=== PATIENT | female | born 1945 | race Caucasian/White ===

== ENCOUNTER → 2018-02-11 14:55 | Outpatient (CLI) | payer MEDICARE, SELFPAY ==
[2018-02-11 16:16] LABS: Anion Gap 9 (5-15); BUN 27 mg/dL (7-18); BUN/Creat Ratio 25.7 RATIO (10-20); Calcium,Total 8.8 mg/dL (8.5-10.1); Chloride 106 mmol/L (98-107); Cholesterol 209 mg/dL (200); Creatinine, Serum 1.05 mg/dL (0.55-1.02); EST Glomerular Filtration Rate 54 mL/min (>60); Est Glom Filt Rate - Afr Amer 66 mL/min (>60); Glucose 149 mg/dL (74-106); High Density Lipoprotein 33 mg/dL; Sodium Level 139 mmol/L (136-145); Thyroid Stim Hormone (TSH) 2.14 uIU/mL (0.358-3.74); Triglycerides 446 mg/dL
== END ==
PROVIDERS: Family Provider Family Medicine; PCP Family Medicine; Visit Provider Family Medicine
DX: Z00.00 Encounter for general adult medical examination without abnormal findings (principal); I10 Essential (primary) hypertension; F32.9 Major depressive disorder, single episode, unspecified
CPT/HCPCS: 36415; 80048; 80061; 84443

== ENCOUNTER 2018-11-09 03:56 | Emergency (ER) | payer MEDICARE, SELFPAY ==
[2018-11-09 03:57] VITALS: BP 161/62; PULSE 80; RESP 22; TEMP 37; O2SAT 94; BMI 35.8
[2018-11-09 03:59] VITALS: BP 161/62; PULSE 80; RESP 22; TEMP 37; O2SAT 94
[2018-11-09 04:00] VITALS: PULSE 77; RESP 22; O2SAT 93; O2SAT 94
--- NOTE | 2018-11-09 04:46 | EKG12_ITS ---
Test Reason : SOB Blood Pressure : / mmHG Vent. Rate : 078 BPM Atrial Rate : 078 BPM P-R Int : 148 ms QRS Dur : 114 ms QT Int : 438 ms P-R-T Axes : 044 045 054 degrees QTc Int : 499 ms Normal sinus rhythm Incomplete right bundle branch block Nonspecific ST abnormality Prolonged QT Abnormal ECG Confirmed by ELEN CHOWDHURY, YESSI ([id number]), food editor NELYL BAZZI ([id number] on 11/11/2018 2:37:10 PM Referred By: ADIS Confirmed By:YESSI MYRICK MD
--- NOTE | 2018-11-09 04:50 | ED.VIS.GEN ---
History of Present Illness Chief Complaint: Shortness of Breath Informant: Patient Onset: Days - 3 Context: Gradual Onset Timing: Continuous Quality: [employer] cough, sob Location: chest Current Severity: Mild Maximum Severity: Moderate Worsened by: coughing Relieved by: nothing in particular Associated Symptoms: congestion, chest tightness. no fevers. Narrative: Has a history of heart disease with mild coronary artery disease from a heart cath a year or 2 ago, concerned that she may be straining her heart because she is coughing so much in the last couple days. She is unable to sleep tonight because she is coughing so much. It is nonproductive. She is having some shortness of breath. - Past Medical History (1) GERD (gastroesophageal reflux disease) Status: Chronic (2) CAD (coronary artery disease), [place] coronary artery Status: Chronic (3) Aortic valve stenosis, rheumatic Status: Chronic (4) Diastolic dysfunction Status: Chronic (5) HTN (hypertension) Status: Chronic (6) Hypokalemia Status: Chronic (7) Hypothyroidism Status: Chronic (8) Rheumatic mitral insufficiency Status: Chronic Past Medical History - Allergies and Home Meds Allergies/Adverse Reactions: Allergies Penicillins Allergy (Verified 11/09/18 03:59) facial redness Primary Care Physician: Gal Butler MD [Primary Care Provider] - Smoking Status: Former smoker Review of Systems General: Reports: Malaise. Denies: Chills, Fever, Sweats Eyes: Denies: Visual changes - bilaterally, Diplopia ENT: Reports: Rhinorrhea, Sore throat - Mild, due to coughing. Denies: Bilateral ear pain Cardiovascular: Reports: Chest pain. Denies: Palpitations, Heart racing Respiratory: Reports: Dyspnea, Cough. Denies: Sputum, Dyspnea on exertion, Orthopnea Gastrointestinal: Denies: Abdominal pain, Nausea, Vomiting, Diarrhea, Melena, Hematochezia Genitourinary: Denies: Dysuria, Hematuria, Frequency Musculoskeletal: Denies: Swelling, Extremity Pain Skin: Denies: Rash, Wounds Neurological: Denies: Headache, Weakness, Numbness Psych: Denies: Depression, Anxiety Endocrine: Denies: Polyuria, Polydipsia Hematologic: Denies: Easy bruising, Easy bleeding Allergy: Denies: Swelling of the mouth, Swelling of the tongue Physical Exam Vital Signs/Narrative: Vital Signs Temp Pulse Resp BP Pulse Ox 11/09/18 04:00 77 22 H 94 11/09/18 03:59 98.6 F 80 22 H 161/62 H 94 11/09/18 03:57 98.6 F 80 22 H 161/62 H 94 Inital Vital Signs reviewed: Yes General: Well nourished, Well developed, - - No acute distress. Bronchitic cough. Head: Normocephalic, Atraumatic Eyes: Perrl, EOMI ENT: Moist mucous membranes, No rhinorrhea Neck: Supple, Nontender Cardiovascular: Regular rate, Regular rhythm, Murmur - Systolic crescendo Respiratory: No distress, Chest nontender, Rhonchi - Bibasilar, Chest tenderness - Diffuse mild tenderness. Negative for: Rales, Wheezing Abdomen: Soft, Nontender, Nondistended, Normal bowel sounds Back: Nontender, Normal Inspection Extremities: Nontender, No edema Skin: Normal color, No rash Neurological: Alert, Oriented x3, Cranial nerves II-XII grossly intact, Normal Strength, Normal Sensation Psychological: Normal affect Diagnostic/Tx/Re-eval Impressions Chest X-Ray 11/09/18 05:15 IMPRESSION: Interstitial density at both lung bases left greater than right. Cannot exclude acute pneumonia on chronic interstitial lung disease, particularly involving the left lower lobe. No significant change since the prior study. Electronically Signed: Alvaro Rivera MD at 5:39 EST , Service support , 11/09/18 05:15 Chest PA and Lateral [RAD] Stat Laboratory Results 11/09/18 11/09/18 11/09/18 04:00 04:00 04:00 WBC 13.9 H RBC 4.58 Hgb 14.9 Hct 43.7 MCV 95.4 MCH 32.5 H MCHC 34.1 RDW 12.2 RDW Differential 41.8 Plt Count 269 MPV 10.0 Immature Gran % (Auto) 0.400 Neut % (Auto) 68.5 Lymph % (Auto) 20.0 Long % (Auto) 9.9 Eos % (Auto) 0.9 Baso % (Auto) 0.3 Absolute Neuts (auto) 9.5 H Absolute Lymphs (auto) 2.77 Total Counted Not Reportable Sodium 138 Potassium 3.9 Chloride 102 Carbon Dioxide 25.0 Anion Gap 11 BUN 16 Creatinine 0.84 Estim Creat Clear Calc 47.87 Est GFR (MDRD) Af Amer 84 Est GFR (MDRD) Non-Af 70 BUN/Creatinine Ratio 19.0 Glucose 120 H Calcium 8.9 Troponin I < 0.015 B-Natriuretic Peptide 122.6 H - Rhythm Strip Rhythm Strip: Sinus Rhythm Rate: 80 Ectopy: None - EKG Initial EKG Interpretation: Sinus Rhythm, No Acute Injury Pattern, - - Incomplete right bundle branch block. Normal axis. Normal intervals. Otherwise normal EKG. - Medical Decision Making Patient really feels no different after nebulizer treatment, she is complaining more of her cough than of shortness of breath. She is having some muscle spasms on the left side of her chest. Her cardiac workup is negative, and her chest x-ray shows interstitial disease and possible early pneumonia. She has not been hospitalized recently. Her vital signs are stable and she is not hypoxic. She is malaised, and she lives alone. I offered admission, but she declines and prefers to go home. Will prescribe her Levaquin to cover pneumonia and have her follow-up with her doctor. She is comfortable with that plan. Also discussed with the son and answered several questions at the bedside. ED Disposition - Plan for ED Patient: Disposition: Home or Assisted Living Chief Complaint: Shortness of Breath Diagnosis: Lower respiratory tract infection, Muscular chest pain Instructions: ED Pneumonia Adult Prescriptions: Albuterol Inhaler [Ventolin Hfa] 1 - 2 puff INHALATION Q4H PRN PRN #1 inhaler PRN Reason: Wheezing Fluconazole [Diflucan] 150 mg PO X1 #1 tablet Levofloxacin [Levaquin] 750 mg PO DAILY #5 tablet Referrals: Gal Butler MD [Primary Care Provider] - 3-5 Days
[2018-11-09] MEDS: Ipratropium/Albuterol Sulfate 3 ML AMPUL.NEB INHALATION (04:57)
[2018-11-09 04:58] VITALS: PULSE 77; RESP 16
[2018-11-09 05:14] LABS: Absolute Lymphocyte Count 2.77 X10^3/ul (0.83-4.51); Absolute Neutrophil Count 9.5 X10^3/uL (2.0-7.7); Basophil# 0.04 X10^3/uL; Basophil% 0.3 % (0-1); Eosinophil# 0.12 X10^3/uL; Eosinophils% 0.9 % (0-5); Hematocrit 43.7 % (37-47); Hemoglobin 14.9 g/dl (12.0-15.0); Lymphocyte # 2.77 X10^3/ul (4.0); Mean Corp Hgb Conc 34.1 g/gl (32-36); Mean Corpuscular Hgb 32.5 pg (27.0-32.0); Mean Corpuscular Volume 95.4 fL (81-99); Monocyte# 1.37 X10^3/uL; Monocyte% 9.9 % (0-10); Neutrophil # 9.53 X10^3/uL (2.7-7.7); Neutrophil % 68.5 % (47-70); Platelet Count 269 K/mm3 (150-450); RBC Distribution Width CV 12.2 % (11.6-14.6); RBC Distribution Width SD 41.8 fl (35.1-43.9); Red Blood Count 4.58 M/mm3 (4.2-5.4); White Blood Count 13.9 K/mm3 (4.4-11.0)
--- NOTE | 2018-11-09 05:15 | RAD_ITS ---
STUDY: X-RAY CHEST REASON FOR EXAM: Female, 73 years old. Cough with shortness of breath. TECHNIQUE: PA and lateral chest. COMPARISON: January 23, 2018. FINDINGS: Interstitial density at both lung bases left much greater than right without significant change. No effusions. No pneumothorax. Normal size heart. Normal mediastinum and dave. Normal visualized pulmonary arteries. Normal visualized aortic arch and descending thoracic aorta. Normal visualized thoracic spine. Normal visualized ribs, clavicles, and shoulders. There is no demonstrated abnormality of the visualized soft tissue structures of the upper abdomen. RAD/Chest PA and Lateral IMPRESSION: Interstitial density at both lung bases left greater than right. Cannot exclude acute pneumonia on chronic interstitial lung disease, particularly involving the left lower lobe. No significant change since the prior study. Electronically Signed: Alvaro Rivera MD at 5:39 EST , Service support ,
[2018-11-09 05:26] LABS: Anion Gap 11 (5-15); BUN 16 mg/dL (7-18); Calcium,Total 8.9 mg/dL (8.5-10.1); Chloride 102 mmol/L (98-107); Creatinine, Serum 0.84 mg/dL (0.55-1.02); EST Glomerular Filtration Rate 70 mL/min (>60); Est Glom Filt Rate - Afr Amer 84 mL/min (>60); Estimated Creatinine Clearance 47.87 ml/min; Glucose 120 mg/dL (74-106); Potassium 3.9 mmol/L (3.5-5.1); Sodium Level 138 mmol/L (136-145)
[2018-11-09 05:35] LABS: POSITIVE COUNT NO; POSITIVE DIFFERENTIAL NO; POSITIVE MORPHOLOGY NO
[2018-11-09 05:43] LABS: BNP,B-Type NATRIURETIC PEPTIDE 122.6 pg/mL (0-100)
[2018-11-09 05:52] VITALS: BP 133/65; PULSE 83; RESP 23; TEMP 37.3; O2SAT 95
[2018-11-09 07:12] VITALS: BP 133/58; PULSE 81; RESP 16; TEMP 37.3; O2SAT 97
== END 2018-11-09 07:18 | disposition home or self-care (01) ==
PROVIDERS: Emergency Provider Emergency Medicine; Family Provider Family Medicine; PCP Family Medicine
DX: J22 Unspecified acute lower respiratory infection (principal); R07.89 Other chest pain; I25.10 Atherosclerotic heart disease of native coronary artery without angina pectoris; I08.0 Rheumatic disorders of both mitral and aortic valves; I10 Essential (primary) hypertension; E87.6 Hypokalemia; I45.10 Unspecified right bundle-branch block; K21.9 Gastro-esophageal reflux disease without esophagitis; Z79.899 Other long term (current) drug therapy; Z88.0 Allergy status to penicillin; Z87.891 Personal history of nicotine dependence
CPT/HCPCS: 71046; 80048; 83880; 84484; 85025; 93005; 94640; 99285; A4216

== ENCOUNTER → 2018-11-12 11:30 | Outpatient (CLI) | payer MEDICARE, SELFPAY ==
[2018-11-09 03:57] VITALS: BMI 35.8
[2018-11-12 14:26] LABS: Anion Gap 14 (5-15); BUN 13 mg/dL (7-18); BUN/Creat Ratio 17.4 RATIO (10-20); Calcium,Total 8.8 mg/dL (8.5-10.1); Chloride 105 mmol/L (98-107); Creatinine, Serum 0.75 mg/dL (0.55-1.02); EST Glomerular Filtration Rate 80 mL/min (>60); Est Glom Filt Rate - Afr Amer 97 mL/min (>60); Glucose 93 mg/dL (74-106); Sodium Level 143 mmol/L (136-145)
== END ==
PROVIDERS: Family Provider Family Medicine; PCP Family Medicine; Visit Provider Family Medicine
DX: Z02.9 Encounter for administrative examinations, unspecified (principal)
CPT/HCPCS: 36415; 80048

== ENCOUNTER → 2018-11-17 14:29 | Outpatient (CLI) | payer MEDICARE, SELFPAY ==
[2018-11-09 03:57] VITALS: BMI 35.8
--- NOTE | 2018-11-17 14:35 | CT_ITS ---
STUDY: CT CHEST WITH CONTRAST REASON FOR EXAM: Female, 73 years old. Interstitial lung disease. Pneumonia. RADIATION DOSAGE (If Supplied By Facility): CTDIvol = ( 15.66 ) mGy, DLP = ( 587.65 ) mGycm TECHNIQUE: Transaxial imaging was performed following intravenous administration of 100 ml of Isovue 300 contrast material. Coronal and sagittal reformatted images were created. Individualized dose optimization techniques were used for this CT. COMPARISON: None FINDINGS: There are peripheral increased interstitial markings with subpleural reticulation. There is more focal opacity at the lung bases which is likely infectious in etiology. There are no pulmonary nodules or masses. There is no pneumothorax. The heart and pericardium are within normal limits. There are mitral valvular calcifications. There is no thoracic lymphadenopathy. There is no evidence of thoracic aortic aneurysm. There is a moderate hiatal hernia noted. The liver is nodular in contour, suggesting cirrhosis. There are no destructive osseous lesions. CT/Chest WITH Contrast IMPRESSION: Peripheral increased interstitial markings with subpleural reticulation. 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 Focal opacity at the lung bases which is likely infectious in etiology. Mitral valvular calcifications. Moderate hiatal hernia. Nodular liver, suggesting cirrhosis. Electronically Signed: Rajinder Parker, at 16:11 EST Tel , Service support ,
== END ==
PROVIDERS: Family Provider Family Medicine; PCP Family Medicine; Referring Provider Family Medicine; Visit Provider Family Medicine
DX: J84.9 Interstitial pulmonary disease, unspecified (principal)
CPT/HCPCS: 71260; Q9967

== ENCOUNTER → 2018-11-19 15:41 | Outpatient (CLI) | payer MEDICARE, SELFPAY ==
[2018-11-09 03:57] VITALS: BMI 35.8
[2018-11-19 18:03] LABS: ALB/GLOB Ratio 0.8 RATIO (0.9-2.4); AST(SGOT) 12 U/L (15-37); Alanine Aminotransfer ALT/SGPT 23 U/L (13-56); Albumin, Serum 3.3 g/dL (3.2-5.0); Alkaline Phosphatase 47 U/L (45-117); Anion Gap 9 (5-15); BUN 20 mg/dL (7-18); BUN/Creat Ratio 24.9 RATIO (10-20); Calcium,Total 8.9 mg/dL (8.5-10.1); Chloride 105 mmol/L (98-107); EST Glomerular Filtration Rate 74 mL/min (>60); Est Glom Filt Rate - Afr Amer 90 mL/min (>60); Globulin 4.3 g/dL (2.2-4.2); Glucose 92 mg/dL (74-106); Iron 190 ug/dL (50-170); Iron Binding Capacity,Total 223 ug/dL (250-450); PERCENT IRON SATURATION 85.2 % (15.0-55.0); Potassium 3.5 mmol/L (3.5-5.1); Protein, Total 7.6 g/dL (6.4-8.2); Sodium Level 140 mmol/L (136-145)
== END ==
PROVIDERS: Family Provider Family Medicine; PCP Family Medicine; Referring Provider Family Medicine; Visit Provider Family Medicine
DX: K74.60 Unspecified cirrhosis of liver (principal); E83.119 Hemochromatosis, unspecified
CPT/HCPCS: 36415; 80053; 83540; 83550

== ENCOUNTER → 2019-06-07 14:53 | Outpatient (CLI) | payer MEDICARE, SELFPAY ==
[2019-05-21 09:44] VITALS: BMI 35.8
[2019-06-07 11:50] LABS: AST(SGOT) 17 U/L (15-37); Alanine Aminotransfer ALT/SGPT 20 U/L (13-56); Albumin, Serum 3.3 g/dL (3.2-5.0); Alkaline Phosphatase 57 U/L (45-117); Cholesterol 175 mg/dL (200); Globulin 3.8 g/dL (2.2-4.2); High Density Lipoprotein 36 mg/dL; Protein, Total 7.1 g/dL (6.4-8.2); Triglycerides 276 mg/dL; Very Low Density Lipoprotein 55 mg/dL (5-40)
== END ==
PROVIDERS: Family Provider Family Medicine; PCP Family Medicine; Referring Provider Internal Medicine Cardiovascular Disease; Visit Provider Internal Medicine Cardiovascular Disease
DX: I25.10 Atherosclerotic heart disease of native coronary artery without angina pectoris (principal)
CPT/HCPCS: 36415; 80061; 80076; 93306; Q9957; A4216; C8929

== ENCOUNTER → 2019-09-27 12:02 | Outpatient (CLI) | payer MEDICARE, SELFPAY ==
[2019-05-21 09:44] VITALS: BMI 35.8
[2019-09-27 14:25] LABS: Anion Gap 9 (5-15); BUN 21 mg/dL (7-18); BUN/Creat Ratio 20.8 RATIO (10-20); Calcium,Total 9.6 mg/dL (8.5-10.1); Chloride 103 mmol/L (98-107); Cholesterol 190 mg/dL (200); Creatinine, Serum 1.01 mg/dL (0.55-1.02); EST Glomerular Filtration Rate 57 mL/min (>60); Est Glom Filt Rate - Afr Amer 68 mL/min (>60); Glucose 98 mg/dL (74-106); High Density Lipoprotein 36 mg/dL; Potassium 4.1 mmol/L (3.5-5.1); Sodium Level 139 mmol/L (136-145); Thyroid Stim Hormone (TSH) 2.31 uIU/mL (0.358-3.74); Triglycerides 211 mg/dL; Very Low Density Lipoprotein 42 mg/dL (5-40)
== END ==
PROVIDERS: Family Provider Family Medicine; PCP Family Medicine; Visit Provider Family Medicine
DX: I10 Essential (primary) hypertension (principal); E03.9 Hypothyroidism, unspecified
CPT/HCPCS: 36415; 80048; 80061; 84443

== ENCOUNTER 2019-10-07 23:40 | Inpatient (IN) | payer MEDICARE, MEDICAID, SELFPAY ==
[2019-05-21 09:44] VITALS: BMI 35.8
[2019-10-07 23:45] VITALS: BP 130/90; PULSE 66; RESP 20; TEMP 35.3; O2SAT 95; BMI 34.4
--- NOTE | 2019-10-07 23:54 | EKG12_ITS ---
Test Reason : DIZZINESS Blood Pressure : / mmHG Vent. Rate : 062 BPM Atrial Rate : 062 BPM P-R Int : 180 ms QRS Dur : 128 ms QT Int : 532 ms P-R-T Axes : 076 070 044 degrees QTc Int : 539 ms Normal sinus rhythm Non-specific intra-ventricular conduction block Abnormal ECG Confirmed by MIN CHOWDHURY, AGGIE ([id number]), scientific publications editor NELLY BAZZI ([id number]) on 10/11/2019 11:41:00 AM Referred By: VASQUEZ Confirmed By:AGGIE COPELAND MD
--- NOTE | 2019-10-07 23:56 | ED.VIS.GEN ---
History of Present Illness Chief Complaint: Nausea/Vomiting/Diarrhea Informant: Patient Onset: Weeks Current Severity: Moderate Maximum Severity: Moderate Narrative: Patient presents with complaints of nausea, vomiting, dizziness. She states for the past week she had nausea and dizziness. Tonight she started with vomiting and diarrhea as well. She is unable to describe for me whether her dizziness is lightheadedness or spinning. She does, however, states that any movement makes her dizziness worse. She denies chest pain or palpitations. She denies recent fall or head injury. Patient states she did get her flu shot 4 days ago. Her doctor also started her on something new for depression at that time. She states she did not start that until a day or 2 later. After taking that new medication she felt dizzy. - Past Medical History (1) Aortic valve stenosis, rheumatic Status: Chronic (2) Atherosclerotic heart disease of [place] coronary artery without angina pectoris Status: Chronic Comment: Mild (3) Essential hypertension Status: Chronic (4) GERD (gastroesophageal reflux disease) Status: Chronic (5) Hypothyroidism Status: Chronic (6) Mixed hyperlipidemia Status: Chronic Past Medical History - Allergies and Home Meds Allergies/Adverse Reactions: Allergies Penicillins Allergy (Verified 05/21/19 09:44) facial redness Primary Care Physician: Gal Butler MD [Primary Care Provider] - Prior records reviewed: Yes Surgical History: hysterectomy Smoking Status: Former smoker Review of Systems General: Denies: Chills, Fever Eyes: Denies: Visual changes - bilaterally ENT: Denies: Bilateral ear pain Cardiovascular: Denies: Chest pain Respiratory: Reports: Dyspnea Gastrointestinal: Reports: Nausea, Vomiting, Diarrhea. Denies: Abdominal pain Genitourinary: Denies: Dysuria Musculoskeletal: Denies: Extremity Pain Skin: Denies: Rash Neurological: Denies: Headache Psych: Reports: Anxiety Allergy: Denies: Uticaria Physical Exam Vital Signs/Narrative: Vital Signs Temp Pulse Resp BP Pulse Ox 10/07/19 23:45 95.5 F L 66 20 H 130/90 H 95 Inital Vital Signs reviewed: Yes General: Well nourished Head: Normocephalic ENT: Moist mucous membranes Neck: Supple Cardiovascular: Regular rate, Regular rhythm Respiratory: No distress, CTA bilaterally Abdomen: Soft, Nontender, Hypoactive bowel sounds Skin: Pallor Neurological: Alert Psychological: - - Anxious Diagnostic/Tx/Re-eval Impressions Brain CT 10/08/19 00:05 IMPRESSION: No CT evidence of acute infarct or hemorrhage. If there is clinical concern for hyperacute ischemia that is not evident by CT, MRI should be considered if possible. Electronically Signed: Serge Bailey MD at 1:12 EST Tel , Service support , 10/08/19 00:05 Brain/Head without Contrast [CT] Stat Laboratory Results 10/07/19 10/07/19 10/08/19 23:59 23:59 01:28 WBC 9.6 RBC 4.74 Hgb 15.4 H Hct 43.9 MCV 92.6 MCH 32.5 H MCHC 35.1 RDW Std Deviation 38.9 RDW Coeff of [place] 11.5 L Plt Count 242 MPV 9.4 Immature Gran % (Auto) 0.300 Neut % (Auto) 46.6 L Lymph % (Auto) 39.4 [place] % (Auto) 11.1 H Eos % (Auto) 1.9 Baso % (Auto) 0.7 Absolute Neuts (auto) 4.5 Absolute Lymphs (auto) 3.76 Nucleated RBC % 0 Sodium 139 Potassium 3.2 L Chloride 104 Carbon Dioxide 25.0 Anion Gap 10 BUN 27 H Creatinine 1.30 H Estim Creat Clear Calc 31.79 Est GFR (MDRD) Af Amer 51 L Est GFR (MDRD) Non-Af 42 L BUN/Creatinine Ratio 20.8 H Glucose 136 H Calcium 8.7 Total Bilirubin 0.30 Direct Bilirubin 0.11 AST 16 ALT 18 Alkaline Phosphatase 49 Total Protein 7.7 Albumin 3.5 Globulin 4.2 Lipase 34 L Urine Color Yellow Urine Clarity Clear Urine pH 6.0 Ur Specific [place] 1.015 Urine Protein Negative Urine Glucose (UA) Normal Urine Ketones Negative Urine Occult Blood 10 H Urine Nitrite Negative Urine Bilirubin Negative Urine Urobilinogen Normal Ur Leukocyte Esterase 25 H Urine RBC 0-5 SEEN Urine WBC 0-5 SEEN Ur Squamous Epith Cells 0-5 SEEN Urine Bacteria RARE Hyaline Casts 0-5 SEEN Urine Mucus RARE - EKG Initial EKG Interpretation: Sinus Rhythm - Sinus at 62. No acute ischemia. - Medical Decision Making Patient was initially given Zofran on arrival. Due to continued nausea she did receive a dose of Phenergan. It is noted that the patient would become bradycardic when she was having dry heaves and vomiting. This is consistent with a vagal reaction and patient's heart rate would quickly recover. She did not have syncope while in the emergency room. At this time patient is resting comfortably. She states that she moves herself slowly she is able to do so without much dizziness. Patient is able to answer questions slightly better at this time. She states for the past week she has had a queasy feeling in her stomach with a warm sensation up into her throat. Tonight she became dizzy where she feels like things are moving or spinning. Test results are discussed with the patient. I will speak with the hospitalist regarding admission for further evaluation and treatment. ED Disposition - Plan for ED Patient: Disposition: Acute Care Hospital [facility] Diagnosis: Vertigo, Vomiting Referrals: Gal Butler MD [Primary Care Provider] -
[2019-10-08] VITALS (13 sets, daily range): BP systolic 108–137; BP diastolic 46–90; PULSE 51–70; RESP 12–24; TEMP 36.4–36.7; O2SAT 95–98; BMI 35.4
[2019-10-08] MEDS: Ondansetron 4 MG/2 ML Vial IV (00:03)
--- NOTE | 2019-10-08 00:05 | CT_ITS ---
STUDY: CT BRAIN WITHOUT CONTRAST REASON FOR EXAM: Female, 74 years old. Dizzy and vomiting RADIATION DOSAGE (If Supplied By Facility): CTDIvol = ( 44.99 ) mGy, DLP = ( 829.85 ) mGycm TECHNIQUE: Transaxial CT imaging of the brain was performed without administration of intravenous contrast material. Individualized dose optimization techniques were used for this CT. COMPARISON: No relevant priors. FINDINGS: Normal soft tissue structures. Normal calvarium. Bilateral lens replacements. Normal size ventricles and extra-axial spaces for the patient's age. There are areas of decreased attenuation within the white matter tracts of the supratentorial brain, consistent with microvascular disease changes. Normal age-related changes of the basal ganglia. Normal brainstem. Normal cerebellum. There is no intracranial hemorrhage. There are no findings of an acute ischemic infarction. Normal visualized paranasal sinuses. CT/Brain/Head without Contrast IMPRESSION: No CT evidence of acute infarct or hemorrhage. If there is clinical concern for hyperacute ischemia that is not evident by CT, MRI should be considered if possible. Electronically Signed: Serge Bailey MD at 1:12 EST Tel , Service support ,
[2019-10-08 00:06] LABS: Absolute Lymphocyte Count 3.76 X10^3/uL (0.83-4.51); Absolute Neutrophil Count 4.5 X10^3/uL (2.0-7.7); Basophil# 0.07 X10^3/uL; Basophil% 0.7 % (0-1); Eosinophil# 0.18 X10^3/uL; Eosinophils% 1.9 % (0-5); Hematocrit 43.9 % (37-47); Hemoglobin 15.4 g/dL (12.0-15.0); Lymphocyte # 3.76 X10^3/ul (4.0); Lymphocyte % 39.4 % (19-41); Mean Corp Hgb Conc 35.1 g/dL (32-36); Mean Corpuscular Hgb 32.5 pg (27.0-32.0); Mean Corpuscular Volume 92.6 fL (81-99); Mean Platelet Vol. 9.4 fl (6.2-12.0); Monocyte# 1.06 X10^3/uL; Monocyte% 11.1 % (0-10); NRBC Flagged by Analyzer 0 % (0-5); Neutrophil # 4.45 X10^3/uL (2.7-7.7); Neutrophil % 46.6 % (47-70); Platelet Count 242 K/mm3 (150-450); RBC Distribution Width CV 11.5 % (11.6-14.6); RBC Distribution Width SD 38.9 fl (35.1-43.9); Red Blood Count 4.74 M/mm3 (4.2-5.4); White Blood Count 9.6 K/mm3 (4.4-11.0)
[2019-10-08 00:21] LABS: AST(SGOT) 16 U/L (15-37); Alanine Aminotransfer ALT/SGPT 18 U/L (13-56); Albumin, Serum 3.5 g/dL (3.2-5.0); Alkaline Phosphatase 49 U/L (45-117); Anion Gap 10 (5-15); BUN 27 mg/dL (7-18); BUN/Creat Ratio 20.8 RATIO (10-20); Bilirubin, Direct 0.11 mg/dL (0.00-0.30); Calcium,Total 8.7 mg/dL (8.5-10.1); Chloride 104 mmol/L (98-107); EST Glomerular Filtration Rate 42 mL/min (>60); Est Glom Filt Rate - Afr Amer 51 mL/min (>60); Estimated Creatinine Clearance 31.79 ml/min; Globulin 4.2 g/dL (2.2-4.2); Glucose 136 mg/dL (74-106); Lipase 34 U/L (73-393); Potassium 3.2 mmol/L (3.5-5.1); Protein, Total 7.7 g/dL (6.4-8.2); Sodium Level 139 mmol/L (136-145)
[2019-10-08] MEDS: proMETHazine 25 MG/ML Syringe 12.5 MG IV (00:36)
[2019-10-08] MEDS: 0.9% Normal Saline 1,000 ML 150 ML IV (00:36)
--- NOTE | 2019-10-08 00:45 | ED.RN ---
PATIENT WENT BRADICARDIC DURING HER LAST VOMITING SPELL. WAS AT THE BEDSIDE. PHENERGAN WAS ORDERED AND GIVEN BY THIS NURSE.
[2019-10-08 01:32] LABS: Color, Urine Yellow (Yellow); Glucose, Dipstick Normal (Normal); Ketone-Dipstick Negative (Negative); Leukocyte Esterase-Dipstick 25 /ul (Negative); Nitrite-Dipstick Negative (Negative); Occult Blood-Urine 10 /ul (Negative); Protein-Dipstick Negative (Negative); Specific Gravity, Urine 1.015 (1.002-1.030); Urine Bilirubin Dipstick Negative (Negative); Urine Clarity Clear (Clear); Urine Urobilinogen Normal (Normal)
[2019-10-08 01:39] LABS: Bacteria RARE /hpf (None Seen); Hyaline Cast 0-5 SEEN /lpf (0-5); Mucous, Urine RARE /hpf (<or=2+); Red Blood Cells-Urine 0-5 SEEN /hpf (0-5); Squamous Epithelial Cells - UA 0-5 SEEN /hpf (5-10); White Blood Cells 0-5 SEEN /hpf (0-5)
--- NOTE | 2019-10-08 02:00 | PCM.HP.STD ---
Problem List (1) Intractable nausea and vomiting Status: Acute (2) Diarrhea Status: Acute (3) Vertigo Status: Acute (4) Mixed hyperlipidemia Status: Chronic (5) Atherosclerotic heart disease of [place] coronary artery without angina pectoris Status: Chronic Qualifiers: [place] vs. transplanted heart: [place] heart Qualified Code(s): I25.10 - Atherosclerotic heart disease of [place] coronary artery without angina pectoris Comment: Mild (6) Essential hypertension Status: Chronic (7) GERD (gastroesophageal reflux disease) Status: Chronic (8) Hypokalemia Status: Acute (9) Diastolic dysfunction Status: Chronic (10) Aortic valve stenosis, rheumatic Status: Chronic (11) Rheumatic mitral insufficiency Status: Chronic (12) Hypothyroidism Status: Chronic History of Present Illness Date of Admission: 10/08/19 Chief Complaint: vomiting The patient is a 74 year old F with a significant history of hypertension; GERD; hypothyroidism; diastolic heart failure; rheumatic mitral insufficiency and hyperlipidemia who presented to the emergency department with vomiting started on the same day of presentation. Associated with his symptoms is diarrhea. Also patient has been nauseous for about 1 week. At the emergency department patient continued to vomit after receiving Zofran and Phenergan. Also patient reports vertigo any time she moves in the bed. At the emergency department patient was found to have multiple episodes of bradycardia while vomiting. History is difficult to obtain from patient as she is in acute distress from vomiting. She reported that she was started on some new medication for her heart and she attributes her vomiting to that. Also she received flu shots about a week ago stating that her symptoms may be related to the flu shot since about a year ago after receiving flu shot she became sick. Past Medical History Past Medical History (Chronic Problems): Chronic Problems (Last Updated 06/08/19 @ 09:59 by Darleen Will) Mixed hyperlipidemia (Chronic) Atherosclerotic heart disease of [place] coronary artery without angina pectoris (Chronic) Mild Essential hypertension (Chronic) GERD (gastroesophageal reflux disease) (Chronic) Diastolic dysfunction (Chronic) Aortic valve stenosis, rheumatic (Chronic) Rheumatic mitral insufficiency (Chronic) Hypothyroidism (Chronic) Medical History: Medical History (Last Updated 06/08/19 @ 09:59 by Darleen Will) Mixed hyperlipidemia (Chronic) E78.2 Atherosclerotic heart disease of [place] coronary artery without angina pectoris (Chronic) I25.10 Mild Essential hypertension (Chronic) I10 Injury to blood vessels, unspecified site (Inactive) T14.8XXA Hypokalemia (Acute) E87.6 Diastolic dysfunction (Chronic) I51.9 Aortic valve stenosis, rheumatic (Chronic) I06.0 Rheumatic mitral insufficiency (Chronic) I05.1 Hypothyroidism (Chronic) E03.9 History of left heart catheterization (LHC) Onset Date: ~02/28/17 Z98.890 Left Main: normal, Mid LAD: mild luminal irregularities, Mid CX: mild luminal irregularities, Prox/Mid RCA: mild luminal irregularities Allergies Penicillins Allergy (Verified 05/21/19 09:44) facial redness Home Medications: Ambulatory Orders Medication Instructions Recorded Hydrochlorothiazide [Hctz] 25 mg PO DAILY 02/27/17 Levothyroxine Sodium [Levoxyl] 25 mcg PO DAILY 02/27/17 Omeprazole [Prilosec] 40 mg PO DAILY 02/27/17 potassium chloride ER 10 mEq 10 meq PO DAILY #180 cap 06/08/19 capsule,extended release metoprolol succinate ER 100 mg 100 mg PO DAILY #135 tab 06/24/19 tablet,extended release 24 hr Surgical History: Surgical History (Last Reviewed 05/21/19 @ 09:47 by Darleen Will) History of liver biopsy Z98.890 History of partial hysterectomy Z90.711 History of tubal ligation Z98.51 Surgical History: hysterectomy Smoking Status: Former smoker - *Family History Maternal History Items: Heart Disease Paternal History Items: - - Patient does not know about her paternal medical history Review of Systems Constitutional: Reports: Anorexia. Denies: Chills, Fever, Weight Change HEENT: Reports: Head Aches. Denies: Sinus Congestion, Sinus Drainage Cardiovascular: Denies: Chest Pain, Palpitations Respiratory: Denies: Cough, Shortness of breath at rest, Sputum production Gastrointestinal: Reports: Diarrhea, Nausea, Vomiting. Denies: Abdominal Pain Genitourinary: Denies: Dysuria Musculoskeletal: Denies: Joint Pain, Joint Tenderness Skin: Denies: Rash, Wounds Neurological: Denies: Numbness, Tingling, Focal weakness Psychiatric: Denies: Anxiety, Depression, Homicidal Ideations, Suicidal Ideations Hematologic/ Lymphatic: Denies: Easy Bruising, Easy Bleeding VTE Information - Inpt Only VTE Present on Admission: No VTE Mechan Device Prophylaxis: None VTE Pharm Prophylaxis ordered?: Yes Patient Problems: Active and Suspected Problems (Last Updated 06/08/19 @ 09:59 by Darleen Will) Vertigo (Acute) Vomiting (Acute) Intractable nausea and vomiting (Acute) Diarrhea (Acute) - Physical Exam Vitals/I&O's: Vital Signs Temp Pulse Resp BP Pulse Ox 97.5 F L 66 24 H 130/90 H 97 10/08/19 01:35 10/08/19 01:35 10/08/19 01:35 10/08/19 01:35 10/08/19 01:35 Oxygen Flow Rate (L/min) 2 Oxygen Delivery Method Nasal Cannula Weight: 91.2 kg Body Mass Index (BMI) 34.4 General: Alert, Oriented x3, - - In distress secondary to nausea; and vomiting HEENT: Atraumatic, PERRLA, EOMI, Normocephalic Neck: Supple, No JVD, Negative Carotid Bruits Lungs: Clear to auscultation, Normal air movement Cardiovascular: Regular rate, Normal S1, Normal S2, Murmur Abdomen: Bowel Sounds Present, Soft, Non Tender Extremities: No edema, Capillary Refill Less than 3 Seconds Skin: No rashes, No breakdown Musculoskeletal: No Tenderness to Palpation of Joints or Extremities Neurological: Cranial nerves II-XII grossly intact Psych/Mental Status: Normal Affect, Appropriate Laboratory Results 10/07/19 23:59: WBC 9.6, RBC 4.74, Hgb 15.4 H, Hct 43.9, MCV 92.6, MCH 32.5 H, MCHC 35.1, RDW Std Deviation 38.9, RDW Coeff of Kwasi 11.5 L, Plt Count 242, MPV 9.4, Immature Gran % (Auto) 0.300, Neut % (Auto) 46.6 L, Lymph % (Auto) 39.4, Travis % (Auto) 11.1 H, Eos % (Auto) 1.9, Baso % (Auto) 0.7, Absolute Neuts (auto) 4.5, Absolute Lymphs (auto) 3.76, Nucleated RBC % 0 10/07/19 23:59: Sodium 139, Potassium 3.2 L, Chloride 104, Carbon Dioxide 25.0, Anion Gap 10, BUN 27 H, Creatinine 1.30 H, Estim Creat Clear Calc 31.79, Est GFR (MDRD) Af Amer 51 L, Est GFR (MDRD) Non-Af 42 L, BUN/Creatinine Ratio 20.8 H, Glucose 136 H, Calcium 8.7, Total Bilirubin 0.30, Direct Bilirubin 0.11, AST 16, ALT 18, Alkaline Phosphatase 49, Total Protein 7.7, Albumin 3.5, Globulin 4.2, Lipase 34 L 10/08/19 01:28: Urine Color Yellow, Urine Clarity Clear, Urine pH 6.0, Ur Specific [place] 1.015, Urine Protein Negative, Urine Glucose (UA) Normal, Urine Ketones Negative, Urine Occult Blood 10 H, Urine Nitrite Negative, Urine Bilirubin Negative, Urine Urobilinogen Normal, Ur Leukocyte Esterase 25 H, Urine RBC 0-5 SEEN, Urine WBC 0-5 SEEN, Ur Squamous Epith Cells 0-5 SEEN, Urine Bacteria RARE, Hyaline Casts 0-5 SEEN, Urine Mucus RARE Current Medications Sodium Chloride () 1,000 mls @ 150 mls/hr IV .[id number] [facility] Last Admin: 10/08/19 00:36 Dose: 150 mls/hr Documented by: Assessment/Plan All Active Problems (Last Updated 06/08/19 @ 09:59 by Darleen Will) Vertigo (Acute) Vomiting (Acute) Intractable nausea and vomiting (Acute) Diarrhea (Acute) Hypokalemia (Acute) The patient is a 74 year old F with a significant history of hypertension; GERD; hypothyroidism; diastolic heart failure; rheumatic mitral insufficiency and hyperlipidemia who presented to the emergency department with intractable nausea vomiting diarrhea and with vertigo. Vertigo Order MRI/MRA of the head and neck Patient has had multiple episodes of vomiting and should not be able to tolerate p.o. at this time. Ativan IV as needed for vertigo. Zofran and Compazine as needed for nausea vomiting Acute gastroenteritis intractable nausea vomiting and diarrhea History is inconsistent as patient stated that his symptoms started after beginning some kind of new medication. Also she reported her symptoms started after eating soup. Supportive treatment with IV hydration and antiemetics Check enteric pathogen panel N.p.o. for now Hypokalemia: On presentation her potassium was 3.2. Of note patient is on home hydrochlorothiazide with potassium supplementation. Hypokalemia could be multifactorial from diuretic use and from vomiting. IV potassium supplementation ordered. Hypomagnesemia Magnesium level 1.5. IV magnesium ordered. DVT prophylaxis Subcutaneous Lovenox. Code Visit OBSV E&M: [id number] Initial observation care L3
[2019-10-08] MEDS: proCHLORPERazine 10 MG/2 ML Vial 5 MG IV (02:26)
--- NOTE | 2019-10-08 03:26 | ED.RN ---
ALICIA WORLEY (PATIENT'S SON) CALLED IN AND THIS NURSE GAVE HIM AN UPDATE ALONG WITH INFORMATION ABOUT HER ROOM NUMBER AND PHONE NUMBER TO THE FLOOR SHE IS ON.
--- NOTE | 2019-10-08 03:35 | MRI_ITS ---
STUDY: MRA OF THE HEAD WITHOUT CONTRAST REASON FOR EXAM: Female, 74 years old. Dizziness TECHNIQUE: 3-D [id number] (TOF) imaging was performed with MIPs. The study was performed unenhanced. COMPARISON: None. FINDINGS: Bilateral base of skull carotids, bifurcations, anterior and middle cerebral arteries and proximal branches are patent. There is a origin of the left ORACLE TECHNICAL ARCHITECT. Right posterior communicating artery is small. Posterior cerebral arteries and superior cerebellar arteries and proximal branches are patent. Vertebral arteries are patent. There is decreased flow signal in the mid basilar, possibly stenosis versus artifact. MRI/MRA Head ONLY without Contrast IMPRESSION: Questionable basilar stenosis. Refer to CT angiography of the head for confirmation. Patent anterior circulation. Electronically Signed: Kaden Banegas, at 16:50 EST Tel , Service support ,
--- NOTE | 2019-10-08 03:35 | MRI_ITS ---
STUDY: MRA NECK WITHOUT CONTRAST REASON FOR EXAM: Female, 74 years old. Dizziness confusion TECHNIQUE: Source images were obtained, MIPs were performed. The study was performed unenhanced. COMPARISON: None. FINDINGS: Examination is degraded due to suboptimal technique. Contrast was not utilized. Assessment of stenosis is not possible. Flow signal is present bilaterally in the common internal and external carotid arteries and vertebral arteries. MRI/MRA Neck without Contrast IMPRESSION: 1. Limited examination. 2. No large vessel occlusion. 3. Present flow in all cervical arteries. If definitive assessment is desired CT angiography of the neck is the study of choice. Electronically Signed: Kaden Banegas, at 17:06 EST Tel , Service support ,
--- NOTE | 2019-10-08 03:35 | MRI_ITS ---
STUDY: MRI BRAIN WITHOUT CONTRAST REASON FOR EXAM: Female, 74 years old. Dizziness confusion TECHNIQUE: Standardized multiplanar fat and water weighted pulse sequences were obtained. COMPARISON: 08 October 2000 FINDINGS: There is an approximately 1 cm left mid centrum semiovale late subacute age infarct, estimated at 3-4 weeks old. There is a punctate right anterior corpus callosum acute infarct. There is no territorial arterial infarction. There is no mass effect, midline shift, extra parenchymal fluid collections, hydrocephalus or herniation. There are no intracranial hemorrhagic findings. There is moderate chronic small vessel ischemic disease. Appearance is similar to recent CT. The acute infarct is below the resolution of CT and cannot be detected with that modality. MRI/Brain without Contrast IMPRESSION: 1. Acute punctate left corpus callosum infarct. 2. 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 3. Moderate chronic ischemic white matter disease. Electronically Signed: Baileynatalio Makenzie, at 16:20 EST Tel , Service support ,
[2019-10-08] MEDS: 0.9% Saline Lock 10 ML Syringe IV ×2 (03:46→08:47)
[2019-10-08] MEDS: Potassium Chloride 10mEq/100mL 10 MEQ/100 ML IV.SOLN. 100 MEQ IV BOLUS ×4 (04:27→10:30)
[2019-10-08 04:49] LABS: Magnesium 1.5 mg/dL (1.6-2.6)
[2019-10-08] MEDS: 0.9% Normal Saline 1,000 ML 125 ML IV ×2 (05:12→14:05)
--- NOTE | 2019-10-08 07:30 | PCM.PN.BLA ---
Progress Note 74-year-old lady admitted with dizziness associated with nausea. Symptoms had apparently been ongoing for about a week. On the day of her admission she did vomit and had diarrhea hence the decision to present to the emergency department 1. Acute vertigo ~admitted to monitored bed currently undergoing evaluation ordered MRI to rule out posterior secretion CVA 2. Suspected gastroenteritis ~Suspected to be viral patient being treated symptomatically patient was placed on enteric precautions pending results of enteric pathogen panel ordered on admission 3. Hypokalemia ~secondary to above corrected per protocol 4. Hypomagnesemia ~secondary to above corrected per protocol 5. Hypothyroidism ~patient is on levothyroxine home dose continued 6. GERD ~Managed with diet 7. Chronic diastolic heart failure ~currently compensated 8. Dyslipidemia ~History, managed with diet 9. DVT prophylaxis ~ on enoxaparin STROKE Vital Signs/Narrative: Vital Signs Pulse 10/08/19 07:00 59 L 10/08/19 03:48 68
[2019-10-08] MEDS: Enoxaparin 40 MG/0.4 ML Syringe SC (08:47)
[2019-10-08] MEDS: LORazepam 2 MG/ML Syringe 1 MG IV (08:47)
[2019-10-08 11:09] LABS: Anion Gap 5 (5-15); BUN 21 mg/dL (7-18); BUN/Creat Ratio 22.3 RATIO (10-20); Calcium,Total 7.9 mg/dL (8.5-10.1); Chloride 106 mmol/L (98-107); Creatinine, Serum 0.94 mg/dL (0.55-1.02); EST Glomerular Filtration Rate 61 mL/min (>60); Est Glom Filt Rate - Afr Amer 74 mL/min (>60); Estimated Creatinine Clearance 40.27 ml/min; Glucose 98 mg/dL (74-106); Potassium 4.4 mmol/L (3.5-5.1); Sodium Level 138 mmol/L (136-145)
[2019-10-08] MEDS: Magnesium Sulfate 4gm/100mL 4 GM/100 ML IV.SOLN. IV (11:35)
--- NOTE | 2019-10-08 13:15 | CASEMGMT ---
SW went to meet with patient, but she was sleeping. Her RN said she was given some Ativan before her MRI so she may be sleepy. Patient did wake up and agreed to talk with SW. She said she feels like she is doing fine at home other than having troubles managing her medications. SW spoke with her about [facility] and she was receptive to a referral being made. SW attempted to continue conversation, but she kept dozing off and said she just can't stay awake. SW told her SW can check back with her after bit when she is more awake. SW did make the referral to [facility]. SW to attempt to talk with patient again when she is more awake. Tootie SUN THERMAL CUTTING TRACER MACHINE OPERATOR
--- NOTE | 2019-10-08 15:40 | CASEMGMT ---
SW attempted to talk with patient again. She was still sleeping. SW did wake her up and she was a little more awake than last time, but still pretty groggy. She said she sort of remembers talking with SW earlier. SW told her about [facility] again and she is still open to a referral. SW called patient's son and let him know SW was not able to get a real conversation with patient as she was medicated earlier and it made her pretty sleepy. SW did tell him that SW spoke with her about [facility] and that she was open to this program. SW told him that there is also a SW on the team that can help assess for needs and provide support and help with coping skills. He said he appreciates the help and hopes this will help get her moving in the right direction. Plan: Home with referral to [facility]. Tootie SUN MSW
--- NOTE | 2019-10-08 15:54 | CASEMGMT ---
SW spoke with patient again briefly and gave her a pamphlet on [facility]. She thanked SW for the information. Tootie SUN MSW
--- NOTE | 2019-10-08 18:09 | ECHOCS_ITS ---
Reason For Study: TIA/CVA Procedure This was a 2D Doppler, Color Flow transthoracic echocardiogram. Exam performed portable in patient room. Left Ventricle Normal LV size. Moderate concentric left ventricular hypertrophy. Left ventricular systolic function is normal. The estimated ejection fraction is 70 %. Stage 1 diastolic dysfunction. No regional wall motion abnormalities noted. Right Ventricle Normal RV size. Normal systolic function. Atria The left atrium is mildly enlarged. Normal right atrium. Bubble contrast study negative for right to left interatrial shunt. Mitral Valve There is moderate mitral annular calcification. Mobile calcifaction of the subvalvular apparatus. Mild (1+) eccentric mitral valve insufficiency. Tricuspid Valve Normal tricuspid valve. Mild tricuspid valve insufficiency. Pulmonary artery systolic pressure is 50 mmHg. Aortic Valve Trisinus/trileaflet aortic valve. Mild focal aortic valve calcification. Pulmonic Valve Normal pulmonic valve. Great Vessels Calcified aortic root. The pulmonary artery is normal size. Normal inferior vena cava. Pericardium/Pleural No pericardial effusion. Medication Performed a rapid injection of agitated mix of 9 cc saline and 1cc air to assess for atrial septal defect. Diluted definity 3ml given slow IV push to enhance endocardial definition. MMode/2D Measurements & Calculations LVIDd: 4.2 cm IVSd: 1.7 cm LVOT diam: 2.0 cm LVIDs: 2.2 cm LVPWd: 1.6 cm RVDd: 3.9 cm FS: 46.7 % LVOT area: 3.0 cm2 Ao root diam: 3.3 cm LAV(MOD-bp): 72.5 ml LVAd ap4: 30.9 cm2 LAV(MOD-bp) Indexed: 38.4 ml/m2 EDV(MOD-sp4): 101.6 ml LAV(MOD-sp2): 74.1 ml EDV(sp4-el): 105.3 ml LAV(MOD-sp4): 67.2 ml LVAs ap4: 16.3 cm2 ESV(MOD-sp4): 34.8 ml ESV(sp4-el): 35.7 ml EF(MOD-sp4): 65.7 % EF(sp4-el): 66.1 % SV(MOD-sp4): 66.8 ml SV(sp4-el): 69.5 ml LA A4 area: 21.9 cm2 LA dimension(2D): 4.8 cm RA A4 area: 13.5 cm2 Time Measurements MV dec time: 0.18 sec Doppler Measurements & Calculations MV E max ki: 115.5 cm/sec Lat Peak E' Ki: 6.8 cm/sec Med Peak E' Ik: 4.4 cm/sec MV A max ki: 144.9 cm/sec E/E' lat: 17.0 E/E' med: 26.3 MV E/A: 0.80 MV V2 max: 157.9 cm/sec MV P1/2t max ki: 140.4 cm/sec Ao V2 max: 218.9 cm/sec MV max P.0 mmHg MV P1/2t: 91.4 msec Ao max P.2 mmHg MV V2 mean: 103.4 cm/sec MV dec slope: 450.0 cm/sec2 Ao V2 mean: 150.9 cm/sec MV mean P.8 mmHg MVA(P1/2t): 2.4 cm2 Ao mean P.2 mmHg MV V2 VTI: 53.5 cm Ao V2 VTI: 51.4 cm MVA(VTI): 2.3 cm2 RAFFY(I,D): 2.4 cm2 RAFFY(V,D): 2.2 cm2 LV V1 max: 156.5 cm/sec SV(LVOT): 123.1 ml PA V2 max: 89.6 cm/sec LV V1 max P.8 mmHg LV V1 mean P.4 mmHg LV V1 mean: 109.9 cm/sec LV V1 VTI: 40.4 cm TR max ki: 338.7 cm/sec TR max P.9 mmHg Interpretation Summary Normal LV size. Moderate concentric left ventricular hypertrophy. Left ventricular systolic function is normal. The estimated ejection fraction is 70 %. Stage 1 diastolic dysfunction. There is moderate mitral annular calcification. Mobile calcifaction of the subvalvular apparatus Ordering Physician: Ashok Castellon Referring Physician: Gal Butler Performed By: Carito Walden RDCS, RVT
[2019-10-08] MEDS: Atorvastatin Calcium 80 MG Tablet PO (21:49)
[2019-10-08] MEDS: 0.9% Normal Saline 1,000 ML 75 ML IV (21:54)
[2019-10-09] VITALS (14 sets, daily range): BP systolic 116–165; BP diastolic 48–93; PULSE 61–71; RESP 15–20; TEMP 36.4–36.8; O2SAT 93–98
[2019-10-09] MEDS: 0.9% Saline Lock 10 ML Syringe IV ×2 (00:54→05:36)
[2019-10-09] MEDS: Levothyroxine 25 MCG TABLET PO (05:29)
--- NOTE | 2019-10-09 05:55 | CT_ITS ---
STUDY: CTA HEAD AND NECK WITH CONTRAST REASON FOR EXAM: Female, 74 years old. CVA. Infarct found on MRI. Dizzy with nausea and vomiting x1 week. RADIATION DOSAGE (If Supplied By Facility): CTDIvol = ( 38 ) mGy, DLP = ( 611.98 ) mGycm TECHNIQUE: CT angiography was performed with a multi-detector CT scanner. Data acquisition was obtained from the skull base through the vertex following intravenous administration of IV Isovue 370 100. MIP images were reconstructed from the axial data set. Post-processing of the angiographic images was performed, with multiplanar reformation and 3D reconstruction. Individualized dose optimization techniques were used for this CT. COMPARISON: MRI of the brain and MRA head 10/08/2019. FINDINGS: Normal bilateral petrous carotid arteries. Nonocclusive calcified plaques along the right cavernous carotid artery with a normal supraclinoid bifurcation. Nonocclusive calcified plaques along the left cavernous carotid artery with a normal supraclinoid bifurcation. Normal right A1 segment of the anterior cerebral artery. Normal left A1 segment of the anterior cerebral artery. Normal intact anterior communicating artery (ACOM). Normal bilateral A2 segments of the anterior cerebral arteries. Normal right M1 and M2 segments of the middle cerebral arteries, with a normal M1 bifurcation. Normal left M1 and M2 segments of the middle cerebral arteries, with a normal M1 bifurcation. Normal right posterior communicating artery (PCOM). Normal left posterior communicating artery (PCOM). Calcified plaque in the intradural segment of the nondominant right vertebral artery without significant stenosis. Widely patent intradural segment of the dominant left vertebral artery. High-grade stenosis of the proximal basilar artery with a normal basilar bifurcation. The visualized bilateral superior cerebellar (SCA) arteries are normal. Normal bilateral P1, P2 and visualized P3 segments of the posterior cerebral arteries. There is no demonstrated aneurysm of the [place]. Chronic white matter ischemic changes in both cerebral hemispheres. AORTIC ARCH: Normal visualized aortic arch. Normal origins of the brachiocephalic, left common carotid, and left subclavian arteries. RIGHT CAROTID ARTERIES: Normal right common carotid artery (CCA). Multiple calcified plaques and noncalcified plaques along the right internal carotid artery bulb. At least 70% stenosis of the right proximal internal carotid artery near its origin due to calcified plaques and noncalcified plaques. Widely patent remaining visualized cervical portion of the right internal carotid artery. Probably 70% stenosis at the origin of the right external carotid artery (ECA) due to noncalcified plaques. LEFT CAROTID ARTERIES: Normal left common carotid artery (CCA). Calcified plaques and noncalcified plaques in the posterior and lateral [place] of the left internal carotid bulb. Less than 20% stenosis of the left proximal internal carotid artery including its origin due to noncalcified and calcified plaques. Widely patent remaining visualized cervical portion of the left internal carotid artery. Normal origin of the left external carotid artery (ECA). VERTEBRAL ARTERIES: Normal bilateral vertebral arteries. CT/CTA Head AND Neck W/ Contrast IMPRESSION: 1. 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 2. No other suspicious significant vaso-occlusive disease of the anterior and posterior intracranial circulation. 3. Approximately 70% stenosis of the right proximal internal carotid artery origin due to calcified plaques and noncalcified plaques. 4. Less than 20% stenosis of the left proximal internal artery due to calcified plaques and noncalcified plaques. 5. Widely patent bilateral common carotid arteries. 6. Widely patent aortic arch and origins of the great vessels. 7. Widely patent vertebral arteries, left is dominant. Electronically Signed: Chaz Ortiz MD at 16:24 EST , Service support ,
--- NOTE | 2019-10-09 07:28 | PN_ITS ---
Patient Problems: Active and Suspected Problems (Last Updated 06/08/19 @ 09:59 by Darleen Will) Vertigo (Acute) Vomiting (Acute) Intractable nausea and vomiting (Acute) Diarrhea (Acute) Reason for Visit: Acute vertigo Subjective: MRI obtained the day prior demonstrated Acute punctate left corpus callosum infarct in addition to Late subacute left centrum semiovale white matter infarct. Patient subsequently started on statin therapy aspirin with 2D echo and CT Angio of the head and neck ordered for subsequent evaluation. Also requested for PT OT eval. Objective: GENERAL: cooperative HEENT: Atraumatic; EYES; Anicteric, Normal Conjunctiva NECK; supple, normal thyroid, RESPIRATORY: Diminished to auscultation CARDIOVASCULAR: Regular S1 S2, GI: soft, normoactive bowel sounds, : No Renal angle tenderness; EXTREMITIES: No edema, no clubbing, MUSCULOSKELETAL: no muscle waisting NEURO: Awake; no lateralizing signs. SKIN: No Rash PSYCH; Flat affect Vitals/I&O's: Vital Signs Temp Pulse Resp BP Pulse Ox 97.9 F 67 16 118/52 L 94 10/09/19 04:25 10/09/19 04:25 10/09/19 04:25 10/09/19 04:25 10/09/19 04:25 Oxygen Flow Rate (L/min) 2 Oxygen Delivery Method Room Air Weight: 87.8 kg Body Mass Index (BMI) 35.4 Intake and Output for Last 24 Hours 10/07/19 10/08/19 10/09/19 23:59 23:59 23:59 Intake Total 3384.99 / 3384.99 791.25 / 791.25 Output Total 300 / 300 Balance 3084.99 / 3084.99 791.25 / 791.25 Laboratory Results 10/08/19 10:28: Sodium 138, Potassium 4.4, Chloride 106, Carbon Dioxide 27.0, Anion Gap 5, BUN 21 H, Creatinine 0.94, Estim Creat Clear Calc 40.27, Est GFR (MDRD) Af Amer 74, Est GFR (MDRD) Non-Af 61, BUN/Creatinine Ratio 22.3 H, Glucose 98, Calcium 7.9 L Current Medications Aspirin (Aspirin) 325 mg PO DAILY@0800 [facility] Atorvastatin Calcium (Lipitor) 80 mg PO QHS [facility] Last Admin: 10/08/19 21:49 Dose: 80 mg Documented by: Dextrose (D50w Syringe) 0 gm IV X1 PRN; Protocol PRN Reason: Hypoglycemia Enoxaparin Sodium (Lovenox) 40 mg SC DAILY [facility] Last Admin: 10/08/19 08:47 Dose: 40 mg Documented by: Glucagon () 1 mg IM .X1 PRN PRN Reason: Hypoglycemia Hydralazine HCl (Apresoline Iv) 5 mg IV Q4H PRN PRN PRN Reason: SBP > 160 Hydrochlorothiazide (Hctz) 25 mg PO DAILY [facility] Pantoprazole Sodium 40 mg/ (Sodium Chloride) 110 mls @ 330 mls/hr IV Q24 [facility] Last Infusion: 10/08/19 04:33 Dose: Infused Documented by: Sodium Chloride () 250 mls @ 15 mls/hr IV .[id number] PRN PRN Reason: Saline Flush Last Infusion: 10/08/19 03:47 Dose: 0 mls/hr Documented by: Sodium Chloride () 1,000 mls @ 75 mls/hr IV .[id number] [facility] Last Infusion: 10/09/19 05:36 Dose: 75 mls/hr Documented by: Levothyroxine Sodium (Synthroid) 25 mcg PO DAILY@0600 [facility] Last Admin: 10/09/19 05:29 Dose: 25 mcg Documented by: Lorazepam (Ativan) 0.5 mg IV Q4H PRN PRN PRN Reason: VERTIGO Metoprolol Succinate (Toprol Xl (Beta Cristino)) 100 mg PO DAILY [facility] Nutritional Formula (Lactose Free) (Ensure Clear) 120 ml PO 4X/DAY [facility] Last Admin: 10/08/19 21:47 Dose: Not Given Documented by: Ondansetron HCl (Zofran) 4 mg IV Q8H PRN PRN PRN Reason: NAUSEA/VOMITING Potassium Chloride (K-Dur) 10 meq PO DAILY [facility] Prochlorperazine Edisylate (Compazine Iv) 5 mg IV Q4H PRN PRN PRN Reason: Breakthrough Nausea/Vomiting Sodium Chloride () 10 - 40 ml IV UD PRN PRN Reason: SALINE FLUSH Last Admin: 10/09/19 05:36 Dose: 10 ml Documented by: STROKE Vital Signs/Narrative: Vital Signs Temp Pulse Resp BP Pulse Ox 10/09/19 04:25 97.9 F 67 16 118/52 L 94 Medical Necessity - Tobacco Use Smoking Status: Former smoker Assessment/Plan All Active Problems (Last Updated 06/08/19 @ 09:59 by Darleen Will) Vertigo (Acute) Vomiting (Acute) Intractable nausea and vomiting (Acute) Diarrhea (Acute) Hypokalemia (Acute) 74-year-old lady admitted with dizziness associated with nausea. Symptoms had apparently been ongoing for about a week. On the day of her admission she did vomit and had diarrhea hence the decision to present to the emergency department 1. Acute ischemic CVA ~Patient presented with acute vertigo and MRI was ordered to rule out posterior circulation CVA. MRI on 10/08/2019 demonstrated Acute punctate left corpus callosum infarct in addition to Late subacute left centrum semiovale white matter infarct. Patient subsequently started on statin therapy aspirin with 2D echo and CT Angio of the head and neck ordered for subsequent evaluation. Also requested for PT OT eval. ?10/09/2019 Case was also discussed with patient's son as well as her [id number] who appears to be a physician her questions were answered to the assisted fraction. 2. Suspected gastroenteritis ~Suspected to be viral patient being treated symptomatically patient was placed on enteric precautions pending results of enteric pathogen panel ordered on admission 3. Hypokalemia ~secondary to above corrected per protocol 4. Hypomagnesemia ~secondary to above corrected per protocol 5. Hypothyroidism ~patient is on levothyroxine home dose continued 6. GERD ~Managed with diet 7. Chronic diastolic heart failure ~currently compensated 8. Dyslipidemia ~History, managed with diet 9. DVT prophylaxis ~ on enoxaparin Clinical Impression(s) from Imaging Studies Brain CT 10/08/19 00:05 IMPRESSION: No CT evidence of acute infarct or hemorrhage. If there is clinical concern for hyperacute ischemia that is not evident by CT, MRI should be considered if possible. Electronically Signed: Serge Bailey MD at 1:12 EST Tel , Service support , Brain MRI 10/08/19 03:35 IMPRESSION: 1. Acute punctate left corpus callosum infarct. 2. 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 3. Moderate chronic ischemic white matter disease. Electronically Signed: Kaden Banegas, at 16:20 EST Tel , Service support , Head MRA 10/08/19 03:35 IMPRESSION: Questionable basilar stenosis. Refer to CT angiography of the head for confirmation. Patent anterior circulation. Electronically Signed: Kaden Banegas, at 16:50 EST Tel , Service support , Neck MRA 10/08/19 03:35 IMPRESSION: 1. Limited examination. 2. No large vessel occlusion. 3. Present flow in all cervical arteries. If definitive assessment is desired CT angiography of the neck is the study of choice. Electronically Signed: Kaden Banegas, at 17:06 EST Tel , Service support , Code Visit Inpatient E&M: 30023 Subs Hosp L3
[2019-10-09] MEDS: 0.9% Normal Saline 1,000 ML 75 ML IV ×2 (09:43→21:41)
[2019-10-09] MEDS: Aspirin 325 MG Tablet PO (10:51)
[2019-10-09] MEDS: Enoxaparin 40 MG/0.4 ML Syringe SC (10:51)
[2019-10-09] MEDS: Metoprolol(XL)Succ 100 MG Tablet PO (10:52)
[2019-10-09] MEDS: hydroCHLOROthiazide 25 MG Tablet PO (10:53)
[2019-10-09] MEDS: Ensure Clear 120 ML Liquid PO ×3 (14:45→21:46)
--- NOTE | 2019-10-09 15:24 | CM.UR ---
RN CM Assessment Introduced role of RN CM to patient. Patient is alert and able to participate in RN CM Assessment. Care providers, pharmacy, and demographics verified. No family at bedside. Presentation: dizziness, nausea and vomiting Admit Dx: CVA Re-Admit: No Barriers/Issues: slightly [place] PCP: Cheryl Specialists: Bj Preferred Pharmacy: [facility] Insurance: [employer] [facility] PPO Rx Benefit: yes LNOK: Matt Lechuga LW/HPOA: States son is HPOA. States she and son has copies. Requested a copy be brought in. Verb understanding but didn't really agree to bring one in. Living Arrangements: alone in 1 story home. 1 step to enter ADL?s: Independent Transportation: self DME: [employer] DME co: No preference. [employer] for items she has to purchase. HHC: None SNF: None Goal: Home DC PLAN: Home w/HHC vs SNF. Patient is agreeable to whatever we recommend but would prefer to go home. Sierra Lawrence RN, CCM.
[2019-10-09] MEDS: Atorvastatin Calcium 80 MG Tablet PO (21:43)
[2019-10-09] MEDS: Ondansetron 4 MG/2 ML Vial IV (21:43)
[2019-10-10] VITALS (11 sets, daily range): BP systolic 148–165; BP diastolic 64–84; PULSE 59–70; RESP 16–18; TEMP 36.6–36.9; O2SAT 94–99; BMI 35.4
[2019-10-10] MEDS: Levothyroxine 25 MCG TABLET PO (05:38)
[2019-10-10] MEDS: Acetaminophen 325 MG Tablet 650 MG PO (05:38)
--- NOTE | 2019-10-10 07:42 | PCM.PN.HOSP ---
Patient Problems: Active and Suspected Problems (Last Updated 06/08/19 @ 09:59 by Darleen Will) Vertigo (Acute) Vomiting (Acute) Intractable nausea and vomiting (Acute) Diarrhea (Acute) Reason for Visit: Follow-up acute CVA Subjective: Patient was admitted with dizziness found to have acute CVA. As part of her management ordered CTA of the head and neck. CTA was significant for Approximately 70% stenosis of the right proximal internal carotid artery origin due to calcified plaques and noncalcified plaques. Objective: GENERAL: cooperative HEENT: Atraumatic; EYES; Anicteric, Normal Conjunctiva NECK; supple, normal thyroid, RESPIRATORY: Diminished to auscultation CARDIOVASCULAR: Regular S1 S2, GI: soft, normoactive bowel sounds, : No Renal angle tenderness; EXTREMITIES: No edema, no clubbing, MUSCULOSKELETAL: no muscle waisting NEURO: Awake; no lateralizing signs. SKIN: No Rash PSYCH; Flat affect Vitals/I&O's: Vital Signs Temp Pulse Resp BP Pulse Ox 98.4 F 69 16 148/84 H 96 10/10/19 03:00 10/10/19 03:00 10/10/19 03:00 10/10/19 03:00 10/10/19 03:00 Oxygen Flow Rate (L/min) 2 Oxygen Delivery Method Room Air Weight: 87.8 kg Body Mass Index (BMI) 35.4 Intake and Output for Last 24 Hours 10/08/19 10/09/19 10/10/19 23:59 23:59 23:59 Intake Total 3384.99 / 3384.99 2081.25 / 2701.25 1100 / 1100 Output Total 300 / 300 300 / 300 Balance 3084.99 / 3084.99 1781.25 / 2401.25 1100 / 1100 Current Medications Acetaminophen (Tylenol) 650 mg PO Q6H PRN PRN PRN Reason: Pain (1-10) or Fever Last Admin: 10/10/19 05:38 Dose: 650 mg Documented by: Aspirin (Aspirin) 325 mg PO DAILY@0800 [facility] Last Admin: 10/09/19 10:51 Dose: 325 mg Documented by: Atorvastatin Calcium (Lipitor) 80 mg PO QHS [facility] Last Admin: 10/09/19 21:43 Dose: 80 mg Documented by: Dextrose (D50w Syringe) 0 gm IV X1 PRN; Protocol PRN Reason: Hypoglycemia Enoxaparin Sodium (Lovenox) 40 mg SC DAILY [facility] Last Admin: 10/09/19 10:51 Dose: 40 mg Documented by: Glucagon () 1 mg IM .X1 PRN PRN Reason: Hypoglycemia Hydralazine HCl (Apresoline Iv) 5 mg IV Q4H PRN PRN PRN Reason: SBP > 160 Hydrochlorothiazide (Hctz) 25 mg PO DAILY [facility] Last Admin: 10/09/19 10:53 Dose: 25 mg Documented by: Pantoprazole Sodium 40 mg/ (Sodium Chloride) 110 mls @ 330 mls/hr IV Q24 [facility] Last Infusion: 10/09/19 11:27 Dose: Infused Documented by: Sodium Chloride () 250 mls @ 15 mls/hr IV .[id number] PRN PRN Reason: Saline Flush Last Infusion: 10/08/19 03:47 Dose: 0 mls/hr Documented by: Sodium Chloride () 1,000 mls @ 75 mls/hr IV .[id number] [facility] Last Admin: 10/09/19 21:41 Dose: 75 mls/hr Documented by: Levothyroxine Sodium (Synthroid) 25 mcg PO DAILY@0600 [facility] Last Admin: 10/10/19 05:38 Dose: 25 mcg Documented by: Lorazepam (Ativan) 0.5 mg IV Q4H PRN PRN PRN Reason: VERTIGO Metoprolol Succinate (Toprol Xl (Beta Cristino)) 100 mg PO DAILY [facility] Last Admin: 10/09/19 10:52 Dose: 100 mg Documented by: Nutritional Formula (Lactose Free) (Ensure Clear) 120 ml PO 4X/DAY [facility] Last Admin: 10/09/19 21:46 Dose: 120 ml Documented by: Ondansetron HCl (Zofran) 4 mg IV Q8H PRN PRN PRN Reason: NAUSEA/VOMITING Last Admin: 10/09/19 21:43 Dose: 4 mg Documented by: Potassium Chloride (K-Dur) 10 meq PO DAILY [facility] Last Admin: 10/09/19 10:53 Dose: 10 meq Documented by: Prochlorperazine Edisylate (Compazine Iv) 5 mg IV Q4H PRN PRN PRN Reason: Breakthrough Nausea/Vomiting Sodium Chloride () 10 - 40 ml IV UD PRN PRN Reason: SALINE FLUSH Last Admin: 10/09/19 05:36 Dose: 10 ml Documented by: Medical Necessity - Tobacco Use Smoking Status: Former smoker Assessment/Plan All Active Problems (Last Updated 06/08/19 @ 09:59 by Darleen Will) Vertigo (Acute) Vomiting (Acute) Intractable nausea and vomiting (Acute) Diarrhea (Acute) Hypokalemia (Acute) 74-year-old lady admitted with dizziness associated with nausea. Symptoms had apparently been ongoing for about a week. On the day of her admission she did vomit and had diarrhea hence the decision to present to the emergency department 1. Acute ischemic CVA ~Patient presented with acute vertigo and MRI was ordered to rule out posterior circulation CVA. MRI on 10/08/2019 demonstrated Acute punctate left corpus callosum infarct in addition to Late subacute left centrum semiovale white matter infarct. Patient subsequently started on statin therapy aspirin with 2D echo and CT Angio of the head and neck ordered for subsequent evaluation. Also requested for PT OT eval. ?10/09/2019 Case was also discussed with patient's son as well as her [id number] who is a physician her questions were answered ?10/10/2019: Patient seen did discuss with her regarding disposition plans. Recommendation from PT is for [facility] be [facility] 2. Right carotid artery stenosis ~Patient currently on antiplatelet as well as statin therapy patient informed of the result. Consult placed to vascular surgery. 3. Suspected gastroenteritis ~Suspected to be viral patient being treated symptomatically patient was placed on enteric precautions pending results of enteric pathogen panel ordered on admission 10/10/2019: Resolved 4. Hypokalemia ~secondary to above corrected per protocol 5. Hypomagnesemia ~secondary to above corrected per protocol 6. Hypothyroidism ~patient is on levothyroxine home dose continued 7. Chronic diastolic heart failure ~currently compensated 8. Dyslipidemia ~History, managed with diet 9. DVT prophylaxis ~ on enoxaparin Clinical Impression(s) from Imaging Studies Brain CT 10/08/19 00:05 IMPRESSION: No CT evidence of acute infarct or hemorrhage. If there is clinical concern for hyperacute ischemia that is not evident by CT, MRI should be considered if possible. Electronically Signed: Serge Bailey MD at 1:12 EST Tel , Service support , Brain MRI 10/08/19 03:35 IMPRESSION: 1. Acute punctate left corpus callosum infarct. 2. 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 3. Moderate chronic ischemic white matter disease. Electronically Signed: Kaden Banegas, at 16:20 EST Tel , Service support , Head MRA 10/08/19 03:35 IMPRESSION: Questionable basilar stenosis. Refer to CT angiography of the head for confirmation. Patent anterior circulation. Electronically Signed: Kaden Banegas, at 16:50 EST Tel , Service support , Neck MRA 10/08/19 03:35 IMPRESSION: 1. Limited examination. 2. No large vessel occlusion. 3. Present flow in all cervical arteries. If definitive assessment is desired CT angiography of the neck is the study of choice. Electronically Signed: Kaden Banegas, at 17:06 EST Tel , Service support , Head/Neck CTA 10/09/19 05:55 IMPRESSION: 1. 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 2. No other suspicious significant vaso-occlusive disease of the anterior and posterior intracranial circulation. 3. Approximately 70% stenosis of the right proximal internal carotid artery origin due to calcified plaques and noncalcified plaques. 4. Less than 20% stenosis of the left proximal internal artery due to calcified plaques and noncalcified plaques. 5. Widely patent bilateral common carotid arteries. 6. Widely patent aortic arch and origins of the great vessels. 7. Widely patent vertebral arteries, left is dominant. Electronically Signed: Chaz Ortiz MD at 16:24 EST , Service support , Code Visit Inpatient E&M: 77305 Subs Hosp L2
[2019-10-10] MEDS: Aspirin 325 MG Tablet PO (08:09)
[2019-10-10] MEDS: hydroCHLOROthiazide 25 MG Tablet PO (11:24)
[2019-10-10] MEDS: Enoxaparin 40 MG/0.4 ML Syringe SC (11:24)
[2019-10-10] MEDS: Metoprolol(XL)Succ 100 MG Tablet PO (13:57)
--- NOTE | 2019-10-10 16:42 | NURSING ---
Pt refused remaining 122.5 ml of Normal Saline infusion.
--- NOTE | 2019-10-10 16:45 | NURSING ---
This nurse taking over care
[2019-10-10] MEDS: Atorvastatin Calcium 80 MG Tablet PO (21:55)
[2019-10-10] MEDS: Ensure Clear 120 ML Liquid PO (21:56)
[2019-10-11] VITALS (8 sets, daily range): BP systolic 141–165; BP diastolic 64–79; PULSE 66–68; RESP 16–19; TEMP 36.6–36.9; O2SAT 93–97
[2019-10-11] MEDS: Levothyroxine 25 MCG TABLET PO (06:07)
[2019-10-11 06:35] LABS: Absolute Lymphocyte Count 1.85 X10^3/uL (0.83-4.51); Absolute Neutrophil Count 5.8 X10^3/uL (2.0-7.7); Basophil# 0.06 X10^3/uL; Basophil% 0.7 % (0-1); Eosinophil# 0.24 X10^3/uL; Eosinophils% 2.8 % (0-5); Hematocrit 41.5 % (37-47); Hemoglobin 14.1 g/dL (12.0-15.0); Lymphocyte # 1.85 X10^3/ul (4.0); Lymphocyte % 21.5 % (19-41); Mean Corpuscular Hgb 31.8 pg (27.0-32.0); Mean Corpuscular Volume 93.5 fL (81-99); Mean Platelet Vol. 9.6 fl (6.2-12.0); Monocyte# 0.66 X10^3/uL; Monocyte% 7.7 % (0-10); NRBC Flagged by Analyzer 0 % (0-5); Neutrophil # 5.79 X10^3/uL (2.7-7.7); Neutrophil % 67.1 % (47-70); Platelet Count 217 K/mm3 (150-450); RBC Distribution Width CV 11.8 % (11.6-14.6); RBC Distribution Width SD 40.5 fl (35.1-43.9); Red Blood Count 4.44 M/mm3 (4.2-5.4); White Blood Count 8.6 K/mm3 (4.4-11.0)
[2019-10-11 06:55] LABS: Anion Gap 8 (5-15); BUN 15 mg/dL (7-18); BUN/Creat Ratio 17.4 RATIO (10-20); Calcium,Total 8.7 mg/dL (8.5-10.1); Chloride 107 mmol/L (98-107); Creatinine, Serum 0.86 mg/dL (0.55-1.02); EST Glomerular Filtration Rate 68 mL/min (>60); Est Glom Filt Rate - Afr Amer 82 mL/min (>60); Estimated Creatinine Clearance 44.02 ml/min; Glucose 97 mg/dL (74-106); Magnesium 1.6 mg/dL (1.6-2.6); Potassium 3.9 mmol/L (3.5-5.1); Sodium Level 140 mmol/L (136-145)
[2019-10-11 08:43] LABS: Phosphorus 3.6 mg/dL (2.5-4.9)
--- NOTE | 2019-10-11 09:31 | US_ITS ---
STUDY: THYROID ULTRASOUND REASON FOR EXAM: Female, 74 years old. Goiter. TECHNIQUE: Ultrasound evaluation of the thyroid was performed with real-time and static witt-scale imaging. COMPARISON: CT of the chest, November 17, 2018. FINDINGS: RIGHT LOBE: The right lobe of the thyroid gland measures 3.5 x 1.5 x 1.6 cm. There is a heterogeneous echotexture. There are no demonstrated solid, cystic or complex lesions. Normal vascularity on Doppler imaging. LEFT LOBE: The left lobe of the thyroid gland measures 3.6 x 0.9 x 1.2 cm. There is a heterogeneous echotexture. 0.4 x 0.2 x 0.2 cm cyst in the lower pole. Normal vascularity on Doppler imaging. ISTHMUS: The isthmus measures 0.3 cm. The regional lymph nodes are normal. US/Thyroid IMPRESSION: Mild heterogeneity of the thyroid tissue without increase in size. There is a small cyst in the left lower pole. Electronically Signed: Juan Gotti DO at 16:21 EST Tel [phone], Service support ,
--- NOTE | 2019-10-11 09:43 | PN_ITS ---
Patient Problems: Active and Suspected Problems (Last Updated 06/08/19 @ 09:59 by Darleen Will) Vertigo (Acute) Vomiting (Acute) Intractable nausea and vomiting (Acute) Diarrhea (Acute) Reason for Visit: Follow-up acute CVA Subjective: Patient seen appears to be back to baseline, participating in physical therapy Objective: GENERAL: cooperative HEENT: Atraumatic; EYES; Anicteric, Normal Conjunctiva NECK; supple, ?? enlarged thyroid, RESPIRATORY: Diminished to auscultation CARDIOVASCULAR: Regular S1 S2, GI: soft, normoactive bowel sounds, : No Renal angle tenderness; EXTREMITIES: No edema, no clubbing, MUSCULOSKELETAL: no muscle waisting NEURO: Awake; no lateralizing signs. SKIN: No Rash PSYCH; Flat affect Vitals/I&O's: Vital Signs Temp Pulse Resp BP Pulse Ox 97.8 F 68 16 141/67 H 93 10/11/19 05:45 10/11/19 07:56 10/11/19 05:45 10/11/19 05:45 10/11/19 07:15 Oxygen Flow Rate (L/min) 2 Oxygen Delivery Method Room Air Weight: 87.8 kg Body Mass Index (BMI) 35.4 Intake and Output for Last 24 Hours 10/09/19 10/10/19 10/11/19 23:59 23:59 23:59 Intake Total 2081.25 / 2701.25 2930.0 / 3050.0 240 / 240 Output Total 300 / 300 Balance 1781.25 / 2401.25 2930.0 / 3050.0 240 / 240 Laboratory Results 10/11/19 06:10: WBC 8.6, RBC 4.44, Hgb 14.1, Hct 41.5, MCV 93.5, MCH 31.8, MCHC 34.0, RDW Std Deviation 40.5, RDW Coeff of Kwasi 11.8, Plt Count 217, MPV 9.6, Immature Gran % (Auto) 0.200, Neut % (Auto) 67.1, Lymph % (Auto) 21.5, [place] % (Auto) 7.7, Eos % (Auto) 2.8, Baso % (Auto) 0.7, Absolute Neuts (auto) 5.8, Absolute Lymphs (auto) 1.85, Nucleated RBC % 0 10/11/19 06:10: Sodium 140, Potassium 3.9, Chloride 107, Carbon Dioxide 25.0, Anion Gap 8, BUN 15, Creatinine 0.86, Estim Creat Clear Calc 44.02, Est GFR (MDRD) Af Amer 82, Est GFR (MDRD) Non-Af 68, BUN/Creatinine Ratio 17.4, Glucose 97, Calcium 8.7, Magnesium 1.6 10/11/19 06:10: Phosphorus 3.6 Current Medications Acetaminophen (Tylenol) 650 mg PO Q6H PRN PRN PRN Reason: Pain (1-10) or Fever Last Admin: 10/10/19 05:38 Dose: 650 mg Documented by: Aspirin (Aspirin) 325 mg PO DAILY@0800 [facility] Last Admin: 10/10/19 08:09 Dose: 325 mg Documented by: Atorvastatin Calcium (Lipitor) 80 mg PO QHS [facility] Last Admin: 10/10/19 21:55 Dose: 80 mg Documented by: Dextrose (D50w Syringe) 0 gm IV X1 PRN; Protocol PRN Reason: Hypoglycemia Enoxaparin Sodium (Lovenox) 40 mg SC DAILY [facility] Last Admin: 10/10/19 11:24 Dose: 40 mg Documented by: Glucagon () 1 mg IM .X1 PRN PRN Reason: Hypoglycemia Hydralazine HCl (Apresoline Iv) 5 mg IV Q4H PRN PRN PRN Reason: SBP > 160 Hydrochlorothiazide (Hctz) 25 mg PO DAILY [facility] Last Admin: 10/10/19 11:24 Dose: 25 mg Documented by: Pantoprazole Sodium 40 mg/ (Sodium Chloride) 110 mls @ 330 mls/hr IV Q24 [facility] Last Infusion: 10/10/19 11:44 Dose: Infused Documented by: Sodium Chloride () 250 mls @ 15 mls/hr IV .[id number] PRN PRN Reason: Saline Flush Last Infusion: 10/08/19 03:47 Dose: 0 mls/hr Documented by: Magnesium Sulfate 2 gm/ Sodium (Chloride) 104 mls @ 52 mls/hr IV X1 ONE Stop: 10/11/19 10:59 Levothyroxine Sodium (Synthroid) 25 mcg PO DAILY@0600 [facility] Last Admin: 10/11/19 06:07 Dose: 25 mcg Documented by: Lorazepam (Ativan) 0.5 mg IV Q4H PRN PRN PRN Reason: VERTIGO Metoprolol Succinate (Toprol Xl (Beta Cristino)) 100 mg PO DAILY [facility] Last Admin: 10/10/19 13:57 Dose: 100 mg Documented by: Nutritional Formula (Lactose Free) (Ensure Clear) 120 ml PO 4X/DAY [facility] Last Admin: 10/10/19 21:56 Dose: 120 ml Documented by: Ondansetron HCl (Zofran) 4 mg IV Q8H PRN PRN PRN Reason: NAUSEA/VOMITING Last Admin: 10/09/19 21:43 Dose: 4 mg Documented by: Potassium Chloride (K-Dur) 10 meq PO DAILY [facility] Last Admin: 10/10/19 11:23 Dose: 10 meq Documented by: Prochlorperazine Edisylate (Compazine Iv) 5 mg IV Q4H PRN PRN PRN Reason: Breakthrough Nausea/Vomiting Sodium Chloride () 10 - 40 ml IV UD PRN PRN Reason: SALINE FLUSH Last Admin: 10/09/19 05:36 Dose: 10 ml Documented by: STROKE Vital Signs/Narrative: Vital Signs Temp Pulse Resp BP Pulse Ox 10/11/19 07:56 68 10/11/19 07:15 93 10/11/19 05:45 97.8 F 67 16 141/67 H 94 Medical Necessity - Tobacco Use Smoking Status: Never smoker Assessment/Plan All Active Problems (Last Updated 06/08/19 @ 09:59 by Darleen Will) Vertigo (Acute) Vomiting (Acute) Intractable nausea and vomiting (Acute) Diarrhea (Acute) Hypokalemia (Acute) 74-year-old lady admitted with dizziness associated with nausea. Symptoms had apparently been ongoing for about a week. On the day of her admission she did vomit and had diarrhea hence the decision to present to the emergency department 1. Acute ischemic CVA ~Patient presented with acute vertigo and MRI was ordered to rule out posterior circulation CVA. MRI on 10/08/2019 demonstrated Acute punctate left corpus callosum infarct in addition to Late subacute left centrum semiovale white matter infarct. Patient subsequently started on statin therapy aspirin with 2D echo and CT Angio of the head and neck ordered for subsequent evaluation. Also requested for PT OT eval. ?10/09/2019 Case was also discussed with patient's son as well as her [id number]-yor who is a physician her questions were answered ?10/10/2019: Patient seen did discuss with her regarding disposition plans. Recommendation from PT is for patient to be discharged [facility] ?10/11/2019 seen participating in physical therapy 2. Right carotid artery stenosis ~Patient currently on antiplatelet as well as statin therapy patient informed of the result. Consult placed to vascular surgery. ?10-[address] Eulalio Figueroa 3. Suspected gastroenteritis ~Suspected to be viral patient being treated symptomatically patient was placed on enteric precautions pending results of enteric pathogen panel ordered on admission 10/10/2019: Resolved 4. Hypokalemia ~secondary to above corrected per protocol 5. Hypomagnesemia ~secondary to above corrected per protocol 6. Hypothyroidism ~patient is on levothyroxine home dose continued 7. Chronic diastolic heart failure ~currently compensated 8. Dyslipidemia ~History, managed with diet 9. DVT prophylaxis ~ on enoxaparin 10. Questionable thyromegaly ordered thyroid ultrasound for subsequent evaluation Code Visit Inpatient E&M: 48741 Subs Hosp L2
[2019-10-11] MEDS: Metoprolol(XL)Succ 100 MG Tablet PO (10:05)
[2019-10-11] MEDS: Aspirin 325 MG Tablet PO (10:05)
[2019-10-11] MEDS: hydroCHLOROthiazide 25 MG Tablet PO (10:05)
--- NOTE | 2019-10-11 10:13 | PCM.CONS.GEN ---
Problem List (1) Carotid stenosis Status: Acute (2) Acute CVA (cerebrovascular accident) Status: Acute Reason for Consult Date of Consultation: 10/11/19 Reason for Consultation: Carotid stenosis History of Present Illness: The patient is a 74 year old F who presented with 1 week history of flu-like symptoms, lack of appetite. Patient noted on Thanksgiving she had spinning of the room, feeling of warmth throughout her whole body (not feverish). She notes throwing up, diarrhea. These symptoms scared her and she contacted the squad which brought her to the hospital. Patient denies previous stroke. She denies previous myocardial infarction. She notes a cardiac murmur which she has had since age 15. She notes having a cardiac cath for an abnormal stress test in [address] Lorenzo is her blade aligner . Her last EKG in May 2019 shows a right bundle branch block. She denies having previous testing of her carotids. She notes being a previous smoker approximately 15 years ago. She drinks occasional alcohol. Patient has had an increase in her personal stress and her blood pressure is not well controlled. Patient had a Brain MRI upon arrival which demonstrated 1. Acute punctate left corpus callosum infarct. 2. 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 3. Moderate chronic ischemic white matter disease. Patient denies slurred speech, weakness in upper or lower extremities. She denies difficulty remembering. She denies change in vision, balance concerns. Patient also had a CTA on 10/09/19 which demonstrated approximately 70% stenosis of the right internal carotid artery and 20% stenosis of the left internal artery. Patient also reports that she had stopped taking a daily aspirin months ago due to she heard a commercial on TV that stated aspirin is not good for you. Past Medical History Past Medical History (Chronic Problems): Chronic Problems (Last Reviewed 10/11/19 @ 12:01 by Michaelle Griffith PA-C) Mixed hyperlipidemia (Chronic) Atherosclerotic heart disease of [place] coronary artery without angina pectoris (Chronic) Mild Essential hypertension (Chronic) GERD (gastroesophageal reflux disease) (Chronic) Diastolic dysfunction (Chronic) Aortic valve stenosis, rheumatic (Chronic) Rheumatic mitral insufficiency (Chronic) Hypothyroidism (Chronic) Medical History: Medical History (Last Reviewed 10/11/19 @ 12:01 by Michaelle Griffith PA-C) Mixed hyperlipidemia (Chronic) E78.2 Atherosclerotic heart disease of [place] coronary artery without angina pectoris (Chronic) I25.10 Mild Essential hypertension (Chronic) I10 Injury to blood vessels, unspecified site (Inactive) T14.8XXA Hypokalemia (Acute) E87.6 Diastolic dysfunction (Chronic) I51.9 Aortic valve stenosis, rheumatic (Chronic) I06.0 Rheumatic mitral insufficiency (Chronic) I05.1 Hypothyroidism (Chronic) E03.9 History of left heart catheterization (LHC) Onset Date: ~02/28/17 Z98.890 Left Main: normal, Mid LAD: mild luminal irregularities, Mid CX: mild luminal irregularities, Prox/Mid RCA: mild luminal irregularities Allergies Penicillins Allergy (Verified 05/21/19 09:44) facial redness Home Medications: Ambulatory Orders Medication Instructions Recorded Hydrochlorothiazide [Hctz] 25 mg PO DAILY 02/27/17 Levothyroxine Sodium [Levoxyl] 25 mcg PO DAILY 02/27/17 Omeprazole [Prilosec] 20 mg PO DAILY 02/27/17 potassium chloride ER 10 mEq 10 meq PO DAILY #180 cap 06/08/19 capsule,extended release metoprolol succinate ER 100 mg 100 mg PO DAILY #135 tab 06/24/19 tablet,extended release 24 hr Ondansetron HCl [Zofran] 4 mg PO BID PRN 10/08/19 Aspirin 325 mg PO DAILY@0800 #60 tab 10/11/19 Atorvastatin Calcium [Lipitor] 80 mg PO QHS #60 tab 10/11/19 Surgical History: Surgical History (Last Reviewed 10/11/19 @ 12:01 by Michaelle Griffith PA-C) History of liver biopsy Z98.890 History of partial hysterectomy Z90.711 History of tubal ligation Z98.51 Surgical History: hysterectomy Psychiatric History: No pertinent psych hx [employer] History: No pertinent [employer] history Lives: Alone Smoking Status: Never smoker - *Family History Maternal History Items: Heart Disease Paternal History Items: - - Patient does not know about her paternal medical history Review of Systems Constitutional: Denies: Chills, Fever, Weight Change HEENT: Reports: Hard of Hearing Cardiovascular: Denies: Chest Pain, Palpitations Respiratory: Denies: Cough, Shortness of breath at rest, Sputum production Gastrointestinal: Denies: Abdominal Pain, Nausea, Vomiting Genitourinary: Denies: Dysuria Musculoskeletal: Denies: Joint Pain, Joint Tenderness Skin: Denies: Rash, Wounds Neurological: Reports: Balance problems Psychiatric: Denies: Anxiety, Depression, Homicidal Ideations, Suicidal Ideations Hematologic/ Lymphatic: Denies: Easy Bruising, Easy Bleeding, Hx of blood clot, Hx of blood transfusion Patient Problems: Active and Suspected Problems (Last Reviewed 10/11/19 @ 12:01 by Michaelle Griffith PA-C) Carotid stenosis (Acute) Acute CVA (cerebrovascular accident) (Acute) Vertigo (Acute) Vomiting (Acute) Intractable nausea and vomiting (Acute) Diarrhea (Acute) - Physical Exam Vitals/I&O's: Vital Signs Temp Pulse Resp BP Pulse Ox 97.8 F 68 16 141/67 H 93 10/11/19 05:45 10/11/19 10:05 10/11/19 05:45 10/11/19 05:45 10/11/19 07:15 Oxygen Flow Rate (L/min) 2 Oxygen Delivery Method Room Air Weight: 193 lb 9.054 oz Body Mass Index (BMI) 35.4 Intake and Output for Last 24 Hours 10/09/19 10/10/19 10/11/19 23:59 23:59 23:59 Intake Total 2081.25 / 2701.25 2930.0 / 3050.0 240 / 240 Output Total 300 / 300 Balance 1781.25 / 2401.25 2930.0 / 3050.0 240 / 240 General: Alert, Oriented x3, Cooperative, - - Hard of hearing HEENT: Atraumatic, PERRLA, EOMI, Normocephalic Neck: Supple, No JVD, Negative Carotid Bruits Lungs: Clear to auscultation, Normal air movement Cardiovascular: Murmur Abdomen: Bowel Sounds Present, Soft, Non Tender Extremities: No edema, Capillary Refill Less than 3 Seconds Skin: No rashes, No breakdown Musculoskeletal: No Tenderness to Palpation of Joints or Extremities Neurological: Neuro grossly intact Psych/Mental Status: Normal Affect, Appropriate Laboratory Results 10/11/19 06:10: WBC 8.6, RBC 4.44, Hgb 14.1, Hct 41.5, MCV 93.5, MCH 31.8, MCHC 34.0, RDW Std Deviation 40.5, RDW Coeff of Kwasi 11.8, Plt Count 217, MPV 9.6, Immature Gran % (Auto) 0.200, Neut % (Auto) 67.1, Lymph % (Auto) 21.5, [place] % (Auto) 7.7, Eos % (Auto) 2.8, Baso % (Auto) 0.7, Absolute Neuts (auto) 5.8, Absolute Lymphs (auto) 1.85, Nucleated RBC % 0 10/11/19 06:10: Sodium 140, Potassium 3.9, Chloride 107, Carbon Dioxide 25.0, Anion Gap 8, BUN 15, Creatinine 0.86, Estim Creat Clear Calc 44.02, Est GFR (MDRD) Af Amer 82, Est GFR (MDRD) Non-Af 68, BUN/Creatinine Ratio 17.4, Glucose 97, Calcium 8.7, Magnesium 1.6 10/11/19 06:10: Phosphorus 3.6 Current Medications Acetaminophen (Tylenol) 650 mg PO Q6H PRN PRN PRN Reason: Pain (1-10) or Fever Last Admin: 10/10/19 05:38 Dose: 650 mg Documented by: Aspirin (Aspirin) 325 mg PO DAILY@0800 [facility] Last Admin: 10/11/19 10:05 Dose: 325 mg Documented by: Atorvastatin Calcium (Lipitor) 80 mg PO QHS [facility] Last Admin: 10/10/19 21:55 Dose: 80 mg Documented by: Dextrose (D50w Syringe) 0 gm IV X1 PRN; Protocol PRN Reason: Hypoglycemia Enoxaparin Sodium (Lovenox) 40 mg SC DAILY [facility] Last Admin: 10/10/19 11:24 Dose: 40 mg Documented by: Glucagon () 1 mg IM .X1 PRN PRN Reason: Hypoglycemia Hydralazine HCl (Apresoline Iv) 5 mg IV Q4H PRN PRN PRN Reason: SBP > 160 Hydrochlorothiazide (Hctz) 25 mg PO DAILY [facility] Last Admin: 10/11/19 10:05 Dose: 25 mg Documented by: Pantoprazole Sodium 40 mg/ (Sodium Chloride) 110 mls @ 330 mls/hr IV Q24 [facility] Last Admin: 10/11/19 10:04 Dose: 110 mls/hr Documented by: Sodium Chloride () 250 mls @ 15 mls/hr IV .[id number] PRN PRN Reason: Saline Flush Last Infusion: 10/08/19 03:47 Dose: 0 mls/hr Documented by: Magnesium Sulfate 2 gm/ Sodium (Chloride) 104 mls @ 52 mls/hr IV X1 ONE Stop: 10/11/19 10:59 Levothyroxine Sodium (Synthroid) 25 mcg PO DAILY@0600 [facility] Last Admin: 10/11/19 06:07 Dose: 25 mcg Documented by: Lorazepam (Ativan) 0.5 mg IV Q4H PRN PRN PRN Reason: VERTIGO Metoprolol Succinate (Toprol Xl (Beta Cristino)) 100 mg PO DAILY [facility] Last Admin: 10/11/19 10:05 Dose: 100 mg Documented by: Nutritional Formula (Lactose Free) (Ensure Clear) 120 ml PO 4X/DAY [facility] Last Admin: 10/11/19 10:05 Dose: Not Given Documented by: Ondansetron HCl (Zofran) 4 mg IV Q8H PRN PRN PRN Reason: NAUSEA/VOMITING Last Admin: 10/09/19 21:43 Dose: 4 mg Documented by: Potassium Chloride (K-Dur) 10 meq PO DAILY [facility] Last Admin: 10/11/19 10:05 Dose: 10 meq Documented by: Prochlorperazine Edisylate (Compazine Iv) 5 mg IV Q4H PRN PRN PRN Reason: Breakthrough Nausea/Vomiting Sodium Chloride () 10 - 40 ml IV UD PRN PRN Reason: SALINE FLUSH Last Admin: 10/09/19 05:36 Dose: 10 ml Documented by: Assessment/Plan All Active Problems (Last Reviewed 10/11/19 @ 12:01 by Michaelle Griffith PA-C) Carotid stenosis (Acute) Acute CVA (cerebrovascular accident) (Acute) Vertigo (Acute) Vomiting (Acute) Intractable nausea and vomiting (Acute) Diarrhea (Acute) Hypokalemia (Acute) I have been consulted in conjunction with Dr. Figueroa. Impression: Acute CVA, unknown etiology. Carotid stenosis of the right carotid. Plan: Patient was discussed with Dr. Figueroa. Recommend bilateral carotid duplex. Patient to schedule an outpatient follow-up in the office within 1-2 weeks after discharge to discuss further planning. Patient symptoms and stroke are not due to carotid stenosis as according to the MRI, her stroke occurred on the left side. Patient's carotid stenosis is 20% on the left side. Future outpatient plans were discussed with the patient. Patient has had the opportunity to ask and have questions answered. Patient verbally understands and agrees with the plan. Thank you for allowing us to participate in this patient's care. Code Visit Office Visits / Consults: [id number] IP Consult L4
--- NOTE | 2019-10-11 10:51 | DCINST_ITS ---
- Discharge Diagnoses Current Active Problems: Current Active and Chronic Problems (Last Updated 06/08/19 @ 09:59 by Darleen Will) Vertigo (Acute) Vomiting (Acute) Intractable nausea and vomiting (Acute) Diarrhea (Acute) You will use the following diet at home:: No restrictions Allergies/Adverse Reactions: Allergies Penicillins Allergy (Verified 05/21/19 09:44) facial redness Medications to take at Discharge Hydrochlorothiazide [Hctz] 25 mg PO DAILY 02/27/17 Levothyroxine Sodium [Levoxyl] 25 mcg PO DAILY 02/27/17 Omeprazole [Prilosec] 20 mg PO DAILY 02/27/17 potassium chloride ER 10 mEq capsule,extended release 10 meq PO DAILY #180 cap 06/08/19 metoprolol succinate ER 100 mg tablet,extended release 24 hr 100 mg PO DAILY #135 tab 06/24/19 Ondansetron HCl [Zofran] 4 mg PO BID PRN 10/08/19 Aspirin 325 mg PO DAILY@0800 #60 tab 10/11/19 Atorvastatin Calcium [Lipitor] 80 mg PO QHS #60 tab 10/11/19 The following prescriptions were given: Aspirin 325 mg PO DAILY@0800 #60 tab Transmission Status: Pending to [id number] Atorvastatin Calcium [Lipitor] 80 mg PO QHS #60 tab Transmission Status: Pending to [id number] Primary Care Physician: Gal Butler MD [Primary Care Provider] - Please follow up with your Primary Care Physician in: IN 3-5 DAYS Test Results: Test results from this visit will be discussed in further detail at your follow- up appointment, if applicable. Please Follow Up With: Eulalio Figueroa MD When: SCHEDULED Proposed Discharge Date: 10/11/19
--- NOTE | 2019-10-11 10:54 | PCM.DC.SUM ---
Discharge Date and Diagnosis - Problem List Patient Problems: Active and Suspected Problems (Last Reviewed 10/11/19 @ 12:01 by Michaelle Griffith PA-C) Carotid stenosis (Acute) Acute CVA (cerebrovascular accident) (Acute) Vertigo (Acute) Vomiting (Acute) Intractable nausea and vomiting (Acute) Diarrhea (Acute) Date of Admission: 10/08/19 Date of Discharge: 10/11/19 - Primary Discharge Diagnosis Active and Suspected Problems (Last Updated 06/08/19 @ 09:59 by Darleen Will) Acute CVA (cerebrovascular accident) (Acute) Vertigo (Acute) Vomiting (Acute) Intractable nausea and vomiting (Acute) Diarrhea (Acute) - Secondary Discharge Diagnosis Chronic Problems (Last Updated 06/08/19 @ 09:59 by Darleen Will) Mixed hyperlipidemia (Chronic) Atherosclerotic heart disease of [place] coronary artery without angina pectoris (Chronic) Mild Essential hypertension (Chronic) GERD (gastroesophageal reflux disease) (Chronic) Diastolic dysfunction (Chronic) Aortic valve stenosis, rheumatic (Chronic) Rheumatic mitral insufficiency (Chronic) Hypothyroidism (Chronic) Hospital Course and Treatment Imaging Results: Clinical Impression(s) from Imaging Studies Brain CT 10/08/19 00:05 IMPRESSION: No CT evidence of acute infarct or hemorrhage. If there is clinical concern for hyperacute ischemia that is not evident by CT, MRI should be considered if possible. Electronically Signed: Serge Bailey MD at 1:12 EST Tel , Service support , Brain MRI 10/08/19 03:35 IMPRESSION: 1. Acute punctate left corpus callosum infarct. 2. 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 3. Moderate chronic ischemic white matter disease. Electronically Signed: Kaden Banegas, at 16:20 EST Tel , Service support , Head MRA 10/08/19 03:35 IMPRESSION: Questionable basilar stenosis. Refer to CT angiography of the head for confirmation. Patent anterior circulation. Electronically Signed: Kaden Banegas, at 16:50 EST Tel , Service support , Neck MRA 10/08/19 03:35 IMPRESSION: 1. Limited examination. 2. No large vessel occlusion. 3. Present flow in all cervical arteries. If definitive assessment is desired CT angiography of the neck is the study of choice. Electronically Signed: Kaden Banegas, at 17:06 EST Tel , Service support , Head/Neck CTA 10/09/19 05:55 IMPRESSION: 1. 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 2. No other suspicious significant vaso-occlusive disease of the anterior and posterior intracranial circulation. 3. Approximately 70% stenosis of the right proximal internal carotid artery origin due to calcified plaques and noncalcified plaques. 4. Less than 20% stenosis of the left proximal internal artery due to calcified plaques and noncalcified plaques. 5. Widely patent bilateral common carotid arteries. 6. Widely patent aortic arch and origins of the great vessels. 7. Widely patent vertebral arteries, left is dominant. Electronically Signed: Chaz Ortiz MD at 16:24 EST , Service support , Summary of Care Provided: 74-year-old lady admitted with dizziness associated with nausea. Symptoms had apparently been ongoing for about a week. On the day of her admission she did vomit and had diarrhea hence the decision to present to the emergency department 1. Acute ischemic CVA ~Patient presented with acute vertigo and MRI was ordered to rule out posterior circulation CVA. MRI on 10/08/2019 demonstrated Acute punctate left corpus callosum infarct in addition to Late subacute left centrum semiovale white matter infarct. Patient subsequently started on statin therapy aspirin with 2D echo and CT Angio of the head and neck ordered for subsequent evaluation. 2. Right carotid artery stenosis ~Patient currently on antiplatelet as well as statin therapy patient informed of the result. Consult placed to vascular surgery. Patient was seen by Dr. Ramos plan is for patient to follow-up in the office on 10/19/2019 3. Suspected gastroenteritis ~Suspected to be viral patient being treated symptomatically patient was placed on enteric precautions pending results of enteric pathogen panel ordered on admission 10/10/2019: Resolved 4. Hypokalemia ~secondary to above corrected per protocol 5. Hypomagnesemia ~secondary to above corrected per protocol 6. Hypothyroidism ~patient is on levothyroxine home dose continued 7. Chronic diastolic heart failure ~currently compensated 8. Dyslipidemia ~History, managed with diet 9. DVT prophylaxis ~ on enoxaparin 10. Questionable thyromegaly ordered thyroid ultrasound for subsequent evaluation Patient Problems: Active and Suspected Problems (Last Reviewed 10/11/19 @ 12:01 by Michaelle Griffith PA-C) Carotid stenosis (Acute) Acute CVA (cerebrovascular accident) (Acute) Vertigo (Acute) Vomiting (Acute) Intractable nausea and vomiting (Acute) Diarrhea (Acute) Objective: GENERAL: cooperative HEENT: Atraumatic; EYES; Anicteric, Normal Conjunctiva NECK; supple, ?? enlarged thyroid, RESPIRATORY: Diminished to auscultation CARDIOVASCULAR: Regular S1 S2, GI: soft, normoactive bowel sounds, : No Renal angle tenderness; EXTREMITIES: No edema, no clubbing, MUSCULOSKELETAL: no muscle waisting NEURO: Awake; no lateralizing signs. SKIN: No Rash PSYCH; Flat affect - Physical Exam Vitals/I&O's: Vital Signs Temp Pulse Resp BP Pulse Ox 98.1 F 68 16 165/79 H 96 10/11/19 10:32 10/11/19 10:32 10/11/19 10:32 10/11/19 10:32 10/11/19 10:32 Oxygen Flow Rate (L/min) 2 Oxygen Delivery Method Room Air Weight: 87.8 kg Body Mass Index (BMI) 35.4 Intake and Output for Last 24 Hours 10/09/19 10/10/19 10/11/19 23:59 23:59 23:59 Intake Total 2081.25 / 2701.25 2930.0 / 3050.0 251 / 251 Output Total 300 / 300 Balance 1781.25 / 2401.25 2930.0 / 3050.0 251 / 251 Laboratory Results 10/11/19 06:10: WBC 8.6, RBC 4.44, Hgb 14.1, Hct 41.5, MCV 93.5, MCH 31.8, MCHC 34.0, RDW Std Deviation 40.5, RDW Coeff of Kwasi 11.8, Plt Count 217, MPV 9.6, Immature Gran % (Auto) 0.200, Neut % (Auto) 67.1, Lymph % (Auto) 21.5, [place] % (Auto) 7.7, Eos % (Auto) 2.8, Baso % (Auto) 0.7, Absolute Neuts (auto) 5.8, Absolute Lymphs (auto) 1.85, Nucleated RBC % 0 10/11/19 06:10: Sodium 140, Potassium 3.9, Chloride 107, Carbon Dioxide 25.0, Anion Gap 8, BUN 15, Creatinine 0.86, Estim Creat Clear Calc 44.02, Est GFR (MDRD) Af Amer 82, Est GFR (MDRD) Non-Af 68, BUN/Creatinine Ratio 17.4, Glucose 97, Calcium 8.7, Magnesium 1.6 10/11/19 06:10: Phosphorus 3.6 Current Medications Acetaminophen (Tylenol) 650 mg PO Q6H PRN PRN PRN Reason: Pain (1-10) or Fever Last Admin: 10/10/19 05:38 Dose: 650 mg Documented by: Aspirin (Aspirin) 325 mg PO DAILY@0800 [facility] Last Admin: 10/11/19 10:05 Dose: 325 mg Documented by: Atorvastatin Calcium (Lipitor) 80 mg PO QHS [facility] Last Admin: 10/10/19 21:55 Dose: 80 mg Documented by: Dextrose (D50w Syringe) 0 gm IV X1 PRN; Protocol PRN Reason: Hypoglycemia Enoxaparin Sodium (Lovenox) 40 mg SC DAILY [facility] Last Admin: 10/10/19 11:24 Dose: 40 mg Documented by: Glucagon () 1 mg IM .X1 PRN PRN Reason: Hypoglycemia Hydralazine HCl (Apresoline Iv) 5 mg IV Q4H PRN PRN PRN Reason: SBP > 160 Hydrochlorothiazide (Hctz) 25 mg PO DAILY [facility] Last Admin: 10/11/19 10:05 Dose: 25 mg Documented by: Pantoprazole Sodium 40 mg/ (Sodium Chloride) 110 mls @ 330 mls/hr IV Q24 [facility] Last Infusion: 10/11/19 10:10 Dose: 330 mls/hr Documented by: Sodium Chloride () 250 mls @ 15 mls/hr IV .[id number] PRN PRN Reason: Saline Flush Last Infusion: 10/08/19 03:47 Dose: 0 mls/hr Documented by: Magnesium Sulfate 2 gm/ Sodium (Chloride) 104 mls @ 52 mls/hr IV X1 ONE Stop: 10/11/19 10:59 Levothyroxine Sodium (Synthroid) 25 mcg PO DAILY@0600 [facility] Last Admin: 10/11/19 06:07 Dose: 25 mcg Documented by: Lorazepam (Ativan) 0.5 mg IV Q4H PRN PRN PRN Reason: VERTIGO Metoprolol Succinate (Toprol Xl (Beta Cristino)) 100 mg PO DAILY [facility] Last Admin: 10/11/19 10:05 Dose: 100 mg Documented by: Nutritional Formula (Lactose Free) (Ensure Clear) 120 ml PO 4X/DAY [facility] Last Admin: 10/11/19 10:05 Dose: Not Given Documented by: Ondansetron HCl (Zofran) 4 mg IV Q8H PRN PRN PRN Reason: NAUSEA/VOMITING Last Admin: 10/09/19 21:43 Dose: 4 mg Documented by: Potassium Chloride (K-Dur) 10 meq PO DAILY [facility] Last Admin: 10/11/19 10:05 Dose: 10 meq Documented by: Prochlorperazine Edisylate (Compazine Iv) 5 mg IV Q4H PRN PRN PRN Reason: Breakthrough Nausea/Vomiting Sodium Chloride () 10 - 40 ml IV UD PRN PRN Reason: SALINE FLUSH Last Admin: 10/09/19 05:36 Dose: 10 ml Documented by: Discharge Diet: No Restrictions Discharge Activity: Return to Normal Activity Home Medications: Medications to take at Discharge Hydrochlorothiazide [Hctz] 25 mg PO DAILY 02/27/17 Levothyroxine Sodium [Levoxyl] 25 mcg PO DAILY 02/27/17 Omeprazole [Prilosec] 20 mg PO DAILY 02/27/17 potassium chloride ER 10 mEq capsule,extended release 10 meq PO DAILY #180 cap 06/08/19 metoprolol succinate ER 100 mg tablet,extended release 24 hr 100 mg PO DAILY #135 tab 06/24/19 Ondansetron HCl [Zofran] 4 mg PO BID PRN 10/08/19 Aspirin 325 mg PO DAILY@0800 #60 tab 10/11/19 Atorvastatin Calcium [Lipitor] 80 mg PO QHS #60 tab 10/11/19 Following Prescrptions Were Given to Patient: Aspirin 325 mg PO DAILY@0800 #60 tab Transmission Status: [id number] Atorvastatin Calcium [Lipitor] 80 mg PO QHS #60 tab Transmission Status: Re[facility] by [id number] Primary Care Physician: Gal Butler MD [Primary Care Provider] - Please follow up with your Primary Care Physician in: IN 3-5 DAYS Please Follow Up With: Eulalio Figueroa MD When: SCHEDULED Disposition: Home Minutes spent on discharge:: 35 Patient Condition:: Stable Medical Necessity - Tobacco Use Smoking Status: Never smoker Meaningful Use Info Meaningful Use Diagnoses (Choose all that apply): Ischemic CVA - CVA Therapy Assessed for PT,OT and/or ST?: Yes - Ischemic Stroke Antithrombotic order at d/c?: Yes Dx of Atrial fib/flutter?: No Statins at discharge?: Yes Primary Dx Acute Ischemic CVA?: Yes IV tPA ordered during stay?: No Reason IV t-PA not ordered: Treatment not Indicated Code Visit Inpatient E&M: 16589 Disch Hosp
[2019-10-11] MEDS: Enoxaparin 40 MG/0.4 ML Syringe SC (11:05)
--- NOTE | 2019-10-11 11:29 | CASEMGMT ---
Patient did really well with therapy and no further therapy is being recommended. Patient's son wants patient to go to a custodial. However, patient will not qualify for a custodial stay. VASILE spoke with patient about d/c plan and let her know that her insurance will not approve a custodial stay for her. VASILE discussed [facility] with patient again. She is still in agreement with participating in the program. VASILE did note patient does seem to be a little forgetful and can get confused easily. SW told her therapy does not feel she needs to continue with therapy. She is not homebound. She doesn't get out much, but she doesn't want to be obligated to be homebound. VASILE called patient's son, Matt. SW explained patient is doing well and will not qualify for a rehab stay as she is doing well. Her insurance would not approve her. SW explained that therapy is indicating she does not need any continued therapy. VASILE told him that patient has agreed to go with the [facility] referral. VASILE again explained [facility]. He said he disagrees with this plan, but if that is the professional opinion of SW and therapy then that is what he will go with. He said he talked with the doctor yesterday and he said patient needed to go to a custodial as she was unsteady. VASILE told him she is doing really well and walked several laps around the unit around 600'. She did not use a walker and the therapist was just walking beside her. He said he was here last night and she was unsteady. He said he is just surprised that she made a change so quickly. He is happy she is doing better, but surprised. He thanked VASILE for keeping him updated. VASILE told him VASILE will also call the social sciences research scientist with [facility] and let her know the support patient will need. VASILE also told him VASILE will talk with Earl the nurse that runs the [facility] program to see when she thinks she will get in touch with patient and let him know. He asked if she could also call him. VASILE told him VASILE will pass this along to her. VASILE called Earl and she said she will get in contact with patient and her son in the next day or 2. VASILE also called VASILE Baez with [facility] and left her a voice mail regarding patient's needs. VASILE gave patient another pamphlet on [facility]. SW also called patient's son, Matt and left him a voice mail letting him know Earl will be getting in contact with him and his mom in the next day or 2. Plan: Home with referral to [facility]. Tootie SUN MSW
--- NOTE | 2019-10-11 11:55 | CDU_ITS ---
Reason For Study: CVA Rt. Velocities/BP Lt. Velocities/BP Prox CCA 75.5/9.5 cm/sec. Prox CCA 127.1/21.7 cm/sec. Mid CCA 78.7/11.6 cm/sec. Mid CCA 98.5/21.7 cm/sec. Dist CCA 83.1/9.4 cm/sec. Dist CCA 116.1/12.9 cm/sec. Prox ICA 258.2/57.9 cm/sec. Prox ICA 149.1/24.8 cm/sec. Mid ICA 219.1/35.2 cm/sec. Mid ICA 149.1/27.4 cm/sec. Dist ICA 144.0/19.7 cm/sec. Dist ICA 182.5/32.6 cm/sec. Rt. ICA/CCA = 258.2/83.1=3.1. Lt. ICA/CCA = 182.5/116.1=1.6. Prox ECA 213.8/6.7 cm/sec. Prox ECA 219.1/0.0 cm/sec. Rt. Vert. 44.9/7.6 cm/sec. Lt. Vert. 72.3/17.5 cm/sec. Right Extracranial There is homogeneous, smooth atherosclerotic plaque noted in the right common carotid artery. There is heterogeneous, irregular atherosclerotic plaque noted in the right internal carotid artery. There is heterogeneous, irregular atherosclerotic plaque noted in the right external carotid artery. Antegrade flow is noted in the right vertebral artery. There is heterogeneous, irregular atherosclerotic plaque noted in the right bulb. Left Extracranial There is heterogeneous, smooth atherosclerotic plaque noted in the left common carotid artery. There is heterogeneous, irregular atherosclerotic plaque noted in the left internal carotid artery. The tortuous nature of the left internal carotid artery may result in flow velocities overestimating the degree of stenosis. There is homogeneous, irregular atherosclerotic plaque noted in the left external carotid artery. Antegrade flow is noted in the left vertebral artery. There is heterogeneous, irregular atherosclerotic plaque noted in the left bulb. Procedure Carotid Duplex [id number]. The study was technically difficult. RT ICA velocities may be uderestimated. Exam performed portable in patient room. Interpretation Summary Extensive calcific plaque with shadowing at the distal right common carotid and proximal right external and internal carotid arteries >70% stenosis right internal carotid >50% stenosis right external carotid Irregular calcific plaque in the proximal left internal and external carotid arteries 50-69% stenosis left internal carotid >50% stenosis left external carotid Patent, antegrade, <50% stenosis bilateral vertebrals Ordering Physician: Michaelle Griffith Referring Physician: Gal Butler Performed By: Marcella Ferris, JOSE, RVT
--- NOTE | 2019-10-11 15:09 | CASEMGMT ---
SW completed a PHQ-9 with patient as she had a Stroke. She scored a 10 which indicates moderate Depression. Patient declined a list of local counselors. She said she has been depressed lately due to her having to move. She loves the place where she lives and thought that was where she would live until she . She said it brought up old memories of having to leave her house. When she lost her job she had to put her house on the market and moved to [place]. She did try taking an anti-depressant, but it made her sick. She is frustrated with trying anti-depressants as she tried them before and again the medicine made her sick. Patient has a lot of local support. She has a sister and a niece that live in [place]. She has 4 good friends that she has had forever and they talk all of the time. She feels counselors are not going to tell her anything she doesn't already know. She also does not have the money to pay any co-pays. VASILE reminded her that is partly why we set up [facility]. A SW can come to her and provide support at no cost. She thanked VASILE for listening to her talk. Tootie SUN MSW
--- NOTE | 2019-10-14 09:54 | CCN.REFER ---
Agrees to CCN. Visit to home. Hospital follow appt made for 10/29 with PCP. Patient declines this RN or CCN to fill her med box. All meds in home. CCN to monitor compliancy moving fwd.
== END 2019-10-11 16:40 | disposition home or self-care (01) | DRG 65 ==
LOC: ED 10-08 01:54 → PCU 10-08 03:10
PROVIDERS: Physician Assistant; Admitting Provider Hospitalist; Emergency Provider Emergency Medicine; Family Provider Family Medicine; PCP Family Medicine; Visit Provider Internal Medicine
DX: I63.9 Cerebral infarction, unspecified (principal); I50.32 Chronic diastolic (congestive) heart failure; E87.6 Hypokalemia; E03.9 Hypothyroidism, unspecified; E83.42 Hypomagnesemia; A08.4 Viral intestinal infection, unspecified; I65.21 Occlusion and stenosis of right carotid artery; I11.0 Hypertensive heart disease with heart failure; I08.0 Rheumatic disorders of both mitral and aortic valves; E78.2 Mixed hyperlipidemia; I25.10 Atherosclerotic heart disease of native coronary artery without angina pectoris; K21.9 Gastro-esophageal reflux disease without esophagitis; Z87.891 Personal history of nicotine dependence
CPT/HCPCS: 36415; 70450; 70496; 70498; 70544; 70547; 70551; 76536; 80048; 80076; 81001; 83690; 83735; 84100; 85025; 93005; 93306; 93880; 97110; 97116; 97162; 97165; 97530; 97535; 99285; J7030; J7050; Q9957; Q9967; A4216; C8929; J2405

== ENCOUNTER 2019-10-17 18:09 | Emergency (ER) | payer MEDICARE, MEDICAID, SELFPAY ==
[2019-10-10 20:56] VITALS: BMI 35.4
[2019-10-17 18:12] VITALS: BP 150/60; PULSE 58; RESP 18; TEMP 36.4; O2SAT 96; BMI 32.7
[2019-10-17 18:38] VITALS: BP 140/73; BP 146/58; PULSE 59; PULSE 62
--- NOTE | 2019-10-17 18:38 | EKG12_ITS ---
Test Reason : DYSRHYTHMIA Blood Pressure : / mmHG Vent. Rate : 055 BPM Atrial Rate : 055 BPM P-R Int : 168 ms QRS Dur : 116 ms QT Int : 532 ms P-R-T Axes : 042 051 045 degrees QTc Int : 508 ms Sinus bradycardia Incomplete right bundle branch block Nonspecific ST abnormality Prolonged QT Abnormal ECG Confirmed by MIN CHOWDHURY, AGGIE ([id number]), legal editor NELLY BAZZI ([id number]) on 10/20/2019 11:38:16 AM Referred By: CHANDA Confirmed By:AGGIE COPELAND MD
--- NOTE | 2019-10-17 18:39 | ED.VISSUMM ---
- ER Visit Summary Date of Service: 10/17/19 Chief Complaint: Dizziness. History of Present Illness: The patient is a 74 F history of recent stroke and hypertension. Recent hospitalization and discharged this past week. States that she has had intermittent nausea mild headaches. At times her room spinning. Similar to her recent admission. She is not on any blood thinners. She denies any chest pain or shortness of breath. No fever. Physical Examination: Older female no acute distress. Vital signs are stable and she is afebrile. She does not look septic or toxic. HEENT exam unremarkable. No facial droop. Normal speech. No signs of trauma. Neck nontender. No JVD. Lungs clear to auscultation bilaterally. Heart regular rhythm rate about 60 no murmur. Abdomen soft nontender normal bowel sounds no peritoneal signs. She is moving all 4 extremities. Neurovascular intact. No edema. 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 Dorsi plantarflexion intact. Back exam nontender. Neurologically she is awake alert with no focal motor deficit. NIH score is 0. Fingertip to nose within normal limits. She can lift either leg. There is no drift. Test Results: CBC White count 11.2. Hemoglobin 15. No bands. Chemistries unremarkable. Creatinine 1.2. Gap of 5. EKG sinus rhythm rate of 55 no acute signs of WA or ischemia otherwise unchanged from September. Urine shows positive nitrates 25-50 white cells. 4+ bacteria. Consistent with UTI and a culture was sent. Orthostatic vital signs were negative. Patient would not stand however. Emergency Department Course and Treatment: Dizziness and older female with unremarkable exam. Recent extensive work-up showing carotid disease. Repeat exam the patient is doing well at 21:05 PM. Her exam is unchanged and normal. Her neurologic exam remains normal. She denied discussed at length all of her test results. She refers admission I explained to I have nothing to admit her on. She has had recently an extensive neurological evaluation. Treatment Plan: Keflex 4 times daily for 10 days. Urine culture sent. Plenty of fluids. Follow-up with primary care physician. Return if worse. Disposition: Discharge Impression: Acute dizziness of uncertain etiology Anxiety Acute UTI This note was generated with [employer] software. It may contain incorrect words, spelling, and punctuation that were not noted in review of the chart prior to signing ED Disposition - Plan for ED Patient: Referrals: Gal Butler MD [Primary Care Provider] -
[2019-10-17 19:41] LABS: Absolute Lymphocyte Count 1.44 X10^3/uL (0.83-4.51); Absolute Neutrophil Count 8.6 X10^3/uL (2.0-7.7); Basophil# 0.06 X10^3/uL; Basophil% 0.5 % (0-1); Eosinophil# 0.17 X10^3/uL; Eosinophils% 1.5 % (0-5); Hemoglobin 15.7 g/dL (12.0-15.0); Lymphocyte # 1.44 X10^3/ul (4.0); Lymphocyte % 12.9 % (19-41); Mean Corp Hgb Conc 34.1 g/dL (32-36); Mean Corpuscular Hgb 32.5 pg (27.0-32.0); Mean Corpuscular Volume 95.2 fL (81-99); Mean Platelet Vol. 9.3 fl (6.2-12.0); Monocyte# 0.87 X10^3/uL; Monocyte% 7.8 % (0-10); NRBC Flagged by Analyzer 0 % (0-5); Neutrophil % 76.9 % (47-70); Platelet Count 267 K/mm3 (150-450); RBC Distribution Width CV 11.7 % (11.6-14.6); RBC Distribution Width SD 40.8 fl (35.1-43.9); Red Blood Count 4.83 M/mm3 (4.2-5.4); White Blood Count 11.2 K/mm3 (4.4-11.0)
[2019-10-17 19:53] LABS: Anion Gap 5 (5-15); BUN 23 mg/dL (7-18); BUN/Creat Ratio 18.9 RATIO (10-20); Calcium,Total 9.1 mg/dL (8.5-10.1); Chloride 102 mmol/L (98-107); Creatinine, Serum 1.22 mg/dL (0.55-1.02); EST Glomerular Filtration Rate 46 mL/min (>60); Est Glom Filt Rate - Afr Amer 55 mL/min (>60); Glucose 113 mg/dL (74-106); Potassium 4.3 mmol/L (3.5-5.1); Sodium Level 137 mmol/L (136-145)
[2019-10-17 20:10] VITALS: BP 140/73; PULSE 62; RESP 15
[2019-10-17 20:16] LABS: Color, Urine Yellow (Yellow); Glucose, Dipstick Normal (Normal); Ketone-Dipstick Negative (Negative); Leukocyte Esterase-Dipstick 100 /ul (Negative); Nitrite-Dipstick Positive (Negative); Occult Blood-Urine 150 /ul (Negative); Protein-Dipstick Negative (Negative); Urine Bilirubin Dipstick Negative (Negative); Urine Clarity Cloudy (Clear); Urine Urobilinogen Normal (Normal)
[2019-10-17 20:30] LABS: Hyaline Cast 0-5 SEEN /lpf (0-5)
[2019-10-17 20:31] LABS: Bacteria 4+ /hpf (None Seen)
[2019-10-17 20:32] LABS: Mucous, Urine RARE /hpf (<or=2+)
[2019-10-17 20:35] LABS: White Blood Cells 25-50 SEEN /hpf (0-5)
[2019-10-17 20:37] LABS: Red Blood Cells-Urine 5-10 SEEN /hpf (0-5); Squamous Epithelial Cells - UA 0 SEEN /hpf (5-10); Transitional Epithelial - Ur 0-5 SEEN /hpf (0-5)
--- NOTE | 2019-10-17 21:09 | ED.DEP ---
ED Disposition - Plan for ED Patient: Disposition: Home or Assisted Living Instructions: DIZZINESS, Unk Cause, Urinary Tract Infections in Women Prescriptions: Cephalexin [Keflex] 500 mg PO Q6 #40 cap Prescription Printed Referrals: Gal Butler MD [Primary Care Provider] - As soon as possible Additional Instructions: Follow-up with your doctor in the next several days. Keflex 1 pill 4 times a day for your urinary tract infection.
[2019-10-17] MEDS: Cephalexin 250 MG Capsule 500 MG PO (21:22)
[2019-10-17 21:23] VITALS: PULSE 72; RESP 19; O2SAT 97
--- NOTE | 2019-10-18 12:06 | ED.RN ---
PATIENT CALLS REQUESTING THAT THE PRESCRIPTION THAT SHE RECEIVED YESTERDAY BE CALLED INTO [facility] IN [place] SO THAT THEY CAN DELIVERY IT TO HER ALONG WITH HER OTHER MEDICATIONS. KEFLEX 500 MG Q 6 HOURS, #40 WITH 0 REFILLS CALLED IN, OKAY'ED BY DR. JOSEPH.
== END 2019-10-17 22:10 | disposition home or self-care (01) ==
PROVIDERS: Emergency Provider Emergency Medicine; Family Provider Family Medicine; PCP Family Medicine
DX: R42 Dizziness and giddiness (principal); F41.9 Anxiety disorder, unspecified; N39.0 Urinary tract infection, site not specified; I10 Essential (primary) hypertension; Z86.73 Personal history of transient ischemic attack (TIA), and cerebral infarction without residual deficits; Z79.82 Long term (current) use of aspirin; Z79.899 Other long term (current) drug therapy
CPT/HCPCS: 80048; 81001; 85025; 87077; 87086; 87088; 87186; 93005; 99285; J7030; J2405

== ENCOUNTER 2020-01-18 14:37 | Outpatient (RCR) | payer MEDICARE, MEDICAID, SELFPAY ==
[2020-01-03 14:39] VITALS: BMI 35.4
--- NOTE | 2020-01-18 15:52 | HP.PTEVAL_ITS ---
Patient's Visit Information RONALDO JAIME is a 74 year old F referred to Physical Therapy by Andrew Leonardo MD with a diagnosis of BPPV. Date of Evaluation: 01/18/20 Physical Therapist: Andrew Wright, DPT, OCS, CSCS - Visit Plan Frequency: 2x /Week Duration: 4 Weeks Plan: up to 2x/week for 4 weeks to wrok on balance and gait adn activity with postural and functional LE strength. Monitor need for positional treatment. VOR. To start, f/u in two weeks for positional and balance check. - Subjective Subjective: Saw dr. Leonardo who referred her for therapy. She says he is not sure what the problem is. She got quite sick in late September 2019 rolling in sleep and getting dizzy and spinning. Vomitted. Called 911 and went to ER. Many tests including catscan and mostly normal, may have had a stroke. Sent home adn to doctors. may have had some blockag ein heart but low percentage. sent to ENT for dizzy/imbalance. Also saw neurologist who said she had unusual symptoms for location of stroke. No real answers. She got one more dizzy spell a week after hosptial adn was not overly severe. Could not stand up and called ER again. Found out she had an UTI and gave pills for that. Since [place] has been ocasionally dizzy/disoriented but no spinning. Intermittent and notice more in the evening at the TV. Only lasted short time if she sits still. More recently she feels more normal and not bad in the last few weeks. This has left her frightened that it may come back. Only slight dizzyness and none lately. Sleeping is normal for her but not good. Ocasional dizzyness with rolling. Basic ADLs are going OK withotu problem. No falls, no AD but has a cane. Wants to be more active. Enjoys taking care of yard in the summer adn wants to do that. - Objective Walks slightly hunched over with wide LEROY. Somewhat fearful to shift weight adn move fluidly. Trasnfers I bed adn chair. Cervical AROM WFL adn without pain. - B hallpike stepan. - roll test. Oculomotr : unremarkable today. no nystagmus with gaze or head shake. - skew eye deviation, - ocular tilt. pursuit and saccades are normal. VOR is asymptomatic today. - head thrust. - Balance Scores Functional Gait Assessment Score: 22 % Disability: 26.6700 CATSIB Score (Max score 120 seconds): 110 - Goals Goal 1:: FGA to reduce fall risk Goal Time Frame: 4-6 Weeks Goal 2:: Pt feel 100% back to normal to get outside for summer Goal Time Frame: 4-6 Weeks Goal 3:: score of 0 on DHI Goal Time Frame: 4-6 Weeks - Rehabilitation Potential Physical Therapy Diagnosis: BPPV and resulting balance and fear deficits. Rehabilitation Potential: Fair - Anticipated Interventions Patient/Client Instruction: Educate patient on: Condition, Plan of Care For the Purpose of:: To improve gait and locomotor functions, To improve balance Therapeutic Exercise to Include: Balance training, Gait and locomotor training Comment: psotional treatmetns as needed. For the Purpose of:: To improve ability of physical actions for home/community/work/leisure, To improve gait and locomotor functions Thank you for the opportunity to evaluate your patient. For Medicare and Medicare HMO plans, please review the plan of care and approve it. It will need to be FAXED BACK to us at [phone] for Medicare purposes. For Medicare only, by signing this I certify the plan of care. Please let me know if there are questions or concerns regarding this plan of care. Physician Signature: Date:
--- NOTE | 2020-05-25 11:08 | HP.PT.NRP ---
RONALDO JAIME was seen in my office for initial evaluation on 01/18/20. The following Plan of Care was established for this patient: Initial Frequency: 2x /Week Initial Duration: 4 Weeks Patient/Client Instruction: Educate patient on: Condition, Plan of Care For the Purpose of:: To improve gait and locomotor functions, To improve balance Therapeutic Exercise to Include: Balance training, Gait and locomotor training For the Purpose of:: To improve ability of physical actions for home/community/work/leisure, To improve gait and locomotor functions This patient was last seen in our office 01/18/20. Pertinent comments regarding their Physical therapy will appear below: Pt sen one visit and was to f/u 2 weeks later but cancelled. At this point, it has been over 4 months and I will discontinue due to nonattendance. I would be happy to see her again if still found appropriate by physician. At this point I will be discontinuing this patient from physical therapy. I would be happy to see this patient again in the future if found appropriate by the physician. Thank you! Andrew Wright, DPT, OCS, CSCS
== END 2020-01-18 19:00 | disposition home or self-care (01) ==
LOC: PT 14:37
PROVIDERS: PCP Family Medicine; Referring Provider Otolaryngology; Visit Provider Otolaryngology
DX: H81.12 Benign paroxysmal vertigo, left ear (principal)
CPT/HCPCS: 97162

== ENCOUNTER → 2020-04-12 15:53 | Outpatient (CLI) | payer MEDICARE, MEDICAID, SELFPAY ==
[2020-01-03 14:39] VITALS: BMI 35.4
[2020-04-12 18:27] LABS: Anion Gap 5 (5-15); BUN 20 mg/dL (7-18); BUN/Creat Ratio 22.8 RATIO (10-20); Calcium,Total 8.8 mg/dL (8.5-10.1); Chloride 105 mmol/L (98-107); Cholesterol 118 mg/dL (200); Creatinine, Serum 0.88 mg/dL (0.55-1.02); EST Glomerular Filtration Rate 66 mL/min (>60); Est Glom Filt Rate - Afr Amer 80 mL/min (>60); Glucose 85 mg/dL (74-106); High Density Lipoprotein 34 mg/dL; Potassium 3.1 mmol/L (3.5-5.1); Sodium Level 141 mmol/L (136-145); Thyroid Stim Hormone (TSH) 2.07 uIU/mL (0.358-3.74); Triglycerides 183 mg/dL; Very Low Density Lipoprotein 37 mg/dL (5-40)
== END ==
PROVIDERS: PCP Family Medicine; Visit Provider Family Medicine
DX: I10 Essential (primary) hypertension (principal); E03.9 Hypothyroidism, unspecified
CPT/HCPCS: 36415; 80048; 80061; 84443

== ENCOUNTER → 2020-06-01 11:10 | Outpatient (CLI) | payer MEDICARE, SELFPAY ==
[2020-01-03 14:39] VITALS: BMI 35.4
[2020-06-01 12:43] LABS: Anion Gap 6 (5-15); BUN 19 mg/dL (7-18); BUN/Creat Ratio 22.5 RATIO (10-20); Calcium,Total 8.2 mg/dL (8.5-10.1); Chloride 104 mmol/L (98-107); Creatinine, Serum 0.84 mg/dL (0.55-1.02); EST Glomerular Filtration Rate 69 mL/min (>60); Est Glom Filt Rate - Afr Amer 84 mL/min (>60); Glucose 99 mg/dL (74-106); Potassium 3.5 mmol/L (3.5-5.1); Sodium Level 139 mmol/L (136-145)
== END ==
PROVIDERS: PCP Family Medicine; Referring Provider Family Medicine; Visit Provider Family Medicine
DX: E87.6 Hypokalemia (principal)
CPT/HCPCS: 36415; 80048

== ENCOUNTER → 2020-06-13 09:34 | Outpatient (CLI) | payer MEDICARE, SELFPAY ==
[2020-01-03 14:39] VITALS: BMI 35.4
[2020-06-13 12:23] LABS: Anion Gap 4 (5-15); BUN 15 mg/dL (7-18); BUN/Creat Ratio 18.3 RATIO (10-20); Calcium,Total 8.1 mg/dL (8.5-10.1); Chloride 109 mmol/L (98-107); Creatinine, Serum 0.82 mg/dL (0.55-1.02); EST Glomerular Filtration Rate 72 mL/min (>60); Est Glom Filt Rate - Afr Amer 87 mL/min (>60); Glucose 106 mg/dL (74-106); Potassium 3.6 mmol/L (3.5-5.1); Sodium Level 144 mmol/L (136-145)
[2020-06-13 12:31] LABS: AST(SGOT) 21 U/L (15-37); Alanine Aminotransfer ALT/SGPT 23 U/L (13-56); Alkaline Phosphatase 59 U/L (45-117); Bilirubin, Direct 0.17 mg/dL (0.00-0.30); Cholesterol 111 mg/dL (200); Globulin 4.1 g/dL (2.2-4.2); High Density Lipoprotein 38 mg/dL; Protein, Total 7.1 g/dL (6.4-8.2); Triglycerides 131 mg/dL; Very Low Density Lipoprotein 26 mg/dL (5-40)
== END ==
PROVIDERS: Internal Medicine Cardiovascular Disease; PCP Family Medicine; Referring Provider Family Medicine; Visit Provider Family Medicine
DX: E87.6 Hypokalemia (principal); E78.00 Pure hypercholesterolemia, unspecified; E78.2 Mixed hyperlipidemia
CPT/HCPCS: 36415; 80048; 80061; 80076

== ENCOUNTER → 2020-07-07 10:06 | Outpatient (CLI) | payer MEDICARE, SELFPAY ==
[2020-06-14 11:26] VITALS: BMI 34.0
[2020-07-07 12:36] LABS: Anion Gap 7 (5-15); BUN 15 mg/dL (7-18); BUN/Creat Ratio 19.2 RATIO (10-20); Calcium,Total 8.9 mg/dL (8.5-10.1); Chloride 109 mmol/L (98-107); Creatinine, Serum 0.78 mg/dL (0.55-1.02); EST Glomerular Filtration Rate 76 mL/min (>60); Est Glom Filt Rate - Afr Amer 92 mL/min (>60); Glucose 103 mg/dL (74-106); Potassium 3.9 mmol/L (3.5-5.1); Sodium Level 141 mmol/L (136-145)
== END ==
PROVIDERS: Family Medicine; PCP Family Medicine; Referring Provider Family Medicine; Visit Provider Family Medicine
DX: I10 Essential (primary) hypertension (principal)
CPT/HCPCS: 36415; 80048

== ENCOUNTER → 2020-08-11 12:39 | Outpatient (CLI) | payer MEDICARE, MEDICAID, SELFPAY ==
[2020-06-14 11:26] VITALS: BMI 34.0
[2020-08-11 15:41] LABS: ALB/GLOB Ratio 0.7 RATIO (0.9-2.4); AST(SGOT) 32 U/L (15-37); Alanine Aminotransfer ALT/SGPT 30 U/L (13-56); Albumin, Serum 3.2 g/dL (3.2-5.0); Alkaline Phosphatase 65 U/L (45-117); Anion Gap 8 (5-15); BUN 13 mg/dL (7-18); BUN/Creat Ratio 13.8 RATIO (10-20); Calcium,Total 7.2 mg/dL (8.5-10.1); Chloride 103 mmol/L (98-107); Creatinine, Serum 0.94 mg/dL (0.55-1.02); EST Glomerular Filtration Rate 61 mL/min (>60); Est Glom Filt Rate - Afr Amer 74 mL/min (>60); Globulin 4.8 g/dL (2.2-4.2); Glucose 108 mg/dL (74-106); Potassium 3.3 mmol/L (3.5-5.1); Sodium Level 140 mmol/L (136-145)
== END ==
PROVIDERS: PCP Family Medicine; Referring Provider Family Medicine; Visit Provider Family Medicine
DX: M79.10 Myalgia, unspecified site (principal); E55.9 Vitamin D deficiency, unspecified
CPT/HCPCS: 36415; 80053; 82306

== ENCOUNTER → 2020-08-18 12:24 | Outpatient (CLI) | payer MEDICARE, SELFPAY ==
[2020-06-14 11:26] VITALS: BMI 34.0
[2020-08-18 15:20] LABS: Anion Gap 5 (5-15); BUN 17 mg/dL (7-18); BUN/Creat Ratio 19.5 RATIO (10-20); Chloride 105 mmol/L (98-107); Creatinine, Serum 0.87 mg/dL (0.55-1.02); EST Glomerular Filtration Rate 67 mL/min (>60); Est Glom Filt Rate - Afr Amer 81 mL/min (>60); Glucose 95 mg/dL (74-106); Potassium 3.9 mmol/L (3.5-5.1); Sodium Level 140 mmol/L (136-145)
== END ==
PROVIDERS: PCP Family Medicine; Referring Provider Family Medicine; Visit Provider Family Medicine
CPT/HCPCS: 36415; 80048

== ENCOUNTER → 2020-09-26 07:19 | Outpatient (CLI) | payer MEDICARE, MEDICAID, SELFPAY ==
[2020-06-14 11:26] VITALS: BMI 34.0
--- NOTE | 2020-09-26 07:25 | ECHOCS_ITS ---
Reason For Study: dyspnea Procedure This was a 2D Doppler, Color Flow transthoracic echocardiogram. The study was technically difficult. Contrast injection was performed. Exam performed in department. Left Ventricle Normal LV size. Moderate concentric left ventricular hypertrophy. Left ventricular systolic function is hyperdynamic. The estimated ejection fraction is 75 %. There is evidence of diastolic dysfunction. No regional wall motion abnormalities noted. Right Ventricle Normal RV size. Normal systolic function. Atria The left atrium is moderately enlarged. Normal right atrium. No doppler evidence for ASD. Mitral Valve There is severe mitral annular calcification. Extension of the mitral annular calcification onto the mitral valve leaflets with partial restriction of the mitral valve leaflets. The mitral valve chordae are thickened and/or calcified. Mild mitral valve stenosis. Mild-Moderate (1-2+) mitral valve insufficiency. Tricuspid Valve Normal tricuspid valve. Trivial tricuspid valve insufficiency. Right ventricular systolic pressure estimated to be 30 mmHg. Aortic Valve Trisinus/trileaflet aortic valve. Mild diffuse aortic valve calcification. Pulmonic Valve The pulmonic valve is not well visualized. Great Vessels Normal sized aortic root. Pericardium/Pleural No pericardial effusion. Medication Diluted definity 4ml given slow IV push to enhance endocardial definition. MMode/2D Measurements & Calculations LVIDd: 3.9 cm IVSd: 1.5 cm Ao root diam: 3.7 cm LVIDs: 2.9 cm LVPWd: 1.2 cm RVDd: 3.3 cm FS: 25.6 % LAV(MOD-bp): 90.8 ml LVAd ap4: 29.0 cm2 SV(MOD-sp4): 65.7 ml LAV(MOD-bp) Indexed: 50.3 ml/m2 EDV(MOD-sp4): 85.9 ml LAV(MOD-sp2): 100.6 ml EDV(sp4-el): 91.9 ml LAV(MOD-sp4): 68.3 ml LVAs ap4: 12.6 cm2 ESV(MOD-sp4): 20.1 ml ESV(sp4-el): 21.7 ml EF(MOD-sp4): 76.5 % EF(sp4-el): 76.3 % SV(sp4-el): 70.1 ml LA A4 area: 21.9 cm2 LA dimension(2D): 3.9 cm RA A4 area: 8.6 cm2 Time Measurements MV dec time: 0.35 sec Doppler Measurements & Calculations MV E max ki: 85.6 cm/sec Lat Peak E' Ki: 6.9 cm/sec Med Peak E' Ki: 3.7 cm/sec MV A max ki: 157.1 cm/sec E/E' lat: 12.4 E/E' med: 23.3 MV E/A: 0.54 MV V2 max: 164.2 cm/sec PA V2 max: 96.1 cm/sec TR max ki: 257.3 cm/sec MV max P.8 mmHg TR max P.5 mmHg MV V2 mean: 99.4 cm/sec MV mean P.4 mmHg MV V2 VTI: 48.1 cm MV P1/2t-pr_phl: 95.6 msec Interpretation Summary The study was technically difficult. Contrast injection was performed. Left ventricular systolic function is hyperdynamic. The estimated ejection fraction is 75 %. Moderate concentric left ventricular hypertrophy. The left atrium is moderately enlarged. There is severe mitral annular calcification. Extension of the mitral annular calcification onto the mitral valve leaflets with partial restriction of the mitral valve leaflets. The mitral valve chordae are thickened and/or calcified. Mild mitral valve stenosis. Mild-Moderate (1-2+) mitral valve insufficiency. Trivial tricuspid valve insufficiency. Mild diffuse aortic valve calcification. Right ventricular systolic pressure estimated to be 30 mmHg. There is evidence of diastolic dysfunction. Comment: Late peaking spectral Doppler pattern in the mid left ventricle approaching 2 m/s (peak gradient approximately 16 mmHg) appearing compatible with a hyperdynamic state. Ordering Physician: Gal Lorenzo Referring Physician: gal moore Performed By: Sheila Peck, KELLICS, RVT
--- NOTE | 2020-09-26 09:16 | STRESSREP_ITS ---
Stress Test Report Date: 09-26-2020 Procedure: Pharmacologic stress nuclear imaging study Indications: Shortness of breath/dyspnea on exertion; fatigue Consent: Per the patient Procedure: The patient underwent pharmacologic (Regadenoson) evaluation with a peak heart rate of 88 beats per minute (61%predicted maximal heart rate) and a peak blood pressure of 138/84 mmHg. The baseline ECG demonstrated sinus rhythm. The peak pharmacologic ECG demonstrated somatic/motion artifact with no obvious ECG changes. There was a rare PVC during recovery. There was no complaint of chest discomfort during pharmacologic infusion or recovery. The examination was discontinued secondary to completion of protocol. Impression: 1. Pharmacologic (Regadenoson) evaluation 2. Peak pharmacologic ECG with somatic/motion artifact with no obvious ECG changes. 3. There were no cardiac dysrhythmias pretest, during pharmacologic infusion, or recovery. 4. Nuclear images pending Myocardial perfusion imaging study: Technique: The patient was injected with 10.0 millicuries of technetium 99m Cardiolite and subsequently rest SPECT Cardiolite nuclear imaging was obtained in the horizontal long, vertical long, and short axis views. The patient underwent pharmacologic (Regadenoson) evaluation with a peak heart rate of 88 beats per minute (61% percent predicted maximal heart rate) and a peak blood pressure of 138/84 mmHg. The patient was injected with 34.0 millicuries of technetium 99m Cardiolite and subsequently stress SPECT Cardiolite nuclear imaging was obtained in the horizontal long, vertical long, and short axis views. A gated Cardiolite study at peak stress was obtained. Interpretation: Rest and stress SPECT Cardiolite nuclear imaging status post realignment normalization demonstrate relative uniform tracer uptake and myocardial perfusion appearing within normal limits. There is end systolic thickening and brightening. The gated Cardiolite study demonstrates myocardial thickening and inward wall motion. The reported LVEF is 51%. Impression: 1. Rest and stress SPECT Cardiolite nuclear imaging demonstrate relative uniform tracer uptake and myocardial perfusion appearing within normal limits. 2. The gated Cardiolite study reports an LVEF of 51%. This note was generated with [employer] software. It may contain incorrect words, spelling, and punctuation that were not noted in checking the note before signing.
== END ==
PROVIDERS: PCP Family Medicine; Referring Provider Internal Medicine Cardiovascular Disease; Visit Provider Internal Medicine Cardiovascular Disease
DX: R06.00 Dyspnea, unspecified (principal); R06.02 Shortness of breath; I25.10 Atherosclerotic heart disease of native coronary artery without angina pectoris; E78.2 Mixed hyperlipidemia; I10 Essential (primary) hypertension; I05.1 Rheumatic mitral insufficiency; I06.0 Rheumatic aortic stenosis; R53.83 Other fatigue
CPT/HCPCS: 78452; 93017; 93306; A9500; Q9957; A4216; C8929; J2785

== ENCOUNTER 2021-05-28 23:13 | Emergency (ER) | payer MEDICARE, MEDICAID, SELFPAY ==
[2021-05-11 09:30] VITALS: BMI 32.2
[2021-05-28 23:14] VITALS: BP 170/77; PULSE 68; RESP 16; TEMP 36.6; O2SAT 97; BMI 33.5
--- NOTE | 2021-05-28 23:28 | RAD_ITS ---
STUDY: X-RAY - CERVICAL SPINE REASON FOR EXAM: Female, 76 years old. Fall TECHNIQUE: 5 view(s) of the cervical spine were obtained. COMPARISON: MRI neck FINDINGS: Normal anterior atlantoaxial articulation. Normal odontoid process. Normal cervical lordosis. The bones are osteopenic. Right 67 there is disc space narrowing spondylosis. There is multilevel facet arthropathy. There is atherosclerotic disease of the carotid arteries. RAD/Cerv Spine 2 or 3 Views IMPRESSION: Degenerative change. No visualized acute fracture. Electronically Signed: Maxine Hutchinson MD at 0:50 EDT Tel , Service support ,
--- NOTE | 2021-05-28 23:28 | RAD_ITS ---
STUDY: X-RAY - UNILATERAL RIBS ( LEFT ) WITH CHEST REASON FOR EXAM: Female, 76 years old. Fall TECHNIQUE - RIBS: 4 view(s) of the ribs. TECHNIQUE - CHEST: Single PA view of the chest. COMPARISON: November 09 2018 chest x-ray FINDINGS - RIBS: Normal visualized ribs without a demonstrated fracture. FINDINGS - CHEST: There is slight linear density in the right midlung. Stable interstitial thickening in the left lung base. Areas of emphysematous changes. There is no demonstrated pleural abnormality. There is borderline cardiomegaly. Normal mediastinum and dave. Normal visualized pulmonary arteries. There is atherosclerotic tortuosity of the aortic arch and descending thoracic aorta. Normal visualized thoracic spine. Normal visualized ribs, clavicles, and shoulders. There is no demonstrated abnormality of the visualized soft tissue structures of the upper abdomen. RAD/Ribs Uni Min 3V w/PA Chest IMPRESSION: RIBS: Normal x-ray examination of the ribs. CHEST: Findings suggest underlying chronic lung disease left lower lobe fibrotic change. Right midlung zone scarring or atelectasis. No definitive focal fracture seen. Borderline cardiac enlargement. Electronically Signed: Maxine Hutchinson MD at 0:44 EDT Tel , Service support ,
[2021-05-29] MEDS: Morphine 4 MG/ML Syringe IM (00:04)
--- NOTE | 2021-05-29 01:09 | EDS_ITS ---
HPI History of Present Illness Chief Complaint: Fall Informant: patient Onset/Context/Timing Onset: Today Location of pain/injuries: - (Back and rib) Quality of Pain: Aching Current Severity: Moderate Maximum Severity: Severe Worsened by: Movement Narrative Narrative: Patient presents after a fall at home. She went out this evening to turn the water off of her garden hose when she tripped over a small fence that was around her planting area. She fell backward hitting the edge of her [employer] driveway across her upper back. She laid there for approximate hour before she was able to get help. She denies loss of consciousness. She complaining of pain around the left lower ribs. [facility] Medical History (Updated 05/29/21 @ 01:[address] Shannon Carvajal MD) Acute CVA (cerebrovascular accident) Aortic valve stenosis, rheumatic Atherosclerotic heart disease of [place] coronary artery without angina pectoris Carotid stenosis Diastolic dysfunction Essential hypertension GERD (gastroesophageal reflux disease) History of left heart catheterization (LHC) (~02/28/17) Hypokalemia Hypothyroidism Injury to blood vessels, unspecified site Intractable nausea and vomiting Mixed hyperlipidemia Rheumatic mitral insufficiency Valvular heart disease Vertigo Home Medications levothyroxine 25 mcg PO DAILY 02/27/17 [History Last Taken Unknown] aspirin 81 mg tablet,delayed release 81 mg PO DAILY #1 tab 01/03/20 [Rx Last Taken Unknown] metoprolol succinate 100 mg tablet,extended release 24 hr 100 mg PO DAILY #90 tab 05/29/20 [Rx Last Taken Unknown] hydrochlorothiazide 25 mg tablet 25 mg PO DAILY 05/11/21 [History Last Taken Unknown] omeprazole 40 mg capsule,delayed release 40 mg PO DAILY 05/11/21 [History Last Taken Unknown] trazodone 50 mg tablet 50 mg PO QHS PRN 05/11/21 [History Last Taken Unknown] hydrocodone-acetaminophen 1 tab PO Q6H PRN 3 Days #10 tab 05/29/21 [Rx Last Taken Unknown] Allergy/AdvReac Type Severity Reaction Status Date / Time Penicillins Allergy facial Verified 05/28/21 23:18 redness Surgical History History of liver biopsy History of partial hysterectomy History of tubal ligation Social History Smoking Status: Former smoker alcohol intake: never substance use type: does not use ROS ROS ED Constitutional Constitutional ED: Denies chills or fever(s) Eyes Eyes: Denies change in vision ENT ENT ED: Denies sore throat Cardiovascular Cardiovascular: Reports chest pain and other Details: Left lower rib pain Respiratory/Chest Respiratory/Chest: Denies cough or dyspnea Gastrointestinal Gastrointestinal: Denies abdominal pain, diarrhea, nausea or vomiting Genitourinary Genitourinary ED: Denies dysuria Musculoskeletal Musculoskeletal: Reports neck pain; Denies back pain Integumentary Denies rash Neurologic Neurologic: Denies headache(s) or weakness Psychiatric Psychiatric: Denies anxiety or depression Endocrine Endocrinology: Denies polydipsia or polyuria Allergic/Immunologic Allergic/Immunologic ED: Denies urticaria EXAM Physical Exam Const Vital Signs: 05/28/21 23:14 05/28/21 23:18 Temperature 98 F Temperature Source Oral Pulse Rate 68 Respiratory Rate 16 Respiratory Pattern Normal Blood Pressure 170/77 H Blood Pressure Mean 108 Pulse Ox 97 Oxygen Delivery Method Room Air Positive well nourished and well developed General Appearance ED: well developed HEENT Reports normocephalic and head/scalp atraumatic Eyes PERRL and EOMs intact bilaterally Neck supple Neck Narrative: Mild C-spine tenderness. Chest Wall inspection of chest normal Chest Narrative: Reproducible tenderness of the left lower ribs. No crepitus. Resp normal respiratory effort and clear to auscultation bilaterally Cardio regular rate and regular rhythm GI normal to inspection, nondistended, normoactive bowel sounds Palpation: soft Back/Spine no CVA tenderness Extremity normal to inspection Neuro oriented x3 and no sensory deficits noted Sensorium / Orientation: alert Motor Exam: strength 5/5 throughout Psych mental status grossly normal Skin no rashes or lesions noted MDM MDM MDM Narrative Medical decision making narrative: Patient was given 4 mg IM morphine. X-rays of the C-spine and ribs are obtained. Radiography Diagnostic Testing: Left rib series IMPRESSION: RIBS: Normal x-ray examination of the ribs. CHEST: Findings suggest underlying chronic lung disease left lower lobe fibrotic change. Right midlung zone scarring or atelectasis. No definitive focal fracture seen. Borderline cardiac enlargement. C-spine x-rays IMPRESSION: Degenerative change. No visualized acute fracture. Treatment and Re-Evaluation Comments:: . Nursing staff was able to get her up and ambulate her in the emergency room. She will be discharged with a prescription for [place]. Discharge Plan Triage Chief Complaint: Fall ED Provider: Shannon Carvajal Dx/Rx/DC Orders Clinical Impression: Fall, Contusion of rib Instructions: ED Mechanical Fall, ED Rib Contusion or Minor Fracture Prescriptions: New hydrocodone-acetaminophen 5-325 mg tablet 1 tab PO Q6H PRN (Reason: pain) 3 Days Qty: 10 RF: 0 No Action aspirin 81 mg tablet,delayed release (DR/EC) 81 mg PO DAILY Qty: 1 RF: 0 hydrochlorothiazide 25 mg tablet 25 mg PO DAILY RF: 0 omeprazole 40 mg capsule,delayed release(DR/EC) 40 mg PO DAILY RF: 0 trazodone 50 mg tablet 50 mg PO QHS PRNRF: 0 levothyroxine 25 MCG tablet 25 mcg PO DAILY RF: 0 metoprolol succinate 100 mg tablet extended release 24 hr 100 mg PO DAILY Qty: 90 RF: 4 Primary Care Provider: Gal Butler Referrals: Gal Butler MD [Primary Care Provider] - 1 Week Disposition Disposition: Home, Self Care
== END 2021-05-29 07:35 | disposition home or self-care (01) ==
PROVIDERS: Emergency Provider Emergency Medicine; PCP Family Medicine
DX: S20.212A Contusion of left front wall of thorax, initial encounter (principal); W01.10XA Fall on same level from slipping, tripping and stumbling with subsequent striking against unspecified object, initial encounter; Y93.89 Activity, other specified; Y92.007 Garden or yard of unspecified non-institutional (private) residence as the place of occurrence of the external cause; Y99.9 Unspecified external cause status; I25.10 Atherosclerotic heart disease of native coronary artery without angina pectoris; I10 Essential (primary) hypertension; I05.1 Rheumatic mitral insufficiency; E03.9 Hypothyroidism, unspecified; E78.2 Mixed hyperlipidemia; K21.9 Gastro-esophageal reflux disease without esophagitis; Z79.82 Long term (current) use of aspirin; Z79.890 Hormone replacement therapy; Z79.899 Other long term (current) drug therapy; Z87.891 Personal history of nicotine dependence; Z86.73 Personal history of transient ischemic attack (TIA), and cerebral infarction without residual deficits
CPT/HCPCS: 71101; 72040; 96372; 99283

== ENCOUNTER → 2021-06-01 12:10 | Outpatient (CLI) | payer MEDICARE, MEDICAID, SELFPAY ==
[2021-05-28 23:14] VITALS: BMI 33.5
--- NOTE | 2021-06-01 12:20 | RAD_ITS ---
STUDY: X-RAY - UNILATERAL RIBS ( LEFT ) WITH CHEST REASON FOR EXAM: Female, 76 years old. RIB PAIN TECHNIQUE - RIBS: 4 view(s) of the ribs. TECHNIQUE - CHEST: Single PA view of the chest. COMPARISON: 05/28/2021 FINDINGS - RIBS: Normal visualized ribs without a demonstrated fracture. FINDINGS - CHEST: There are interstitial fibrotic changes of the lungs. No airspace consolidation. There is no demonstrated pleural abnormality. Normal size heart. Normal mediastinum and dave. Normal visualized pulmonary arteries. There is atherosclerotic calcification of the aortic arch with tortuosity. There is demineralization of the osseous structures. There is no demonstrated abnormality of the visualized soft tissue structures of the upper abdomen. RAD/Ribs Uni Min 3V w/PA Chest IMPRESSION: RIBS: No demonstrate rib fracture. CHEST: Nonacute x-ray examination of the chest. Interstitial fibrosis, particularly in the left lower lobe. Electronically Signed: Jonathon Barcenas MD ([place]) at 17:58 EDT , Service support ,
== END ==
PROVIDERS: PCP Family Medicine; Referring Provider Family Medicine; Visit Provider Family Medicine
DX: R07.81 Pleurodynia (principal)
CPT/HCPCS: 71101

== ENCOUNTER 2021-08-01 08:49 | Observation (INO) | payer MEDICARE, MEDICAID, SELFPAY ==
[2021-08-01] VITALS (10 sets, daily range): BP systolic 132–173; BP diastolic 54–137; PULSE 60–80; RESP 16–20; TEMP 36–36.7; O2SAT 97–100; BMI 32.8; BMI 32.3
--- NOTE | 2021-08-01 09:03 | CT_ITS ---
EXAM: CT HEAD WITHOUT INTRAVENOUS CONTRAST : 1945 CLINICAL INDICATION: numbness TECHNIQUE: Multiple axial images were obtained of the head without intravenous contrast. This CT exam was performed using one or more of the following dose reduction techniques: automated exposure control, adjustment of the mA and/or kV according to patient size, and/or use of iterative reconstruction technique. This report was created using [employer] report generation technology. COMPARISON: None. FINDINGS: BRAIN AND EXTRA-AXIAL SPACES: Diminished white matter density cosistent with chronic microvascular disese. No intra- or extra-axial hemorrhage. No evidence of acute infarct. No intracranial mass or mass effect. There is preservation of the witt/white matter interface. Posterior fossa structures are unremarkable. Ventricles are appropriate for age. No hydrocephalus. Basal cisterns are patent. BONES/JOINTS: Unremarkable. No discrete lytic or blastic abnormalities. SINUSES: Unremarkable as visualized. Clear. MASTOID AIR CELLS: Unremarkable. Clear. ORBITS: Visualized globes, extraocular muscles, optic nerves and retrobulbar fat appear unremarkable. CT/STROKE Brain/Head without Cont IMPRESSION: 1. No acute intracranial abnormality. 2. Chronic microvascular changes. 3. Aspect score: 10 Individualized dose optimization techniques were used for this CT. at 1023 Reported and signed by: Francis Mayes MD N.B. : The above Results were Read Back by Francis Mayes MD to Cricket Yuen MD, and understanding confirmed on 08/01/2021 10:21:57 (ET). Electronically Signed: Francis Mayes MD at 10:22 EDT Tel , Service support ,
--- NOTE | 2021-08-01 09:03 | EKG12_ITS ---
Test Reason : Blood Pressure : / mmHG Vent. Rate : 059 BPM Atrial Rate : 059 BPM P-R Int : 222 ms QRS Dur : 114 ms QT Int : 504 ms P-R-T Axes : 052 055 088 degrees QTc Int : 498 ms Sinus bradycardia with 1st degree A-V block Nonspecific ST and T wave abnormality Prolonged QT Abnormal ECG Confirmed by MIN CHOWDHURY, AGGIE ([id number]), story editor AMOS TREVIÑO ([id number]) on 08/02/2021 1:47:59 PM Referred By: ADIS Confirmed By:AGGIE COPELAND MD
--- NOTE | 2021-08-01 09:05 | ED.VIS.STROK ---
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 She goes back and forth in saying whether she had numbness everywhere or just on the left side, but she does remember it affecting her left arm and leg mostly. She states initially she noticed a funny feeling in her head with something that caused a wave over her entire body. She has a hard time describing all of this. She does remember wanting to fall to one side and feeling lightheaded. She mentions a history of vertigo in the past. She states this seemed different, her episodes of vertigo in the past were much more severe than this with regards to the dizziness. She did try to call her son during this episode, she states she was able to talk OK. She lives alone and has a life alert that she pressed. She used to be on aspirin but no longer is due to an injury to her rib cage. She has had no recent major head injuries. She is on no other blood thinning medications or anticoagulants. She denies any fall or injury today. She denies near-syncope or syncope, chest discomfort or palpitations. She has been compliant with her blood pressure medication and states that it is usually under good control as she checks it daily. She has other aches and pains that she associates with her fibromyalgia, neck arthritis, she states all of this is stable and unchanged. She was fully vaccinated against Covid near the initial availability of the vaccines and has not been exposed anyone with Covid that she knows of lately. 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 Carotid stenosis Diastolic dysfunction Essential hypertension GERD (gastroesophageal reflux disease) History of left heart catheterization (LHC) (~02/28/17) Hypokalemia Hypothyroidism Injury to blood vessels, unspecified site Intractable nausea and vomiting Mixed hyperlipidemia Rheumatic mitral insufficiency Valvular heart disease Vertigo Home Medications levothyroxine 25 mcg PO DAILY 02/27/17 [History Last Taken Unknown] aspirin 81 mg tablet,delayed release 81 mg PO DAILY #1 tab 01/03/20 [Rx Last Taken Unknown] metoprolol succinate 100 mg tablet,extended release 24 hr 100 mg PO DAILY #90 tab 05/29/20 [Rx Last Taken Unknown] hydrochlorothiazide 25 mg tablet 25 mg PO DAILY 05/11/21 [History Last Taken Unknown] omeprazole 40 mg capsule,delayed release 40 mg PO DAILY 05/11/21 [History Last Taken Unknown] trazodone 50 mg tablet 50 mg PO QHS PRN 05/11/21 [History Last Taken Unknown] hydrocodone-acetaminophen 1 tab PO Q6H PRN 3 Days #10 tab 05/29/21 [Rx Last Taken Unknown] amoxicillin-pot clavulanate 1 tab PO BID 08/01/21 [History Last Taken Unknown] spironolactone 25 mg PO DAILY 08/01/21 [History Last Taken Unknown] Allergy/AdvReac Type Severity Reaction Status Date / Time No Known Allergies Allergy Verified 08/01/21 08:51 Surgical History History of liver biopsy History of partial hysterectomy History of tubal ligation Social History Smoking Status: Former smoker alcohol intake: never substance use type: does not use ROS ROS ED Constitutional Constitutional ED: Denies chills or fever(s) Eyes Eyes: Denies blurry vision, change in vision or diplopia ENT ENT ED: Denies ear pain, rhinorrhea, sore throat or tinnitus Cardiovascular Cardiovascular: Denies chest pain or palpitations Respiratory/Chest Respiratory/Chest: Denies cough or dyspnea Gastrointestinal Gastrointestinal: Reports nausea; Denies abdominal pain, diarrhea or vomiting Genitourinary Genitourinary ED: Denies dysuria or hematuria Musculoskeletal Musculoskeletal: Reports neck pain; Denies back pain Integumentary Denies abscess or rash Neurologic Neurologic: Reports headache(s) and paresthesias; Denies weakness Psychiatric Psychiatric: Denies anxiety or suicidal thoughts EXAM Physical Exam Const Vital Signs: 08/01/21 08:51 08/01/21 09:06 Temperature 97.9 F Temperature Source Oral Pulse Rate 60 60 Respiratory Rate 20 H 20 H Blood Pressure 173/137 H 173/137 H Blood Pressure Mean 149 149 Pulse Ox 99 99 Oxygen Delivery Method Room Air Room Air Positive well nourished and well developed General Appearance ED: well developed and NAD HEENT Reports TM's normal bilaterally and moist mucous membranes normocephalic and atraumatic Eyes PERRL and EOMs intact bilaterally Neck full ROM and supple Resp normal respiratory effort and clear to auscultation bilaterally Cardio regular rate, regular rhythm and no murmurs GI non-tender and non-distended Auscultation: normoactive bowel sounds Palpation: soft Back/Spine no CVA tenderness General Back: other FROM Extremity normal to inspection General Extremety ED: Negative for edema, pulses abnormal or tenderness General Extremity: Negative for edema or pulses abnormal Neuro oriented x3, CN's II-XII intact bilaterally, no focal motor deficits and no sensory deficits noted Neuro Narrative: Normal kntvda-[id number]-[id number] and rbfk-fb-gron bilaterally Sensorium / Orientation: awake and alert Motor Exam: strength 5/5 throughout Skin no rashes or lesions noted and no wounds STROKE Vital Signs/Narrative: Vital Signs Temp Pulse Resp BP Pulse Ox 08/01/21 09:06 60 20 H 173/137 H 99 08/01/21 08:51 97.9 F 60 20 H 173/137 H 99 NIHSS Initial: 1a Level of Consciousness: 0 1b LOC Questions (Score 2 if aphasic/stupor): 0 1c LOC Commands (Only score 1st attempt): 0 2 Best Gaze (If aphasic, use reflexive mvmts.): 0 3 Visual: 0 4 Facial Palsy: 0 5 Motor Arm Right (UN = amputation/fusion): 0 5 Motor Arm Left: 0 6 Motor Leg Right: 0 6 Motor Leg Left: 0 7 Limb ataxia (Only + if out of proportion): 0 8 Sensory (Aphasia/stupor=0 or 1, coma=2): 0 9 Best Language: 0 10 Dysarthria (mute, coma=2, intubated=UN): 0 11 Extinction and Inattention (only scored if +): 0 Total Score: 0 MDM MDM MDM Narrative Medical decision making narrative: Patient remained clinically stable except she did have another episode of tingling in her lips and left arm. It lasted a short period of time. Patient was very emotional. I discovered this when I went to check on the patient after testing came back, and she told me about it but the symptoms had already resolved at that time. Her CT shows nothing acute. Her blood pressure is remained in the 170s, no indication for treating it at that level since she is not a TPA candidate. Plan is to admit for further testing and evaluation. Discussed with hospitalist for inpatient observation, at his request CT angiography head/neck will be performed stat here in the emergency department first. Lab Data Attestation: I reviewed the patient's lab results. Labs: Laboratory Results - last 24 hr 08/01/21 08/01/21 08/01/21 09:30 09:30 09:30 WBC 8.3 RBC 4.77 Hgb 15.2 H Hct 45.0 MCV 94.3 MCH 31.9 MCHC 33.8 RDW Std Deviation 40.1 RDW Coeff of [place] 11.6 Plt Count 340 MPV 9.5 Immature Gran % (Auto) 0.400 Neut % (Auto) 67.2 Lymph % (Auto) 21.8 [place] % (Auto) 7.7 Eos % (Auto) 2.3 Baso % (Auto) 0.6 Absolute Neuts (auto) 5.6 Absolute Lymphs (auto) 1.81 Nucleated RBC % 0 PT 12.5 INR 1.0 APTT 28.3 Sodium 140 Potassium 3.7 Chloride 106 Carbon Dioxide 29.0 Anion Gap 5 BUN 20 H Creatinine 0.75 Estim Creat Clear Calc 36.67 Est GFR (MDRD) Af Amer 97 Est GFR (MDRD) Non-Af 80 BUN/Creatinine Ratio 26.8 H Glucose 100 Calcium 9.2 Troponin I High Sens 17 Radiography Diagnostic Testing: Radiology Impression Brain CT 08/01/21 09:03 IMPRESSION: 1. No acute intracranial abnormality. 2. Chronic microvascular changes. 3. Aspect score: 10 Individualized dose optimization techniques were used for this CT. at 1023 Reported and signed by: Francis Mayes MD N.B. : The above Results were Read Back by Francis Mayes MD to Cricket Yuen MD, and understanding confirmed on 08/01/2021 10:21:57 (ET). Electronically Signed: Francis Mayes MD at 10:22 EDT Tel , Service support , ADDENDUM: 08/01/21 1030 IMPRESSION: 1. No acute intracranial abnormality. 2. Chronic microvascular changes. 3. Aspect score: 10 Individualized dose optimization techniques were used for this CT. at 1023 Reported and signed by: Francis Mayes MD N.B. : The above Results were Read Back by Francis Mayes MD to Cricket Yuen MD, and understanding confirmed on 08/01/2021 10:21:57 (ET). Electronically Signed: Francis Mayes MD at 10:22 EDT Tel , Service support , Chest X-Ray 08/01/21 10:07 IMPRESSION: Chronic interstitial lung disease. at 1027 Reported and signed by: Francis Mayes MD Electronically Signed: Francis Mayes MD at 10:26 EDT Tel , Service support , EKG Initial EKG: Attestation: I personally reviewed and interpreted this EKG as follows: Interpretation: Sinus Bradycardia, RBBB (incomplete) and AV Block (1st deg) Prior EKG tracings: available for review Prior: Changed (1st deg AVB new, otherwise unchanged) Stroke Documentation Questions Stroke Team Activated: No (NIHSS 0 w/ resolved sx, not tPA candidate) Was Patient considered for Endovascular Intervention?: No (LVO unlikely) Discharge Plan Dx/Rx/DC Orders Clinical Impression: Brain TIA Disposition Disposition: Acute Care Hospital [facility] [place] [facility]
[2021-08-01 09:42] LABS: Absolute Lymphocyte Count 1.81 X10^3/uL (0.83-4.51); Absolute Neutrophil Count 5.6 X10^3/uL (2.0-7.7); Basophil# 0.05 X10^3/uL; Basophil% 0.6 % (0-1); Eosinophil# 0.19 X10^3/uL; Eosinophils% 2.3 % (0-5); Hemoglobin 15.2 g/dL (12.0-15.0); Lymphocyte # 1.81 X10^3/ul (0.83-4.51); Lymphocyte % 21.8 % (19-41); Mean Corp Hgb Conc 33.8 g/dL (32-36); Mean Corpuscular Hgb 31.9 pg (27.0-32.0); Mean Corpuscular Volume 94.3 fL (81-99); Mean Platelet Vol. 9.5 fl (6.2-12.0); Monocyte# 0.64 X10^3/uL; Monocyte% 7.7 % (0-10); NRBC Flagged by Analyzer 0 % (0-5); Neutrophil # 5.57 X10^3/uL (2.7-7.7); Neutrophil % 67.2 % (47-70); Platelet Count 340 K/mm3 (150-450); RBC Distribution Width CV 11.6 % (11.6-14.6); RBC Distribution Width SD 40.1 fl (35.1-43.9); Red Blood Count 4.77 M/mm3 (4.2-5.4); White Blood Count 8.3 K/mm3 (4.4-11.0)
[2021-08-01 09:47] LABS: Prothrombin Time (Protime)PT. 12.5 SECONDS (11.7-14.9)
[2021-08-01 09:48] LABS: Partial Thromboplast Time 28.3 Seconds (24.1-36.2)
[2021-08-01 09:55] LABS: Anion Gap 5 (5-15); BUN 20 mg/dL (7-18); BUN/Creat Ratio 26.8 RATIO (10-20); Calcium,Total 9.2 mg/dL (8.5-10.1); Chloride 106 mmol/L (98-107); Creatinine, Serum 0.75 mg/dL (0.55-1.02); EST Glomerular Filtration Rate 80 mL/min (>60); Est Glom Filt Rate - Afr Amer 97 mL/min (>60); Estimated Creatinine Clearance 36.67 ml/min; Glucose 100 mg/dL (74-106); Potassium 3.7 mmol/L (3.5-5.1); Sodium Level 140 mmol/L (136-145); Troponin-I HS 17 pg/mL (3.0-54.0)
--- NOTE | 2021-08-01 10:07 | RAD_ITS ---
History: Neuro deficit, acute, stroke suspected EXAMINATION/TECHNIQUE: XR Chest 1 View: Portable COMPARISON: June 01, 2021 FINDINGS: LINES/DEVICES: None. LUNGS: Interstitial thickening of both lungs again noted without significant interval change. No pneumothorax. MEDIASTINUM AND CARDIOVASCULAR STRUCTURES: Cardiac silhouette not enlarged. Central airways and mediastinal contour are unremarkable. BONES AND SOFT TISSUES: Unremarkable. RAD/Chest 1 View IMPRESSION: Chronic interstitial lung disease. at 1027 Reported and signed by: Francis Mayes MD Electronically Signed: Francis Mayes MD at 10:26 EDT Tel , Service support ,
[2021-08-01] MEDS: 0.9% Normal Saline 1,000 ML 100 ML IV (10:25)
[2021-08-01] MEDS: Acetaminophen 325 MG Tablet 650 MG PO (10:26)
--- NOTE | 2021-08-01 10:41 | NURSING ---
DR MENDEZ FOR DR ARCEO
--- NOTE | 2021-08-01 10:52 | CT_ITS ---
History: tia TECHNIQUE: Routine carotid CT angiogram protocol was performed without and with IV contrast. In addition, images were obtained of the [place]. [place] criteria using the distal ICAs for comparison were used for evaluation of stenoses. 3D reconstructions were reviewed. A radiation dose optimization technique was used for this scan. IV Contrast dosage and agent: IV 100mL [id number] COMPARISON: None FINDINGS: --NECK: AORTIC ARCH AND BRANCHES: Normal anatomy, patent. RIGHT CCA: Prominent calcific plaquing with approximately 50% narrowing of the carotid bulb RIGHT ICA: 50% narrowing related to prominent calcific plaquing LEFT CCA: Prominent calcific plaquing results in approximately 50% stenosis. LEFT ICA: Approximately 50% stenosis related to prominent calcific plaquing. RIGHT VERTEBRAL ARTERY: No occlusion, significant stenosis or dissection. LEFT VERTEBRAL ARTERY: Prominent calcific plaque at the C3-4 level results in approximately 50% stenosis. NECK SOFT TISSUES: Unremarkable. LUNG APICES: Mild patchy airspace opacification of the lung apices may represent acute or chronic inflammatory change or pneumonia. BONES: Unremarkable. --HEAD: --Anterior circulation: ICAs: No significant stenosis at the intracranial/visualized segments. ACAs: No significant stenosis at the visualized segments. ACOM: Present. MCAs: No significant stenosis at the visualized segments. --Posterior circulation: PCOMs: Present bilaterally knitting machine fixer head: No significant stenosis at the visualized segments. BASILAR ARTERY: No significant stenosis. VERTEBRAL ARTERIES: No significant stenosis at the intradural/visualized segments. No evidence of intracranial aneurysm or vascular malformation. CT/CTA Head AND Neck W/ Contrast IMPRESSION: Calcific plaquing at both carotid bifurcations resulting in approximately 50% stenosis bilaterally. Focal 50% stenosis of the left vertebral artery at the C3-4 level. No intracranial stenosis, occlusion or aneurysm. Individualized dose optimization techniques were used for this CT. at 1153 Reported and signed by: Francis Mayes MD Electronically Signed: Francis Mayes MD at 11:52 EDT Tel , Service support ,
--- NOTE | 2021-08-01 10:57 | ED.RN ---
contacted pt's son denzel and daughter in law antonio per pt's request
--- NOTE | 2021-08-01 10:59 | NURSING ---
116 OBS TERELETSKY TIA
--- NOTE | 2021-08-01 11:03 | ECHOCS_ITS ---
Reason For Study: OTHER, Lt sided numbness/tingling Procedure This was a 2D Doppler, Color Flow transthoracic echocardiogram. The study was technically difficult. PT had difficulty tolerating probe pressure. Contrast injection was performed. Exam performed portable in patient room. Left Ventricle Normal LV size. Concentric left ventricular hypertrophy. The estimated ejection fraction is 75 %. Unable to assess diastolic dysfunction. No regional wall motion abnormalities noted. Right Ventricle Normal RV size. Normal systolic function. Atria Normal left atrium. Normal right atrium. No doppler evidence for ASD. Mitral Valve There is severe mitral annular calcification. Bileaflet diffuse mitral valve thickening. Small mobile echodensity in the LV likely calcification in the submitral apparatus that was also seen in previous echo. There is no mitral valve stenosis. Mild (1+) mitral valve insufficiency. Tricuspid Valve There is no tricuspid stenosis. Trivial tricuspid valve insufficiency. Unable to estimate RV systolic pressure due to insufficient tricuspid regurgitant envelope. Aortic Valve Aortic sclerosis, no stenosis. Trisinus/trileaflet aortic valve. There is no aortic stenosis. No aortic valve insufficiency. Pulmonic Valve There is no pulmonic valvular stenosis. No pulmonic valve insufficiency. Great Vessels Normal aortic root. Pericardium/Pleural No pericardial effusion. Medication Diluted definity 4.0ml given slow IV push to enhance endocardial definition. MMode/2D Measurements & Calculations LVIDd: 4.5 cm IVSd: 1.4 cm LVOT diam: 1.9 cm LVIDs: 2.2 cm LVPWd: 1.4 cm RVDd: 3.0 cm FS: 52.7 % LVOT area: 2.8 cm2 Ao root diam: 3.2 cm LAV(MOD-sp4): 88.2 ml Aortic Valve Planimetry: 2.5 cm2 LA dimension(2D): 3.8 cm LA A4 area: 24.5 cm2 Time Measurements MV dec time: 0.40 sec Doppler Measurements & Calculations MV E max ki: 97.3 cm/sec Lat Peak E' Ki: 7.9 cm/sec Med Peak E' Ki: 3.4 cm/sec MV A max ki: 139.9 cm/sec E/E' lat: 12.4 E/E' med: 28.4 MV E/A: 0.70 MV V2 max: 153.0 cm/sec MV P1/2t max ki: 118.2 cm/sec Ao V2 max: 202.4 cm/sec MV max P.4 mmHg MV P1/2t: 88.2 msec Ao max P.4 mmHg MV V2 mean: 86.5 cm/sec MV dec slope: 392.5 cm/sec2 Ao V2 mean: 130.6 cm/sec MV mean P.4 mmHg Ao mean P.9 mmHg MV V2 VTI: 40.3 cm MVA(P1/2t): 2.5 cm2 Ao V2 VTI: 37.7 cm MVA(VTI): 2.5 cm2 RAFFY(I,D): 2.7 cm2 RAFFY(V,D): 2.3 cm2 LV V1 max: 166.5 cm/sec SV(LVOT): 101.1 ml PA V2 max: 83.6 cm/sec LV V1 max P.1 mmHg LV V1 mean P.1 mmHg LV V1 mean: 128.2 cm/sec LV V1 VTI: 36.4 cm ECHO/Echo Complete W/ Contrast Interpretation Summary The estimated ejection fraction is 75 %. Unable to assess diastolic dysfunction. There is severe mitral annular calcification. Mild (1+) mitral valve insufficiency. Bileaflet diffuse mitral valve thickening. Aortic sclerosis, no stenosis. Ordering Physician: Michael Garcia Referring Physician: Gal Butler Performed By: Marcella Ferris, JOSE, RVT
--- NOTE | 2021-08-01 11:03 | MRI_ITS ---
We are attempting to reach an attending provider to discuss findings. An addendum with communication details will be sent when the communication is complete. EXAM: MR HEAD WITHOUT INTRAVENOUS CONTRAST : 1945 CLINICAL INDICATION: Left arm paresthesias TECHNIQUE: Multiplanar and multisequence MR images of the brain were obtained without intravenous contrast. This report was created using [employer] report generation technology. COMPARISON: CT brain August 01, 2021 FINDINGS: BRAIN AND EXTRA-AXIAL SPACES: Subcentimeter focal areas of restricted diffusion noted within the head of the right caudate nucleus, lateral margin of the right hippocampus and within the right cerebellum consistent with regions of acute ischemia. Multiple foci of increased T2 signal intensity within the cerebral white consistent with microvascular disease. Chronic ischemic changes are noted within the right basal ganglia. No intra- or extra-axial hemorrhage. No intracranial mass or mass effect. Ventricles are appropriate for age. No hydrocephalus. Basal cisterns are patent. SELLA: Unremarkable. Normal sella turcica, pituitary gland, infundibular stalk, optic chiasm and hypothalamus. AUDITORY SYSTEM: Unremarkable. The internal auditory canals are patent. BONES/JOINTS: Unremarkable. No discrete lytic or blastic abnormalities. SINUSES: Unremarkable as visualized. Clear. MASTOID AIR CELLS: Unremarkable as visualized. Clear. ORBITS: Unremarkable as visualized. Both globes, extraocular muscles, optic nerves and retrobulbar fat appear unremarkable. VASCULATURE: Unremarkable as visualized. Normal flow voids in the major intracranial circulation. MRI/Brain without Contrast IMPRESSION: 1. Subcentimeter focal areas of acute ischemic change in the head of the right caudate nucleus, right hippocampus and right cerebellum thromboembolic phenomena. 2. Prominent chronic microvascular changes. at 1318 Reported and signed by: Francis Mayes MD Electronically Signed: Francis Mayes MD at 13:17 EDT Tel , Service support ,
[2021-08-01] MEDS: LORazepam 2 MG/ML Syringe 1 MG IV (12:02)
--- NOTE | 2021-08-01 14:08 | PCM.HP.STD ---
Documented by User: WENDY Gutierrez 08/01/21 14:53 HPI - General General Date of Admission: 08/01/21 Date of Service: 08/01/21 Chief Complaint: Numbness and Tingling HPI Narrative RONALDO JAIME, is a 76 F who presents with complaints of intermittent numbness of the left arm. Patient states numbness is affecting her left arm and left leg. Patient also reports feeling lightheaded at 1 point. Patient states that she is compliant with her medications. Patient denies passing out or slurred speech. Patient states when symptom were onset she called her son and had a conversation with him. Patient denies fever, chills, shortness of breath, cough, chest pain. NIH score 0 in ER [facility] Medical History Acute CVA (cerebrovascular accident) Aortic valve stenosis, rheumatic Atherosclerotic heart disease of rincon coronary artery without angina pectoris Carotid stenosis Diastolic dysfunction Essential hypertension GERD (gastroesophageal reflux disease) History of left heart catheterization (LHC) (~02/28/17) Hypokalemia Hypothyroidism Injury to blood vessels, unspecified site Intractable nausea and vomiting Mixed hyperlipidemia Rheumatic mitral insufficiency Valvular heart disease Vertigo Home Medications levothyroxine 25 mcg PO DAILY 02/27/17 [History Last Taken Unknown] aspirin 81 mg tablet,delayed release 81 mg PO DAILY #1 tab 01/03/20 [Rx Last Taken Unknown] metoprolol succinate 100 mg tablet,extended release 24 hr 100 mg PO DAILY #90 tab 05/29/20 [Rx Last Taken Unknown] hydrochlorothiazide 25 mg tablet 25 mg PO DAILY 05/11/21 [History Last Taken Unknown] omeprazole 40 mg capsule,delayed release 40 mg PO DAILY 05/11/21 [History Last Taken Unknown] trazodone 50 mg tablet 50 mg PO QHS PRN 05/11/21 [History Last Taken Unknown] hydrocodone-acetaminophen 1 tab PO Q6H PRN 3 Days #10 tab 05/29/21 [Rx Last Taken Unknown] amoxicillin-pot clavulanate 1 tab PO BID 08/01/21 [History Last Taken Unknown] spironolactone 25 mg PO DAILY 08/01/21 [History Last Taken Unknown] Allergy/AdvReac Type Severity Reaction Status Date / Time No Known Allergies Allergy Verified 08/01/21 08:51 Surgical History History of liver biopsy History of partial hysterectomy History of tubal ligation Social History Smoking Status: Former smoker alcohol intake: never substance use type: does not use ROS Constitutional Constitutional: Denies anorexia, chills, fatigue, fever(s) or weakness Cardiovascular Cardiovascular: Denies chest pain, edema or palpitations Respiratory/Chest Respiratory/Chest: Denies cough, shortness of breath at rest or shortness of breath with exertion Gastrointestinal Gastrointestinal: Denies abdominal pain, constipation, diarrhea, nausea or vomiting Genitourinary Genitourinary: Denies dysuria Musculoskeletal Musculoskeletal: Reports back pain and joint pain; Denies extremity pain or joint stiffness Integumentary Integumentary: Reports dry skin Neurologic Neurologic: Reports dizziness and numbness; Denies abnormal gait, abnormal speech or confusion Psychiatric Psychiatric: Denies anxiety or depression Endocrine Endocrinology: Denies change in body appearance Hematologic/Lymphatic Hematologic/Lymphatic: Denies anemia, easy bleeding or easy bruising Vital Signs Vital Signs Vital Signs: 08/01/21 08:51 08/01/21 09:06 08/01/21 11:39 Temperature 97.9 F 96.8 F L Temperature Source Oral Temporal Pulse Rate 60 60 61 Respiratory Rate 20 H 20 H 20 H Blood Pressure 173/137 H 173/137 H 148/98 H Blood Pressure Mean 149 149 114 Pulse Ox 99 99 97 Oxygen Delivery Method Room Air Room Air Room Air 08/01/21 11:41 Temperature Temperature Source Pulse Rate 64 Respiratory Rate 19 H Blood Pressure 148/98 H Blood Pressure Mean 114 Pulse Ox 98 Oxygen Delivery Method Room Air Weight Weight: 177 lb 0.499 oz Body Mass Index (BMI) 32.3 Physical Exam Const alert, oriented x3 and no apparent distress General Appearance: cooperative HEENT normocephalic and head/scalp atraumatic Eyes conjunctivae normal and no scleral icterus Neck supple and no JVD General: trachea midline Resp normal respiratory effort, normal air movement and clear to auscultation bilaterally Cardio regular rate, regular rhythm, S1 normal heart sound, S2 normal heart sound and peripheral pulses 2+ throughout GI normal to inspection, nondistended, normoactive bowel sounds, soft to palpation and non-tender Extremity normal capillary refill and no clubbing, cyanosis or edema General Extremity: no tenderness to palpation of joints or extremities Skin General Skin Exam: no breakdown and turgor normal Lesions: no lesions Rashes: no rashes Neuro oriented x3, moves all extremities, no focal motor deficits and no sensory deficits noted Psych thought process normal, cooperative and affect normal Appearance: appropriate Results Lab / Micro Data Result Diagrams: 08/01/21 09:30 08/01/21 09:30 Labs: Laboratory Results - last 24 hr 08/01/21 09:30: WBC 8.3, RBC 4.77, Hgb 15.2 H, Hct 45.0, MCV 94.3, MCH 31.9, MCHC 33.8, RDW Std Deviation 40.1, RDW Coeff of Kwasi 11.6, Plt Count 340, MPV 9.5, Immature Gran % (Auto) 0.400, Neut % (Auto) 67.2, Lymph % (Auto) 21.8, Pendleton % (Auto) 7.7, Eos % (Auto) 2.3, Baso % (Auto) 0.6, Absolute Neuts (auto) 5.6, Absolute Lymphs (auto) 1.81, Nucleated RBC % 0 08/01/21 09:30: PT 12.5, INR 1.0, APTT 28.3 08/01/21 09:30: Sodium 140, Potassium 3.7, Chloride 106, Carbon Dioxide 29.0, Anion Gap 5, BUN 20 H, Creatinine 0.75, Estim Creat Clear Calc 36.67, Est GFR (MDRD) Af Amer 97, Est GFR (MDRD) Non-Af 80, BUN/Creatinine Ratio 26.8 H, Glucose 100, Calcium 9.2, Troponin I High Sens [address] 08/01/21 09:03 IMPRESSION: 1. No acute intracranial abnormality. 2. Chronic microvascular changes. 3. Aspect score: 10 Individualized dose optimization techniques were used for this CT. at 1023 Reported and signed by: Francis Mayes MD N.B. : The above Results were Read Back by Francis Mayes MD to Cricket Yuen MD, and understanding confirmed on 08/01/2021 10:21:57 (ET). Electronically Signed: Francis Mayes MD at 10:22 EDT Tel , Service support , ADDENDUM: 08/01/21 1030 IMPRESSION: 1. No acute intracranial abnormality. 2. Chronic microvascular changes. 3. Aspect score: 10 Individualized dose optimization techniques were used for this CT. at 1023 Reported and signed by: Francis Mayes MD N.B. : The above Results were Read Back by Francis Mayes MD to Cricket Yuen MD, and understanding confirmed on 08/01/2021 10:21:57 (ET). Electronically Signed: Francis Mayes MD at 10:22 EDT Tel , Service support , Chest X-Ray 08/01/21 10:07 IMPRESSION: Chronic interstitial lung disease. at 1027 Reported and signed by: Francis Mayes MD Electronically Signed: Francis Mayes MD at 10:26 EDT Tel , Service support , Head/Neck CTA 08/01/21 10:52 IMPRESSION: Calcific plaquing at both carotid bifurcations resulting in approximately 50% stenosis bilaterally. Focal 50% stenosis of the left vertebral artery at the C3-4 level. No intracranial stenosis, occlusion or aneurysm. Individualized dose optimization techniques were used for this CT. at 1153 Reported and signed by: Francis Mayes MD Electronically Signed: Francis Mayes MD at 11:52 EDT Tel , Service support , Brain MRI 08/01/21 11:03 IMPRESSION: 1. Subcentimeter focal areas of acute ischemic change in the head of the right caudate nucleus, right hippocampus and right cerebellum thromboembolic phenomena. 2. Prominent chronic microvascular changes. at 1318 Reported and signed by: Francis Mayes MD Electronically Signed: Francis Mayes MD at 13:17 EDT Tel , Service support , ADDENDUM: 08/01/21 1328 IMPRESSION: 1. Subcentimeter focal areas of acute ischemic change in the head of the right caudate nucleus, right hippocampus and right cerebellum thromboembolic phenomena. 2. Prominent chronic microvascular changes. at 1318 Reported and signed by: Francis Mayes MD N.B. : The above Results were Read Back by Francis Mayes MD to Chaz Lepe RN, and understanding confirmed on 08/01/2021 13:21:31 (ET). Electronically Signed: Francis Mayes MD at 13:17 EDT Tel , Service support , Assessment & Plan Assessment/Plan (1) Acute CVA (cerebrovascular accident): PLAN: 1.Acute CVA -Admit to PCU for cardiac monitoring -NIH stroke scale monitoring and vital signs every 4 hours -Patient initiated on p.o. aspirin and atorvastatin -Emergent SOC consult placed for intermittent symptom occurrence and multiple lesions on MRI noted -PT and OT to eval and treat -Echocardiogram pending -CBC and BMP ordered daily along with lipid panel in a.m. 2. Hypertension -Patient blood pressure 150s to 170s systolic -We will allow for permissive hypertension in first 24 hours post stroke -Consider as needed labetalol if systolic blood pressure greater than 220. -We will hold home blood pressure medications at this time 3. Hypothyroidism -Continue levothyroxine 4. GERD -Continue omeprazole This patient was seen by WENDY Gutierrez under the supervision of Dr. Garcia. Documented by User: Dr. 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 Carotid stenosis Diastolic dysfunction Essential hypertension GERD (gastroesophageal reflux disease) History of left heart catheterization (LHC) (~02/28/17) Hypokalemia Hypothyroidism Injury to blood vessels, unspecified site Intractable nausea and vomiting Mixed hyperlipidemia Rheumatic mitral insufficiency Valvular heart disease Vertigo Home Medications levothyroxine 25 mcg PO DAILY 02/27/17 [History Last Taken Unknown] aspirin 81 mg tablet,delayed release 81 mg PO DAILY #1 tab 01/03/20 [Rx Last Taken Unknown] metoprolol succinate 100 mg tablet,extended release 24 hr 100 mg PO DAILY #90 tab 05/29/20 [Rx Last Taken Unknown] hydrochlorothiazide 25 mg tablet 25 mg PO DAILY 05/11/21 [History Last Taken Unknown] omeprazole 40 mg capsule,delayed release 40 mg PO DAILY 05/11/21 [History Last Taken Unknown] trazodone 50 mg tablet 50 mg PO QHS PRN 05/11/21 [History Last Taken Unknown] hydrocodone-acetaminophen 1 tab PO Q6H PRN 3 Days #10 tab 05/29/21 [Rx Last Taken Unknown] amoxicillin-pot clavulanate 1 tab PO BID 08/01/21 [History Last Taken Unknown] spironolactone 25 mg PO DAILY 08/01/21 [History Last Taken Unknown] Allergy/AdvReac Type Severity Reaction Status Date / Time No Known Allergies Allergy Verified 08/01/21 08:51 Surgical History History of liver biopsy History of partial hysterectomy History of tubal ligation Social History Smoking Status: Former smoker alcohol intake: never substance use type: does not use Results Lab / Micro Data Result Diagrams: 08/01/21 09:30 08/01/21 09:30 Charges/Coding Addendum Addendum: Patient was seen and examined today independently of Sylwia Munoz, she came to the ER today with complaints of numbness and tingling over her left arm and left leg. Work-up in the emergency room included a CT of the brain which showed no evidence of abnormality, patient's NIH stroke score was 0. Patient's blood pressure was noted to be elevated in the emergency room. On examination she appeared her stated age, her affect was odd, she does not appear to be in any distress. Vital signs as documented. Skin warm and dry and without overt rashes. Neck without JVD, thyroid appears normal, trachea is midline, neck is supple. Lungs clear, normal air movement was noted. Heart exam notable for regular rhythm, normal sounds and absence of murmurs, rubs or gallops. Abdomen unremarkable and without evidence of organomegaly, masses, or abdominal aortic enlargement, bowel sounds are present in all 4 quadrants, no abdominal tenderness was noted. Extremities nonedematous, no cyanosis was noted, no clubbing was noted. Neuro: Cranial nerves II through XII are grossly intact, no focal motor deficits were noted, sensation to light touch and pinprick is intact, motor exam 5/5 throughout. Psych: Patient is alert and oriented x3, she does not appear anxious or depressed, she does not appear agitated. Patient was placed in observation status on PCU, she will undergo an MRI of the brain as well as a CTA of the head and neck. Stroke scores will be monitored, patient will be placed on an aspirin and a statin. I have reviewed Sylwia Valdezrudy's history and physical including her medical assessment and plan of care and endorse it. Visit Charges OBSV E&M: 29501 Initial observation care L3
--- NOTE | 2021-08-01 14:42 | TELEMED_ITS ---
SOC Telemed has confirmed receipt of a request for visit. This document confirms receipt of the order initiating the consult. To find the results of the consultation, please view the patient's reports for the scanned Telemed Consult.
[2021-08-01] MEDS: Ibuprofen 400 MG Tablet PO (17:47)
[2021-08-01] MEDS: Atorvastatin Calcium 40 MG Tablet PO (22:19)
[2021-08-02] VITALS (9 sets, daily range): BP systolic 142–157; BP diastolic 49–99; PULSE 65–71; RESP 16–18; TEMP 36.4–36.5; O2SAT 96–98; BMI 32.3
[2021-08-02] MEDS: Acetaminophen 325 MG Tablet 650 MG PO ×3 (02:41→16:18)
[2021-08-02 05:56] LABS: Absolute Lymphocyte Count 2.39 X10^3/uL (0.83-4.51); Absolute Neutrophil Count 3.8 X10^3/uL (2.0-7.7); Basophil# 0.06 X10^3/uL; Basophil% 0.8 % (0-1); Eosinophils% 4.2 % (0-5); Hematocrit 42.5 % (37-47); Hemoglobin 14.1 g/dL (12.0-15.0); Lymphocyte # 2.39 X10^3/ul (0.83-4.51); Lymphocyte % 33.4 % (19-41); Mean Corp Hgb Conc 33.2 g/dL (32-36); Mean Corpuscular Hgb 31.8 pg (27.0-32.0); Mean Corpuscular Volume 95.9 fL (81-99); Mean Platelet Vol. 9.4 fl (6.2-12.0); Monocyte# 0.54 X10^3/uL; Monocyte% 7.6 % (0-10); NRBC Flagged by Analyzer 0 % (0-5); Neutrophil # 3.82 X10^3/uL (2.7-7.7); Neutrophil % 53.4 % (47-70); Platelet Count 318 K/mm3 (150-450); RBC Distribution Width CV 11.6 % (11.6-14.6); RBC Distribution Width SD 41.1 fl (35.1-43.9); Red Blood Count 4.43 M/mm3 (4.2-5.4); White Blood Count 7.2 K/mm3 (4.4-11.0)
[2021-08-02] MEDS: Enoxaparin 40 MG/0.4 ML Syringe SC (06:04)
[2021-08-02] MEDS: Levothyroxine 25 MCG TABLET PO (06:05)
[2021-08-02 06:28] LABS: Anion Gap 4 (5-15); BUN 14 mg/dL (7-18); BUN/Creat Ratio 19.9 RATIO (10-20); Calcium,Total 8.7 mg/dL (8.5-10.1); Chloride 108 mmol/L (98-107); Cholesterol 160 mg/dL (200); EST Glomerular Filtration Rate 86 mL/min (>60); Est Glom Filt Rate - Afr Amer 103 mL/min (>60); Estimated Creatinine Clearance 36.67 ml/min; Glucose 101 mg/dL (74-106); High Density Lipoprotein 26 mg/dL; Potassium 3.7 mmol/L (3.5-5.1); Sodium Level 140 mmol/L (136-145); Triglycerides 215 mg/dL; Very Low Density Lipoprotein 43 mg/dL (5-40)
[2021-08-02] MEDS: Aspirin E.C. 81 MG Tablet PO (09:40)
[2021-08-02] MEDS: Metoprolol(XL)Succ 100 MG Tablet PO (09:40)
--- NOTE | 2021-08-02 10:50 | CASEMGMT ---
RN CM CONFERENCE MANAGER CM to room to meet with patient for initial transition planning/care coordination assessment. RN CM introduced self and role at [facility]. Pt voices understanding and consents to assessment at this time. Pt sitting up in chair in room in no distress at this time. Pt is A/O at this time and answers all questions appropriately. Pt very talkative. Care providers, pharmacy, and demographics verified/updated at this time. Pt reports that she is having intermittent N/T to left arm that comes and goes. Pt stated, while talking w/this RN CM that this occurred and had resolved before RN CM left the room. Delphine Grace NP, made aware. PCP: Dr Butler Specialists: Dr Lorenzo--cardiology Preferred Pharmacy: [facility]. Insurance: [employer] Prescription Benefit: Yes Living Will/HPOA: Has both LW and HPOA, who is her son, Matt Living Arrangements: Lives alone in one-story apt w/2 steps to enter. Pt states she does okay with the stairs. Pt states she is independent w/ADL's and IADL's. States son and DIL live near [place] and help some. Transportation: Pt states drives self and states no transportation concerns at this time. States she will try and contact her nephew to take her home @ d/c, but she is not sure if he will be available. DME: States has the following DME: shower chair, BSC, cane, rails/grab bars, hand held shower, walker, medical alert button. Pt states her son was paying for one monthly but she is currently waiting to get another one that will be covered by her insurance. Pt states no need for further DME at this time. HHC/SNF: No hx of either. Discussed option of HHC. Pt states nurse, Nestor, from [facility] comes to her home every week to check on her. Pt declines HHC, stating she wishes to resume CCN @ d/c. Call placed to Earl @ [facility]. She is aware pt has been admitted to [facility] and anticipated that pt will d/c home today. PT/OT notes have been reviewed. Per PT note this AM, pt ambulated 40 ' w/ CGA. No additional therapy recommended. Pt wishes to return home and states has no concerns with going home at time of discharge. CM to follow for any further discharge planning/needs. Pt voices no further concerns/needs at this time. Advised pt to ask for CM if any further questions/concerns/needs arise. Voices understanding. PLAN: Home w/resumption of CCN. Kaley ALANIZN RN CM
--- NOTE | 2021-08-02 13:06 | PCM.DC ---
Discharge Instructions Diet Discharge Diet: Low fat / Low cholesterol Activity Discharge Activity: Return to Normal Activity Dressing / Incision Call your doctor if you observe: Numbness or Tingling, Shortness of breath, Dizziness and Chest pain Follow Up Care Test Results: Test results from this visit will be discussed in further detail at your follow-up appointment, if applicable. Discharge Plan Admission Admit Date/Time: 08/01/21 10:56 Primary Reason for Your Visit: Stroke Attending Provider: Michael Garcia Primary Care Provider: Gal Butler Discharge Orders/Prescriptions Prescriptions: New atorvastatin 40 mg Tablet 40 mg PO QHS Qty: 30 RF: 0 clopidogrel [Plavix] 75 mg tablet 75 mg PO DAILY Qty: 21 RF: 0 Continued aspirin 81 mg tablet,delayed release (DR/EC) 81 mg PO DAILY Qty: 1 RF: 0 hydrochlorothiazide 25 mg tablet 25 mg PO DAILY RF: 0 omeprazole 40 mg capsule,delayed release(DR/EC) 40 mg PO DAILY RF: 0 trazodone 50 mg tablet 50 mg PO QHS PRN (Reason: Pain) RF: 0 levothyroxine 25 MCG tablet 25 mcg PO DAILY RF: 0 hydrocodone-acetaminophen 5-325 mg tablet 1 tab PO Q6H PRN (Reason: pain) 3 Days Qty: 10 RF: 0 spironolactone 25 mg tablet 25 mg PO DAILY RF: 0 amoxicillin-pot clavulanate 875-125 mg tablet 1 tab PO BID RF: 0 metoprolol succinate 100 mg tablet extended release 24 hr 100 mg PO DAILY Qty: 90 RF: 4 Other Ambulatory Orders: 30-Day Event Recorder (Routine) Location: None Selected Ordered By: Delphine Grace NP Referrals / Follow Up: Gal Butler MD [Primary Care Provider] - In 1 Week Bud Armenta MD [STAFF PHYSICIAN] - Within 2 Weeks Disposition Disposition (needs filled in before D/C Order can be placed): Home, Self Care
--- NOTE | 2021-08-02 13:13 | PCM.DC.SUM ---
Documented by User: Delphine Grace NP, ATMOSPHERIC TECHNICIAN-C 08/02/21 17:47 Providers Date of Admission: 08/01/21 Date of Discharge: 08/02/21 Primary Care Physician: Dr. Gal Butler MD Reason For Visit: LEFT ARM PARATHESIAS, LEFT LEG PARATHESIA Diagnosis Discharge Diagnosis (1) Acute CVA (cerebrovascular accident): Status: Acute Code(s): I63.9 - Cerebral infarction, unspecified Medications at Discharge Home Medications levothyroxine 25 mcg PO DAILY 02/27/17 metoprolol succinate 100 mg tablet,extended release 24 hr 100 mg PO DAILY #90 tab 05/29/20 hydrochlorothiazide 25 mg tablet 25 mg PO DAILY 05/11/21 omeprazole 40 mg capsule,delayed release 40 mg PO DAILY 05/11/21 trazodone 50 mg tablet 50 mg PO QHS PRN 05/11/21 hydrocodone-acetaminophen 1 tab PO Q6H PRN 3 Days #10 tab 05/29/21 amoxicillin-pot clavulanate 1 tab PO BID 08/01/21 spironolactone 25 mg PO DAILY 08/01/21 aspirin 81 mg PO DAILY #30 tab 08/02/21 atorvastatin 40 mg PO QHS #30 tab 08/02/21 clopidogrel [Plavix] 75 mg PO DAILY #21 tab 08/02/21 Hospital Course Operations None Procedures 2-D Echocardiogram Summary of Care Provided Minutes Spent on Discharge: 35 Hospital Course: Patient is a 76-year-old female admitted 08/01/2021 due to numbness and tingling of the left arm. 1. Acute CVA-MRI of brain shows subcentimeter focal areas of acute ischemic change in the head of the right caudate nucleus, right hippocampus and right cerebellum, thromboembolic phenomena. Head and neck CTA with 50% stenosis bilaterally. Echocardiogram completed and demonstrates an EF of 75%, mild mitral valve insufficiency. Aortic sclerosis. Mild mitral valve insufficiency, severe mitral annular calcification. No evidence of A. fib during admission. Aspirin, Plavix at discharge for dual antiplatelet therapy for 21 days followed by single antiplatelet therapy with aspirin only. 30-day event monitor at discharge to assess for underlying atrial fibrillation. If A. fib is noted, patient will need initiated on anticoagulation. Follow-up with PCP and neurology at discharge. 2. Hypertension- continue HCTZ, metoprolol, spironlactone. 3. CAD-continue medical management. 4. Aortic valve disease/mitral valve disease-continue follow-up with cardiology. 5. Hypothyroidism- continue synthroid regimen. 6. GERD- continue PPI. Patient seen and examined prior to discharge. Physical assessment as noted below. Patient is stable for discharge with follow up recommendations as noted above. This patient was seen by WENDY Calderon under the supervision of Dr. Garcia. Physical Exam Const alert, oriented x3 and no apparent distress Orientation / Consciousness: awake, oriented to person, oriented to place and oriented to time HEENT normocephalic and moist oral mucous membranes Eyes PERRL, EOMs intact bilaterally and conjunctivae normal Neck no lymphadenopathy Resp normal respiratory effort and clear to auscultation bilaterally Cardio regular rate, regular rhythm and no murmurs Peripheral Pulses: pulses 2+ throughout GI normal to inspection, nondistended, normoactive bowel sounds, non-tender and non-distended Extremity normal to inspection Skin no rashes or lesions noted Lesions: no lesions Rashes: no rashes Trauma: no lacerations or abrasions Neuro CN's II-XII intact bilaterally, no focal motor deficits, no sensory deficits noted and deep tendon reflexes 2+ bilaterally Psych mental status grossly normal and affect normal Weight / BMI Weight Weight: 177 lb 0.499 oz Body Mass Index (BMI) 32.3 ABG / Lab / Microbiology Data Result Diagrams: 08/02/21 05:34 08/02/21 05:34 Laboratory: Laboratory Results - last 24 hr 08/02/21 05:34: WBC 7.2, RBC 4.43, Hgb 14.1, Hct 42.5, MCV 95.9, MCH 31.8, MCHC 33.2, RDW Std Deviation 41.1, RDW Coeff of Kwasi 11.6, Plt Count 318, MPV 9.4, Immature Gran % (Auto) 0.600, Neut % (Auto) 53.4, Lymph % (Auto) 33.4, [place] % (Auto) 7.6, Eos % (Auto) 4.2, Baso % (Auto) 0.8, Absolute Neuts (auto) 3.8, Absolute Lymphs (auto) 2.39, Nucleated RBC % 0 08/02/21 05:34: Sodium 140, Potassium 3.7, Chloride 108 H, Carbon Dioxide 28.0, Anion Gap 4 L, BUN 14, Creatinine 0.70, Estim Creat Clear Calc 36.67, Est GFR (MDRD) Af Amer 103, Est GFR (MDRD) Non-Af 86, BUN/Creatinine Ratio 19.9, Glucose 101, Calcium 8.7, Triglycerides 215 H, Cholesterol 160, LDL Cholesterol 91, VLDL Cholesterol 43 H, HDL Cholesterol 26 L Radiography Diagnostic Testing: Radiology Impression Brain MRI 08/01/21 11:03 IMPRESSION: 1. Subcentimeter focal areas of acute ischemic change in the head of the right caudate nucleus, right hippocampus and right cerebellum thromboembolic phenomena. 2. Prominent chronic microvascular changes. at 1318 Reported and signed by: Francis Mayes MD Electronically Signed: Francis Mayes MD at 13:17 EDT Tel , Service support , ADDENDUM: 08/01/21 1328 IMPRESSION: 1. Subcentimeter focal areas of acute ischemic change in the head of the right caudate nucleus, right hippocampus and right cerebellum thromboembolic phenomena. 2. Prominent chronic microvascular changes. at 1318 Reported and signed by: Francis Mayes MD N.B. : The above Results were Read Back by Francis Mayes MD to Chaz Lepe RN, and understanding confirmed on 08/01/2021 13:21:31 (ET). Electronically Signed: Francis Mayes MD at 13:17 EDT Tel , Service support , Echocardiogram 08/01/21 11:03 Interpretation Summary The estimated ejection fraction is 75 %. Unable to assess diastolic dysfunction. There is severe mitral annular calcification. Mild (1+) mitral valve insufficiency. [place] diffuse mitral valve thickening. Aortic sclerosis, no stenosis. Ordering Physician: Michael Garcia Referring Physician: Gal Butler Performed By: Marcella Ferris, JOSE, RVT D/C Instructions Discharge Diet: Low fat / Low cholesterol Call your doctor if you observe: Numbness or Tingling, Shortness of breath, Dizziness and Chest pain Meaningful Use Info Meaningful Use Diagnoses (Choose all that apply): Ischemic CVA CVA Therapy Assessed for PT,OT and/or ST?: Yes Ischemic Stroke Antithrombotic order at d/c?: Yes Dx of Atrial fib/flutter?: No Statins at discharge?: Yes Primary Dx Acute Ischemic CVA?: Yes IV tPA ordered during stay?: No Reason IV t-PA not ordered: Medical Contraindication Discharge Plan Admission Admit Date/Time: 08/01/21 10:56 Primary Reason for Your Visit: Stroke Attending Provider: Michael Garcia Primary Care Provider: Gal Butler Discharge Orders/Prescriptions Prescriptions: New atorvastatin 40 mg Tablet 40 mg PO QHS Qty: 30 RF: 0 clopidogrel [Plavix] 75 mg tablet 75 mg PO DAILY Qty: 21 RF: 0 Continued hydrochlorothiazide 25 mg tablet 25 mg PO DAILY RF: 0 omeprazole 40 mg capsule,delayed release(DR/EC) 40 mg PO DAILY RF: 0 trazodone 50 mg tablet 50 mg PO QHS PRN (Reason: Pain) RF: 0 levothyroxine 25 MCG tablet 25 mcg PO DAILY RF: 0 hydrocodone-acetaminophen 5-325 mg tablet 1 tab PO Q6H PRN (Reason: pain) 3 Days Qty: 10 RF: 0 spironolactone 25 mg tablet 25 mg PO DAILY RF: 0 amoxicillin-pot clavulanate 875-125 mg tablet 1 tab PO BID RF: 0 aspirin 81 mg tablet,delayed release (DR/EC) 81 mg PO DAILY Qty: 30 RF: 0 metoprolol succinate 100 mg tablet extended release 24 hr 100 mg PO DAILY Qty: 90 RF: 4 Other Ambulatory Orders: 30-Day Event Recorder (Routine) Location: None Selected Ordered By: Delphine Grace NP Referrals / Follow Up: Gal Lorenzo MD [STAFF PHYSICIAN] - Within 1 Month Gal Butler MD [Primary Care Provider] - In 1 Week Bud Armenta MD [STAFF PHYSICIAN] - Within 2 Weeks Disposition Disposition (needs filled in before D/C Order can be placed): Home, Self Care Documented by User: Dr. Michael Garcia DO 08/02/21 19:37 Providers Date of Admission: 08/01/21 Reason For Visit: LEFT ARM PARATHESIAS, LEFT LEG PARATHESIA Medications at Discharge Home Medications levothyroxine 25 mcg PO DAILY 02/27/17 metoprolol succinate 100 mg tablet,extended release 24 hr 100 mg PO DAILY #90 tab 05/29/20 hydrochlorothiazide 25 mg tablet 25 mg PO DAILY 05/11/21 omeprazole 40 mg capsule,delayed release 40 mg PO DAILY 05/11/21 trazodone 50 mg tablet 50 mg PO QHS PRN 05/11/21 hydrocodone-acetaminophen 1 tab PO Q6H PRN 3 Days #10 tab 05/29/21 amoxicillin-pot clavulanate 1 tab PO BID 08/01/21 spironolactone 25 mg PO DAILY 08/01/21 aspirin 81 mg PO DAILY #30 tab 08/02/21 atorvastatin 40 mg PO QHS #30 tab 08/02/21 clopidogrel [Plavix] 75 mg PO DAILY #21 tab 08/02/21 ABG / Lab / Microbiology Data Result Diagrams: 08/02/21 05:34 08/02/21 05:34 Discharge Plan Admission Admit Date/Time: 08/01/21 10:56 Primary Reason for Your Visit: Stroke Attending Provider: Michael Garcia Primary Care Provider: Gal Butler Discharge Orders/Prescriptions Prescriptions: New atorvastatin 40 mg Tablet 40 mg PO QHS Qty: 30 RF: 0 clopidogrel [Plavix] 75 mg tablet 75 mg PO DAILY Qty: 21 RF: 0 Continued hydrochlorothiazide 25 mg tablet 25 mg PO DAILY RF: 0 omeprazole 40 mg capsule,delayed release(DR/EC) 40 mg PO DAILY RF: 0 trazodone 50 mg tablet 50 mg PO QHS PRN (Reason: Pain) RF: 0 levothyroxine 25 MCG tablet 25 mcg PO DAILY RF: 0 hydrocodone-acetaminophen 5-325 mg tablet 1 tab PO Q6H PRN (Reason: pain) 3 Days Qty: 10 RF: 0 spironolactone 25 mg tablet 25 mg PO DAILY RF: 0 amoxicillin-pot clavulanate 875-125 mg tablet 1 tab PO BID RF: 0 aspirin 81 mg tablet,delayed release (DR/EC) 81 mg PO DAILY Qty: 30 RF: 0 metoprolol succinate 100 mg tablet extended release 24 hr 100 mg PO DAILY Qty: 90 RF: 4 Other Ambulatory Orders: 30-Day Event Recorder (Routine) Location: None Selected Ordered By: Delphine Grace ATMOSPHERIC TECHNICIAN Referrals / Follow Up: Gal Lorenzo MD [STAFF PHYSICIAN] - Within 1 Month Gal Butler MD [Primary Care Provider] - In 1 Week Bud Armenta MD [STAFF PHYSICIAN] - Within 2 Weeks Disposition Disposition (needs filled in before D/C Order can be placed): Home, Self Care Charges/Coding Addendum Addendum: Patient was seen and examined independently of Delphine Grace today, at times today the patient complained of severe symptoms and inability to lift her arm and drooping of the left side of her face, at other times the patient had no complaints regarding this at all and was able to get up and walk in her room independently. Delphine Grace talk with the patient's [id number] about the patient's medical care, patient did not meet criteria to go to an extended care facility for rehab services and the rehab unit at [facility] stated they would not accept the patient for rehab services. PT and OT did not feel the patient needed skilled services. Later on in the afternoon this afternoon, patient stated that she wanted to go home and called her nephew to pick her up. Patient appeared alert and oriented x3 and appeared to be aware of her decision. On examination she appeared in good health and spirits, she does not appear to be in any distress. Vital signs as documented. Skin warm and dry and without overt rashes. Neck without JVD, thyroid appears normal, trachea is midline, neck is supple. Lungs clear, normal air movement was noted. Heart exam notable for regular rhythm, normal sounds and absence of murmurs, rubs or gallops. Abdomen unremarkable and without evidence of organomegaly, masses, or abdominal aortic enlargement, bowel sounds are present in all 4 quadrants, no abdominal tenderness was noted. Extremities nonedematous, no cyanosis was noted, no clubbing was noted. Neuro: Cranial nerves II through XII are grossly intact, no focal motor deficits were noted, sensation to light touch and pinprick is intact, motor exam 5/5 throughout. Psych: Patient is alert and oriented x3, she does not appear anxious or depressed, she does not appear agitated. During the mid afternoon, patient complained of symptoms returning of left arm weakness and numbness, at that point I elected to perform a CT of the brain on the patient which showed only the evidence of her previous strokes. After patient was discharged this afternoon, her son (Matt) called the loading unit operator at [employer] and became upset when he found out that his mother had been discharged. I reached out to him by phone, he admitted during the phone call that the patient was able to make her own decisions, he stated that he intended to bring the patient back to the hospital for evaluation, I told him that this was his prerogative, he then proceeded to talk belligerently to me by phone, I could not interject any words during the conversation and gave up and hung up the phone. I attempted to call his (patient's [id number]) by phone but there is no answer. I believe the patient was safe for discharge home. I have reviewed Delphine Grace's discharge summary including her medical assessment and plan of care and endorse it. Visit Charges OBSV E&M: 44048 Observation care discharge
--- NOTE | 2021-08-02 14:44 | CT_ITS ---
STUDY: CT BRAIN WITHOUT CONTRAST REASON FOR EXAM: Female, 76 years old. Left arm weakness RADIATION DOSAGE (If Supplied By Facility): CTDIvol = ( 38.43 ) mGy, DLP = ( 712.69 ) mGycm TECHNIQUE: Transaxial CT imaging of the brain was performed without administration of intravenous contrast material. Individualized dose optimization techniques were used for this CT. COMPARISON: Comparison is made with prior examination dated 08/01/2021. FINDINGS: Normal soft tissue structures. Normal calvarium. There is mild cerebral atrophy with widening of the extra-axial spaces and ventricular dilatation. There are areas of decreased attenuation within the white matter tracts of the supratentorial brain, consistent with microvascular disease changes. There is a 7.2 mm lacunar in the body of the right caudate nucleus as well as in the posterior limb of the right internal capsule. Normal brainstem. Normal cerebellum. There is no intracranial hemorrhage. There are no findings of an acute ischemic infarction. Atherosclerotic calcification of the vertebral arteries and cavernous portions of the internal carotid arteries bilaterally. Normal visualized paranasal sinuses. CT/Brain/Head without Contrast IMPRESSION: Chronic involutional changes of the brain. Tiny lacunar in the body of the right caudate nucleus. Tiny lacunar in the posterior limb of the right internal capsule. Electronically Signed: Matthew Wood MD at 15:37 EDT , Service support ,
== END 2021-08-02 13:11 | disposition home or self-care (01) ==
LOC: ED 09:45 → PCU 11:07
PROVIDERS: Nurse Practitioner Family; Admitting Provider Internal Medicine; Emergency Provider Emergency Medicine; PCP Family Medicine; Visit Provider Internal Medicine
DX: I63.9 Cerebral infarction, unspecified (principal); M79.7 Fibromyalgia; E03.9 Hypothyroidism, unspecified; E78.2 Mixed hyperlipidemia; I25.10 Atherosclerotic heart disease of native coronary artery without angina pectoris; K21.9 Gastro-esophageal reflux disease without esophagitis; I10 Essential (primary) hypertension; Z79.899 Other long term (current) drug therapy; Z79.890 Hormone replacement therapy; Z79.82 Long term (current) use of aspirin; Z87.891 Personal history of nicotine dependence; R29.700 NIHSS score 0; Z79.02 Long term (current) use of antithrombotics/antiplatelets; R20.0 Anesthesia of skin; R53.1 Weakness
CPT/HCPCS: 36415; 70450; 70496; 70498; 70551; 71045; 80048; 80061; 84484; 85025; 85610; 85730; 93005; 93306; 96361; 96372; 96374; 97110; 97161; 97166; 97530; 99218; 99285; J7030; Q9957; Q9967; A4216; C8929; G0378; J3490

== ENCOUNTER → 2021-09-17 08:12 | Outpatient (CLI) | payer MEDICARE, MEDICAID, SELFPAY ==
[2021-09-17 10:22] LABS: Anion Gap 4 (5-15); BUN 22 mg/dL (7-18); BUN/Creat Ratio 22.4 RATIO (10-20); Calcium,Total 9.4 mg/dL (8.5-10.1); Chloride 100 mmol/L (98-107); Cholesterol 115 mg/dL (200); Creatinine, Serum 0.98 mg/dL (0.55-1.02); EST Glomerular Filtration Rate 58 mL/min (>60); Est Glom Filt Rate - Afr Amer 70 mL/min (>60); Free T3 2.7 pg/mL (2.18-3.98); Glucose 120 mg/dL (74-106); High Density Lipoprotein 41 mg/dL; Potassium 4.2 mmol/L (3.5-5.1); Sodium Level 135 mmol/L (136-145); T4 Free Direct 0.95 ng/dL (0.76-1.46); Thyroid Stim Hormone (TSH) 3.55 uIU/mL (0.358-3.74); Triglycerides 134 mg/dL; Very Low Density Lipoprotein 27 mg/dL (5-40)
== END ==
PROVIDERS: PCP Family Medicine; Referring Provider Family Medicine; Visit Provider Family Medicine
DX: I10 Essential (primary) hypertension (principal); E03.9 Hypothyroidism, unspecified
CPT/HCPCS: 36415; 80048; 80061; 84439; 84443; 84481

== ENCOUNTER 2021-11-28 17:57 | Outpatient (CLI) | payer MEDICARE, MEDICAID, SELFPAY | END 2021-11-28 23:59 | disposition short-term general hospital (02) | PROVIDERS: PCP Family Medicine; Visit Provider Family Medicine | DX: R19.7 Diarrhea, unspecified (principal) | CPT/HCPCS: 87493; 87506 ==

== ENCOUNTER → 2022-05-29 | Outpatient (CLI) | payer MEDICARE, MEDICAID, SELFPAY ==
--- NOTE | 2022-05-29 17:21 | RAD_ITS ---
STUDY: X-RAY - RIGHT SHOULDER REASON FOR EXAM: Female, 77 years old. PAIN TECHNIQUE: 5 view(s) of the shoulder. COMPARISON: None. FINDINGS: There is mild degenerative arthrosis of the glenohumeral articulation. There is mild degenerative arthrosis of the acromioclavicular joint without inferior osseous spur formation. Normal acromion. Normal humeral head and visualized proximal humerus. There is periarticular soft tissue calcification consistent with a calcific tendinitis. Normal visualized pulmonary apex. RAD/Shoulder min 2 Views IMPRESSION: Degenerative arthrosis of the shoulder. There is periarticular soft tissue calcification consistent with a calcific tendinitis. Electronically Signed: Daniel Ackerman MD at 6:29 EDT ,
== END | disposition home or self-care (01) ==
LOC: MTRAD 17:19
PROVIDERS: PCP Family Medicine; Referring Provider Family Medicine; Visit Provider Family Medicine
DX: M25.511 Pain in right shoulder (principal)
CPT/HCPCS: 73030

== ENCOUNTER 2022-07-19 15:59 | Outpatient (CLI) | payer MEDICARE, MEDICAID, SELFPAY ==
[2022-07-19 17:47] LABS: Anion Gap 7 (5-15); BUN 26 mg/dL (7-18); BUN/Creat Ratio 25.7 RATIO (10-20); Calcium,Total 9.5 mg/dL (8.5-10.1); Chloride 102 mmol/L (98-107); Cholesterol 133 mg/dL (200); Creatinine, Serum 1.01 mg/dL (0.55-1.02); EST Glomerular Filtration Rate 56 mL/min (>60); Est Glom Filt Rate - Afr Amer 68 mL/min (>60); Free T3 2.2 pg/mL (2.18-3.98); Glucose 102 mg/dL (74-106); High Density Lipoprotein 39 mg/dL; Potassium 4.2 mmol/L (3.5-5.1); Sodium Level 137 mmol/L (136-145); T4 Free Direct 1.03 ng/dL (0.76-1.46); Thyroid Stim Hormone (TSH) 2.39 uIU/mL (0.358-3.74); Triglycerides 136 mg/dL; Very Low Density Lipoprotein 27 mg/dL (5-40)
== END 2022-07-19 23:59 | disposition home or self-care (01) ==
LOC: MFPLAB 16:05
PROVIDERS: PCP Family Medicine; Referring Provider Family Medicine; Visit Provider Family Medicine
DX: I10 Essential (primary) hypertension (principal); E03.9 Hypothyroidism, unspecified
CPT/HCPCS: 36415; 80048; 80061; 84439; 84443; 84481

== ENCOUNTER 2022-09-08 21:57 | Emergency (ER) | payer MEDICARE, MEDICAID, SELFPAY ==
[2022-09-08 21:58] VITALS: BP 164/103; PULSE 87; RESP 14; TEMP 36.4; O2SAT 94; BMI 28.8
--- NOTE | 2022-09-08 22:08 | CT_ITS ---
EXAM: CT CERVICAL SPINE WITHOUT INTRAVENOUS CONTRAST CLINICAL INDICATION: trauma TECHNIQUE: Helically acquired images were obtained of the cervical spine without intravenous contrast. 2D reformatted images were reviewed. This CT exam was performed using one or more of the following dose reduction techniques: automated exposure control, adjustment of the mA and/or kV according to patient size, and/or use of iterative reconstruction technique. This report was created using [employer] report generation technology. RADIATION DOSE: Total DLP: 276.82 mGy-cm. COMPARISON: Cervical spine radiographs of 05/28/2021. FINDINGS: VERTEBRAE: Normal cervical lordosis. Slight degenerative posterior subluxation of C5 in relation to C4 and C6. No compression fracture, posterior element fracture or facet dislocation. DISCS/SPINAL CANAL/NEURAL FORAMINA: Moderately severe degenerative narrowing of the C5/6 and C6/7 disc spaces, with marginal osteophytes, uncinate hypertrophy and minimal endplate degenerative changes. There is moderate flattening the ventral aspect of the thecal sac at these 2 levels due to annular bulges and posterior osteophytes. Multilevel neural foraminal encroachment is present due to facet and uncinate hypertrophy. Degenerative narrowing of predentate distance with subchondral sclerosis. Extensive cervical facet arthritis, greater on the right. SOFT TISSUES: No prevertebral soft tissue swelling. VASCULATURE: Extensive carotid vascular calcification. LUNG APICES: Biapical pleural parenchymal scarring. Visualized upper ribs and clavicles are intact. CT/Spine Cervical without Contras IMPRESSION: Extensive cervical degenerative changes. No acute fracture. Electronically Signed: Henrry Wall MD at 23:12 EDT ,
--- NOTE | 2022-09-08 22:08 | CT_ITS ---
EXAM: CT HEAD WITHOUT INTRAVENOUS CONTRAST CLINICAL INDICATION: head injury TECHNIQUE: Multiple axial images were obtained of the head without intravenous contrast. This CT exam was performed using one or more of the following dose reduction techniques: automated exposure control, adjustment of the mA and/or kV according to patient size, and/or use of iterative reconstruction technique. This report was created using [employer] report generation technology. RADIATION DOSE: Total DLP: 846.73 mGy-cm. COMPARISON: CT of 08/02/2021. FINDINGS: BRAIN AND EXTRA-AXIAL SPACES: Mild cerebral and cerebellar atrophy with prominence of the ventricles, cortical sulci and sylvian fissures. Moderate patchy chronic small vessel ischemic changes are again noted within the deep white matter tracts. Stable old lacunar infarction within the right caudate head and within old lacunar infarctions in the right internal capsule. No intra- or extra-axial hemorrhage. No intracranial mass or mass effect. Basal cisterns are patent. BONES/JOINTS: No linear or depressed skull fracture. No discrete lytic or blastic abnormalities. SOFT TISSUES: No scalp hematoma. VASCULATURE: Atherosclerotic vascular calcification is present. The middle cerebral arteries are not hyperdense. SINUSES: Unremarkable as visualized. Clear. MASTOID AIR CELLS: Unremarkable. Clear. ORBITS: Previous cataract surgery. CT/Brain/Head without Contrast IMPRESSION: Atrophy with chronic small vessel ischemic changes. Old lacunar infarctions. No skull fracture or acute intracranial hemorrhage. Electronically Signed: Henrry Wall MD at 23:09 EDT ,
--- NOTE | 2022-09-08 22:09 | EDS_ITS ---
HPI HPI - Fall History of Present Illness Chief Complaint: Fall Detail of Chief Complaint: Fall from bed with injury to neck Informant: patient Narrative Narrative: Patient presents the emergency department after falling from her bed this evening. Patient just remembers hitting the floor. She complains of pain to the left side of her neck. Patient was too weak to get up. Patient states her legs have been weak for over a year. She denies recent illness. She denies loss of consciousness. She denies paresthesias or weakness in the extremities otherwise. 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 She presents via EMS from home where she lives alone. Patient on Plavix and aspirin. [facility] Medical History (Updated 09/08/22 @ 23:[address] Mary Kay Scott, ) Acute CVA (cerebrovascular accident) Aortic valve stenosis, rheumatic Atherosclerotic heart disease of [place] coronary artery without angina pectoris Carotid stenosis Diastolic dysfunction Essential hypertension GERD (gastroesophageal reflux disease) History of left heart catheterization (LHC) (~02/28/17) Hypokalemia Hypothyroidism Injury to blood vessels, unspecified site Intractable nausea and vomiting Mixed hyperlipidemia Rheumatic mitral insufficiency Valvular heart disease Vertigo Home Medications levothyroxine 25 mcg tablet 25 mcg PO DAILY thyroid 02/27/17 [History Last Taken Unknown] hydrochlorothiazide 25 mg tablet 25 mg PO DAILY diuretic 05/11/21 [History Last Taken Unknown] trazodone 50 mg tablet 50 mg PO QHS PRN Pain 05/11/21 [History Last Taken Unknown] spironolactone 25 mg tablet 25 mg PO DAILY diuretic 08/01/21 [History Last Taken Unknown] aspirin 81 mg tablet,delayed release 81 mg PO DAILY #30 tabs 08/02/21 [Rx Last Taken Unknown] atorvastatin 40 mg tablet 40 mg PO QHS #30 tabs 08/02/21 [Rx Last Taken Unknown] clopidogrel 75 mg tablet (Plavix) 75 mg PO DAILY #21 tabs 08/02/21 [Rx Last Taken Unknown] metoprolol succinate 100 mg tablet,extended release 24 hr 100 mg PO DAILY #90 tabs 08/08/21 [Rx Last Taken Unknown] magnesium 400 mg DAILY 01/23/22 [History Last Taken Unknown] meclizine 25 mg tablet 25 mg PO PRN PRN Dizziness 05/31/22 [History Last Taken Unknown] gabapentin 300 mg capsule 300 mg PO DAILY 09/08/22 [History Last Taken Unknown] omeprazole 40 mg capsule,delayed release 40 mg PO DAILY 09/08/22 [History Last Taken Unknown] sertraline 100 mg tablet 100 mg PO DAILY 09/08/22 [History Last Taken Unknown] Allergy/AdvReac Type Severity Reaction Status Date / Time No Known Allergies Allergy Verified 01/22/22 15:46 Surgical History History of liver biopsy History of partial hysterectomy History of tubal ligation Social History Smoking Status: Former smoker alcohol intake: never substance use type: does not use ROS ROS ED Review of Systems ROS Unobtainable: other Constitutional Constitutional ED: Reports lethargy; Denies chills, fever(s), sweats or weight loss Eyes Eyes: Denies blurry vision, change in vision or diplopia ENT ENT ED: Denies rhinorrhea or sore throat Cardiovascular Cardiovascular: Denies chest pain, orthopnea or racing heartbeat Respiratory/Chest Respiratory/Chest: Denies cough, dyspnea, dyspnea on exertion, orthopnea or sputum Gastrointestinal Gastrointestinal: Denies abdominal pain, diarrhea, nausea or vomiting Genitourinary Genitourinary ED: Denies dysuria, hematuria or urinary frequency Musculoskeletal Musculoskeletal: Reports neck pain; Denies arthralgias, back pain or myalgias Integumentary Denies abscess, Abrasions or rash Neurologic Neurologic: Reports headache(s); Denies weakness Psychiatric Psychiatric: Denies anxiety, depression or suicidal thoughts Endocrine Endocrinology: Denies polydipsia, polyphagia or polyuria Hematologic/Lymphatic Hematologic/Lymphatic: Denies easy bleeding, easy bruising or lymphadenopathy Allergic/Immunologic Allergic/Immunologic ED: Denies mouth swelling, tongue swelling or urticaria EXAM Physical Exam Const Vital Signs: 09/08/22 21:58 09/08/22 22:10 Temperature 97.6 F L Temperature Source Oral Pulse Rate 87 Respiratory Rate 14 Respiratory Effort Normal Respiratory Depth Normal Respiratory Pattern Normal Blood Pressure 164/103 H Blood Pressure Mean 123 Pulse Ox 94 Oxygen Delivery Method Room Air Room Air Positive well nourished and well developed General Appearance ED: well developed and NAD HEENT Reports TM's clear and moist mucous membranes HEENT Narrative: No external evidence of trauma to her head. normocephalic and atraumatic; Negative for trauma or tenderness Tympanic Membrane ED: Yes TM's clear Eyes PERRL and EOMs intact bilaterally General Eye ED: Negative for pale conjunctiva or scleral icterus Neck no lymphadenopathy, supple and no JVD Neck Narrative: Patient with mild diffuse tenderness over the C-spine and left cervical paraspinal musculature. She has a c-collar in place. C-collar was left in place. General: tenderness Chest Wall inspection of chest normal and palpation of chest normal Chest: Negative for tenderness Resp normal respiratory effort and clear to auscultation bilaterally Effort and Inspection: Negative for respiratory distress or pain with movement Auscultation: Negative for rhonchi, wheezes or diminished lung sounds Cardio regular rate, regular rhythm, S1 normal heart sound, S2 normal heart sound and no murmurs Peripheral Pulses: pulses 2+ throughout GI normal to inspection, nondistended, normoactive bowel sounds, soft to palpation, non-tender, non-distended and no masses Back/Spine no CVA tenderness and no thoracic nor lumbar tenderness Extremity normal to inspection General Extremety ED: Negative for edema General Extremity: Negative for edema Neuro oriented x3, CN's II-XII intact bilaterally, no sensory deficits noted and gait normal Sensorium / Orientation: awake, alert, oriented to person, oriented to place and oriented to time Motor Exam: strength 5/5 throughout and strength abnormal Psych mental status grossly normal Skin no rashes or lesions noted and no wounds MDM MDM MDM Narrative Medical decision making narrative: Patient CT the scan of the brain as well as CT C-spine which did not show any fractures or acute disease process. Patient was given Tylenol 650 mg p.o. Patient was ambulated in the department. She is comfortable going home. Patient advised to follow-up with primary care physician in 3 to 5 days. Patient will stick with ibuprofen or Tylenol for any discomfort. Radiography Diagnostic Testing: Clinical Impression(s) from Imaging Studies Brain CT 09/08/22 22:08 IMPRESSION: Atrophy with chronic small vessel ischemic changes. Old lacunar infarctions. No skull fracture or acute intracranial hemorrhage. Electronically Signed: Henrry Wall MD at 23:09 EDT , Cervical Spine CT 09/08/22 22:08 IMPRESSION: Extensive cervical degenerative changes. No acute fracture. Electronically Signed: Henrry Wall MD at 23:12 EDT , Discharge Plan Triage Chief Complaint: Fall ED Provider: Mary Kay Scott Dx/Rx/DC Orders Clinical Impression: Closed head injury, Cervical muscle strain Instructions: ED Head Injury (Adult), ED Neck Sprain or Strain Prescriptions: No Action hydrochlorothiazide 25 mg tablet 25 mg PO DAILY trazodone 50 mg tablet 50 mg PO QHS PRN (Reason: Pain) levothyroxine 25 MCG tablet 25 mcg PO DAILY magnesium 500 mg tablet 400 mg DAILY meclizine 25 mg Tablet 25 mg PO PRN PRN (Reason: Dizziness) Rx Instructions: q 6h prn dizziness spironolactone 25 mg tablet 25 mg PO DAILY atorvastatin 40 mg Tablet 40 mg PO QHS Qty: 30 0RF clopidogrel [Plavix] 75 mg tablet 75 mg PO DAILY Qty: 21 0RF aspirin 81 mg tablet,delayed release (DR/EC) 81 mg PO DAILY Qty: 30 0RF sertraline 100 mg tablet 100 mg PO DAILY omeprazole 40 mg capsule,delayed release(DR/EC) 40 mg PO DAILY gabapentin 300 mg capsule 300 mg PO DAILY metoprolol succinate 100 mg tablet extended release 24 hr 100 mg PO DAILY Qty: 90 4RF Primary Care Provider: Gal Butler Referrals: Gal Butler MD [Primary Care Provider] - 3-5 Days Disposition Disposition: Home, Self Care
[2022-09-08] MEDS: Acetaminophen 500 MG Tablet 625 MG PO (23:46)
[2022-09-08 23:58] VITALS: PULSE 87; RESP 14; O2SAT 97
== END 2022-09-08 23:58 | disposition home or self-care (01) ==
PROVIDERS: Emergency Provider Emergency Medicine; PCP Family Medicine; Visit Provider Emergency Medicine
DX: S09.90XA Unspecified injury of head, initial encounter (principal); S16.1XXA Strain of muscle, fascia and tendon at neck level, initial encounter; W06.XXXA Fall from bed, initial encounter; I10 Essential (primary) hypertension; I25.10 Atherosclerotic heart disease of native coronary artery without angina pectoris; E78.2 Mixed hyperlipidemia; E03.9 Hypothyroidism, unspecified; K21.9 Gastro-esophageal reflux disease without esophagitis; Z79.02 Long term (current) use of antithrombotics/antiplatelets; Z79.82 Long term (current) use of aspirin; Z79.890 Hormone replacement therapy; Z79.899 Other long term (current) drug therapy; Z87.891 Personal history of nicotine dependence; Z86.73 Personal history of transient ischemic attack (TIA), and cerebral infarction without residual deficits
CPT/HCPCS: 70450; 72125; 99284

== ENCOUNTER 2022-10-26 15:54 | Observation (INO) | payer MEDICARE, MEDICAID, SELFPAY ==
[2022-10-26 15:55] VITALS: BP 141/81; PULSE 100; RESP 16; TEMP 36.5; O2SAT 98; BMI 28.1
--- NOTE | 2022-10-26 17:47 | EKG12_ITS ---
Test Reason : GENERAL ILLNESS Blood Pressure : / mmHG Vent. Rate : 086 BPM Atrial Rate : 086 BPM P-R Int : 140 ms QRS Dur : 112 ms QT Int : 444 ms P-R-T Axes : 044 036 038 degrees QTc Int : 531 ms Normal sinus rhythm Abnormal ECG Confirmed by MIN CHOWDHURY, AGGIE ([id number]), order editor BJORN CASTANEDA ([id number]) on 10/28/2022 12:44:08 PM Referred By: BOUBACAR Confirmed By:AGGIE COPELAND MD
--- NOTE | 2022-10-26 17:47 | RAD_ITS ---
STUDY: X-RAY CHEST REASON FOR EXAM: Female, 77 years old. cough TECHNIQUE: Single AP portable view of the chest. COMPARISON: 08/01/2021 FINDINGS: There are interstitial fibrotic changes of the lungs. There is no demonstrated pleural abnormality. Normal size heart. Normal mediastinum and dave. Normal visualized pulmonary arteries. Normal visualized aortic arch and descending thoracic aorta. Normal visualized thoracic spine. Normal visualized ribs, clavicles, and shoulders. There is no demonstrated abnormality of the visualized soft tissue structures of the upper abdomen. RAD/Chest 1 View (Portable) IMPRESSION: No change from 08/01/2021. Electronically Signed: Julian Velazquez MD at 18:30 EST ,
--- NOTE | 2022-10-26 17:48 | EX.ED.DYSGE1 ---
HPI History of Present Illness Chief Complaint: General Illness Narrative Narrative: 77-year-old female presenting with generalized. She states that she has been this way it started with a cough at home. She states she was given some antibiotic by Dr. Butler's office which she took for 6 days. States she initially thought she was improving but continues to have generalized weakness. She states she was falling but has not had a fall in about a month. She has nausea and vomiting as well. Decreased p.o. She denies chest pain. She admits to a cough with some production of sputum. No fever at home. She denies abdominal pain. 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 Carotid stenosis Diastolic dysfunction Essential hypertension GERD (gastroesophageal reflux disease) History of left heart catheterization (LHC) (~02/28/17) Hypokalemia Hypothyroidism Injury to blood vessels, unspecified site Intractable nausea and vomiting Mixed hyperlipidemia Rheumatic mitral insufficiency Valvular heart disease Vertigo Home Medications levothyroxine 25 mcg tablet 25 mcg PO DAILY thyroid 02/27/17 [History Last Taken Unknown] hydrochlorothiazide 25 mg tablet 25 mg PO DAILY diuretic 05/11/21 [History Last Taken Unknown] trazodone 50 mg tablet 50 mg PO QHS PRN Pain 05/11/21 [History Last Taken Unknown] spironolactone 25 mg tablet 25 mg PO DAILY diuretic 08/01/21 [History Last Taken Unknown] aspirin 81 mg tablet,delayed release 81 mg PO DAILY #30 tabs 08/02/21 [Rx Last Taken Unknown] atorvastatin 40 mg tablet 40 mg PO QHS #30 tabs 08/02/21 [Rx Last Taken Unknown] clopidogrel 75 mg tablet (Plavix) 75 mg PO DAILY #21 tabs 08/02/21 [Rx Last Taken Unknown] metoprolol succinate 100 mg tablet,extended release 24 hr 100 mg PO DAILY #90 tabs 08/08/21 [Rx Last Taken Unknown] magnesium 400 mg DAILY 01/23/22 [History Last Taken Unknown] meclizine 25 mg tablet 25 mg PO PRN PRN Dizziness 05/31/22 [History Last Taken Unknown] gabapentin 300 mg capsule 300 mg PO DAILY 09/08/22 [History Last Taken Unknown] omeprazole 40 mg capsule,delayed release 40 mg PO DAILY 09/08/22 [History Last Taken Unknown] sertraline 100 mg tablet 100 mg PO DAILY 09/08/22 [History Last Taken Unknown] Allergy/AdvReac Type Severity Reaction Status Date / Time No Known Allergies Allergy Verified 10/26/22 15:58 Family History (Updated 10/26/22 @ 20:[address] Haroon Abraham MD) Other Heart disease Surgical History History of liver biopsy History of partial hysterectomy History of tubal ligation Social History Smoking Status: Former smoker alcohol intake: never substance use type: does not use ROS ROS ED Constitutional Constitutional ED: Denies chills or fever(s) Eyes Eyes: Denies change in vision ENT ENT ED: Denies sore throat Cardiovascular Cardiovascular: Denies chest pain or palpitations Respiratory/Chest Respiratory/Chest: Reports cough and dyspnea Gastrointestinal Gastrointestinal: Reports nausea and vomiting; Denies abdominal pain Genitourinary Genitourinary ED: Denies dysuria or hematuria Musculoskeletal Musculoskeletal: Denies arthralgias Integumentary Denies abscess Neurologic Neurologic: Denies headache(s) or paresthesias Psychiatric Psychiatric: Denies anxiety or depression EXAM Physical Exam Const Vital Signs: 10/26/22 15:55 10/26/22 17:52 10/26/22 19:00 Temperature 97.7 F L Temperature Source Temporal Pulse Rate 100 Respiratory Rate 16 18 Respiratory Effort Normal Non-Labored Respiratory Pattern Normal Blood Pressure 141/81 H Blood Pressure Mean 101 Pulse Ox 98 Oxygen Delivery Method Room Air 10/26/22 21:00 Temperature Temperature Source Pulse Rate 85 Respiratory Rate 18 Respiratory Effort Respiratory Pattern Blood Pressure Blood Pressure Mean Pulse Ox 97 Oxygen Delivery Method Room Air Positive well nourished General Appearance ED: NAD; Negative for pallor HEENT Reports moist mucous membranes Eyes PERRL and EOMs intact bilaterally General Eye ED: Negative for pale conjunctiva or scleral icterus Neck no lymphadenopathy Chest Wall inspection of chest normal and palpation of chest normal Resp normal respiratory effort and clear to auscultation bilaterally Auscultation: Negative for rales, rhonchi or wheezes Cardio regular rate and regular rhythm GI normal to inspection, nondistended, normoactive bowel sounds Extremity normal to inspection Neuro oriented x3 and CN's II-XII intact bilaterally Sensorium / Orientation: alert Psych mental status grossly normal Skin no rashes or lesions noted and no wounds General Skin Exam: Negative for jaundice or pallor MDM MDM MDM Narrative Medical decision making narrative: Standing with generalized weakness he has a history of falls about a month ago but has not fallen a month. Today she states her son found out that she had been sick for a few weeks and called 911 to have her transported to the emergency room. Patient states she can ambulate at home. She denies chest pain but admits to a cough and lightheadedness. EKG was obtained and on my interpretation shows a normal sinus rhythm with a ventricular rate of 86 bpm without sign of ischemic change. ID interval 140 ms, QRS duration 112 ms, QTC is prolonged at 531 ms. Chest x-ray my interpretation shows no acute cardiopulmonary process and radiologist interpretation agrees. CBC shows normal white blood cell count of 6.4. Hemoglobin slightly hemoconcentrated at 16.4. Platelets normal at 201. Creatinine at baseline. Electrolytes unremarkable. BUN/creatinine ratio slightly elevated but no change. Urinalysis negative for infection. I had a long discussion with the patient's [id number]. Apparently the patient's son had called and was very angry that the patient might be sent home. He was stating that she appeared confused and was not eating and drinking at home. She does not appear to be confused to me. She is alert and oriented x3. She told me she had not had any falls in 4 weeks. His family acknowledges that this is correct. Her vital signs are stable and she is afebrile. The patient's [id number] did tell me over the phone that they have been talking about getting into assisted living facilities. They had had some out reach to the social work but it was a slow process. I did cosmetic counselor them that we could try to get her admitted for placement into a prison facility, but I did not have anything medical that I was treating that needed to be hospitalized. Since they do want to have the patient assessed I will speak to the hospitalist for admission. The patient's son is the medical power of commercial litigation attorney. Patient was amenable to this. Impression: 1. Generalized weakness 2. Nausea Lab Data Attestation: I reviewed the patient's lab results. Labs: Laboratory Results - last 24 hr 10/26/22 10/26/22 10/26/22 17:52 17:52 19:30 WBC 6.4 RBC 5.11 Hgb 16.4 H Hct 47.2 H MCV 92.4 MCH 32.1 H MCHC 34.7 RDW Std Deviation 41.2 RDW Coeff of Kwasi 12.0 Plt Count 201 MPV 9.5 Immature Gran % (Auto) 0.300 Neut % (Auto) 72.6 H Lymph % (Auto) 13.1 L Ransom % (Auto) 12.3 H Eos % (Auto) 1.1 Baso % (Auto) 0.6 Absolute Neuts (auto) 4.7 Absolute Lymphs (auto) 0.84 Nucleated RBC % 0 Sodium 134 L Potassium 3.8 Chloride 99 Carbon Dioxide 25.0 Anion Gap 10 BUN 26 H Creatinine 1.04 H Estim Creat Clear Calc 33.10 Est GFR (MDRD) Af Amer 66 Est GFR (MDRD) Non-Af 54 L BUN/Creatinine Ratio 25.0 H Glucose 89 Calcium 9.4 Total Bilirubin 0.70 AST 30 ALT 16 Alkaline Phosphatase 68 Troponin I High Sens 41 Total Protein 8.5 H Albumin 3.4 Globulin 5.1 H Albumin/Globulin Ratio 0.7 L Urine Color Yellow Urine Clarity Sl. Cloudy Urine pH 5.0 Ur Specific [place] 1.020 Urine Protein 30 H Urine Glucose (UA) Normal Urine Ketones 50 H Urine Occult Blood 10 H Urine Nitrite Negative Urine Bilirubin 1 H Urine Urobilinogen Normal Ur Leukocyte Esterase 500 H Urine RBC 0 SEEN Urine WBC 10-25 SEEN Ur Squamous Epith Cells 25-50 SEEN Ur Transition Epith Cell 0-5 SEEN Urine Bacteria 0 SEEN Urine Mucus 0 SEEN Urine Yeast RARE Radiography Diagnostic Testing: Clinical Impression(s) from Imaging Studies Chest X-Ray 10/26/22 17:47 IMPRESSION: No change from 08/01/2021. Electronically Signed: Julian Velazquez MD at 18:30 EST , Discharge Plan Triage Chief Complaint: General Illness ED Provider: Rojelio Perez Dx/Rx/DC Orders Prescriptions: No Action hydrochlorothiazide 25 mg tablet 25 mg PO DAILY trazodone 50 mg tablet 50 mg PO QHS PRN (Reason: Pain) levothyroxine 25 MCG tablet 25 mcg PO DAILY magnesium 500 mg tablet 400 mg DAILY meclizine 25 mg Tablet 25 mg PO PRN PRN (Reason: Dizziness) Rx Instructions: q 6h prn dizziness spironolactone 25 mg tablet 25 mg PO DAILY atorvastatin 40 mg Tablet 40 mg PO QHS Qty: 30 0RF clopidogrel [Plavix] 75 mg tablet 75 mg PO DAILY Qty: 21 0RF aspirin 81 mg tablet,delayed release (DR/EC) 81 mg PO DAILY Qty: 30 0RF sertraline 100 mg tablet 100 mg PO DAILY omeprazole 40 mg capsule,delayed release(DR/EC) 40 mg PO DAILY gabapentin 300 mg capsule 300 mg PO DAILY metoprolol succinate 100 mg tablet extended release 24 hr 100 mg PO DAILY Qty: 90 4RF Primary Care Provider: Gal Butler Referrals: Gal Butler MD [Primary Care Provider] -
[2022-10-26 18:10] LABS: Absolute Lymphocyte Count 0.84 X10^3/uL (0.83-4.51); Absolute Neutrophil Count 4.7 X10^3/uL (2.0-7.7); Basophil# 0.04 X10^3/uL; Basophil% 0.6 % (0-1); Eosinophil# 0.07 X10^3/uL; Eosinophils% 1.1 % (0-5); Hematocrit 47.2 % (37-47); Hemoglobin 16.4 g/dL (12.0-15.0); Lymphocyte # 0.84 X10^3/ul (0.83-4.51); Lymphocyte % 13.1 % (19-41); Mean Corp Hgb Conc 34.7 g/dL (32-36); Mean Corpuscular Hgb 32.1 pg (27.0-32.0); Mean Corpuscular Volume 92.4 fL (81-99); Mean Platelet Vol. 9.5 fl (6.2-12.0); Monocyte# 0.79 X10^3/uL; Monocyte% 12.3 % (0-10); NRBC Flagged by Analyzer 0 % (0-5); Neutrophil # 4.67 X10^3/uL (2.7-7.7); Neutrophil % 72.6 % (47-70); Platelet Count 201 K/mm3 (150-450); RBC Distribution Width SD 41.2 fl (35.1-43.9); Red Blood Count 5.11 M/mm3 (4.2-5.4); White Blood Count 6.4 K/mm3 (4.4-11.0)
[2022-10-26] MEDS: 0.9% Normal Saline 1,000 ML 1000 ML IV (18:18)
[2022-10-26] MEDS: Ondansetron 4 MG/2 ML Vial IV (18:18)
[2022-10-26 18:34] LABS: ALB/GLOB Ratio 0.7 RATIO (0.9-2.4); AST(SGOT) 30 U/L (15-37); Alanine Aminotransfer ALT/SGPT 16 U/L (13-56); Albumin, Serum 3.4 g/dL (3.2-5.0); Alkaline Phosphatase 68 U/L (45-117); Anion Gap 10 (5-15); BUN 26 mg/dL (7-18); Calcium,Total 9.4 mg/dL (8.5-10.1); Chloride 99 mmol/L (98-107); Creatinine, Serum 1.04 mg/dL (0.55-1.02); EST Glomerular Filtration Rate 54 mL/min (>60); Est Glom Filt Rate - Afr Amer 66 mL/min (>60); Globulin 5.1 g/dL (2.2-4.2); Glucose 89 mg/dL (74-106); Potassium 3.8 mmol/L (3.5-5.1); Protein, Total 8.5 g/dL (6.4-8.2); Sodium Level 134 mmol/L (136-145); Troponin-I HS 41 pg/mL (3.0-54.0)
[2022-10-26 19:00] VITALS: RESP 18
[2022-10-26 19:37] LABS: Bacteria 0 SEEN /hpf (None Seen); Mucous, Urine 0 SEEN /hpf (<or=2+); Red Blood Cells-Urine 0 SEEN /hpf (0-5)
[2022-10-26 19:38] LABS: Color, Urine Yellow (Yellow); Glucose, Dipstick Normal (Normal); Ketone-Dipstick 50 mg/dl (Negative); Leukocyte Esterase-Dipstick 500 /ul (Negative); Nitrite-Dipstick Negative (Negative); Occult Blood-Urine 10 /ul (Negative); Protein-Dipstick 30 mg/dl (Negative); Urine Clarity Sl. Cloudy (Clear); Urine Urobilinogen Normal (Normal)
[2022-10-26 19:41] LABS: Urine Bilirubin Dipstick 1 mg/dL (Negative)
[2022-10-26 19:56] LABS: Squamous Epithelial Cells - UA 25-50 SEEN /hpf (5-10); Transitional Epithelial - Ur 0-5 SEEN /hpf (0-5); White Blood Cells 10-25 SEEN /hpf (0-5); Yeast-Urine RARE /hpf (None Seen)
--- NOTE | 2022-10-26 20:39 | PCM.HP.STD ---
HPI - General General Date of Admission: 10/26/22 Date of Service: 10/26/22 Chief Complaint: inability to take care of self HPI Narrative RONALDO JAIME, is a 77 F with a significant history of diastolic heart failure and hypothyroidism who was brought to the emergency department because patient is unable to take care of herself. Patient's son visited patient's on the day of presentation and concern about patient condition called ambulance to bring patient to the hospital. Reportedly patient has had nausea for about 4 weeks. Outpatient work-up including viral work-up reportedly was negative. Patient reports intermittent productive cough of greenish sputum. She reports a pain of left rib attributed to a fall. She reports anorexia and losing weight. Patient has had intermittent confusion. [facility] Medical History Acute CVA (cerebrovascular accident) Aortic valve stenosis, rheumatic Atherosclerotic heart disease of [place] coronary artery without angina pectoris Carotid stenosis Diastolic dysfunction Essential hypertension GERD (gastroesophageal reflux disease) History of left heart catheterization (LHC) (~02/28/17) Hypokalemia Hypothyroidism Injury to blood vessels, unspecified site Intractable nausea and vomiting Mixed hyperlipidemia Rheumatic mitral insufficiency Valvular heart disease Vertigo Home Medications levothyroxine 25 mcg tablet 25 mcg PO DAILY thyroid 02/27/17 [History Last Taken Unknown] hydrochlorothiazide 25 mg tablet 25 mg PO DAILY diuretic 05/11/21 [History Last Taken Unknown] trazodone 50 mg tablet 50 mg PO QHS PRN Pain 05/11/21 [History Last Taken Unknown] spironolactone 25 mg tablet 25 mg PO DAILY diuretic 08/01/21 [History Last Taken Unknown] aspirin 81 mg tablet,delayed release 81 mg PO DAILY #30 tabs 08/02/21 [Rx Last Taken Unknown] atorvastatin 40 mg tablet 40 mg PO QHS #30 tabs 08/02/21 [Rx Last Taken Unknown] clopidogrel 75 mg tablet (Plavix) 75 mg PO DAILY #21 tabs 08/02/21 [Rx Last Taken Unknown] metoprolol succinate 100 mg tablet,extended release 24 hr 100 mg PO DAILY #90 tabs 08/08/21 [Rx Last Taken Unknown] magnesium 400 mg DAILY 01/23/22 [History Last Taken Unknown] meclizine 25 mg tablet 25 mg PO PRN PRN Dizziness 05/31/22 [History Last Taken Unknown] gabapentin 300 mg capsule 300 mg PO DAILY 09/08/22 [History Last Taken Unknown] omeprazole 40 mg capsule,delayed release 40 mg PO DAILY 09/08/22 [History Last Taken Unknown] sertraline 100 mg tablet 100 mg PO DAILY 09/08/22 [History Last Taken Unknown] Allergy/AdvReac Type Severity Reaction Status Date / Time No Known Allergies Allergy Verified 10/26/22 15:58 Family History Other Heart disease Surgical History History of liver biopsy History of partial hysterectomy History of tubal ligation Social History Smoking Status: Former smoker alcohol intake: never substance use type: does not use ROS ROS Narrative Pertinent positives and pertinent negatives as noted in HPI. All other systems were reviewed and are negative Vital Signs Vital Signs Vital Signs: 10/26/22 15:55 10/26/22 17:52 Temperature 97.7 F L Temperature Source Temporal Pulse Rate 100 Respiratory Rate 16 Respiratory Effort Normal Non-Labored Respiratory Pattern Normal Blood Pressure 141/81 H Blood Pressure Mean 101 Pulse Ox 98 Oxygen Delivery Method Room Air Weight Weight: 67.585 kg Body Mass Index (BMI) 28.1 Physical Exam Narrative Physical exam: General: Well-nourished, well-developed. Head: Normocephalic, atraumatic, no tenderness Eyes: Vision is grossly intact. EOMI ENT, no trauma, moist mucous membranes, no rhinorrhea Neck: Nontender, No thyromegaly. CVS: Regular rate and rhythm. S1-S2 present. No murmur, gallop or rub. Respiratory : clear to auscultation bilaterally, chest wall nontender, no wheezing Abdomen: Soft, nontender, nondistended, normal bowel sounds, no masses : Deferred Extremities: Nontender full range of motion, no trauma Skin: Normal color, no trauma, abrasions Neuro: Alert, patient knows that she is at [facility]. She knows the month. She stated that the year was 2019 instead of 2021. She has some confusion. Cranial nerves II through XII grossly except patient is hard of hearing. Psychiatry: Normal mood. Normal affect. Not depressed. Not anxious. Results Lab / Micro Data Result Diagrams: 10/26/22 17:52 10/26/22 17:52 Labs: Laboratory Results - last 24 hr 10/26/22 17:52: WBC 6.4, RBC 5.11, Hgb 16.4 H, Hct 47.2 H, MCV 92.4, MCH 32.1 H, MCHC 34.7, RDW Std Deviation 41.2, RDW Coeff of Kwasi 12.0, Plt Count 201, MPV 9.5, Immature Gran % (Auto) 0.300, Neut % (Auto) 72.6 H, Lymph % (Auto) 13.1 L, [place] % (Auto) 12.3 H, Eos % (Auto) 1.1, Baso % (Auto) 0.6, Absolute Neuts (auto) 4.7, Absolute Lymphs (auto) 0.84, Nucleated RBC % 0 10/26/22 17:52: Sodium 134 L, Potassium 3.8, Chloride 99, Carbon Dioxide 25.0, Anion Gap 10, BUN 26 H, Creatinine 1.04 H, Estim Creat Clear Calc 33.10, Est GFR (MDRD) Af Amer 66, Est GFR (MDRD) Non-Af 54 L, BUN/Creatinine Ratio 25.0 H, Glucose 89, Calcium 9.4, Total Bilirubin 0.70, AST 30, ALT 16, Alkaline Phosphatase 68, Troponin I High Sens 41, Total Protein 8.5 H, Albumin 3.4, Globulin 5.1 H, Albumin/Globulin Ratio 0.7 L 10/26/22 19:30: Urine Color Yellow, Urine Clarity Sl. Cloudy, Urine pH 5.0, Ur Specific [place] 1.020, Urine Protein 30 H, Urine Glucose (UA) Normal, Urine Ketones 50 H, Urine Occult Blood 10 H, Urine Nitrite Negative, Urine Bilirubin 1 H, Urine Urobilinogen Normal, Ur Leukocyte Esterase 500 H, Urine RBC 0 SEEN, Urine WBC 10-25 SEEN, Ur Squamous Epith Cells 25-50 SEEN, Ur Transition Epith Cell 0-5 SEEN, Urine Bacteria 0 SEEN, Urine Mucus 0 SEEN, Urine Yeast RARE Radiology Impression Chest X-Ray 10/26/22 17:47 IMPRESSION: No change from 08/01/2021. Electronically Signed: Julian Velazquez MD at 18:30 EST , Assessment & Plan Assessment/Plan (1) Adult failure to thrive: (2) Cough: (3) Nausea: PLAN: Plan Adult failure to thrive PT and OT to evaluate and treat. Case management consult for disposition. Check vitamin D level. Hypothyroidism With intermittent confusion will check a TSH. Continue home levothyroxine. Elevated BUN BUN on presentation was 26.. On 07/19/2022 BUN was 26. BUN on 09/17/2021 was 22. Likely from home diuretic use. Trend BMP. Nausea As needed Zofran ordered. Upon discharge consider GI referral. Cough Reportedly her cough is typically in the morning. Cannot rule out postnasal drip/upper airway cough syndrome. PRN Tessalon Perles ordered. History of diastolic heart failure Stable. Echocardiogram of 08/02/2021 showed estimated ejection fraction of 75%. Diastolic function was unable to be assessed. There was severe mitral annular calcification. There was mild mitral valve insufficiency. Bilateral diffuse mitral valve thickening. Aortic sclerosis, no stenosis. Hypertension Blood pressure is not within goal Blood pressure is stable. Home blood pressure medication continued. Trend blood pressure and adjust blood pressure medications. DVT prophylaxis: Subcutaneous Lovenox ordered. Charges/Coding Visit Charges OBSV E&M: 38460 Initial observation care L2
[2022-10-26 21:00] VITALS: PULSE 85; RESP 18; O2SAT 97
--- NOTE | 2022-10-26 22:06 | ED.RN ---
PT DOES NOT KNOW HOME MEDICATIONS. STATES SON DOES NOT KNOW HER MEDICATIONS.
[2022-10-26 22:57] VITALS: BP 124/57; PULSE 96; RESP 18; TEMP 36.6; O2SAT 97
[2022-10-26 23:26] VITALS: BMI 27.0
[2022-10-26 23:33] VITALS: BP 135/78; PULSE 87; RESP 18; TEMP 36.4; O2SAT 95
[2022-10-27] MEDS: 0.9% Saline Lock 10 ML Syringe IV ×2 (00:26→23:28)
[2022-10-27 03:45] VITALS: BP 140/72; PULSE 88; RESP 18; TEMP 36.8; O2SAT 96
--- NOTE | 2022-10-27 07:43 | NURSING ---
Patient does not know her medications and does not know whether or not she has received the influenza vaccine for this year.
[2022-10-27 07:47] VITALS: O2SAT 96
[2022-10-27 07:58] LABS: Absolute Lymphocyte Count 1.31 X10^3/uL (0.83-4.51); Basophil# 0.05 X10^3/uL; Basophil% 0.9 % (0-1); Eosinophil# 0.24 X10^3/uL; Eosinophils% 4.5 % (0-5); Hematocrit 42.4 % (37-47); Hemoglobin 14.3 g/dL (12.0-15.0); Lymphocyte # 1.31 X10^3/ul (0.83-4.51); Lymphocyte % 24.3 % (19-41); Mean Corp Hgb Conc 33.7 g/dL (32-36); Mean Corpuscular Hgb 31.6 pg (27.0-32.0); Mean Corpuscular Volume 93.6 fL (81-99); Mean Platelet Vol. 9.7 fl (6.2-12.0); Monocyte# 0.81 X10^3/uL; NRBC Flagged by Analyzer 0 % (0-5); Neutrophil # 2.96 X10^3/uL (2.7-7.7); Neutrophil % 54.9 % (47-70); Platelet Count 177 K/mm3 (150-450); RBC Distribution Width CV 12.2 % (11.6-14.6); Red Blood Count 4.53 M/mm3 (4.2-5.4); White Blood Count 5.4 K/mm3 (4.4-11.0)
[2022-10-27 08:22] LABS: Anion Gap 9 (5-15); BUN 21 mg/dL (7-18); BUN/Creat Ratio 27.7 RATIO (10-20); Calcium,Total 9.1 mg/dL (8.5-10.1); Chloride 104 mmol/L (98-107); Creatinine, Serum 0.76 mg/dL (0.55-1.02); EST Glomerular Filtration Rate 78 mL/min (>60); Est Glom Filt Rate - Afr Amer 94 mL/min (>60); Estimated Creatinine Clearance 34.42 ml/min; Glucose 87 mg/dL (74-106); Potassium 3.5 mmol/L (3.5-5.1); Sodium Level 136 mmol/L (136-145); Thyroid Stim Hormone (TSH) 4.07 uIU/mL (0.358-3.74)
[2022-10-27 09:10] VITALS: BP 119/54; PULSE 87; RESP 16; TEMP 36.4; O2SAT 96
[2022-10-27] MEDS: Enoxaparin 40 MG/0.4 ML Syringe SC (10:19)
[2022-10-27] MEDS: Ensure Plus High Protein 120 ML LIQUID PO ×4 (10:19→23:28)
[2022-10-27 14:00] VITALS: BP 121/55; PULSE 85; RESP 16; TEMP 36.6; O2SAT 96
--- NOTE | 2022-10-27 16:09 | PN.HOSP_ITS ---
Subjective Subjective Patient seen and examined. She had no complaints. She said she was cranky because she had not gotten her breakfast. Review systems otherwise negative. She has remained hemodynamically stable. Objective Data Objective Data Vital Signs: Vital Signs Temp Pulse Resp BP Pulse Ox O2 Del Method 97.9 F 85 16 121/55 H 96 Room Air 10/27/22 14:00 10/27/22 14:00 10/27/22 14:00 10/27/22 14:00 10/27/22 14:00 10/27/22 14:00 Oxygen Delivery Method Room Air Weight: 143 lb 1.28 oz Body Mass Index (BMI) 27.0 Intake & Output: Intake and Output for Last 24 Hours 10/25/22 10/26/22 10/27/22 23:59 23:59 23:59 Intake Total 1000 / 1000 250 / 250 Balance 1000 / 1000 250 / 250 Lab / Micro Data Result Diagrams: 10/27/22 07:15 10/27/22 07:15 Labs: Laboratory Results - last 24 hr 10/26/22 17:52: WBC 6.4, RBC 5.11, Hgb 16.4 H, Hct 47.2 H, MCV 92.4, MCH 32.1 H, MCHC 34.7, RDW Std Deviation 41.2, RDW Coeff of Kwasi 12.0, Plt Count 201, MPV 9.5, Immature Gran % (Auto) 0.300, Neut % (Auto) 72.6 H, Lymph % (Auto) 13.1 L, [place] % (Auto) 12.3 H, Eos % (Auto) 1.1, Baso % (Auto) 0.6, Absolute Neuts (auto) 4.7, Absolute Lymphs (auto) 0.84, Nucleated RBC % 0 10/26/22 17:52: Sodium 134 L, Potassium 3.8, Chloride 99, Carbon Dioxide 25.0, Anion Gap 10, BUN 26 H, Creatinine 1.04 H, Estim Creat Clear Calc 33.10, Est GFR (MDRD) Af Amer 66, Est GFR (MDRD) Non-Af 54 L, BUN/Creatinine Ratio 25.0 H, Glucose 89, Calcium 9.4, Total Bilirubin 0.70, AST 30, ALT 16, Alkaline Phosphatase 68, Troponin I High Sens 41, Total Protein 8.5 H, Albumin 3.4, Globulin 5.1 H, Albumin/Globulin Ratio 0.7 L 10/26/22 19:30: Urine Color Yellow, Urine Clarity Sl. Cloudy, Urine pH 5.0, Ur Specific [place] 1.020, Urine Protein 30 H, Urine Glucose (UA) Normal, Urine Ketones 50 H, Urine Occult Blood 10 H, Urine Nitrite Negative, Urine Bilirubin 1 H, Urine Urobilinogen Normal, Ur Leukocyte Esterase 500 H, Urine RBC 0 SEEN, Urine WBC 10-25 SEEN, Ur Squamous Epith Cells 25-50 SEEN, Ur Transition Epith Cell 0-5 SEEN, Urine Bacteria 0 SEEN, Urine Mucus 0 SEEN, Urine Yeast RARE 10/27/22 07:15: WBC 5.4, RBC 4.53, Hgb 14.3, Hct 42.4, MCV 93.6, MCH 31.6, MCHC 33.7, RDW Std Deviation 42.0, RDW Coeff of Kwasi 12.2, Plt Count 177, MPV 9.7, Immature Gran % (Auto) 0.400, Neut % (Auto) 54.9, Lymph % (Auto) 24.3, [place] % (Auto) 15.0 H, Eos % (Auto) 4.5, Baso % (Auto) 0.9, Absolute Neuts (auto) 3.0, Absolute Lymphs (auto) 1.31, Nucleated RBC % 0 10/27/22 07:15: Sodium 136, Potassium 3.5, Chloride 104, Carbon Dioxide 23.0, Anion Gap 9, BUN 21 H, Creatinine 0.76, Estim Creat Clear Calc 34.42, Est GFR (MDRD) Af Amer 94, Est GFR (MDRD) Non-Af 78, BUN/Creatinine Ratio 27.7 H, Glucose 87, Calcium 9.1, TSH 4.07 H Radiography Diagnostic Testing: Radiology Impression Chest X-Ray 10/26/22 17:47 IMPRESSION: No change from 08/01/2021. Electronically Signed: Julian Velazquez MD at 18:30 EST , Physical Exam Const alert, oriented x3 and no apparent distress HEENT head/scalp atraumatic, moist oral mucous membranes and oropharynx normal Head and Scalp: normocephalic Mouth: oral and palatal mucosa normal Eyes PERRL, EOMs intact bilaterally and conjunctivae normal Neck no lymphadenopathy and supple Resp normal respiratory effort, no retractions, no use of accessory muscles and clear to auscultation bilaterally Cardio regular rate, regular rhythm, S1 normal heart sound and S2 normal heart sound Cardio Narrative: grade 2-3 ejection systolic murmur loudest over aortic valve area GI normal to inspection, nondistended, normoactive bowel sounds, soft to palpation, non-tender and non-distended Extremity normal to inspection, full ROM and no clubbing, cyanosis or edema Neuro oriented x3, CN's II-XII intact bilaterally, moves all extremities and no focal motor deficits Sensorium / Orientation: awake and alert Motor Exam: strength 5/5 throughout Psych affect normal Assessment & Plan Assessment/Plan (1) Adult failure to thrive: PLAN: Plan #Adult failure to thrive with debility * Lives alone at home and unable to take care of herself * Will benefit from placement. PT OT on board. Fall precautions. * #Hypothyroidism: On Synthroid #Heart failure with preserved ejection fraction * Has known EF of 75% with severe mitral annular calcification and bilateral diffuse mitral valve thickening. * Stable. * #Hypertension: On hydrochlorothiazide as well as metoprolol and spironolactone #CAD: On aspirin and statin as well as Plavix DVT prophylaxis: Lovenox CODE STATUS: DNR CCA no intubation Disposition: Will benefit from placement. Case management initiate process tomorrow. *Med rec still not done as meds not updated. Charges/Coding Visit Charges OBSV E&M: 75094 Subsequent observation care L2
[2022-10-27 23:25] VITALS: BP 118/70; PULSE 80; RESP 18; TEMP 36.6; O2SAT 96
[2022-10-28 04:38] VITALS: BP 118/78; PULSE 78; RESP 18; TEMP 36.6; O2SAT 95
[2022-10-28 07:40] VITALS: O2SAT 92
[2022-10-28 07:54] LABS: Vitamin D,25 Hydroxy 19.5 ng/mL
--- NOTE | 2022-10-28 08:26 | NURSING ---
call placed to 's office to obtain patient current medication list.
[2022-10-28 09:20] VITALS: BP 120/66; PULSE 74; RESP 18; TEMP 36.8; O2SAT 95
--- NOTE | 2022-10-28 10:14 | NURSING ---
home med list updated per PCP list
[2022-10-28] MEDS: Enoxaparin 40 MG/0.4 ML Syringe SC (11:57)
[2022-10-28] MEDS: Ensure Plus High Protein 120 ML LIQUID PO ×2 (14:41→21:13)
--- NOTE | 2022-10-28 15:40 | CASEMGMT ---
Social Work? SW called pt sonMatt, following update from that pt will need placement at nursing facility. SW introduced self and role at the hospital. Pt son agreeable to discussing discharge planning. An electronic list of SNF providers including quality and resource use data and consistent with the patient?s preferred geographic region, medical needs, and insurance network was provided from the [employer] Guide. Pt son to review list and submit choices electronically through the careport site. Pt son stated would not be able to review choices until later this night as Matt is traveling and has limited time now. SW to check choices and send referral tomorrow morning. PLAN: SNF? [facility]?
--- NOTE | 2022-10-28 15:41 | CASEMGMT ---
JORDANA JAIME NOTE: Pt w/intermittent confusion. JORDANA JAIME spoke w/pt's son, Matt, via phone and ZAMBRANO form explained re: Observation status for treatment of adult failure to thrive. Explained hospitalization will be paid per her insurance policy for Outpatient billing and condition will continue to be evaluated for Inpt necessity. Walker verbalizes understanding and does not have further questions. Form signed via phone signature by this JORDANA JAIME and Shanna BURNETTE, copy made and placed in chart, and original given placed in pt's room. Walker was made aware that it would be in her room. Kaley BSN JORDANA JAIME
[2022-10-28 16:33] VITALS: BP 125/67; PULSE 71; RESP 18; TEMP 37.2; O2SAT 95
--- NOTE | 2022-10-28 17:07 | PCM.PN.HOSP ---
Subjective Subjective Patient reports she is not eating well because she states the food is horrible here. She denies any nausea or vomiting and just dates she is not interested in eating. Nursing is trying to get her a milkshake to see if she will eat that. She states her son is currently out of town and is unable to bring her any food however she will ask them to when she gets back. Objective Data Objective Data Vital Signs: Vital Signs Temp Pulse Resp BP Pulse Ox O2 Del Method 98.9 F 71 18 125/67 H 95 Room Air 10/28/22 16:33 10/28/22 16:33 10/28/22 16:33 10/28/22 16:33 10/28/22 16:33 10/28/22 16:33 Oxygen Delivery Method Room Air Weight: 64.9 kg Body Mass Index (BMI) 27.0 Intake & Output: Intake and Output for Last 24 Hours 10/26/22 10/27/22 10/28/22 23:59 23:59 23:59 Intake Total 1000 / 1000 900 / 900 250 / 250 Balance 1000 / 1000 900 / 900 250 / 250 Lab / Micro Data Result Diagrams: 10/27/22 07:15 10/27/22 07:15 Labs: Laboratory Results - last 24 hr 10/27/22 07:15: Vitamin D 25-Hydroxy 19.5 Assessment & Plan Assessment/Plan (1) Nausea: (2) Adult failure to thrive: (3) Unintentional weight loss: (4) Elevated serum creatinine: (5) Elevated TSH: PLAN: Plan Nausea with unintentional weight loss -P.o. intake is poor and patient states the food taste terrible to her -With weight loss and ongoing nausea we will check CT of the abdomen pelvis with contrast -Supplements ordered -No evidence of malnutrition per dietitian consult -Antiemetics as needed Adult failure to thrive -PT/OT consultation -We will likely need placement at discharge will need pre-CERT Elevated serum creatinine -Appears to be resolved to baseline now -Likely related to some mild dehydration with decreased p.o. intake -Repeat BMP in a.m. Elevated TSH -Suspect euthyroid sick -Check free T4 Hyperlipidemia -Continue home simvastatin CAD -Continue home aspirin and Plavix History of stroke -Continue home aspirin and Plavix -PT/OT following Hypertension -Continue home hydrochlorothiazide and -Continue home metoprolol -Continue home Aldactone -Follow BMP GERD -Continue home PPI Depression -Continue home sertraline -Continue home trazodone as needed for sleep DVT prophylaxis -Continue enoxaparin CODE STATUS -DNR CCA with no intubation Charges/Coding Visit Charges OBSV E&M: 35723 Initial observation care L2
--- NOTE | 2022-10-28 17:08 | CT_ITS ---
STUDY: CT ABDOMEN AND PELVIS WITH CONTRAST REASON FOR EXAM: Female, 77 years old. anorexia/nausea/weight loss -- po and iv contrast RADIATION DOSAGE (If Supplied By Facility): CTDIvol = ( 10.50 ) mGy, DLP = ( 907.89 ) mGycm TECHNIQUE: Transaxial images were obtained from the dome of the diaphragm to the symphysis pubis without oral contrast. IV 100mL Isovue-300 was administered. Sagittal and coronal images were reconstructed. Individualized dose optimization techniques were used for this CT. COMPARISON: None. FINDINGS: The visualized lung bases are unremarkable. The visualized portions of the heart are within normal limits. Normal liver. Normal gallbladder and extrahepatic biliary system. Normal spleen. Normal pancreas. Normal bilateral adrenal glands. Normal right kidney. Normal left kidney. Normal visualized stomach. Normal small intestine. There are multiple colonic diverticula consistent with diverticulosis. There is non-visualization of the appendix. Fusiform aneurysm of the infrarenal abdominal aorta with a maximal diameter 3.2 cm. Normal inferior vena cava. Normal retroperitoneum. Normal urinary bladder. Normal abdominal wall. Mild dextroscoliosis of the lumbar spine with degenerative disc disease. CT/Abdomen/Pelvis WITH Contrast IMPRESSION: 1. Sigmoid diverticulosis without diverticulitis. 2. 3.2 cm abdominal aortic aneurysm. Electronically Signed: Julian Velazquez MD at 19:50 EST ,
[2022-10-28 18:10] LABS: T4 Free Direct 1.14 ng/dL (0.76-1.46)
[2022-10-28] MEDS: Ondansetron 4 MG/2 ML Vial IV (18:11)
[2022-10-28] MEDS: 0.9% Saline Lock 10 ML Syringe IV (18:11)
--- NOTE | 2022-10-28 18:46 | NURSING ---
Pt states she is afraid that drinking the contrast she would get nausea. Medicated with PRN zofran and educated on need for testing, Pt continues to refuse. aware and it is documented pt refusal to drink contrast no solid reason. Pt is taken for testing.
--- NOTE | 2022-10-28 19:28 | NURSING ---
Under emergency charting
[2022-10-28] MEDS: Atorvastatin Calcium 40 MG Tablet PO (21:08)
[2022-10-28] MEDS: Gabapentin 300 MG Capsule PO (21:13)
[2022-10-28 22:40] VITALS: BP 107/53; PULSE 82; RESP 16; TEMP 36.2; O2SAT 97
[2022-10-29] VITALS (7 sets, daily range): BP systolic 104–132; BP diastolic 69–87; PULSE 71–80; RESP 16–18; TEMP 36.3–37.2; O2SAT 93–98
[2022-10-29] MEDS: Levothyroxine 25 MCG TABLET PO (05:16)
[2022-10-29 06:51] LABS: Absolute Neutrophil Count 2.8 X10^3/uL (2.0-7.7); Basophil# 0.05 X10^3/uL; Basophil% 0.9 % (0-1); Eosinophil# 0.35 X10^3/uL; Eosinophils% 6.6 % (0-5); Hematocrit 44.5 % (37-47); Hemoglobin 14.7 g/dL (12.0-15.0); Lymphocyte % 28.4 % (19-41); Mean Corpuscular Hgb 31.6 pg (27.0-32.0); Mean Corpuscular Volume 95.7 fL (81-99); Mean Platelet Vol. 9.8 fl (6.2-12.0); Monocyte# 0.59 X10^3/uL; Monocyte% 11.2 % (0-10); NRBC Flagged by Analyzer 0 % (0-5); Neutrophil # 2.79 X10^3/uL (2.7-7.7); Neutrophil % 52.7 % (47-70); Platelet Count 202 K/mm3 (150-450); RBC Distribution Width CV 12.2 % (11.6-14.6); RBC Distribution Width SD 43.2 fl (35.1-43.9); Red Blood Count 4.65 M/mm3 (4.2-5.4); White Blood Count 5.3 K/mm3 (4.4-11.0)
[2022-10-29 07:17] LABS: ALB/GLOB Ratio 0.6 RATIO (0.9-2.4); AST(SGOT) 23 U/L (15-37); Alanine Aminotransfer ALT/SGPT 13 U/L (13-56); Albumin, Serum 2.7 g/dL (3.2-5.0); Alkaline Phosphatase 57 U/L (45-117); Anion Gap 7 (5-15); BUN 14 mg/dL (7-18); BUN/Creat Ratio 20.7 RATIO (10-20); Chloride 105 mmol/L (98-107); Creatinine, Serum 0.68 mg/dL (0.55-1.02); EST Glomerular Filtration Rate 89 mL/min (>60); Est Glom Filt Rate - Afr Amer 108 mL/min (>60); Estimated Creatinine Clearance 34.42 ml/min; Globulin 4.5 g/dL (2.2-4.2); Glucose 89 mg/dL (74-106); Magnesium 1.8 mg/dL (1.6-2.6); Phosphorus 3.2 mg/dL (2.5-4.9); Potassium 3.9 mmol/L (3.5-5.1); Protein, Total 7.2 g/dL (6.4-8.2); Sodium Level 136 mmol/L (136-145)
--- NOTE | 2022-10-29 08:12 | CASEMGMT ---
Discharge Operation Agent Patient Son submitted SNF choices. [facility]. [facility]. This contract technical writer sent a referral to [facility]. Karlie ABDALLA E Commerce Director
[2022-10-29] MEDS: Aspirin E.C. 81 MG Tablet PO (08:18)
--- NOTE | 2022-10-29 10:07 | CASEMGMT ---
Discharge Compressor Station Chief Engineer [facility] can accept precert has been started. VASILE Otero notified. Karlie ABDALLA Material Expeditor
[2022-10-29] MEDS: Ensure Plus High Protein 120 ML LIQUID PO ×2 (10:44→21:48)
[2022-10-29] MEDS: Enoxaparin 40 MG/0.4 ML Syringe SC (10:44)
[2022-10-29] MEDS: Clopidogrel Bisulfate 75 MG Tablet PO (10:44)
[2022-10-29] MEDS: Pantoprazole Sodium 40 MG Tablet PO (10:44)
[2022-10-29] MEDS: Metoprolol(XL)Succ 100 MG Tablet PO (10:45)
[2022-10-29] MEDS: hydroCHLOROthiazide 25 MG Tablet PO (10:45)
[2022-10-29] MEDS: Sertraline 100 MG Tablet PO (10:45)
[2022-10-29] MEDS: Spironolactone 25 MG Tablet PO (10:47)
--- NOTE | 2022-10-29 14:17 | CASEMGMT ---
Social Work SW met with pt and pt son to inform of acceptance to [facility]. Both expressed understanding. SW informed insurance auth was started and pending. Pt son asked about process of AL and SW encouraged son to meet with [facility] SW once pt is admitted. SW explained SW at SNF would have wealth of information to assist with this process. Son understanding. PLAN: [facility], pending precert [facility]
--- NOTE | 2022-10-29 15:52 | PCM.PN.HOSP ---
Subjective Subjective No issues overnight. Patient refused to drink the p.o. contrast therefore CT was done without oral contrast. No acute findings but I explained to the patient that this was suboptimal. She stated she will drink it when it tastes good. P.o. intake is still not great but patient states the food does not appetizing to her. Agreeable to placement at discharge and is having a discussion with her son later today. States that really her decline happened after she retired. She states her 2 sisters this year and she is had multiple friends of this past year too. She is agreeable to antidepressant or change in her current antidepressant if we think would be beneficial Objective Data Objective Data Vital Signs: Vital Signs Temp Pulse Resp BP Pulse Ox O2 Del Method 98.4 F 79 16 114/69 97 Room Air 10/29/22 09:37 10/29/22 10:45 10/29/22 09:37 10/29/22 09:37 10/29/22 09:37 10/29/22 09:39 Oxygen Delivery Method Room Air Weight: 64.9 kg Body Mass Index (BMI) 27.0 Intake & Output: Intake and Output for Last 24 Hours 10/27/22 10/28/22 10/29/22 23:59 23:59 23:59 Intake Total 900 / 900 430 / 430 Balance 900 / 900 430 / 430 Lab / Micro Data Result Diagrams: 10/29/22 06:09 10/29/22 06:09 Labs: Laboratory Results - last 24 hr 10/28/22 07:15: Free T4 1.14 10/29/22 06:09: WBC 5.3, RBC 4.65, Hgb 14.7, Hct 44.5, MCV 95.7, MCH 31.6, MCHC 33.0, RDW Std Deviation 43.2, RDW Coeff of Kwasi 12.2, Plt Count 202, MPV 9.8, Immature Gran % (Auto) 0.200, Neut % (Auto) 52.7, Lymph % (Auto) 28.4, [place] % (Auto) 11.2 H, Eos % (Auto) 6.6 H, Baso % (Auto) 0.9, Absolute Neuts (auto) 2.8, Absolute Lymphs (auto) 1.50, Nucleated RBC % 0 10/29/22 06:09: Sodium 136, Potassium 3.9, Chloride 105, Carbon Dioxide 24.0, Anion Gap 7, BUN 14, Creatinine 0.68, Estim Creat Clear Calc 34.42, Est GFR (MDRD) Af Amer 108, Est GFR (MDRD) Non-Af 89, BUN/Creatinine Ratio 20.7 H, Glucose 89, Calcium 9.0, Phosphorus 3.2, Magnesium 1.8, Total Bilirubin 0.50, AST 23, ALT 13, Alkaline Phosphatase 57, Total Protein 7.2, Albumin 2.7 L, Globulin 4.5 H, Albumin/Globulin Ratio 0.6 L Radiography Diagnostic Testing: Radiology Impression Abdomen/Pelvis CT 10/28/22 17:08 IMPRESSION: 1. Sigmoid diverticulosis without diverticulitis. 2. 3.2 cm abdominal aortic aneurysm. Electronically Signed: Julian Vealzquez MD at 19:50 EST Reading Location ID and State: [facility] Tel , Service support , Physical Exam Const alert, oriented x3 and no apparent distress Constitutional Narrative: Elderly white female sitting up in bed, appears comfortable nontoxic, watching television HEENT head/scalp atraumatic, moist oral mucous membranes and oropharynx normal HEENT Narrative: Dentition is fair, Mallampati is 2, no thrush Resp normal respiratory effort, no retractions, no use of accessory muscles and clear to auscultation bilaterally Auscultation: Negative for crackles, rhonchi or wheezes Cardio regular rate, regular rhythm, S1 normal heart sound, S2 normal heart sound, no rub, no gallops and no clicks; Negative for no murmurs Cardio Narrative: 2 out of 3 pieces Aulik murmur loudest over right upper sternal border GI normal to inspection, nondistended, normoactive bowel sounds, soft to palpation, non-tender and non-distended Extremity normal to inspection, full ROM and no clubbing, cyanosis or edema Extremity Narrative: Plus pedal pulses Neuro oriented x3, moves all extremities and no focal motor deficits Neuro Narrative: Generalized weakness noted on exam, proximal greater than distal Sensorium / Orientation: awake and alert Speech: speech normal Psych affect normal Psych Narrative: Patient does seem somewhat depressed but interaction was good Assessment & Plan Assessment/Plan (1) Nausea: (2) Adult failure to thrive: (3) Unintentional weight loss: (4) Elevated serum creatinine: (5) Elevated TSH: PLAN: Plan Nausea with unintentional weight loss -P.o. intake is poor and patient states the food taste terrible to her -CT of the abdomen pelvis done however it was suboptimal as patient refused to drink contrast -No acute findings suggestive of why the patient might be experiencing some intermittent nausea -Supplements ordered -No evidence of malnutrition per dietitian consult -Antiemetics as needed Adult failure to thrive -PT/OT following -Patient has chosen [facility] and has been accepted--> pre-CERT initiated Elevated serum creatinine -Resolved Elevated TSH -Free T4 is normal -Euthyroid sick Hyperlipidemia -Continue home simvastatin CAD -Continue home aspirin and Plavix History of stroke -Continue home aspirin and Plavix -PT/OT following Hypertension -Continue home hydrochlorothiazide and -Continue home metoprolol -Continue home Aldactone -Follow BMP GERD -Continue home PPI Depression -Continue home sertraline -Continue home trazodone as needed for sleep -We will add low-dose Remeron at night to see if this helps appetite DVT prophylaxis -Continue enoxaparin CODE STATUS -DNR CCA with no intubation Charges/Coding Visit Charges Inpatient E&M: 83997 Subs Hosp L2
--- NOTE | 2022-10-29 16:04 | CASEMGMT ---
Discharge Voyage Management System Operator Karla from [facility] reached out. Pre-cert has been obtained. VASILE Otero notified. Karlie ABDALLA Senior Android Software Engineer
--- NOTE | 2022-10-29 16:10 | PCM.DC.SUM ---
Providers Date of Admission: 10/26/22 Date of Discharge: 10/29/22 Primary Care Physician: Dr. Gal Butler MD Reason For Visit: ADULT FAILURE TO THRIVE Diagnosis Discharge Diagnosis (1) Nausea: Status: Acute Code(s): R11.0 - Nausea (2) Adult failure to thrive: Status: Acute Code(s): R62.7 - Adult failure to thrive (3) Unintentional weight loss: Status: Acute Code(s): R63.4 - Abnormal weight loss (4) Elevated serum creatinine: Status: Acute Code(s): R79.89 - Other specified abnormal findings of blood chemistry (5) Elevated TSH: Status: Acute Code(s): R79.89 - Other specified abnormal findings of blood chemistry Medications at Discharge Home Medications levothyroxine 25 mcg tablet 25 mcg PO DAILY thyroid 02/27/17 hydrochlorothiazide 25 mg tablet 25 mg PO DAILY diuretic 05/11/21 trazodone 50 mg tablet 50 mg PO QHS PRN Insomnia 05/11/21 spironolactone 25 mg tablet 25 mg PO DAILY diuretic 08/01/21 meclizine 25 mg tablet 25 mg PO TID PRN Dizziness 05/31/22 gabapentin 300 mg capsule 300 mg PO QHS Check with primary doctor 09/08/22 omeprazole 40 mg capsule,delayed release 40 mg PO DAILY Check with primary doctor 09/08/22 sertraline 100 mg tablet 100 mg PO DAILY Check with primary doctor 09/08/22 aspirin 81 mg tablet,delayed release 81 mg PO DAILY Check with primary doctor 10/28/22 atorvastatin 40 mg tablet 40 mg PO QHS Check with primary doctor 10/28/22 clopidogrel 75 mg tablet (Plavix) 75 mg PO DAILY Check with primary doctor 10/28/22 metoprolol succinate 100 mg tablet,extended release 24 hr 100 mg PO DAILY Check with primary doctor 10/28/22 benzonatate 100 mg capsule 100 mg PO Q4H PRN PRN COUGH #0 caps 10/29/22 mirtazapine 15 mg tablet 7.5 mg PO QHS #0 tabs 10/29/22 Hospital Course Operations None Procedures - (CT of the abdomen pelvis) Summary of Care Provided Minutes Spent on Discharge: 33 Hospital Course: Mrs. Lechuga is a 77-year-old white female who presented to the emergency department on 10/26/2022 with the inability to take care of her self. The patient's son visited on the day of presentation and was concerned about her condition and called an ambulance to bring the patient to the hospital. The patient had reportedly had nausea for about 4 weeks however she denied nausea at the time of my evaluation and reported that she just does not care to eat. She states it is hard to eat by herself and does not have any friends living any longer and states her sisters both this year so she does not call anybody to go out. Her oral intake has been poor during her hospital course that she states the food is bad and she does not like the taste of it. Outpatient work-up including viral testing was negative prior to presentation. She had an intermittent cough and reports anorexia and losing weight. Intermittent confusion was reported however she had no confusing during her hospital course. Vital signs on presentation show temperature of 97.7, heart rate 100, respiratory rate of 16, blood pressure 141/81, pulse ox was 98% on room air. Her labs had no significant abnormalities other than some mild serum creatinine elevation which resolved with IV hydration. Her chest x-ray was unremarkable and unchanged from 08/01/2021. She has been to the hospital CT of the abdomen pelvis was performed. It was ordered with contrast oral and IV however the patient refused oral contrast and therefore it was done without contrast. No significant findings were noted at this time. Her labs remained stable throughout her hospital course without any marked abnormalities. She had no complaints of nausea during her hospitalization and states she was unable to eat. If nausea becomes a real current problem I would recommend outpatient GI follow-up. She was seen by physical and Occupational Therapy and deemed appropriate for skilled placement. She was accepted at [facility] and pre-CERT was obtained on 10/29/2022. She was discharged there in stable condition at this time. Of note, the patient did complain of some left upper extremity tingling which has been present for 2 years. She states that her primary care physician thought that it was may be related to a stroke. I did recommend that she possibly obtain an outpatient MRI of her cervical spine if this not has been previously done. I encouraged her to discuss this with her primary care physician. Discharge diagnoses: Nausea Unintentional weight loss Adult failure to thrive Elevated serum creatinine-resolved Euthyroid sick syndrome Hyperlipidemia CAD History of stroke Hypertension GERD Depression Left upper extremity paresthesias Physical Exam Const alert, oriented x3 and no apparent distress Constitutional Narrative: Elderly white female sitting up in bed, appears comfortable nontoxic, watching television General Appearance: cooperative, comfortable, well kempt and well developed Orientation / Consciousness: awake and oriented to time Exam Limitations: no limitations Nutritional Appearance: overweight HEENT normocephalic, head/scalp atraumatic, moist oral mucous membranes and oropharynx normal Resp normal respiratory effort, no retractions, no use of accessory muscles and clear to auscultation bilaterally Auscultation: Negative for crackles, rhonchi or wheezes Cardio regular rate, regular rhythm, S1 normal heart sound, S2 normal heart sound, no rub, no gallops and no clicks; Negative for no murmurs Cardio Narrative: 2 out of 3 systolic murmur loudest at right upper sternal border GI normal to inspection, nondistended, normoactive bowel sounds, soft to palpation, non-tender and non-distended Extremity normal to inspection, full ROM and no clubbing, cyanosis or edema Extremity Narrative: 2+ pedal pulses Neuro oriented x3, CN's II-XII intact bilaterally, moves all extremities and no focal motor deficits Neuro Narrative: Generalized weakness noted on exam, proximal greater than distal Sensorium / Orientation: awake and alert Speech: speech normal Psych affect normal Psych Narrative: Patient does seem somewhat depressed but interaction was good Weight / BMI Weight Weight: 64.9 kg Body Mass Index (BMI) 27.0 ABG / Lab / Microbiology Data Result Diagrams: 10/29/22 06:09 10/29/22 06:09 Laboratory: Laboratory Results - last 24 hr 10/28/22 07:15: Free T4 1.14 10/29/22 06:09: WBC 5.3, RBC 4.65, Hgb 14.7, Hct 44.5, MCV 95.7, MCH 31.6, MCHC 33.0, RDW Std Deviation 43.2, RDW Coeff of Kwasi 12.2, Plt Count 202, MPV 9.8, Immature Gran % (Auto) 0.200, Neut % (Auto) 52.7, Lymph % (Auto) 28.4, [place] % (Auto) 11.2 H, Eos % (Auto) 6.6 H, Baso % (Auto) 0.9, Absolute Neuts (auto) 2.8, Absolute Lymphs (auto) 1.50, Nucleated RBC % 0 10/29/22 06:09: Sodium 136, Potassium 3.9, Chloride 105, Carbon Dioxide 24.0, Anion Gap 7, BUN 14, Creatinine 0.68, Estim Creat Clear Calc 34.42, Est GFR (MDRD) Af Amer 108, Est GFR (MDRD) Non-Af 89, BUN/Creatinine Ratio 20.7 H, Glucose 89, Calcium 9.0, Phosphorus 3.2, Magnesium 1.8, Total Bilirubin 0.50, AST 23, ALT 13, Alkaline Phosphatase 57, Total Protein 7.2, Albumin 2.7 L, Globulin 4.5 H, Albumin/Globulin Ratio 0.6 L Radiography Diagnostic Testing: Radiology Impression Abdomen/Pelvis CT 10/28/22 17:08 IMPRESSION: 1. Sigmoid diverticulosis without diverticulitis. 2. 3.2 cm abdominal aortic aneurysm. Electronically Signed: Julian Velazquez MD at 19:50 EST , Meaningful Use Info Meaningful Use Diagnoses (Choose all that apply): None applicable Discharge Plan Admission Admit Date/Time: 10/26/22 21:01 Primary Reason for Your Visit: Failure to thrive/debility Attending Provider: Angie Parker Primary Care Provider: Gal Butler Consulting Providers: Haroon Abraham ; La Nena Vaughan Discharge Orders/Prescriptions Prescriptions: New benzonatate 100 mg Capsule 100 mg PO Q4H PRN PRN (Reason: COUGH) Qty: 0 0RF mirtazapine 15 mg Tablet 7.5 mg PO QHS Qty: 0 0RF Continued hydrochlorothiazide 25 mg tablet 25 mg PO DAILY trazodone 50 mg tablet 50 mg PO QHS PRN (Reason: Insomnia) levothyroxine 25 MCG tablet 25 mcg PO DAILY meclizine 25 mg Tablet 25 mg PO TID PRN (Reason: Dizziness) spironolactone 25 mg tablet 25 mg PO DAILY sertraline 100 mg tablet 100 mg PO DAILY omeprazole 40 mg capsule,delayed release(DR/EC) 40 mg PO DAILY gabapentin 300 mg capsule 300 mg PO QHS atorvastatin 40 mg tablet 40 mg PO QHS metoprolol succinate 100 mg tablet extended release 24 hr 100 mg PO DAILY clopidogrel [Plavix] 75 mg tablet 75 mg PO DAILY aspirin 81 mg tablet,delayed release (DR/EC) 81 mg PO DAILY Referrals / Follow Up: Gal Butler MD [Primary Care Provider] - Within 1 Month Disposition Disposition (needs filled in before D/C Order can be placed): Longterm Facility Charges/Coding Visit Charges Inpatient E&M: 31311 SNF Disch
--- NOTE | 2022-10-29 16:27 | CASEMGMT ---
Social Work? VASILE notified pt and pt family of discharge to [facility] today. VASILE completed PASRR form in [employer], placed copies on pt chart and in envelope to go with pt. VASILE faxed PASSR to [facility] via [employer]. VASILE notified pt nurse of need for covid test. Discharge orders not in yet, VASILE updated clerk secretary that orders will need faxed and transport set up. Disposition: [facility], skilled, convalescent, level of care? CHONG Maya?
[2022-10-29] MEDS: Gabapentin 300 MG Capsule PO (21:45)
[2022-10-29] MEDS: Mirtazapine 15 MG Tablet 7.5 MG PO (21:45)
[2022-10-29] MEDS: Atorvastatin Calcium 40 MG Tablet PO (21:45)
[2022-10-30 04:00] VITALS: BP 132/70; PULSE 62; RESP 16; TEMP 36.6; O2SAT 95
[2022-10-30] MEDS: 0.9% Saline Lock 10 ML Syringe IV (04:13)
[2022-10-30] MEDS: Levothyroxine 25 MCG TABLET PO (04:20)
--- NOTE | 2022-10-30 07:25 | NURSING ---
Emergency documentation
[2022-10-30 09:03] VITALS: O2SAT 93
[2022-10-30 09:21] VITALS: BP 107/46; PULSE 60; RESP 16; TEMP 36.5; O2SAT 95
[2022-10-30 09:24] VITALS: PULSE 60
[2022-10-30] MEDS: Pantoprazole Sodium 40 MG Tablet PO (09:24)
[2022-10-30] MEDS: hydroCHLOROthiazide 25 MG Tablet PO (09:24)
[2022-10-30] MEDS: Aspirin E.C. 81 MG Tablet PO (09:24)
[2022-10-30] MEDS: Metoprolol(XL)Succ 100 MG Tablet PO (09:24)
[2022-10-30] MEDS: Ensure Plus High Protein 120 ML LIQUID PO (09:25)
[2022-10-30] MEDS: Spironolactone 25 MG Tablet PO (09:25)
[2022-10-30] MEDS: Enoxaparin 40 MG/0.4 ML Syringe SC (09:25)
[2022-10-30] MEDS: Clopidogrel Bisulfate 75 MG Tablet PO (09:25)
[2022-10-30] MEDS: Sertraline 100 MG Tablet PO (09:26)
--- NOTE | 2022-10-30 09:42 | CASEMGMT ---
Social Work SW called pt son to inform for pt being Covid positive, thus unable to admit to [facility]. Pt son, Matt, did not answer. SW left message requesting call back. SW called all SNFs listed on pt Careport list that are in network with pt insurance. [facility] is only SNF listed that is accepting covid patients at this time. SW sent referral to [facility]. PLAN: [facility], pending acceptance and precert CHONG Maya
--- NOTE | 2022-10-30 10:16 | CASEMGMT ---
Social Work VASILE received pc from pt son, Matt. Matt expressed frustration with report of positive covid result for pt. VASILE explained test was rapid Covid and came back positive. Matt requested PCR test be completed and continued to express anger at plan for pt to go to an alternative SNF. VASILE explained the nursing homes in the area all have their own policies when it comes to Covid. Some accept and some do not. VASILE explained [facility] cannot force [facility] to accept pt with a positive covid diagnosis. VASILE discussed intent to request PCR test as Matt requested. VASILE then asked charge nurse, Bettie, to complete PCR test. Bettie reports PCR was completed last not and Covid WAS detected on that as well. VASILE called Matt back to report this information. Matt became highly upset and arguementative on the phone with VASILE, discussing medical factors and [facility] policies. VASILE validated Matt's concerns and asked if Matt would like to speak to Patient advocate. Matt declined and requested to speak to the Hospitalist on pt case. VASILE shared intent to inform Dr. Ribera that Matt would like to speak. VASILE then informed Dr. Ribera via [employer] that family requesting a phone call. CHONG Maya
--- NOTE | 2022-10-30 12:02 | PCM.PN.HOSP ---
Subjective Subjective Doing well, no issues overnight. Not on oxygen, and afebrile Objective Data Objective Data Vital Signs: Vital Signs Temp Pulse Resp BP Pulse Ox O2 Del Method 97.7 F L 60 16 107/46 L 95 Room Air 10/30/22 09:21 10/30/22 09:24 10/30/22 09:21 10/30/22 09:21 10/30/22 09:21 10/30/22 09:21 Oxygen Delivery Method Room Air Weight: 143 lb 1.28 oz Body Mass Index (BMI) 27.0 Intake & Output: Intake and Output for Last 24 Hours 10/29/22 10/30/22 10/31/22 03:59 03:59 03:59 Intake Total 430 / 430 800 / 800 Balance 430 / 430 800 / 800 Lab / Micro Data Result Diagrams: 10/29/22 06:09 10/29/22 06:09 Labs: Laboratory Results - last 24 hr 10/29/22 20:15: COVID-19 ([facility]ANCIS[facility]) Detected Micro: Microbiology 10/29/22 16:20 Nasal Secretion SARS-CoV-2 Antigen (Rapid) - Final SARS-CoV-2 (COVID 19) Physical Exam Narrative General: Alert, Oriented x3, Cooperative, No apparent distress HEENT: Atraumatic, PERRLA, EOMI, Normocephalic Oral: Moist Mucosa Neck: Supple, No JVD Lungs: Clear to auscultation, Normal air movement, No rhonchi, No wheeze, No rales Cardiovascular: Regular rate, Regular Rhythm, Normal S1, Normal S2, murmurs Abdomen: Soft, Non Tender, Non-Distended, No Hepato-splenomegaly Extremities: No edema, Capillary Refill Less than 3 Seconds Skin: No rashes, No breakdown Musculoskeletal: No Tenderness to Palpation of Joints or Extremities Neurological: Cranial nerves II-XII grossly intact, Motor Exam 5/5 strength throughout, Sensory exam intact to light touch and pain Psych/Mental Status: Normal Affect, Appropriate Assessment & Plan Assessment/Plan (1) Nausea: (2) Adult failure to thrive: (3) Unintentional weight loss: (4) Elevated serum creatinine: (5) Elevated TSH: PLAN: Plan 1. Nausea with unintentional weight loss with adult failure to thrive ? She has been having poor oral intake at home and here as she does not like the taste of food ? CT scan of the abdomen and pelvis was negative however she refused to take the oral contrast ? PT/OT plan for discharge to SNF however she tested positive for COVID despite being asymptomatic. Of note she did see her PCP about 6 or 7 days prior to admission for cough and was started on antibiotics. At that time she tested negative for COVID. This was place her at over the 10-day curry so she can be out of precautions at this time. 2. CAD/HTN/HLD/history of CVA ? Blood pressures are stable, continue with her home blood pressure medication ? Continue with her aspirin and Plavix ? Continue with her statin 3. GERD ? Stable ? Continue with PPI 4. Depression ? Stable ? Continue with home medications 5. Elevated TSH ? T4 was normal therefore euthyroid sick DVT: Lovenox Charges/Coding Visit Charges OBSV E&M: 89845 Subsequent observation care L2
--- NOTE | 2022-10-30 13:49 | PCM.TXEXTCAR ---
Diet Diet Order/Speech Therapy: 10/26/22 23:32 Diet: Cardiac - Heart Healthy Food consistency:: Regular Liquid Consistency:: Regular/Thin Routine Orders/Code Status Routine Lab Work: CBC and BMP Code Status: DNRCC-A Therapies Physical Therapy: Eval and Treat Occupational Therapy: Eval and Treat Problem/Diagnosis (1) Nausea: Status: Acute Code(s): R11.0 - Nausea (2) Adult failure to thrive: Status: Acute Code(s): R62.7 - Adult failure to thrive (3) Unintentional weight loss: Status: Acute Code(s): R63.4 - Abnormal weight loss (4) Elevated serum creatinine: Status: Acute Code(s): R79.89 - Other specified abnormal findings of blood chemistry (5) Elevated TSH: Status: Acute Code(s): R79.89 - Other specified abnormal findings of blood chemistry Plan 1. Nausea with unintentional weight loss with adult failure to thrive ? She has been having poor oral intake at home and here as she does not like the taste of food ? CT scan of the abdomen and pelvis was negative however she refused to take the oral contrast ? PT/OT plan for discharge to SNF however she tested positive for COVID despite being asymptomatic. Of note she did see her PCP about 6 or 7 days prior to admission for cough and was started on antibiotics. At that time she tested negative for COVID. This was place her at over the 10-day curry so she can be out of precautions at this time. 2. CAD/HTN/HLD/history of CVA ? Blood pressures are stable, continue with her home blood pressure medication ? Continue with her aspirin and Plavix ? Continue with her statin 3. GERD ? Stable ? Continue with PPI 4. Depression ? Stable ? Continue with home medications 5. Elevated TSH ? T4 was normal therefore euthyroid sick DVT: Lovenox Allergies/Procedures Done in Hospital Allergies No Known Allergies Allergy (Verified 10/26/22 15:58) Procedures: None Type of Care/Length of Stay Estimated LOS: Convalescent Care Less Than 30 days Type of Care Needed: Skilled Rehab Potential: Good Prognosis: Good Additional Orders/Day of Discharge Day of Discharge: 10/30/22 Dietary and Speech Recommendations Dietitian Recommendations/Changes: Continue cardiac diet; liberalize to regular as needed. Continue 120 ml ensure plus high protein 4 times per day w/ medpass---likes chocolate flavor. Additional ONS as needed to maintain stable weight. Discharge Plan Admission Admit Date/Time: 10/26/22 21:01 Primary Reason for Your Visit: Failure to thrive/debility Attending Provider: Liu Ribera Primary Care Provider: Gal Butler Consulting Providers: Haroon Abraham ; La Nena Vaughan ; Angie Parker Discharge Orders/Prescriptions Prescriptions: New benzonatate 100 mg Capsule 100 mg PO Q4H PRN PRN (Reason: COUGH) Qty: 0 0RF mirtazapine 15 mg Tablet 7.5 mg PO QHS Qty: 0 0RF Continued hydrochlorothiazide 25 mg tablet 25 mg PO DAILY trazodone 50 mg tablet 50 mg PO QHS PRN (Reason: Insomnia) levothyroxine 25 MCG tablet 25 mcg PO DAILY meclizine 25 mg Tablet 25 mg PO TID PRN (Reason: Dizziness) spironolactone 25 mg tablet 25 mg PO DAILY sertraline 100 mg tablet 100 mg PO DAILY omeprazole 40 mg capsule,delayed release(DR/EC) 40 mg PO DAILY gabapentin 300 mg capsule 300 mg PO QHS atorvastatin 40 mg tablet 40 mg PO QHS metoprolol succinate 100 mg tablet extended release 24 hr 100 mg PO DAILY clopidogrel [Plavix] 75 mg tablet 75 mg PO DAILY aspirin 81 mg tablet,delayed release (DR/EC) 81 mg PO DAILY Referrals / Follow Up: Gal Butler MD [Primary Care Provider] - Within 1 Month Disposition Disposition (needs filled in before D/C Order can be placed): Intermediate Facility
--- NOTE | 2022-10-30 13:52 | DS.PCM_ITS ---
Providers Date of Admission: 10/26/22 Primary Care Physician: Dr. Gal Butler MD Reason For Visit: ADULT FAILURE TO THRIVE Diagnosis Discharge Diagnosis (1) Nausea: Status: Acute Code(s): R11.0 - Nausea (2) Adult failure to thrive: Status: Acute Code(s): R62.7 - Adult failure to thrive (3) Unintentional weight loss: Status: Acute Code(s): R63.4 - Abnormal weight loss (4) Elevated serum creatinine: Status: Acute Code(s): R79.89 - Other specified abnormal findings of blood chemistry (5) Elevated TSH: Status: Acute Code(s): R79.89 - Other specified abnormal findings of blood chemistry Plan 1. Nausea with unintentional weight loss with adult failure to thrive ? She has been having poor oral intake at home and here as she does not like the taste of food ? CT scan of the abdomen and pelvis was negative however she refused to take the oral contrast ? PT/OT plan for discharge to SNF however she tested positive for COVID despite being asymptomatic. Of note she did see her PCP about 6 or 7 days prior to admission for cough and was started on antibiotics. At that time she tested negative for COVID. This was place her at over the 10-day curry so she can be out of precautions at this time. 2. CAD/HTN/HLD/history of CVA ? Blood pressures are stable, continue with her home blood pressure medication ? Continue with her aspirin and Plavix ? Continue with her statin 3. GERD ? Stable ? Continue with PPI 4. Depression ? Stable ? Continue with home medications 5. Elevated TSH ? T4 was normal therefore euthyroid sick DVT: Lovenox Medications at Discharge Home Medications levothyroxine 25 mcg tablet 25 mcg PO DAILY thyroid 02/27/17 hydrochlorothiazide 25 mg tablet 25 mg PO DAILY diuretic 05/11/21 trazodone 50 mg tablet 50 mg PO QHS PRN Insomnia 05/11/21 spironolactone 25 mg tablet 25 mg PO DAILY diuretic 08/01/21 meclizine 25 mg tablet 25 mg PO TID PRN Dizziness 05/31/22 gabapentin 300 mg capsule 300 mg PO QHS Check with primary doctor 09/08/22 omeprazole 40 mg capsule,delayed release 40 mg PO DAILY Check with primary doctor 09/08/22 sertraline 100 mg tablet 100 mg PO DAILY Check with primary doctor 09/08/22 aspirin 81 mg tablet,delayed release 81 mg PO DAILY Check with primary doctor 10/28/22 atorvastatin 40 mg tablet 40 mg PO QHS Check with primary doctor 10/28/22 clopidogrel 75 mg tablet (Plavix) 75 mg PO DAILY Check with primary doctor 10/28/22 metoprolol succinate 100 mg tablet,extended release 24 hr 100 mg PO DAILY Check with primary doctor 10/28/22 benzonatate 100 mg capsule 100 mg PO Q4H PRN PRN COUGH #0 caps 10/29/22 mirtazapine 15 mg tablet 7.5 mg PO QHS #0 tabs 10/29/22 Hospital Course Operations None Procedures None Summary of Care Provided Minutes Spent on Discharge: 43 Hospital Course: Per HPI: RONALDO JAIME, is a 77 F with a significant history of diastolic heart failure and hypothyroidism who was brought to the emergency department because patient is unable to take care of herself.? Patient's son visited patient's on the day of presentation and concern about patient condition called ambulance to bring patient to the hospital. Reportedly patient has had nausea for about 4 weeks.? Outpatient work-up including viral work-up reportedly was negative.? Patient reports intermittent productive cough of greenish sputum.? She reports a pain of left rib attributed to a fall.? She reports anorexia and losing weight.? Patient has had intermittent confusion. Hospital Course: 1. Nausea as well as shortness of breath with unintentional weight loss and adult failure to thrive?77-year-old female presents to the hospital with shortness of breath and weakness. She was unable to take care of her self at home with an inability complete ADLs. She had gone to her PCP about a week prior to admission for shortness of breath at that time viral antigens were negative so she was started on antibiotic. However she continued to decline so she presented to the ER. CT scan of her abdomen pelvis was negative to explain any of her nausea however she refused to take any oral contrast it was a suboptimal study. She is not hypoxic and is not febrile however yesterday on the way to the intermediate she tested positive for COVID on the engine and the PCR. Initially they refused to accept her however today stated that they made a mistake and that their policies had recently been changed so she will go to SNF today. Of note, she was found to have an elevated TSH and a normal free T4 consistent with euthyroid sick syndrome. Recommend outpatient monitoring. Also if necessary would recommend having her follow-up with GI as an outpatient for this nausea and abdominal discomfort. 2. Coronary artery disease, hypertension, hyperlipidemia, history of CVA, GERD, depression are all chronic medical conditions which complicate her care. Her home medications were continued where Weight / BMI Weight Weight: 143 lb 1.28 oz Body Mass Index (BMI) 27.0 ABG / Lab / Microbiology Data Result Diagrams: 10/29/22 06:09 10/29/22 06:09 Laboratory: Laboratory Results - last 24 hr 10/29/22 20:15: COVID-19 ([facility]ISCO) Detected Microbiology: Microbiology 10/29/22 16:20 Nasal Secretion SARS-CoV-2 Antigen (Rapid) - Final SARS-CoV-2 (COVID 19) Meaningful Use Info Meaningful Use Diagnoses (Choose all that apply): None applicable Discharge Plan Admission Admit Date/Time: 10/26/22 21:01 Primary Reason for Your Visit: Failure to thrive/debility Attending Provider: Liu Ribera Primary Care Provider: Gal Butler Consulting Providers: Haroon Abraham ; La Nena Vaughan ; Angie Parker Discharge Orders/Prescriptions Prescriptions: New benzonatate 100 mg Capsule 100 mg PO Q4H PRN PRN (Reason: COUGH) Qty: 0 0RF mirtazapine 15 mg Tablet 7.5 mg PO QHS Qty: 0 0RF Continued hydrochlorothiazide 25 mg tablet 25 mg PO DAILY trazodone 50 mg tablet 50 mg PO QHS PRN (Reason: Insomnia) levothyroxine 25 MCG tablet 25 mcg PO DAILY meclizine 25 mg Tablet 25 mg PO TID PRN (Reason: Dizziness) spironolactone 25 mg tablet 25 mg PO DAILY sertraline 100 mg tablet 100 mg PO DAILY omeprazole 40 mg capsule,delayed release(DR/EC) 40 mg PO DAILY gabapentin 300 mg capsule 300 mg PO QHS atorvastatin 40 mg tablet 40 mg PO QHS metoprolol succinate 100 mg tablet extended release 24 hr 100 mg PO DAILY clopidogrel [Plavix] 75 mg tablet 75 mg PO DAILY aspirin 81 mg tablet,delayed release (DR/EC) 81 mg PO DAILY Referrals / Follow Up: Gal Butler MD [Primary Care Provider] - Within 1 Month Disposition Disposition (needs filled in before D/C Order can be placed): Intermediate Facility Charges/Coding Visit Charges OBSV E&M: 68110 Observation care discharge
--- NOTE | 2022-10-30 14:32 | CASEMGMT ---
Social Work SW received word that Dr. Ribera spoke to family and family now ok with plan for [facility]. Referral was sent to [facility]. [facility] reached out via [facility] to share policy has changed and pt is still able to be accepted and admit to [facility]. VASILE called pt son to confirm [facility] still choice. Son confirmed. VASILE updated Dr. Ribera that pt can go to [facility]. Dr. Ribera intent to discharge today. VASILE updated [facility] that pt will admit today and cancelled referral at [facility]. PASRR was completed yesterday in [facility]. Set up wheelchair transportation through [facility] for 3:00pm. VASILE faxed all discharge orders to [facility] via [employer] and notified of discharge time. [facility] notified pt nurse of transport time. [facility] made copies of discharge orders and placed on pt chart. Sent original orders in envelope with pt upon discharge.? ? Disposition: [facility], skilled, convalescent, level of care? CHONG Maya?
[2022-10-30 14:53] VITALS: BP 119/64; PULSE 68; RESP 18; TEMP 37.1; O2SAT 94
== END 2022-10-30 15:30 | disposition skilled nursing facility (03) ==
LOC: ED 21:52 → MS3 22:46
PROVIDERS: Internal Medicine; Admitting Provider Hospitalist; Emergency Provider Student in an Organized Health Care Education/Training Program; PCP Family Medicine; Visit Provider Family Medicine
DX: R62.7 Adult failure to thrive (principal); I11.0 Hypertensive heart disease with heart failure; I50.32 Chronic diastolic (congestive) heart failure; U07.1 COVID-19; R42 Dizziness and giddiness; E78.2 Mixed hyperlipidemia; Z86.73 Personal history of transient ischemic attack (TIA), and cerebral infarction without residual deficits; I25.10 Atherosclerotic heart disease of native coronary artery without angina pectoris; K21.9 Gastro-esophageal reflux disease without esophagitis; R41.0 Disorientation, unspecified; R53.81 Other malaise; Z87.891 Personal history of nicotine dependence; Z79.899 Other long term (current) drug therapy; Z79.890 Hormone replacement therapy; Z79.82 Long term (current) use of aspirin; Z79.02 Long term (current) use of antithrombotics/antiplatelets; E03.9 Hypothyroidism, unspecified; Z91.81 History of falling; R79.89 Other specified abnormal findings of blood chemistry
CPT/HCPCS: 36415; 71045; 74177; 80048; 80053; 81001; 82306; 83735; 84100; 84439; 84443; 84484; 85025; 87635; 87811; 93005; 96361; 96372; 96374; 96376; 97116; 97162; 97166; 97530; 97535; 97802; 99218; 99285; J7030; Q9967; A4216; G0378; J2405; U0003; U0005

== ENCOUNTER 2022-11-26 10:55 | Inpatient (IN) | payer MEDICARE, MEDICAID, SELFPAY ==
[2022-11-26] VITALS (8 sets, daily range): BP systolic 125–162; BP diastolic 58–84; PULSE 60–65; RESP 16–19; TEMP 36.4–36.7; O2SAT 89–99; BMI 34.0; BMI 28.3
--- NOTE | 2022-11-26 11:33 | EDS_ITS ---
HPI History of Present Illness HPI Narrative: Patient presents with right hip pain that began today after a fall. Patient states her pain is sharp. Patient states it is worse with any movement. Patient states she was trying to get dressed and tripped while trying to put her pants on. Patient states she fell and landed on her right hip. Patient states she was unable to ambulate after the fall. Patient states her pain is better if she is able to keep her right lower extremity still. Patient hit the right side of her head but denies any loss of consciousness. Patient denies any paresthesias or weakness. Patient denies any other injuries. Chief Complaint: Lower Extremity Injury Informant: patient and EMS Occured/Mechanism Mechanism/Context: Yes fall Onset/Context/Timing Onset: Today Context: Sudden Onset Timing: Continuous Quality of Pain: Sharp Location: Right hip and groin Worsened by: Movement Relieved by: Rest Associated Symptoms Associated Symptoms: Negative for Parasthesia, Weakness or Loss of Funtion PFSH [facility] Medical History Acute CVA (cerebrovascular accident) Aortic valve stenosis, rheumatic Atherosclerotic heart disease of [place] coronary artery without angina pectoris Carotid stenosis Diastolic dysfunction Essential hypertension GERD (gastroesophageal reflux disease) History of left heart catheterization (LHC) (~02/28/17) Hypokalemia Hypothyroidism Injury to blood vessels, unspecified site Intractable nausea and vomiting Mixed hyperlipidemia Nausea Rheumatic mitral insufficiency Unintentional weight loss Valvular heart disease Vertigo Home Medications levothyroxine 25 mcg tablet 25 mcg PO DAILY thyroid 02/27/17 [History Last Taken Unknown] hydrochlorothiazide 25 mg tablet 25 mg PO DAILY diuretic 05/11/21 [History Last Taken Unknown] trazodone 50 mg tablet 50 mg PO QHS PRN Insomnia 05/11/21 [History Last Taken Unknown] spironolactone 25 mg tablet 25 mg PO DAILY diuretic 08/01/21 [History Last Taken Unknown] meclizine 25 mg tablet 25 mg PO TID PRN Dizziness 05/31/22 [History Last Taken Unknown] gabapentin 300 mg capsule 300 mg PO QHS Check with primary doctor 09/08/22 [History Last Taken Unknown] omeprazole 40 mg capsule,delayed release 40 mg PO DAILY Check with primary doctor 09/08/22 [History Last Taken Unknown] sertraline 100 mg tablet 100 mg PO DAILY Check with primary doctor 09/08/22 [History Last Taken Unknown] aspirin 81 mg tablet,delayed release 81 mg PO DAILY Check with primary doctor 10/28/22 [History Last Taken Unknown] atorvastatin 40 mg tablet 40 mg PO QHS Check with primary doctor 10/28/22 [History Last Taken Unknown] clopidogrel 75 mg tablet (Plavix) 75 mg PO DAILY Check with primary doctor 10/28/22 [History Last Taken Unknown] metoprolol succinate 100 mg tablet,extended release 24 hr 100 mg PO DAILY Check with primary doctor 10/28/22 [History Last Taken Unknown] benzonatate 100 mg capsule 100 mg PO Q4H PRN PRN COUGH #0 caps 10/29/22 [Rx Last Taken Unknown] mirtazapine 7.5 mg tablet 7.5 mg PO QHS 11/26/22 [History Last Taken Unknown] Allergy/AdvReac Type Severity Reaction Status Date / Time No Known Allergies Allergy Verified 10/26/22 15:58 Family History Other Heart disease Surgical History History of liver biopsy History of partial hysterectomy History of tubal ligation Social History Smoking Status: Former smoker alcohol intake: never substance use type: does not use ROS ROS ED Constitutional Constitutional ED: Denies chills or fever(s) Eyes Eyes: Denies blurry vision or change in vision ENT ENT ED: Denies rhinorrhea or sore throat Cardiovascular Cardiovascular: Denies chest pain or palpitations Respiratory/Chest Respiratory/Chest: Denies cough or dyspnea Gastrointestinal Gastrointestinal: Denies nausea or vomiting Genitourinary Genitourinary ED: Denies dysuria or hematuria Musculoskeletal Musculoskeletal: Denies back pain or neck pain Integumentary Denies abscess or rash Neurologic Neurologic: Denies headache(s) or weakness Allergic/Immunologic Allergic/Immunologic ED: Denies mouth swelling or urticaria EXAM Physical Exam Const Vital Signs: 11/26/22 10:59 11/26/22 14:04 Temperature 97.6 F L Temperature Source Core Pulse Rate 60 64 Respiratory Rate 19 H 16 Blood Pressure 147/61 H 162/69 H Blood Pressure Mean 89 100 Pulse Ox 94 92 Oxygen Delivery Method Room Air Room Air Positive well nourished and well developed General Appearance ED: well developed and NAD HEENT HEENT Narrative: Oral mucosa is dry. There is some mild edema and ecchymosis over the right periorbital area. There is no bony crepitance or step-off. normocephalic Eyes PERRL Eyes Narrative: Extraocular muscles are intact. Neck full ROM and supple Resp normal respiratory effort and clear to auscultation bilaterally Cardio regular rate and regular rhythm GI non-tender and non-distended Extremity Extremity Narrative: The right lower extremity is slightly shortened and externally rotated. There is pain with internal and external rotation of the right lower extremity. Pedal pulses are equal bilaterally. Sensation was intact to light bilaterally in the lower extremities. Neuro oriented x3, CN's II-XII intact bilaterally, moves all extremities and no sensory deficits noted Sensorium / Orientation: alert Motor Exam: strength 5/5 throughout Psych mental status grossly normal MDM MDM MDM Narrative Medical decision making narrative: X-rays of the right hip were obtained. There are 3 views. On my independent interpretation, there is a basicervical fracture of the right hip. There is mild displacement. Radiologist also interpreted the x-ray and agrees. CBC was obtained and was reviewed. This was within normal limits. PT with INR and PTT were obtained and were reviewed. These were all within normal limits. Comprehensive metabolic profile was obtained and was reviewed. This was essentially within normal limits. Urinalysis was obtained and was reviewed. Occult blood was 250 with 5-10 red blood cells. There is no evidence of urinary tract infection. EKG was obtained. On my interpretation it shows a normal sinus rhythm with occasional PACs with a rate of 62. IA interval was normal at 164 ms. QRS interval was normal at 120 ms. QTc interval was slightly prolonged at 501 ms. [place] was normal at 64. There are no acute ST or T wave changes. Portable 1 view chest x-ray was obtained. On my independent interpretation, lung faustin show chronic changes. There is normal cardiac silhouette. Bony thorax is normal. There is no acute process noted. Radiologist also interpreted the x-ray and noted scarring and questionable infiltrate in the left base. Case was discussed with Dr. Guillaume from orthopedics. He will follow-up with the patient in the hospital. Case was discussed with the hospitalist. He will admit the patient to his service. Patient understood and was agreeable with the plan. All questions were answered. Lab Data Attestation: I reviewed the patient's lab results. Labs: Laboratory Results - last 24 hr 11/26/22 11/26/22 11/26/22 11:55 11:55 11:55 WBC 9.2 RBC 4.63 Hgb 14.3 Hct 44.7 MCV 96.5 MCH 30.9 MCHC 32.0 RDW Std Deviation 45.2 H RDW Coeff of Kwasi 12.8 Plt Count 223 MPV 9.4 Immature Gran % (Auto) 0.900 Neut % (Auto) 73.7 H Lymph % (Auto) 13.7 L [place] % (Auto) 6.4 Eos % (Auto) 4.5 Baso % (Auto) 0.8 Absolute Neuts (auto) 6.8 Absolute Lymphs (auto) 1.26 Nucleated RBC % 0 PT 13.3 INR 1.0 APTT 27.6 Sodium 141 Potassium 4.1 Chloride 108 H Carbon Dioxide 28.0 Anion Gap 5 BUN 18 Creatinine 0.89 Estim Creat Clear Calc 36.82 Est GFR (MDRD) Af Amer 79 Est GFR (MDRD) Non-Af 65 BUN/Creatinine Ratio 20.2 H Glucose 104 Calcium 9.5 Total Bilirubin 0.60 AST 20 ALT 17 Alkaline Phosphatase 79 Total Protein 7.9 Albumin 3.2 Globulin 4.7 H Albumin/Globulin Ratio 0.7 L Urine Color Urine Clarity Urine pH Ur Specific [place] Urine Protein Urine Glucose (UA) Urine Ketones Urine Occult Blood Urine Nitrite Urine Bilirubin Urine Urobilinogen Ur Leukocyte Esterase Urine RBC Urine WBC Ur Squamous Epith Cells Urine Bacteria Urine Mucus 11/26/22 14:00 WBC RBC Hgb Hct MCV MCH MCHC RDW Std Deviation RDW Coeff of Kwasi Plt Count MPV Immature Gran % (Auto) Neut % (Auto) Lymph % (Auto) [place] % (Auto) Eos % (Auto) Baso % (Auto) Absolute Neuts (auto) Absolute Lymphs (auto) Nucleated RBC % PT INR APTT Sodium Potassium Chloride Carbon Dioxide Anion Gap BUN Creatinine Estim Creat Clear Calc Est GFR (MDRD) Af Amer Est GFR (MDRD) Non-Af BUN/Creatinine Ratio Glucose Calcium Total Bilirubin AST ALT Alkaline Phosphatase Total Protein Albumin Globulin Albumin/Globulin Ratio Urine Color Yellow Urine Clarity Clear Urine pH 6.0 Ur Specific [place] 1.010 Urine Protein 15 H Urine Glucose (UA) Normal Urine Ketones Negative Urine Occult Blood 250 H Urine Nitrite Negative Urine Bilirubin Negative Urine Urobilinogen Normal Ur Leukocyte Esterase Negative Urine RBC 5-10 SEEN Urine WBC 0 SEEN Ur Squamous Epith Cells 0-5 SEEN Urine Bacteria 0 SEEN Urine Mucus 0 SEEN Radiography Chest X-Ray - ED: 1 View, Read by ED Physician, Read by Radiologist and Chronic Changes Diagnostic Testing: Clinical Impression(s) from Imaging Studies Chest X-Ray 11/26/22 11:37 IMPRESSION: Progressive increased markings at the left lung base suggests right upper infiltrate superimposed on chronic scarring. Blunting of the left costophrenic angle. Electronically Signed: Matthew Wood MD at 13:00 EST , Hip/Pelvis X-Ray 11/26/22 11:39 IMPRESSION: Nondisplaced basilar cervical fracture of the proximal right humerus. Electronically Signed: Matthew Wood MD at 12:59 EST , EKG Initial EKG: Attestation: I personally reviewed and interpreted this EKG as follows: Interpretation: Sinus Rhythm (62), No Acute Injury Pattern and RBBB Prior EKG tracings: available for review Prior: Unchanged (10/26/2022) Discharge Plan Triage Chief Complaint: Lower Extremity Injury ED Provider: Andrew Rodriguez Dx/Rx/DC Orders Clinical Impression: Fracture of femoral neck, right, closed, Fall Prescriptions: No Action hydrochlorothiazide 25 mg tablet 25 mg PO DAILY trazodone 50 mg tablet 50 mg PO QHS PRN (Reason: Insomnia) levothyroxine 25 MCG tablet 25 mcg PO DAILY meclizine 25 mg Tablet 25 mg PO TID PRN (Reason: Dizziness) spironolactone 25 mg tablet 25 mg PO DAILY sertraline 100 mg tablet 100 mg PO DAILY omeprazole 40 mg capsule,delayed release(DR/EC) 40 mg PO DAILY gabapentin 300 mg capsule 300 mg PO QHS atorvastatin 40 mg tablet 40 mg PO QHS metoprolol succinate 100 mg tablet extended release 24 hr 100 mg PO DAILY clopidogrel [Plavix] 75 mg tablet 75 mg PO DAILY aspirin 81 mg tablet,delayed release (DR/EC) 81 mg PO DAILY benzonatate 100 mg Capsule 100 mg PO Q4H PRN PRN (Reason: COUGH) Qty: 0 0RF mirtazapine 7.5 mg tablet 7.5 mg PO QHS Label Comments: TAKE 1 TABLET AT BEDTIME Primary Care Provider: Gal Butler Referrals: Gal Butler MD [Primary Care Provider] - Disposition Disposition: Acute Care Hospital [facility]
--- NOTE | 2022-11-26 11:37 | RAD_ITS ---
STUDY: X-RAY CHEST REASON FOR EXAM: Female, 77 years old. Cough TECHNIQUE: Single AP portable view of the chest. COMPARISON: Comparison is made with prior study dated 10/26/2022. FINDINGS: EKG electrodes are seen. Since prior study, there has been a progression of the increased markings with areas of confluence in the left lower lobe suggestive of a infiltrate superimposed on the chronic scarring. Stable elevation of the right hemidiaphragm with mild increased basilar markings. Blunting of the left costophrenic angle. Normal size heart. Normal mediastinum and dave. Normal visualized pulmonary arteries. There is atherosclerotic calcification of the aortic arch with tortuosity. There are diffuse degenerative changes of the visualized thoracic spine. Normal visualized ribs, clavicles, and shoulders. There is no demonstrated abnormality of the visualized soft tissue structures of the upper abdomen. RAD/Chest 1 View (Portable) IMPRESSION: Progressive increased markings at the left lung base suggests right upper infiltrate superimposed on chronic scarring. Blunting of the left costophrenic angle. Electronically Signed: Matthew Wood MD at 13:00 EST ,
--- NOTE | 2022-11-26 11:37 | EKG12_ITS ---
Test Reason : FALL Blood Pressure : / mmHG Vent. Rate : 062 BPM Atrial Rate : 062 BPM P-R Int : 164 ms QRS Dur : 120 ms QT Int : 494 ms P-R-T Axes : 060 064 056 degrees QTc Int : 501 ms Sinus rhythm with Premature supraventricular complexes Right bundle branch block Abnormal ECG Confirmed by MIN CHOWDHURY, AGGIE ([id number]), subeditor BJORN CASTANEDA ([id number]) on 11/27/2022 2:43:24 PM Referred By: Confirmed By:AGGIE COPELAND MD
--- NOTE | 2022-11-26 11:39 | RAD_ITS ---
STUDY: X-RAY - PELVIS AND RIGHT HIP REASON FOR EXAM: Female, 77 years old. Right hip pain following injury. TECHNIQUE: 3 views of the pelvis and hip. COMPARISON: None. FINDINGS: There is a non-specific bowel gas pattern. Normal visualized soft tissue structures. There is narrowing with cortical sclerosis and osteophyte formation of the sacroiliac joint consistent with degenerative osteoarthritic changes. Normal bilateral superior and inferior pubic rami. Normal pubic symphysis. Normal bilateral ischial tuberosities. Nondisplaced right basilar cervical fracture of the proximal femur. Normal acetabulum. Normal hip joint. RAD/HIP, UNI W/ Pelvis 2-3 Views IMPRESSION: Nondisplaced basilar cervical fracture of the proximal right humerus. Electronically Signed: Matthew Wodo MD at 12:59 EST ,
[2022-11-26] MEDS: Morphine 4 MG/ML Syringe IV ×4 (12:02→21:12)
[2022-11-26 12:04] LABS: Absolute Lymphocyte Count 1.26 X10^3/uL (0.83-4.51); Absolute Neutrophil Count 6.8 X10^3/uL (2.0-7.7); Basophil# 0.07 X10^3/uL; Basophil% 0.8 % (0-1); Eosinophil# 0.41 X10^3/uL; Eosinophils% 4.5 % (0-5); Hematocrit 44.7 % (37-47); Hemoglobin 14.3 g/dL (12.0-15.0); Lymphocyte # 1.26 X10^3/ul (0.83-4.51); Lymphocyte % 13.7 % (19-41); Mean Corpuscular Hgb 30.9 pg (27.0-32.0); Mean Corpuscular Volume 96.5 fL (81-99); Mean Platelet Vol. 9.4 fl (6.2-12.0); Monocyte# 0.59 X10^3/uL; Monocyte% 6.4 % (0-10); NRBC Flagged by Analyzer 0 % (0-5); Neutrophil # 6.76 X10^3/uL (2.7-7.7); Neutrophil % 73.7 % (47-70); Platelet Count 223 K/mm3 (150-450); RBC Distribution Width CV 12.8 % (11.6-14.6); RBC Distribution Width SD 45.2 fl (35.1-43.9); Red Blood Count 4.63 M/mm3 (4.2-5.4); White Blood Count 9.2 K/mm3 (4.4-11.0)
[2022-11-26 12:17] LABS: Prothrombin Time (Protime)PT. 13.3 SECONDS (11.7-14.9)
[2022-11-26 12:18] LABS: Partial Thromboplast Time 27.6 Seconds (24.1-36.2)
[2022-11-26 12:21] LABS: ALB/GLOB Ratio 0.7 RATIO (0.9-2.4); AST(SGOT) 20 U/L (15-37); Alanine Aminotransfer ALT/SGPT 17 U/L (13-56); Albumin, Serum 3.2 g/dL (3.2-5.0); Alkaline Phosphatase 79 U/L (45-117); Anion Gap 5 (5-15); BUN 18 mg/dL (7-18); BUN/Creat Ratio 20.2 RATIO (10-20); Calcium,Total 9.5 mg/dL (8.5-10.1); Chloride 108 mmol/L (98-107); Creatinine, Serum 0.89 mg/dL (0.55-1.02); EST Glomerular Filtration Rate 65 mL/min (>60); Est Glom Filt Rate - Afr Amer 79 mL/min (>60); Estimated Creatinine Clearance 36.82 ml/min; Globulin 4.7 g/dL (2.2-4.2); Glucose 104 mg/dL (74-106); Potassium 4.1 mmol/L (3.5-5.1); Protein, Total 7.9 g/dL (6.4-8.2); Sodium Level 141 mmol/L (136-145)
--- NOTE | 2022-11-26 13:41 | NURSING ---
Spoke w/ pt's son Matt. Gave update on current testing, medications given, plan of care.
[2022-11-26 14:05] LABS: Bacteria 0 SEEN /hpf (None Seen); Mucous, Urine 0 SEEN /hpf (<or=2+); White Blood Cells 0 SEEN /hpf (0-5)
[2022-11-26 14:06] LABS: Color, Urine Yellow (Yellow); Glucose, Dipstick Normal (Normal); Ketone-Dipstick Negative (Negative); Leukocyte Esterase-Dipstick Negative /ul (Negative); Nitrite-Dipstick Negative (Negative); Occult Blood-Urine 250 /ul (Negative); Protein-Dipstick 15 mg/dl (Negative); Urine Bilirubin Dipstick Negative (Negative); Urine Clarity Clear (Clear); Urine Urobilinogen Normal (Normal)
[2022-11-26 14:17] LABS: Red Blood Cells-Urine 5-10 SEEN /hpf (0-5); Squamous Epithelial Cells - UA 0-5 SEEN /hpf (5-10)
--- NOTE | 2022-11-26 14:20 | ED.RN ---
[id number] DR[address] HATFIELD PAGED.
--- NOTE | 2022-11-26 15:19 | PCM.HP.STD ---
HPI - General General Date of Admission: 11/26/22 Date of Service: 11/26/22 Chief Complaint: Right hip pain after mechanical fall HPI Narrative RONALDO JAIME, is a 77 F who presents to the emergency room at [facility] after sustaining a mechanical fall at home while she was trying to put on a pair of pants, she landed on her right hip, she complained that she has severe right hip pain and cannot ambulate. Work-up in the emergency room included labs which showed normal white blood cell count hemoglobin, chemistry panel was unremarkable except for slightly high chloride. EKG revealed normal sinus rhythm without evidence of ischemic changes, chest x-ray showed increased markings at the left lung base suggestive of an infiltrate on chronic scarring. Patient's hip and pelvis x-ray showed a right nondisplaced basilar cervical fracture. Patient will be admitted to [place] [id number], he will be seen in consultation by orthopedic surgery, patient has a history of nonocclusive coronary disease and follows up regularly with Dr. Lorenzo, I do not feel that she needs further cardiac testing at this time, her last echocardiogram last year showed a normal EF with calcification of the mitral valve. [facility] Medical History Acute CVA (cerebrovascular accident) Aortic valve stenosis, rheumatic Atherosclerotic heart disease of [place] coronary artery without angina pectoris Carotid stenosis Diastolic dysfunction Essential hypertension GERD (gastroesophageal reflux disease) History of left heart catheterization (LHC) (~02/28/17) Hypokalemia Hypothyroidism Injury to blood vessels, unspecified site Intractable nausea and vomiting Mixed hyperlipidemia Nausea Rheumatic mitral insufficiency Unintentional weight loss Valvular heart disease Vertigo Home Medications levothyroxine 25 mcg tablet 25 mcg PO DAILY thyroid 02/27/17 [History Last Taken Unknown] hydrochlorothiazide 25 mg tablet 25 mg PO DAILY diuretic 05/11/21 [History Last Taken Unknown] trazodone 50 mg tablet 50 mg PO QHS PRN Insomnia 05/11/21 [History Last Taken Unknown] spironolactone 25 mg tablet 25 mg PO DAILY diuretic 08/01/21 [History Last Taken Unknown] meclizine 25 mg tablet 25 mg PO TID PRN Dizziness 05/31/22 [History Last Taken Unknown] gabapentin 300 mg capsule 300 mg PO QHS Check with primary doctor 09/08/22 [History Last Taken Unknown] omeprazole 40 mg capsule,delayed release 40 mg PO DAILY Check with primary doctor 09/08/22 [History Last Taken Unknown] sertraline 100 mg tablet 100 mg PO DAILY Check with primary doctor 09/08/22 [History Last Taken Unknown] aspirin 81 mg tablet,delayed release 81 mg PO DAILY Check with primary doctor 10/28/22 [History Last Taken Unknown] atorvastatin 40 mg tablet 40 mg PO QHS Check with primary doctor 10/28/22 [History Last Taken Unknown] clopidogrel 75 mg tablet (Plavix) 75 mg PO DAILY Check with primary doctor 10/28/22 [History Last Taken Unknown] metoprolol succinate 100 mg tablet,extended release 24 hr 100 mg PO DAILY Check with primary doctor 10/28/22 [History Last Taken Unknown] benzonatate 100 mg capsule 100 mg PO Q4H PRN PRN COUGH #0 caps 10/29/22 [Rx Last Taken Unknown] mirtazapine 7.5 mg tablet 7.5 mg PO QHS 11/26/22 [History Last Taken Unknown] Allergy/AdvReac Type Severity Reaction Status Date / Time No Known Allergies Allergy Verified 10/26/22 15:58 Family History Other Heart disease Surgical History History of liver biopsy History of partial hysterectomy History of tubal ligation Social History Smoking Status: Former smoker alcohol intake: never substance use type: does not use ROS Constitutional Constitutional: Denies anorexia, change in weight, chills, fever(s), malaise, night sweats or weakness Eyes Eyes: Denies blurry vision, change in vision, discharge from eye(s), double vision or eye pain ENT HEENT: Denies ear pain or headache(s) Cardiovascular Cardiovascular: Denies chest pain, claudication, dyspnea on exertion, edema, palpitations, paroxysmal nocturnal dyspnea or rapid heart rate Respiratory/Chest Respiratory/Chest: Denies cough, excessive phlegm production, hemoptysis, productive cough, shortness of breath at rest or shortness of breath with exertion Gastrointestinal Gastrointestinal: Denies abdominal pain, coffee ground emesis, constipation, diarrhea, dyspepsia, hematemesis, hematochezia, melena, nausea or vomiting Genitourinary Genitourinary: Denies burning urination, difficulty urinating, dysuria, hematuria, urinary frequency, urinary hesitancy, urinary incontinence or urinary urgency Musculoskeletal Musculoskeletal: Reports joint pain and other Details: Right hip pain after fall ; Denies back pain, joint stiffness, joint swelling, myalgias or neck pain Neurologic Neurologic: Denies abnormal gait, abnormal speech, confusion, disequilibrium, dizziness, focal weakness, headache(s), loss of vision, numbness, other visual disturbances, paresthesias, syncope or tingling Psychiatric Psychiatric: Denies anxiety, cognitive impairment, depression, irritability, mood swings or suicidal ideation Endocrine Endocrinology: Denies change in body appearance, cold intolerance, excessive sweating, heat intolerance, polydipsia or polyuria Hematologic/Lymphatic Hematologic/Lymphatic: Denies none, anemia, easy bleeding, easy bruising or lymphadenopathy Allergic/Immunologic Allergic/Immunologic: Denies rhinitis, urticaria, eczemia or asthma Vital Signs Vital Signs Vital Signs: 11/26/22 10:59 11/26/22 14:04 Temperature 97.6 F L Temperature Source Core Pulse Rate 60 64 Respiratory Rate 19 H 16 Blood Pressure 147/61 H 162/69 H Blood Pressure Mean 89 100 Pulse Ox 94 92 Oxygen Delivery Method Room Air Room Air Weight Weight: 79 kg Body Mass Index (BMI) 34.0 Physical Exam Const alert, oriented x3, no apparent distress and healthy appearing General Appearance: cooperative, well kempt and well developed Orientation / Consciousness: awake, oriented to person, oriented to place and oriented to time HEENT normocephalic and moist oral mucous membranes HEENT Narrative: Patient has a small area of ecchymosis over her right eyelid Eyes PERRL, EOMs intact bilaterally and conjunctivae normal Neck supple, no JVD, thyroid normal and no carotid bruits General: trachea midline Resp normal respiratory effort, no retractions, no use of accessory muscles and clear to auscultation bilaterally Auscultation: Negative for rales, rhonchi or wheezes Cardio regular rate, regular rhythm, S1 normal heart sound, S2 normal heart sound, no murmurs, no rub and no gallops GI normal to inspection, nondistended, normoactive bowel sounds, soft to palpation, non-tender and non-distended Extremity no clubbing, cyanosis or edema Extremity Narrative: Patient unable to flex her right hip due to pain Skin no rashes or lesions noted General Skin Exam: no breakdown Neuro oriented x3, CN's II-XII intact bilaterally, no focal motor deficits and no sensory deficits noted Sensorium / Orientation: awake, alert, oriented to person, oriented to place and oriented to time Speech: speech normal Psych affect normal Results Lab / Micro Data Result Diagrams: 11/26/22 11:55 11/26/22 11:55 Labs: Laboratory Results - last 24 hr 11/26/22 11:55: WBC 9.2, RBC 4.63, Hgb 14.3, Hct 44.7, MCV 96.5, MCH 30.9, MCHC 32.0, RDW Std Deviation 45.2 H, RDW Coeff of Kwasi 12.8, Plt Count 223, MPV 9.4, Immature Gran % (Auto) 0.900, Neut % (Auto) 73.7 H, Lymph % (Auto) 13.7 L, [place] % (Auto) 6.4, Eos % (Auto) 4.5, Baso % (Auto) 0.8, Absolute Neuts (auto) 6.8, Absolute Lymphs (auto) 1.26, Nucleated RBC % 0 11/26/22 11:55: PT 13.3, INR 1.0, APTT 27.6 11/26/22 11:55: Sodium 141, Potassium 4.1, Chloride 108 H, Carbon Dioxide 28.0, Anion Gap 5, BUN 18, Creatinine 0.89, Estim Creat Clear Calc 36.82, Est GFR (MDRD) Af Amer 79, Est GFR (MDRD) Non-Af 65, BUN/Creatinine Ratio 20.2 H, Glucose 104, Calcium 9.5, Total Bilirubin 0.60, AST 20, ALT 17, Alkaline Phosphatase 79, Total Protein 7.9, Albumin 3.2, Globulin 4.7 H, Albumin/Globulin Ratio 0.7 L 11/26/22 14:00: Urine Color Yellow, Urine Clarity Clear, Urine pH 6.0, Ur Specific [place] 1.010, Urine Protein 15 H, Urine Glucose (UA) Normal, Urine Ketones Negative, Urine Occult Blood 250 H, Urine Nitrite Negative, Urine Bilirubin Negative, Urine Urobilinogen Normal, Ur Leukocyte Esterase Negative, Urine RBC 5-10 SEEN, Urine WBC 0 SEEN, Ur Squamous Epith Cells 0-5 SEEN, Urine Bacteria 0 SEEN, Urine Mucus 0 SEEN Radiology Impression Chest X-Ray 11/26/22 11:37 IMPRESSION: Progressive increased markings at the left lung base suggests right upper infiltrate superimposed on chronic scarring. Blunting of the left costophrenic angle. Electronically Signed: Matthew Wood MD at 13:00 EST , Hip/Pelvis X-Ray 11/26/22 11:39 IMPRESSION: Nondisplaced basilar cervical fracture of the proximal right humerus. Electronically Signed: Matthew Wood MD at 12:59 EST , Assessment & Plan Assessment/Plan (1) Fracture of femoral neck, right, closed: PLAN: Plan #1 #1 nondisplaced basilar cervical fracture of the proximal right humerus secondary to osteoporosis-patient will be admitted to [facility], she will be seen in consultation by orthopedic surgery, patient appears stable at this time to undergo surgery. I do not feel the patient needs a repeat echocardiogram or a consultation from cardiology. #2 history of nonocclusive coronary artery disease-patient has no complaints of any recent chest pain, I talked briefly with Dr. Lorenzo about the patient, the patient does not appear to have significant valvular heart disease and has a good ejection fraction. #3 hyperlipidemia-patient will remain on her present medications #4 hypothyroidism-patient will remain on Synthroid #5 GERD-patient is on a PPI #6 valvular heart disease-this does not appear to be significant #7 essential hypertension-patient will remain on her present medications #8 cerebrovascular disease-patient is currently on aspirin and Plavix, these will be continued Total clinical time spent by myself addressing the patient's medical issues, reviewing all her data, and collaborating with patient's care team: 55 minutes Charges/Coding Visit Charges Inpatient E&M: 24452 Init Hosp L2
--- NOTE | 2022-11-26 16:46 | CASEMGMT ---
JORDANA CM: Voicemail received from [facility] stating pt is active with their services for SN and PT. Kirit Rendon RN CM
[2022-11-26] MEDS: oxyCODONE 5 MG Tablet 10 MG PO (19:49)
[2022-11-26] MEDS: Gabapentin 300 MG Capsule PO (21:03)
[2022-11-26] MEDS: Mirtazapine 15 MG Tablet 7.5 MG PO (21:03)
[2022-11-26] MEDS: Atorvastatin Calcium 40 MG Tablet PO (21:03)
[2022-11-26] MEDS: 0.9% Saline Lock 10 ML Syringe IV (21:04)
[2022-11-26] MEDS: Heparin Injection (Vial) 5,000 UNIT/ML VIAL 5000 UNIT SC (21:04)
[2022-11-27] VITALS (8 sets, daily range): BP systolic 102–113; BP diastolic 43–57; PULSE 63–79; RESP 16–18; TEMP 36.5–37.2; O2SAT 93–96
--- NOTE | 2022-11-27 05:00 | EKG12_ITS ---
Test Reason : PRE OP Blood Pressure : / mmHG Vent. Rate : 081 BPM Atrial Rate : 081 BPM P-R Int : 152 ms QRS Dur : 108 ms QT Int : 434 ms P-R-T Axes : 050 049 027 degrees QTc Int : 504 ms Normal sinus rhythm Prolonged QT Abnormal ECG When compared with ECG of 26-NOV-2022 12:05, MANUAL COMPARISON REQUIRED, DATA IS UNCONFIRMED Confirmed by MIN CHOWDHURY, AGGIE ([id number]), subeditor BJORN CASTANEDA ([id number]) on 11/28/2022 8:28:37 AM Referred By: SAMY Confirmed By:AGGIE COPELAND MD
[2022-11-27 05:48] LABS: Absolute Lymphocyte Count 1.12 X10^3/uL (0.83-4.51); Absolute Neutrophil Count 10.6 X10^3/uL (2.0-7.7); Basophil% 0.8 % (0-1); Eosinophil# 0.57 X10^3/uL; Eosinophils% 4.3 % (0-5); Hematocrit 46.2 % (37-47); Hemoglobin 14.9 g/dL (12.0-15.0); Lymphocyte # 1.12 X10^3/ul (0.83-4.51); Lymphocyte % 8.5 % (19-41); Mean Corp Hgb Conc 32.3 g/dL (32-36); Mean Corpuscular Hgb 31.4 pg (27.0-32.0); Mean Corpuscular Volume 97.5 fL (81-99); Mean Platelet Vol. 9.3 fl (6.2-12.0); Monocyte# 0.63 X10^3/uL; Monocyte% 4.8 % (0-10); NRBC Flagged by Analyzer 0 % (0-5); Neutrophil # 10.62 X10^3/uL (2.7-7.7); Platelet Count 238 K/mm3 (150-450); RBC Distribution Width CV 12.9 % (11.6-14.6); Red Blood Count 4.74 M/mm3 (4.2-5.4); White Blood Count 13.1 K/mm3 (4.4-11.0)
[2022-11-27 06:05] LABS: Partial Thromboplast Time 31.1 Seconds (24.1-36.2)
[2022-11-27 06:10] LABS: Anion Gap 5 (5-15); BUN 16 mg/dL (7-18); BUN/Creat Ratio 18.6 RATIO (10-20); Chloride 106 mmol/L (98-107); Creatinine, Serum 0.86 mg/dL (0.55-1.02); EST Glomerular Filtration Rate 68 mL/min (>60); Est Glom Filt Rate - Afr Amer 82 mL/min (>60); Glucose 92 mg/dL (74-106); Potassium 4.4 mmol/L (3.5-5.1); Sodium Level 140 mmol/L (136-145); Thyroid Stim Hormone (TSH) 1.11 uIU/mL (0.358-3.74)
[2022-11-27] MEDS: Levothyroxine 25 MCG TABLET PO (06:55)
--- NOTE | 2022-11-27 09:02 | PCM.PN.HOSP ---
Subjective Subjective No issues overnight, doing well. Plan for operative repair of her hip. There is an issue as she does have a Jah antibody be in her blood so we will have to wait for that blood to be found and have on hand potentially prior to surgery being able to be performed Objective Data Objective Data Vital Signs: Vital Signs Temp Pulse Resp BP Pulse Ox O2 Del Method O2 Flow Rate 98.7 F 79 16 112/51 L 94 Nasal Cannula 2 11/27/22 08:08 11/27/22 08:08 11/27/22 08:08 11/27/22 08:08 11/27/22 08:08 11/27/22 08:20 11/27/22 08:08 Oxygen Flow Rate (L/min) 2 Oxygen Delivery Method Nasal Cannula Weight: 145 lb 4.554 oz Body Mass Index (BMI) 28.3 Intake & Output: Intake and Output for Last 24 Hours 11/26/22 11/27/22 11/28/22 03:59 03:59 03:59 Intake Total 500 / 500 Output Total 500 / 500 250 / 250 Balance 0 / 0 -250 / -250 Lab / Micro Data Result Diagrams: 11/27/22 05:15 11/27/22 05:15 Labs: Laboratory Results - last 24 hr 11/26/22 11:55: WBC 9.2, RBC 4.63, Hgb 14.3, Hct 44.7, MCV 96.5, MCH 30.9, MCHC 32.0, RDW Std Deviation 45.2 H, RDW Coeff of Kwasi 12.8, Plt Count 223, MPV 9.4, Immature Gran % (Auto) 0.900, Neut % (Auto) 73.7 H, Lymph % (Auto) 13.7 L, [place] % (Auto) 6.4, Eos % (Auto) 4.5, Baso % (Auto) 0.8, Absolute Neuts (auto) 6.8, Absolute Lymphs (auto) 1.26, Nucleated RBC % 0 11/26/22 11:55: PT 13.3, INR 1.0, APTT 27.6 11/26/22 11:55: Sodium 141, Potassium 4.1, Chloride 108 H, Carbon Dioxide 28.0, Anion Gap 5, BUN 18, Creatinine 0.89, Estim Creat Clear Calc 36.82, Est GFR (MDRD) Af Amer 79, Est GFR (MDRD) Non-Af 65, BUN/Creatinine Ratio 20.2 H, Glucose 104, Calcium 9.5, Total Bilirubin 0.60, AST 20, ALT 17, Alkaline Phosphatase 79, Total Protein 7.9, Albumin 3.2, Globulin 4.7 H, Albumin/Globulin Ratio 0.7 L 11/26/22 14:00: Urine Color Yellow, Urine Clarity Clear, Urine pH 6.0, Ur Specific [place] 1.010, Urine Protein 15 H, Urine Glucose (UA) Normal, Urine Ketones Negative, Urine Occult Blood 250 H, Urine Nitrite Negative, Urine Bilirubin Negative, Urine Urobilinogen Normal, Ur Leukocyte Esterase Negative, Urine RBC 5-10 SEEN, Urine WBC 0 SEEN, Ur Squamous Epith Cells 0-5 SEEN, Urine Bacteria 0 SEEN, Urine Mucus 0 SEEN 11/27/22 05:15: WBC 13.1 H, RBC 4.74, Hgb 14.9, Hct 46.2, MCV 97.5, MCH 31.4, MCHC 32.3, RDW Std Deviation 46.0 H, RDW Coeff of Kwasi 12.9, Plt Count 238, MPV 9.3, Immature Gran % (Auto) 0.600, Neut % (Auto) 81.0 H, Lymph % (Auto) 8.5 L, [place] % (Auto) 4.8, Eos % (Auto) 4.3, Baso % (Auto) 0.8, Absolute Neuts (auto) 10.6 H, Absolute Lymphs (auto) 1.12, Nucleated RBC % 0 11/27/22 05:15: APTT 31.1 11/27/22 05:15: Sodium 140, Potassium 4.4, Chloride 106, Carbon Dioxide 29.0, Anion Gap 5, BUN 16, Creatinine 0.86, Estim Creat Clear Calc 38.10, Est GFR (MDRD) Af Amer 82, Est GFR (MDRD) Non-Af 68, BUN/Creatinine Ratio 18.6, Glucose 92, Calcium 9.0, TSH 1.11 Radiography Diagnostic Testing: Radiology Impression Chest X-Ray 11/26/22 11:37 IMPRESSION: Progressive increased markings at the left lung base suggests right upper infiltrate superimposed on chronic scarring. Blunting of the left costophrenic angle. Electronically Signed: Matthew Wood MD at 13:00 EST , Hip/Pelvis X-Ray 11/26/22 11:39 IMPRESSION: Nondisplaced basilar cervical fracture of the proximal right humerus. Electronically Signed: Matthew Wood MD at 12:59 EST , Physical Exam Narrative General: Alert, Oriented x3, Cooperative, No apparent distress HEENT: Atraumatic, PERRLA, EOMI, Normocephalic Oral: Moist Mucosa Neck: Supple, No JVD Lungs: Diminished, Normal air movement, No rhonchi, No wheeze, No rales Cardiovascular: Regular rate, Regular Rhythm, Normal S1, Normal S2, No murmurs Abdomen: Soft, Non Tender, Non-Distended, No Hepato-splenomegaly Extremities: No edema, Capillary Refill Less than 3 Seconds Skin: No rashes, No breakdown Musculoskeletal: Pain to her right hip palpation Neurological: Cranial nerves II-XII grossly intact, Motor Exam 5/5 strength throughout, Sensory exam intact to light touch and pain Psych/Mental Status: Flat Affect, Appropriate Assessment & Plan Assessment/Plan (1) Fracture of femoral neck, right, closed: PLAN: Plan 1. nondisplaced basilar cervical fracture of the proximal right femur secondary to osteoporosis ? We will check a vitamin D test ? Plan for surgery on ? She has a lupus antibody in her blood so there will likely be a delay for having any blood products if necessary on hold ? Appreciate orthopedic surgery's assistance ? PT/OT for possible placement ? Pain medications as needed ? She is low to moderate risk for surgery 2. Nonocclusive coronary artery disease/HTN/HLD/valvular disease/history of CVA ? We will hold her Plavix but continue with her aspirin ? Continue with her Lipitor ? Can resume her home blood pressure medications and will monitor her renal function ? Cardiac risk is minimal can proceed with surgery 3. Hypothyroidism ? Stable ? Continue with Synthroid 4. GERD ? Stable ? Continue with PPI DVT: Heparin Charges/Coding Visit Charges Inpatient E&M: 30963 Subs Hosp L2
--- NOTE | 2022-11-27 09:47 | CT_ITS ---
STUDY: CT SCAN HIP RIGHT REASON FOR EXAM: Female, 77 years old. Fracture RIGHT HIP FROM FALL RADIATION DOSAGE (If Supplied By Facility): CTDIvol = ( 29.52 ) mGy, DLP = ( 699.88 ) mGycm. Individualized dose optimization techniques were used for this CT.? TECHNIQUE: Multiple axial tomographic images of the right hip joint were obtained without intravenous contrast administration. Coronal and sagittal reconstruction was obtained as well. COMPARISON: Comparison is made with prior radiograph of the right hip dated 05/26/2003. FINDINGS: Impacted transverse fracture at the base of the right femoral neck. Minimal cephalic migration of the distal fracture fragment. Soft tissue swelling. CT/Extremity Lower without Contra IMPRESSION: Impacted transverse fracture at the base of the right femoral neck with minimal cephalic migration of the distal fracture fragment. Soft tissue swelling. Electronically Signed: Matthew Wood MD at 10:57 EST ,
--- NOTE | 2022-11-27 10:23 | CASEMGMT ---
Addendum entered by Kasandra Ruiz 11/27/22 15:43: TC to pt son, Matt and had a lengthy conversation regarding pt care. He states pt cannot in any way shape or form dc home whether she has surgery or not. Pt son proceeded to discuss pt stay at [facility] (correction, pt was not at [facility]) and that pt was dc'd to home with a week gap in homecare services. States [facility] was coming to see pt and he expressed extreme dissatisfaction as pt was not taking her meds correctly. He states pt need continuous monitoring of meds and now pt is not able to functionally manage at home. Pt had been going to [facility] day care as well. Pt is on the waiting list at [facility]. Pt has CM at [facility]. Pt son aware that we will await ortho consult for the proceeding of her hospital stay and likely he will be contacted by regarding pt care and dc plan. He denies further questions/concerns at this time and thanked JORDANA JAIME for listening and for the call. Addendum entered by Kasandra Ruiz 11/27/22 15:06: JORDANA JAIME Assessment: Face to Face with pt for initial transition planning/care coordination assessment. JORDANA JAIME introduced self and role at [facility], pt voices understanding and consents to assessment. Pt is A/O x4 and answers all questions appropriately at this time. Pt lying in bed and winces with movement. Care providers, pharmacy, and demographics verified/updated. Admitting Dx: R femoral neck fracture PCP:Carrie Specialists:[facility] cardio Preferred [facility]acy: [facility] Insurance: [facility], [facility] Community Plan Prescription Benefit: yes LNOK: Matt Lechuga, son; Graciela norma Mcginnis Living Arrangements: Pt lives alone in a single story home with 2 steps to enter with a rail. Pt reports typically she was I in ADL's. She states she has fallen 6x in the last year. Transportation: Pt does not drive, states her family transports her to medical appts and to get groceries, etc when they are available. DME/HHC/SNF: Pt has a grab bar in the bathroom, cane and walker. Pt states she is active with [facility] for SN and PT. Pt states she has been at [facility]. Pt to have OR tomorrow. Asked pt her plan after this hospital stay, pt states I don't know, you will have to ask my son, Matt. Pt states no further concerns/needs. CM to follow. Advised pt to ask CM if any further question/concerns/needs arise, voices understanding. Pt Goal: Unsure Plan: TBD Addendum entered by Kasandra Ruiz 11/27/22 11:15: JORDANA JAIME back into pt room, pt requests not to complete assessment. Original Note: RN CM in to pt room to complete assessment. Pt states she is too painful and asks RN CM to come back.
[2022-11-27 10:46] LABS: Vitamin D,25 Hydroxy 21.4 ng/mL
[2022-11-27] MEDS: 0.9% Saline Lock 10 ML Syringe IV ×2 (10:47→15:12)
[2022-11-27] MEDS: Morphine 4 MG/ML Syringe IV (10:47)
--- NOTE | 2022-11-27 13:04 | CASEMGMT ---
Social Work SW received message that pt is active with [facility] and CM is Ana Snyder ([phone]) This SW called Ana to discuss discharge plan, as requested. SW left with brief details and left call back number requesting Ana call to inform SW of pt services through [facility]. CHONG Maya
[2022-11-27] MEDS: Calcium Carb/Vitamin D 1 TABLET Tablet PO ×2 (13:22→18:40)
[2022-11-27] MEDS: Aspirin E.C. 81 MG Tablet PO (13:22)
[2022-11-27] MEDS: Sertraline 100 MG Tablet PO (13:22)
[2022-11-27] MEDS: Pantoprazole Sodium 40 MG Tablet PO (13:22)
[2022-11-27] MEDS: Heparin Injection (Vial) 5,000 UNIT/ML VIAL 5000 UNIT SC ×2 (15:11→21:40)
--- NOTE | 2022-11-27 15:42 | CHAPLAIN ---
Type of Pastoral Visit _x__ Initial Visit ___ Follow-up Visit ___ On-call Visit ___ General Patient Visit ___ Spiritual Assessment ___ Family Conference ___ Bereavement ___ Rapid Response ___ Code Blue ___ Other (describe below) Pastoral Care Referral From _x__ Patient ___ Family ___ Nurse ___ Physician ___ Big Data Analytics Lead ___ Rotary Slicing Machine Operator ___ Other (describe below) Sacrament/Intervention _x__ Active listening ___ Anointing ___ Pentecostal ___ Bereavement ___ Communion _x__ Siri exploration ___ ___ Life review _x__ Prayer ___ Reconciliation ___ Sacrament of Sick _x__ Supportive presence ___ Wedding ___ Other (describe below) Pastoral Comments patient is welcoming and eager to talk; pt leads conversation with her thoughts about falling, injury, aging, siri, and family; pt moves from topic to topic with some randomness; pt is able to answer questions; pt welcomes prayer and presence
--- NOTE | 2022-11-27 17:36 | CONS.ORTHO ---
HPI Consult Data Date of Consult: 11/27/22 HPI Narrative HPI Narrative: RONALDO JAIME, is a 77 F who presents to [facility] emergency departments 11/26/2022 after mechanical fall onto her right hip when she was try to put on pants. She was unable to bear weight and was brought to the emergency department. X-rays were obtained and demonstrated a right displaced femoral neck fracture. She was admitted under the service of the hospitalist. She denies any other associated injury, loss of consciousness, head or neck injury. Denies any numbness or tingling. Denies any antecedent right hip or groin pain. Patient is a household ambulator using a walker to ambulate occasionally. Patient lives at home alone. I saw the patient in consultation. Patient is on Plavix and aspirin for remote CVA without residual deficit. 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 Carotid stenosis Diastolic dysfunction Essential hypertension GERD (gastroesophageal reflux disease) History of left heart catheterization (LHC) (~02/28/17) Hypokalemia Hypothyroidism Injury to blood vessels, unspecified site Intractable nausea and vomiting Mixed hyperlipidemia Nausea Rheumatic mitral insufficiency Unintentional weight loss Valvular heart disease Vertigo Home Medications levothyroxine 25 mcg tablet 25 mcg PO DAILY thyroid 02/27/17 [History Last Taken 11/25/22] hydrochlorothiazide 25 mg tablet 25 mg PO DAILY diuretic 05/11/21 [History Last Taken 11/25/22] trazodone 50 mg tablet 50 mg PO QHS PRN Insomnia 05/11/21 [History Last Taken Unknown] spironolactone 25 mg tablet 25 mg PO DAILY diuretic 08/01/21 [History Last Taken 11/25/22] meclizine 25 mg tablet 25 mg PO TID PRN Dizziness 05/31/22 [History Last Taken Unknown] gabapentin 300 mg capsule 300 mg PO QHS Check with primary doctor 09/08/22 [History Last Taken 11/25/22] omeprazole 40 mg capsule,delayed release 40 mg PO DAILY Check with primary doctor 09/08/22 [History Last Taken 11/25/22] sertraline 100 mg tablet 100 mg PO DAILY Check with primary doctor 09/08/22 [History Last Taken Unknown] aspirin 81 mg tablet,delayed release 81 mg PO DAILY Check with primary doctor 10/28/22 [History Last Taken 11/25/22] atorvastatin 40 mg tablet 40 mg PO QHS Check with primary doctor 10/28/22 [History Last Taken 11/25/22] clopidogrel 75 mg tablet (Plavix) 75 mg PO DAILY Check with primary doctor 10/28/22 [History Last Taken 11/25/22] metoprolol succinate 100 mg tablet,extended release 24 hr 100 mg PO DAILY Check with primary doctor 10/28/22 [History Last Taken 11/25/22] benzonatate 100 mg capsule 100 mg PO Q4H PRN PRN COUGH #0 caps 10/29/22 [Rx Last Taken Unknown] mirtazapine 7.5 mg tablet 7.5 mg PO QHS mood 11/26/22 [History Last Taken Unknown] Allergy/AdvReac Type Severity Reaction Status Date / Time No Known Allergies Allergy Verified 10/26/22 15:58 Family History Other Heart disease Surgical History History of liver biopsy History of partial hysterectomy History of tubal ligation Social History Smoking Status: Former smoker alcohol intake: never substance use type: does not use ROS ROS Narrative 12 point review of systems obtained, negative unless otherwise noted in HPI. Vital Signs Vital Signs Vital Signs: 11/26/22 21:00 11/26/22 21:00 11/27/22 08:20 Temperature 97.6 F L Temperature Source Oral Pulse Rate 61 Respiratory Rate 16 Respiratory Effort Normal Non-Labored Normal Non-Labored Respiratory Depth Normal Normal Respiratory Pattern Normal Normal Blood Pressure 125/65 H Blood Pressure Mean 85 Blood Pressure Source Monitor Blood Pressure Position Semi-Fowlers Blood Pressure Location Right Arm Pulse Ox 96 Oxygen Delivery Method Room Air Nasal Cannula Nasal Cannula Oxygen Flow Rate (L/min) 2 11/27/22 08:01 11/27/22 08:08 11/27/22 09:49 Temperature 98.7 F Temperature Source Tympanic Pulse Rate 79 Respiratory Rate 16 Respiratory Effort Normal Non-Labored Respiratory Depth Normal Respiratory Pattern Normal Blood Pressure 112/51 L Blood Pressure Mean 71 Blood Pressure Source Monitor Blood Pressure Position Semi-Fowlers Blood Pressure Location Pulse Ox 94 Oxygen Delivery Method Nasal Cannula Nasal Cannula Nasal Cannula Oxygen Flow Rate (L/min) 2 2 11/27/22 10:42 11/27/22 12:08 11/27/22 13:00 Temperature 97.7 F L 98.9 F Temperature Source Oral Oral Pulse Rate 72 68 68 Respiratory Rate 18 16 Respiratory Effort Respiratory Depth Respiratory Pattern Blood Pressure 102/57 L 105/43 L 105/43 L Blood Pressure Mean 72 63 Blood Pressure Source Monitor Monitor Blood Pressure Position Semi-Fowlers Semi-Fowlers Blood Pressure Location Right Forearm Right Arm Pulse Ox 94 95 Oxygen Delivery Method Nasal Cannula Nasal Cannula Oxygen Flow Rate (L/min) 2 2 11/27/22 14:15 11/27/22 15:15 11/27/22 15:24 Temperature 98.1 F Temperature Source Oral Pulse Rate 66 Respiratory Rate 18 Respiratory Effort Normal Non-Labored Normal Non-Labored Respiratory Depth Normal Normal Respiratory Pattern Normal Normal Blood Pressure 113/50 L Blood Pressure Mean 71 Blood Pressure Source Monitor Blood Pressure Position Semi-Fowlers Blood Pressure Location Left Arm Pulse Ox 93 94 Oxygen Delivery Method Room Air Nasal Cannula Nasal Cannula Oxygen Flow Rate (L/min) 2 2 2 Weight Weight: 145 lb 4.554 oz Body Mass Index (BMI) 28.3 Physical Exam Narrative General -A&Ox3, NAD, appears stated age. Vital signs stable, afebrile. Respiratory -normal work of breathing, no intercostal retractions. CV -pulses regular, brisk capillary refill ?4 limbs. Abdomen-soft, nontender, nondistended. No guarding, rigidity, rebound tenderness. Musculoskeletal/neurologic -full range of motion nontender throughout bilateral upper extremities, left lower extremity with full sensation and strength in all dermatomes and myotomes. No midline cervical tenderness. Right lower extremity-no obvious deformity. Pain with logroll of the right lower extremity. Nontender throughout the right knee femoral shaft, tibial shaft and left foot/ankle. Brisk capillary refill. Sensation intact light touch L3-S1 dermatomes. DF, PF, EHL intact. DP, PT 2+. Pelvis is stable, nontender. Skin is intact without lacerations, abrasions. No ecchymosis noted. Lab / Micro Data Result Diagrams: 11/27/22 05:15 11/27/22 05:15 Labs: Laboratory Results - last 24 hr 11/27/22 05:15: Blood Type A POSITIVE, Antibody Screen NEGATIVE 11/27/22 05:15: WBC 13.1 H, RBC 4.74, Hgb 14.9, Hct 46.2, MCV 97.5, MCH 31.4, MCHC 32.3, RDW Std Deviation 46.0 H, RDW Coeff of Kwasi 12.9, Plt Count 238, MPV 9.3, Immature Gran % (Auto) 0.600, Neut % (Auto) 81.0 H, Lymph % (Auto) 8.5 L, [place] % (Auto) 4.8, Eos % (Auto) 4.3, Baso % (Auto) 0.8, Absolute Neuts (auto) 10.6 H, Absolute Lymphs (auto) 1.12, Nucleated RBC % 0 11/27/22 05:15: APTT 31.1 11/27/22 05:15: Sodium 140, Potassium 4.4, Chloride 106, Carbon Dioxide 29.0, Anion Gap 5, BUN 16, Creatinine 0.86, Estim Creat Clear Calc 38.10, Est GFR (MDRD) Af Amer 82, Est GFR (MDRD) Non-Af 68, BUN/Creatinine Ratio 18.6, Glucose 92, Calcium 9.0, TSH 1.11 11/27/22 05:15: Crossmatch See Detail 11/27/22 09:44: Vitamin D 25-Hydroxy 21.4 Radiology Impression Hip/Pelvis X-Ray 11/26/22 11:39 IMPRESSION: Nondisplaced basilar cervical fracture of the proximal right humerus. Electronically Signed: Matthew Wood MD at 12:59 EST , ADDENDUM: 11/27/22 1024 IMPRESSION: Nondisplaced basilar cervical fracture of the proximal right femur. Electronically Signed: Matthew Wood MD at 10:17 EST , Lower Extremity CT 11/27/22 09:47 IMPRESSION: Impacted transverse fracture at the base of the right femoral neck with minimal cephalic migration of the distal fracture fragment. Soft tissue swelling. Electronically Signed: Matthew Wood MD at 10:57 EST , Assessment & Plan Assessment/Plan (1) Fracture of femoral neck, right, closed: PLAN: Patient sustained a displaced right femoral neck fracture -Closed, neurovascularly intact -Isolated injury -Recommending surgical intervention in the form of right hip hemiarthroplasty -I discussed the procedure-its risks, benefits and alternative. Risks include but are not limited to bleeding, infection, loss of life or limb, risk of anesthesia, persistent pain or disability, instability, need for additional surgery,failure of orthopedic hardware, neurovascular injury, DVT or PE. Patient expressed understanding these risks and wished proceed with surgery. -Maintenance IV fluids, clear liquid diet after midnight n.p.o. at 2 hours prior to surgery -Type and screen -2 g Ancef on-call to the OR -Bedrest, heel protectors -Hold home Plavix. Okay to continue aspirin perioperatively. Hold heparin tomorrow morning. Plan to proceed with surgery tomorrow when OR becomes available Thank you for this consultation.
[2022-11-27 18:40] LABS: Vitamin D,25 Hydroxy 21.1 ng/mL
[2022-11-27] MEDS: oxyCODONE 5 MG Tablet 10 MG PO ×2 (18:42→22:47)
[2022-11-27] MEDS: Acetaminophen 325 MG Tablet 650 MG PO (18:43)
[2022-11-27 19:02] LABS: ALB/GLOB Ratio 0.7 RATIO (0.9-2.4); AST(SGOT) 20 U/L (15-37); Alanine Aminotransfer ALT/SGPT 13 U/L (13-56); Albumin, Serum 2.8 g/dL (3.2-5.0); Alkaline Phosphatase 66 U/L (45-117); Anion Gap 9 (5-15); BUN 18 mg/dL (7-18); BUN/Creat Ratio 20.5 RATIO (10-20); Calcium,Total 8.7 mg/dL (8.5-10.1); Chloride 105 mmol/L (98-107); Creatinine, Serum 0.88 mg/dL (0.55-1.02); EST Glomerular Filtration Rate 66 mL/min (>60); Est Glom Filt Rate - Afr Amer 80 mL/min (>60); Estimated Creatinine Clearance 37.23 ml/min; Globulin 3.8 g/dL (2.2-4.2); Glucose 109 mg/dL (74-106); Potassium 3.9 mmol/L (3.5-5.1); Protein, Total 6.6 g/dL (6.4-8.2); Sodium Level 140 mmol/L (136-145)
[2022-11-27] MEDS: Gabapentin 300 MG Capsule PO (21:40)
[2022-11-27] MEDS: Mirtazapine 15 MG Tablet 7.5 MG PO (21:40)
[2022-11-27] MEDS: Lactated Ringers 1,000 ML 15 ML IV (21:40)
[2022-11-27] MEDS: Atorvastatin Calcium 40 MG Tablet PO (21:40)
[2022-11-28] VITALS (17 sets, daily range): BP systolic 95–172; BP diastolic 38–98; PULSE 61–89; RESP 14–18; TEMP 36.6–37; O2SAT 16–97; BMI 28.3
[2022-11-28 05:58] LABS: Absolute Neutrophil Count 6.6 X10^3/uL (2.0-7.7); Basophil# 0.07 X10^3/uL; Basophil% 0.7 % (0-1); Eosinophil# 0.83 X10^3/uL; Eosinophils% 8.6 % (0-5); Hematocrit 39.2 % (37-47); Hemoglobin 12.6 g/dL (12.0-15.0); Lymphocyte % 14.4 % (19-41); Mean Corp Hgb Conc 32.1 g/dL (32-36); Mean Corpuscular Hgb 31.3 pg (27.0-32.0); Mean Corpuscular Volume 97.3 fL (81-99); Mean Platelet Vol. 9.4 fl (6.2-12.0); Monocyte# 0.75 X10^3/uL; Monocyte% 7.7 % (0-10); NRBC Flagged by Analyzer 0 % (0-5); Neutrophil % 68.2 % (47-70); Platelet Count 179 K/mm3 (150-450); RBC Distribution Width SD 46.4 fl (35.1-43.9); Red Blood Count 4.03 M/mm3 (4.2-5.4); White Blood Count 9.7 K/mm3 (4.4-11.0)
[2022-11-28 06:22] LABS: Anion Gap 6 (5-15); BUN 19 mg/dL (7-18); BUN/Creat Ratio 24.3 RATIO (10-20); Calcium,Total 8.6 mg/dL (8.5-10.1); Chloride 103 mmol/L (98-107); Creatinine, Serum 0.78 mg/dL (0.55-1.02); EST Glomerular Filtration Rate 75 mL/min (>60); Est Glom Filt Rate - Afr Amer 91 mL/min (>60); Estimated Creatinine Clearance 32.77 ml/min; Glucose 98 mg/dL (74-106); Potassium 3.7 mmol/L (3.5-5.1); Sodium Level 139 mmol/L (136-145)
--- NOTE | 2022-11-28 08:11 | CASEMGMT ---
Social Work SW received VM from CASSIUS Perez CM. Ana informed in the VM that pt was just getting established with services. Prior to being admitted pt was receiving skilled services and was in lori process of having [place] [facility] and private aides set up. Ana also shared the family had interest in AL at [facility] so Ana had called to get pt added to their wait list. Ana suggested to family to have pt placed at [facility] for LTC until the AL placement could be obtained as family has concerns for pt returning home alone. Pt son, Matt is main contact and Ana gave his number. ([phone]). Ana stated that Matt sounded interested in intermediate placement until [facility] has an opening. Shanna Silvestre, CHONG
--- NOTE | 2022-11-28 10:39 | PN.HOSP_ITS ---
Subjective Subjective Plan for operative repair today, no issues overnight Objective Data Objective Data Vital Signs: Vital Signs Temp Pulse Resp BP Pulse Ox O2 Del Method O2 Flow Rate 98.6 F 73 16 122/46 H 97 Nasal Cannula 2 11/28/22 09:05 11/28/22 09:05 11/28/22 09:05 11/28/22 09:05 11/28/22 09:05 11/28/22 09:10 11/28/22 09:10 Oxygen Flow Rate (L/min) 2 Oxygen Delivery Method Nasal Cannula Weight: 145 lb 4.554 oz Body Mass Index (BMI) 28.3 Intake & Output: Intake and Output for Last 24 Hours 11/27/22 11/28/22 11/29/22 03:59 03:59 03:59 Intake Total 500 / 500 500 / 500 Output Total 500 / 500 1150 / 1150 125 / 125 Balance 0 / 0 -650 / -650 -125 / -125 Lab / Micro Data Result Diagrams: 11/28/22 05:30 11/28/22 05:30 Labs: Laboratory Results - last 24 hr 11/27/22 09:44: Vitamin D 25-Hydroxy 21.4 11/27/22 18:04: Sodium 140, Potassium 3.9, Chloride 105, Carbon Dioxide 26.0, Anion Gap 9, BUN 18, Creatinine 0.88, Estim Creat Clear Calc 37.23, Est GFR (MDRD) Af Amer 80, Est GFR (MDRD) Non-Af 66, BUN/Creatinine Ratio 20.5 H, Glucose 109 H, Calcium 8.7, Total Bilirubin 0.60, AST 20, ALT 13, Alkaline Phosphatase 66, Total Protein 6.6, Albumin 2.8 L, Globulin 3.8, Albumin/Globulin Ratio 0.7 L 11/27/22 18:04: Vitamin D 25-Hydroxy 21.1 11/28/22 05:30: WBC 9.7, RBC 4.03 L, Hgb 12.6, Hct 39.2, MCV 97.3, MCH 31.3, MCHC 32.1, RDW Std Deviation 46.4 H, RDW Coeff of Kwasi 13.0, Plt Count 179, MPV 9.4, Immature Gran % (Auto) 0.400, Neut % (Auto) 68.2, Lymph % (Auto) 14.4 L, [place] % (Auto) 7.7, Eos % (Auto) 8.6 H, Baso % (Auto) 0.7, Absolute Neuts (auto) 6.6, Absolute Lymphs (auto) 1.40, Nucleated RBC % 0 11/28/22 05:30: Sodium 139, Potassium 3.7, Chloride 103, Carbon Dioxide 30.0, Anion Gap 6, BUN 19 H, Creatinine 0.78, Estim Creat Clear Calc 32.77, Est GFR (MDRD) Af Amer 91, Est GFR (MDRD) Non-Af 75, BUN/Creatinine Ratio 24.3 H, Glucose 98, Calcium 8.6 Radiography Diagnostic Testing: Radiology Impression Lower Extremity CT 11/27/22 09:47 IMPRESSION: Impacted transverse fracture at the base of the right femoral neck with minimal cephalic migration of the distal fracture fragment. Soft tissue swelling. Electronically Signed: Matthew Wood MD at 10:57 EST , Physical Exam Narrative General: Alert, Oriented x3, Cooperative, No apparent distress HEENT: Atraumatic, PERRLA, EOMI, Normocephalic Oral: Moist Mucosa Neck: Supple, No JVD Lungs: Diminished, Normal air movement, No rhonchi, No wheeze, No rales Cardiovascular: Regular rate, Regular Rhythm, Normal S1, Normal S2, No murmurs Abdomen: Soft, Non Tender, Non-Distended, No Hepato-splenomegaly Extremities: No edema, Capillary Refill Less than 3 Seconds Skin: No rashes, No breakdown Musculoskeletal: Pain to her right hip palpation Neurological: Cranial nerves II-XII grossly intact, Motor Exam 5/5 strength throughout, Sensory exam intact to light touch and pain Psych/Mental Status: Flat Affect, Appropriate Assessment & Plan Assessment/Plan (1) Fracture of femoral neck, right, closed: PLAN: Plan 1. nondisplaced basilar cervical fracture of the proximal right femur secondary to osteoporosis ? Vitamin D is insufficient, will start her on weekly replacement ? Plan for OR today ? She has a lupus antibody in her blood so there will likely be a delay for having any blood products if necessary on hold ? Appreciate orthopedic surgery's assistance ? PT/OT for possible placement ? Pain medications as needed ? She is low to moderate risk for surgery 2. Nonocclusive coronary artery disease/HTN/HLD/valvular disease/history of CVA ? We will hold her Plavix but continue with her aspirin ? Continue with her Lipitor ? Can resume her home blood pressure medications and will monitor her renal function ? Cardiac risk is minimal can proceed with surgery 3. Hypothyroidism ? Stable ? Continue with Synthroid 4. GERD ? Stable ? Continue with PPI DVT: Heparin Charges/Coding Visit Charges Inpatient E&M: 80212 Subs Hosp L2
[2022-11-28] MEDS: Morphine 4 MG/ML Syringe IV (10:44)
--- NOTE | 2022-11-28 14:00 | CASEMGMT ---
Addendum entered by Gaye Wyman 11/28/22 15:44: Social Work Return call from pt pratik Gutierrez and discharge plan discussed. Matt agreeable that pt will need rehabiliation prior to returning home and requesting pt go to [facility] as this is the facility she was recently released from. SW informed Matt that referral would be made and that on his way to hospital and A list of SNF providers including quality and resource use data and consistent with the patient?s preferred geographic region, medical needs, and insurance provided from the [facility] Guide would be left in pt room for review. Referral sent to [facility] via [facility]. SW will await determination of acceptance. Plan: [facility], pending acceptance and precert CHONG Matta Original Note: Social Work Call placed to pt pratik Gutierrez to discuss discharge plan. VM left requesting return call. SW to continue to follow. CHONG Matta
--- NOTE | 2022-11-28 14:10 | FEM_PTH ---
PATIENT: RONALDO JAIME LOC: [facility] U#:[id number] AGE/SX: 77/F ROOM: [facility] RE11/26/[address]: Dr. Ashok Castellon MD : 1945 BED: 1 DIS: 12/08/2022 SPEC #: [id number] RECD: 11/28/22 16:57 STATUS: EDUARDO REQ #: [id number] EDWARD: 11/28/22 14:[address]: Liu Qiu DEPT: SURGICAL PATHOLOGY RECD BY: Connie Guerrero ENTERED: 11/29/22 09:42 SP TYPE: FEM HEAD OTHR DR: DO Dr. Liu Villatoro MD Dr. Nicholas Spittle, DO Dr. Paul Nielsen, MD Tissues: Femoral region, NOS Procedures: Decalcification bone/plaque Surgery Specimen Level IV Comments: @ Ordering doctor for DEC edited from to @ by CLARIBEL at 11/29/22 1420 @ Ordering doctor for SUV edited from to @ by CLARIBEL at 11/29/22 1420 @ Submitting doctor edited from to @ by CLARIBEL at 11/29/22 1420 HEADER OPERATION: Right hip hemiarthroplasty PRE-OP DIAGNOSIS: Fracture of right femoral neck, closed TISSUE SUBMITTED: Right femoral head MICROSCOPIC DIAGNOSIS Right femoral head, hemiarthroplasty: Femoral head with focal area of hemorrhage, clinically fractured right femoral neck. GABRIELLE:alfie 12/04/2022 MICROSCOPIC DESCRIPTION Slides are reviewed. GROSS DESCRIPTION Received is one container labeled with the patient's name and designated right femoral head. The specimen consists of a stern femoral head measuring 4 x 4 x 3.5 cm. A portion of femoral neck is also present measuring 1 cm in length. The articular surface is smooth. Resection margin is irregular and hemorrhagic. No soft tissue is identified. Construction Equipment Technician sections are submitted in two cassettes after decalcification. / GABRIELLE:alfie 11/29/2022 TC:5 CPT: 61724, 79269
[2022-11-28] MEDS: Cefazolin 2 GM in 0.9% Normal Saline 100 ML IV (14:42)
--- NOTE | 2022-11-28 14:43 | PCM.PN.ORT ---
Subjective Subjective Patient seen and examined. Denies any new complaints. Denies fevers, chills, nausea vomiting, chest pain or shortness of breath. Objective Data Objective Data Vital Signs: Vital Signs Temp Pulse Resp BP Pulse Ox O2 Del Method O2 Flow Rate 98.6 F 83 16 95/65 93 Nasal Cannula 2 11/28/22 09:05 11/28/22 11:24 11/28/22 09:05 11/28/22 11:24 11/28/22 11:24 11/28/22 11:24 11/28/22 11:24 Oxygen Flow Rate (L/min) 2 Oxygen Delivery Method Nasal Cannula Weight: 145 lb 4.554 oz Body Mass Index (BMI) 28.3 Intake & Output: Intake and Output for Last 24 Hours 11/26/22 11/27/22 11/28/22 23:59 23:59 23:59 Intake Total 500 / 500 500 / 500 50 / 50 Output Total 500 / 500 1000 / 1150 450 / 450 Balance 0 / 0 -500 / -650 -400 / -400 Lab / Micro Data Result Diagrams: 11/28/22 05:30 11/28/22 05:30 Labs: Laboratory Results - last 24 hr 11/27/22 18:04: Sodium 140, Potassium 3.9, Chloride 105, Carbon Dioxide 26.0, Anion Gap 9, BUN 18, Creatinine 0.88, Estim Creat Clear Calc 37.23, Est GFR (MDRD) Af Amer 80, Est GFR (MDRD) Non-Af 66, BUN/Creatinine Ratio 20.5 H, Glucose 109 H, Calcium 8.7, Total Bilirubin 0.60, AST 20, ALT 13, Alkaline Phosphatase 66, Total Protein 6.6, Albumin 2.8 L, Globulin 3.8, Albumin/Globulin Ratio 0.7 L 11/27/22 18:04: Vitamin D 25-Hydroxy 21.1 11/28/22 05:30: WBC 9.7, RBC 4.03 L, Hgb 12.6, Hct 39.2, MCV 97.3, MCH 31.3, MCHC 32.1, RDW Std Deviation 46.4 H, RDW Coeff of Kwasi 13.0, Plt Count 179, MPV 9.4, Immature Gran % (Auto) 0.400, Neut % (Auto) 68.2, Lymph % (Auto) 14.4 L, [place] % (Auto) 7.7, Eos % (Auto) 8.6 H, Baso % (Auto) 0.7, Absolute Neuts (auto) 6.6, Absolute Lymphs (auto) 1.40, Nucleated RBC % 0 11/28/22 05:30: Sodium 139, Potassium 3.7, Chloride 103, Carbon Dioxide 30.0, Anion Gap 6, BUN 19 H, Creatinine 0.78, Estim Creat Clear Calc 32.77, Est GFR (MDRD) Af Amer 91, Est GFR (MDRD) Non-Af 75, BUN/Creatinine Ratio 24.3 H, Glucose 98, Calcium 8.6 Physical Exam Narrative General -A&Ox3, NAD, appears stated age. Vital signs stable, afebrile. Respiratory -normal work of breathing, no intercostal retractions. CV -pulses regular, brisk capillary refill ?4 limbs. Abdomen-soft, nontender, nondistended. No guarding, rigidity, rebound tenderness. Musculoskeletal/neurologic -full range of motion nontender throughout bilateral upper extremities, left lower extremity with full sensation and strength in all dermatomes and myotomes. No midline cervical tenderness. Right lower extremity-no obvious deformity. Pain with logroll of the right lower extremity. Nontender throughout the right knee femoral shaft, tibial shaft and left foot/ankle. Brisk capillary refill. Sensation intact light touch L3-S1 dermatomes. DF, PF, EHL intact. DP, PT 2+. Pelvis is stable, nontender. Skin is intact without lacerations, abrasions. No ecchymosis noted. Assessment & Plan Assessment/Plan (1) Fracture of femoral neck, right, closed: PLAN: Plan to proceed with surgery today. Informed signed confirmed with the patient. Operative extremity marked.
[2022-11-28] MEDS: Bupivacaine Mpf 0.5% 30 ML VIAL (15:45)
[2022-11-28] MEDS: Lactated Ringers 1,000 ML 75 ML IV ×2 (16:16→21:22)
--- NOTE | 2022-11-28 16:40 | RAD_ITS ---
STUDY: X-RAY - PELVIS AND RIGHT HIP REASON FOR EXAM: Female, 77 years old. Post Op -- AP both hips on single kaylan/lateral of op hip PACU TECHNIQUE: 2 views of the pelvis and hip. COMPARISON: November 26, 2022 FINDINGS: Right hip prosthesis has been placed in anatomic alignment and position.. RAD/Hip Min 2 Views (Portable) IMPRESSION: Status post right hip prosthesis placement Electronically Signed: Stan Castrejon MD at 17:12 EST ,
--- NOTE | 2022-11-28 16:48 | PCM.OPRPT ---
Report of Operation Date of Procedure: 11/28/22 Description of Surgical Findings:: Preoperative diagnosis: Right displaced femoral neck fracture Postoperative diagnosis: Right displaced femoral neck fracture Procedure: Right hip cemented hemiarthroplasty Surgeon: Liu Qiu DO Process Development Chemist: ADRIAN Felton Anesthesia: General endotracheal Anesthesiologist: Dr. Encinas Complications: None apparent Drains: None Estimated blood loss: 350 cc Urinary output: 125 cc IV fluids: 1 L crystalloid Specimens: Right femoral head Surgical implants: [place] Accolade C 127 degree neck angle hip stem size #2, Unitrax neck adjustment sleeve +4, Unitrax endoprosthesis head component outer diameter 44 mm Indications: This is an 77-year-old female who sustained a mechanical ground-level fall on 11/26/2022. She landed on her right side. She was brought to [facility] where x-rays revealed a displaced right femoral neck fracture. She was admitted under the service of the hospitalist. I was consulted to see the patient for surgical recommendations. I recommended a right hip hemiarthroplasty due to the pattern and displacement. I reviewed the procedure with the patient, its risk, benefits, alternatives. Risks included but were not limited to bleeding, infection, loss of life or limb, risk of anesthesia, neurovascular injury, persistent pain, instability, need for additional surgery, failure of orthopedic hardware, loosening, osteolysis, need for assistive devices long-term. Patient expressed understanding wish to proceed with surgery. Surgery was delayed 1 day to decrease her risk of bleeding with her home Plavix being held and to allow access to crossmatch blood due to a rare blood antibody. Description of procedure: Prior to the procedure, patient was brought to the preoperative holding area where patient was identified by name, medical record number and date of . I confirmed the side, site, operation to be performed with the patient. Informed consent was confirmed, All questions were answered to patient satisfaction. The operative extremity was marked. She was also seen by anesthesia staff and anesthesia consent obtained.At time of the operative procedure, pt was brought to the operative suite. General anesthesia was induced on the hospital bed and endotracheal tube placed. After adequate anesthesia, patient was transferred to a standard operating table. She was then positioned in the lateral decubitus position with the right side up and held in position by a pegboard system. All bony prominences were well-padded. A axillary roll was placed under the patient's left axilla. Peroneal nerve was free with a blanket on the nonoperative extremity. Leg lengths were reproduced from patient's position when she was supine. The right lower extremity was then prepped and draped in normal, sterile orthopedic fashion. We performed a timeout with all parties in attendance in agreement with the side, site, and operation to be performed. No concerns were voiced and would like to proceed. I first marked an incision along the lateral aspect of the hip centered over the greater trochanteric tip. In standard posterior approach, a curvilinear incision was made above the trochanter. An approximately 15 cm incision was made. Skin was sharply incised with a 10 blade scalpel carried deep through subcutaneous layers to the level of the IT band. Gelpi retractors were then placed. A Marin was used to expose the IT band. Bovie cautery was then used for hemostasis and then to open the IT band. This was opened in line with the incision. A Charnley retractor was then placed. Sciatic nerve was free. The trochanteric bursa was then debrided. This identified the short external rotators after internal rotation of the hip. The fracture site was easily identified at this point. Short external rotators were taken down and tagged for later repair. Hip capsule was also tagged for repair with a stay suture. We then freshened the neck cut with a sagittal saw. Anterior and posterior acetabular retractors were placed to gain access to the femoral head. A corkscrew was used to remove the head. Any remaining debris was debrided from the acetabulum. We then placed the femoral head on the back table for measurement. We did use trial heads and selected a final size 44 with good suction fit. Box chisel was then utilized to gain access to the femoral canal. Canal finder was placed. Sequential broaches were used in press-fit manner. A final size 2 achieved excellent vertical and rotational stability. We then trialed with a standard and subsequently high offset stem. I offset did achieve excellent stability and reproduction of abductor tension. I then prepared the femur for cementing. We trialed a centralizer to determine appropriate size. Simplex cement was then mixed on the back table. I placed a cement restrictor to an appropriate depth allowing for a 5 mm distal cement mantle. Wire brush was used to remove blood from the femoral canal. I then thoroughly irrigated the femoral canal. Canal was suctioned dry. I then placed dry vaginal packing to pack the femoral canal. After 3 minutes, the cement was pressurized in the femoral canal. Size #2 stem was then placed by hand to an appropriate depth recreating appropriate anteversion of the femoral neck. This was held in place while cement cured. Excess cement was removed. After the cemented hardened, we copiously irrigated the wound with normal saline solution and sterile betadine solution. I retrialed with a +4 mm head trial which appropriately reproduce her leg lengths and was stable through an arc of motion. Final dislocation was performed. The trunnion was irrigated and dried. Final head was then impacted over the Hernandez taper neck. Final reduction was performed. A posterior capsular repair was performed with #2 Ethibond suture via bone tunnels. IT band was closed watertight with #1 strata fix suture. Deeper fascial layers were closed with 0 Vicryl suture in interrupted fashion. Subcutaneous layers were reapproximated with 2-0 Vicryl suture and skin reapproximated with skin felisa. A silver dressing was applied. Patient tolerated procedure well without complication. She was positioned back in the supine position on her hospital bed and subsequently extubated safely. She was transferred to PACU in stable condition. Blankets were placed between the patient's legs. Post Operative Plan: Weightbearing: Weightbearing as tolerated right lower extremity, posterior hip precautions. Blankets between the legs for the first 24 hours Antibiotics: Ancef 1 g every 8 hours x 3 doses DVT Prophylaxis: Carlson: Removed postoperative day #1 Dressing: Maintain silver dressing x7 days X-Rays: PACU x-rays were reviewed demonstrated well-positioned right hip hemiarthroplasty implant. Follow-up 2-week x-rays in the office. Follow-up: 2 weeks in my office for staple removal
[2022-11-28] MEDS: Cefazolin 1 GM/50 ML BAG IV (21:22)
[2022-11-29] VITALS (8 sets, daily range): BP systolic 95–119; BP diastolic 45–54; PULSE 79–90; RESP 16–18; TEMP 36.1–36.8; O2SAT 92–95
[2022-11-29] MEDS: Levothyroxine 25 MCG TABLET PO (05:46)
[2022-11-29] MEDS: Acetaminophen 325 MG Tablet 650 MG PO ×2 (05:46→14:33)
[2022-11-29] MEDS: Cefazolin 1 GM/50 ML BAG IV ×2 (05:47→13:30)
[2022-11-29] MEDS: Lactated Ringers 1,000 ML 75 ML IV ×2 (06:03→18:31)
--- NOTE | 2022-11-29 06:40 | PCM.PN.ORT ---
Subjective Subjective Patient seen and examined. Denies any new complaints. States pain is improved compared to before surgery. Denies fevers, chills, nausea vomiting, chest pain or shortness of breath. Objective Data Objective Data Vital Signs: Vital Signs Temp Pulse Resp BP Pulse Ox O2 Del Method O2 Flow Rate 98.2 F 90 18 105/48 L 93 Nasal Cannula 3 11/29/22 04:30 11/29/22 04:30 11/29/22 04:30 11/29/22 04:30 11/29/22 06:04 11/29/22 06:04 11/29/22 06:04 Oxygen Flow Rate (L/min) 3 Oxygen Delivery Method Nasal Cannula Weight: 145 lb 4.554 oz Body Mass Index (BMI) 28.3 Intake & Output: Intake and Output for Last 24 Hours 11/27/22 11/28/22 11/29/22 23:59 23:59 23:59 Intake Total 500 / 500 1443.75 / 1443.75 1150 / 1150 Output Total 1000 / 1150 760 / 1110 750 / 750 Balance -500 / -650 683.75 / 333.75 400 / 400 Lab / Micro Data Result Diagrams: 11/28/22 05:30 11/28/22 05:30 Radiography Diagnostic Testing: Radiology Impression Hip X-Ray 11/28/22 16:40 IMPRESSION: Status post right hip prosthesis placement Electronically Signed: Stan Castrejon MD at 17:12 EST Reading Location ID and State: [address] [place] [address] , Service support , Physical Exam Narrative General - A&Ox3, NAD. VSS/AF Right lower extremity -incisional dressing C/D/I. SILT Sural, Saphenous, SPN, DPN, Tibial N. distributions. DP, PT 2+. BCR. DF, PF, EHL /5. No calf TTP. Assessment & Plan Assessment/Plan (1) Fracture of femoral neck, right, closed: PLAN: POD#1 s/p right hip hemiarthroplasty - Pain control - Discontinue Carlson today when patient out of bed - Medicine following for medical management - PT/OT posterior hip precautions right, weight-bear as tolerated right lower extremity - - DVT PPX -restart home aspirin and Plavix today - Case management -will likely need SNF placement Plan to follow-up 2 weeks postoperatively for x-rays and staple removal. Okay to remove dressing on postoperative day number 7 leave open to air if no drainage. Okay to shower postoperative day #4 with dressing on. Please call with any questions or concerns if they arise.
[2022-11-29 06:52] LABS: Absolute Lymphocyte Count 0.84 X10^3/uL (0.83-4.51); Absolute Neutrophil Count 10.6 X10^3/uL (2.0-7.7); Basophil# 0.06 X10^3/uL; Basophil% 0.5 % (0-1); Eosinophil# 0.63 X10^3/uL; Eosinophils% 4.9 % (0-5); Hematocrit 34.4 % (37-47); Hemoglobin 11.1 g/dL (12.0-15.0); Lymphocyte # 0.84 X10^3/ul (0.83-4.51); Lymphocyte % 6.5 % (19-41); Mean Corp Hgb Conc 32.3 g/dL (32-36); Mean Corpuscular Volume 96.1 fL (81-99); Mean Platelet Vol. 9.8 fl (6.2-12.0); Monocyte# 0.81 X10^3/uL; Monocyte% 6.3 % (0-10); NRBC Flagged by Analyzer 0 % (0-5); Neutrophil # 10.56 X10^3/uL (2.7-7.7); Neutrophil % 81.4 % (47-70); Platelet Count 180 K/mm3 (150-450); RBC Distribution Width CV 12.5 % (11.6-14.6); RBC Distribution Width SD 43.6 fl (35.1-43.9); Red Blood Count 3.58 M/mm3 (4.2-5.4)
[2022-11-29 07:19] LABS: Anion Gap 9 (5-15); BUN 11 mg/dL (7-18); BUN/Creat Ratio 18.7 RATIO (10-20); Calcium,Total 8.2 mg/dL (8.5-10.1); Chloride 101 mmol/L (98-107); Creatinine, Serum 0.59 mg/dL (0.55-1.02); EST Glomerular Filtration Rate 105 mL/min (>60); Est Glom Filt Rate - Afr Amer 127 mL/min (>60); Estimated Creatinine Clearance 32.77 ml/min; Glucose 100 mg/dL (74-106); Potassium 3.9 mmol/L (3.5-5.1); Sodium Level 136 mmol/L (136-145)
[2022-11-29] MEDS: Sertraline 100 MG Tablet PO (08:04)
[2022-11-29] MEDS: Senna/Docusate Sodium 1 Tablet 2 TABLET PO ×2 (08:04→22:17)
[2022-11-29] MEDS: Calcium Carb/Vitamin D 1 TABLET Tablet PO (08:05)
[2022-11-29] MEDS: Calcium Carbonate 500 MG Tablet PO (08:05)
[2022-11-29] MEDS: Pantoprazole Sodium 40 MG Tablet PO (08:06)
[2022-11-29] MEDS: Aspirin E.C. 81 MG Tablet PO (08:06)
[2022-11-29] MEDS: Clopidogrel Bisulfate 75 MG Tablet PO (08:06)
[2022-11-29] MEDS: oxyCODONE 5 MG Tablet 10 MG PO ×3 (08:54→18:31)
--- NOTE | 2022-11-29 09:30 | PCM.PN.HOSP ---
Subjective Subjective Doing well after surgery, no issues overnight Objective Data Objective Data Vital Signs: Vital Signs Temp Pulse Resp BP Pulse Ox O2 Del Method O2 Flow Rate 97.0 F L 79 16 95/45 L 95 Nasal Cannula 3 11/29/22 08:03 11/29/22 08:03 11/29/22 08:03 11/29/22 08:03 11/29/22 08:03 11/29/22 08:05 11/29/22 08:03 Oxygen Flow Rate (L/min) 3 Oxygen Delivery Method Nasal Cannula Weight: 145 lb 4.554 oz Body Mass Index (BMI) 28.3 Intake & Output: Intake and Output for Last 24 Hours 11/28/22 11/29/22 11/30/22 03:59 03:59 03:59 Intake Total 500 / 500 1443.75 / 1443.75 1200 / 1200 Output Total 1150 / 1150 960 / 960 400 / 400 Balance -650 / -650 483.75 / 483.75 800 / 800 Lab / Micro Data Result Diagrams: 11/29/22 05:50 11/29/22 05:50 Labs: Laboratory Results - last 24 hr 11/29/22 05:50: WBC 13.0 H, RBC 3.58 L, Hgb 11.1 L, Hct 34.4 L, MCV 96.1, MCH 31.0, MCHC 32.3, RDW Std Deviation 43.6, RDW Coeff of Kwasi 12.5, Plt Count 180, MPV 9.8, Immature Gran % (Auto) 0.400, Neut % (Auto) 81.4 H, Lymph % (Auto) 6.5 L, [place] % (Auto) 6.3, Eos % (Auto) 4.9, Baso % (Auto) 0.5, Absolute Neuts (auto) 10.6 H, Absolute Lymphs (auto) 0.84, Nucleated RBC % 0 11/29/22 05:50: Sodium 136, Potassium 3.9, Chloride 101, Carbon Dioxide 26.0, Anion Gap 9, BUN 11, Creatinine 0.59, Estim Creat Clear Calc 32.77, Est GFR (MDRD) Af Amer 127, Est GFR (MDRD) Non-Af 105, BUN/Creatinine Ratio 18.7, Glucose 100, Calcium 8.2 L Radiography Diagnostic Testing: Radiology Impression Hip X-Ray 11/28/22 16:40 IMPRESSION: Status post right hip prosthesis placement Electronically Signed: Stan Castrejon MD at 17:12 EST , Physical Exam Narrative General: Alert, Oriented x3, Cooperative, No apparent distress HEENT: Atraumatic, PERRLA, EOMI, Normocephalic Oral: Moist Mucosa Neck: Supple, No JVD Lungs: Diminished, Normal air movement, No rhonchi, No wheeze, No rales Cardiovascular: Regular rate, Regular Rhythm, Normal S1, Normal S2, No murmurs Abdomen: Soft, Non Tender, Non-Distended, No Hepato-splenomegaly Extremities: No edema, Capillary Refill Less than 3 Seconds Skin: No rashes, No breakdown Musculoskeletal: Pain to her right hip palpation Neurological: Cranial nerves II-XII grossly intact, Motor Exam 5/5 strength throughout, Sensory exam intact to light touch and pain Psych/Mental Status: Flat Affect, Appropriate Assessment & Plan Assessment/Plan (1) Fracture of femoral neck, right, closed: PLAN: Plan 1. nondisplaced basilar cervical fracture of the proximal right femur secondary to osteoporosis status post repair 11/28/2022 ? Vitamin D is insufficient, will start her on weekly replacement ? Appreciate orthopedic surgery's assistance ? PT/OT for possible placement ? Pain medications as needed ? She is low to moderate risk for surgery 2.? Nonocclusive coronary artery disease/HTN/HLD/valvular disease/history of CVA ? Continue with her aspirin and Plavix ? Continue with her Lipitor ? Can resume her home blood pressure medications and will monitor her renal function ? Cardiac risk is minimal can proceed with surgery 3.? Hypothyroidism ? Stable ? Continue with Synthroid 4.? GERD ? Stable ? Continue with PPI DVT: Heparin Charges/Coding Visit Charges Inpatient E&M: 87291 Subs Hosp L2
--- NOTE | 2022-11-29 12:12 | CASEMGMT ---
Social Work SW met with pt to discuss discharge plan. Pt is in agreement with son that she would like to go to [facility] for short term rehab. Return message from Karla at [facility] and they are able to accept pt. SW requested precert be started at this time. VM to pt son Matt and informed that [facility] can accept and precert will need to be obtained. Pt son has stated that he would like pt to go to [facility] at time of discharge from [facility]. SW encouraged him to talk to facility social welfare clerk and Ana, [facility] . SW left VM for Ana regarding addressing this issue with pt and son. Plan: [facility], pending precert CHONG Mckeon
--- NOTE | 2022-11-29 12:55 | RAD_ITS ---
STUDY: X-RAY - RIGHT SHOULDER REASON FOR EXAM: Female, 77 years old. Right arm pain, fall TECHNIQUE: 2 view(s) of the shoulder. COMPARISON: None. FINDINGS: Normal glenohumeral articulation. There is degenerative arthrosis of the acromioclavicular joint without inferior osseous spur formation. Normal acromion. Normal humeral head and visualized proximal humerus. There is periarticular soft tissue calcification consistent with a calcific tendinitis. Normal visualized pulmonary apex. 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 Electronically Signed: Matthew Wood MD at 13:31 EST ,
[2022-11-29] MEDS: Mirtazapine 15 MG Tablet 7.5 MG PO (22:16)
[2022-11-29] MEDS: Gabapentin 300 MG Capsule PO (22:16)
[2022-11-29] MEDS: Atorvastatin Calcium 40 MG Tablet PO (22:17)
[2022-11-30] VITALS (7 sets, daily range): BP systolic 95–132; BP diastolic 45–61; PULSE 78–106; RESP 18; TEMP 36.5–37.7; O2SAT 94–97
[2022-11-30] MEDS: Acetaminophen 325 MG Tablet 650 MG PO ×3 (02:56→20:30)
[2022-11-30] MEDS: Lactated Ringers 1,000 ML 75 ML IV (06:35)
[2022-11-30] MEDS: Sertraline 100 MG Tablet PO (08:09)
[2022-11-30] MEDS: Calcium Carbonate 500 MG Tablet PO (08:10)
[2022-11-30] MEDS: hydroCHLOROthiazide 25 MG Tablet PO (08:10)
[2022-11-30] MEDS: Aspirin E.C. 81 MG Tablet PO (08:10)
[2022-11-30] MEDS: Levothyroxine 25 MCG TABLET PO (08:10)
[2022-11-30] MEDS: Spironolactone 25 MG Tablet PO (08:10)
[2022-11-30] MEDS: oxyCODONE 5 MG Tablet 10 MG PO (08:18)
--- NOTE | 2022-11-30 10:05 | PCM.PN.HOSP ---
Subjective Subjective No issues overnight, she is little bit confused this morning Objective Data Objective Data Vital Signs: Vital Signs Temp Pulse Resp BP Pulse Ox O2 Del Method O2 Flow Rate 97.8 F 83 18 95/61 97 Nasal Cannula 3 11/30/22 06:30 11/30/22 06:30 11/30/22 06:30 11/30/22 06:30 11/30/22 06:30 11/30/22 09:12 11/30/22 09:12 Oxygen Flow Rate (L/min) 3 Oxygen Delivery Method Nasal Cannula Weight: 145 lb 4.554 oz Body Mass Index (BMI) 28.3 Intake & Output: Intake and Output for Last 24 Hours 11/29/22 11/30/22 12/01/22 03:59 03:59 03:59 Intake Total 1443.75 / 1443.75 2797.50 / 2797.50 1105 / 1105 Output Total 960 / 960 900 / 900 200 / 200 Balance 483.75 / 483.75 1897.50 / 1897.50 905 / 905 Lab / Micro Data Result Diagrams: 11/29/22 05:50 11/29/22 05:50 Labs: Laboratory Results - last 24 hr 11/27/22 05:15: Crossmatch See Detail Radiography Diagnostic Testing: Radiology Impression Shoulder X-Ray 11/29/22 12:55 IMPRESSION: 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 Electronically Signed: Matthew Wood MD at 13:31 EST , Physical Exam Narrative General: Alert, Oriented x2, Cooperative, No apparent distress HEENT: Atraumatic, PERRLA, EOMI, Normocephalic Oral: Moist Mucosa Neck: Supple, No JVD Lungs: Diminished, Normal air movement, No rhonchi, No wheeze, No rales Cardiovascular: Regular rate, Regular Rhythm, Normal S1, Normal S2, No murmurs Abdomen: Soft, Non Tender, Non-Distended, No Hepato-splenomegaly Extremities: No edema, Capillary Refill Less than 3 Seconds Skin: Dressing intact Musculoskeletal: Pain to her right hip on palpation Neurological: Cranial nerves II-XII grossly intact, Motor Exam 5/5 strength throughout, Sensory exam intact to light touch and pain Psych/Mental Status: Flat Affect, Appropriate Assessment & Plan Assessment/Plan (1) Fracture of femoral neck, right, closed: PLAN: Plan 1. nondisplaced basilar cervical fracture of the proximal right femur secondary to osteoporosis status post repair 11/28/2022 ? Vitamin D is insufficient, will start her on weekly replacement ? Appreciate orthopedic surgery's assistance ? PT/OT for possible placement ? Pain medications as needed 2.? Nonocclusive coronary artery disease/HTN/HLD/valvular disease/history of CVA ? Continue with her aspirin and Plavix ? Continue with her Lipitor ? Can resume her home blood pressure medications and will monitor her renal function ? Cardiac risk is minimal can proceed with surgery 3.? Hypothyroidism ? Stable ? Continue with Synthroid 4.? GERD ? Stable ? Continue with PPI DVT: Heparin Charges/Coding Visit Charges Inpatient E&M: 87439 Subs Hosp L2
[2022-11-30] MEDS: Senna/Docusate Sodium 1 Tablet 2 TABLET PO ×2 (11:10→20:32)
[2022-11-30] MEDS: Metoprolol(XL)Succ 100 MG Tablet PO (11:10)
[2022-11-30] MEDS: Pantoprazole Sodium 40 MG Tablet PO (11:10)
[2022-11-30] MEDS: Clopidogrel Bisulfate 75 MG Tablet PO (11:10)
[2022-11-30] MEDS: Morphine 4 MG/ML Syringe IV (15:25)
[2022-11-30] MEDS: 0.9% Saline Lock 10 ML Syringe IV ×2 (15:25→20:32)
[2022-11-30] MEDS: Menthol/Lanolin/Calamine/Znox 113 GM Tube 1 APPLIC TOPICAL (15:37)
[2022-11-30] MEDS: Calcium Carb/Vitamin D 1 TABLET Tablet PO (18:31)
[2022-11-30] MEDS: Gabapentin 300 MG Capsule PO (20:31)
[2022-11-30] MEDS: Atorvastatin Calcium 40 MG Tablet PO (20:31)
[2022-11-30] MEDS: Mirtazapine 15 MG Tablet 7.5 MG PO (20:31)
[2022-12-01] VITALS (18 sets, daily range): BP systolic 97–139; BP diastolic 48–99; PULSE 74–102; RESP 12–24; TEMP 36.6–37; O2SAT 80–97
--- NOTE | 2022-12-01 01:04 | NURSING ---
Patient refused to let this RN listen to posterior lungs sounds and also refused to let her buttocks/coccyx be assessed.
[2022-12-01] MEDS: Levothyroxine 25 MCG TABLET PO (04:06)
--- NOTE | 2022-12-01 04:50 | RAD_ITS ---
EXAM: XR CHEST, 1 VIEW CLINICAL INDICATION: Increased oxygen demands, crackles heard on left TECHNIQUE: Frontal view of the chest. This report was created using bitFlyer report generation technology. COMPARISON: 11/26/2022 FINDINGS: LUNGS AND PLEURAL SPACES: Developing right upper lobe infiltrate, superimposed on chronic lung changes. No pneumothorax. No effusion. HEART: Unremarkable. Cardiac silhouette not enlarged. MEDIASTINUM: Central airways and mediastinal contour are unremarkable. BONES/JOINTS: Unremarkable. SOFT TISSUES: Unremarkable. RAD/Chest 1 View (Portable) IMPRESSION: Developing right upper lobe infiltrate, superimposed on chronic lung changes. This may indicate pneumonia. Electronically Signed: Jossue Garcia MD at 5:46 EST ,
--- NOTE | 2022-12-01 06:05 | PCM.PN.BLA ---
Progress Note Patient with increasing oxygen requirements. Reported results by nurse. Chest x-ray showed pulmonary infiltrates. Nurse reports no urine output. We will start patient on broad-spectrum antibiotics and IV fluids. Check MRSA nasal screen.
[2022-12-01 06:20] LABS: Absolute Lymphocyte Count 1.06 X10^3/uL (0.83-4.51); Absolute Neutrophil Count 14.6 X10^3/uL (2.0-7.7); Basophil# 0.09 X10^3/uL; Basophil% 0.5 % (0-1); Eosinophil# 1.05 X10^3/uL; Eosinophils% 5.9 % (0-5); Hematocrit 35.6 % (37-47); Hemoglobin 11.5 g/dL (12.0-15.0); Lymphocyte # 1.06 X10^3/ul (0.83-4.51); Mean Corp Hgb Conc 32.3 g/dL (32-36); Mean Corpuscular Hgb 31.1 pg (27.0-32.0); Mean Corpuscular Volume 96.2 fL (81-99); Mean Platelet Vol. 10.1 fl (6.2-12.0); Monocyte# 0.73 X10^3/uL; Monocyte% 4.1 % (0-10); NRBC Flagged by Analyzer 0 % (0-5); Neutrophil # 14.62 X10^3/uL (2.7-7.7); Neutrophil % 82.9 % (47-70); Platelet Count 208 K/mm3 (150-450); RBC Distribution Width CV 12.7 % (11.6-14.6); RBC Distribution Width SD 44.8 fl (35.1-43.9); White Blood Count 17.7 K/mm3 (4.4-11.0)
[2022-12-01 06:54] LABS: Anion Gap 10 (5-15); BUN 12 mg/dL (7-18); BUN/Creat Ratio 21.3 RATIO (10-20); Calcium,Total 9.2 mg/dL (8.5-10.1); Chloride 98 mmol/L (98-107); Creatinine, Serum 0.56 mg/dL (0.55-1.02); EST Glomerular Filtration Rate 110 mL/min (>60); Est Glom Filt Rate - Afr Amer 133 mL/min (>60); Estimated Creatinine Clearance 32.77 ml/min; Glucose 82 mg/dL (74-106); Potassium 2.9 mmol/L (3.5-5.1); Sodium Level 138 mmol/L (136-145)
[2022-12-01] MEDS: Vancomycin IV 1,000 MG/200 ML BAG 200 MG IV (06:59)
[2022-12-01] MEDS: 0.9% Normal Saline 1,000 ML 75 ML IV (07:01)
[2022-12-01] MEDS: 0.9% Saline Lock 10 ML Syringe IV ×3 (07:07→18:16)
[2022-12-01] MEDS: Acetaminophen 325 MG Tablet 650 MG PO ×2 (07:35→22:24)
--- NOTE | 2022-12-01 07:47 | PCM.RX.CS ---
Consult Pharmacy has been consulted to manage selected antiobiotic: Vancomycin Type of Consult: New start Suspected Infection: Pneumonia Labs: Sodium 138 mmol/L (136-145) 12/01/22 04:30 Potassium 2.9 mmol/L (3.5-5.1) L 12/01/22 04:30 Chloride 98 mmol/L (98-107) 12/01/22 04:30 Carbon Dioxide 30.0 mmol/L (21.0-32.0) 12/01/22 04:30 Anion Gap 10 (5-15) 12/01/22 04:30 BUN 12 mg/dL (7-18) 12/01/22 04:30 Creatinine 0.56 mg/dL (0.55-1.02) 12/01/22 04:30 Est GFR (MDRD) Af Amer 133 mL/min (>60) 12/01/22 04:30 Est GFR (MDRD) Non-Af 110 mL/min (>60) 12/01/22 04:30 BUN/Creatinine Ratio 21.3 RATIO (10-20) H 12/01/22 04:30 Glucose 82 mg/dL (74-106) 12/01/22 04:30 Pharmacy Plan for Drug Dosing: NEW START IV VANCOMYCIN Consulting Physician: SETH Indication: PNEUMONIA Goal Trough: 10-15 MG/DL SrCr: 0.56 MG/DL (12/01/22) CrCl: 33 ML/MIN Comments: INITIAL DOSE OF 1000MG GIVEN 12/01/22 @ 0659 Vancomycin Dose: WILL START 750MG Q24 12/02/22 @ 0700 AND GET A LEVEL PRIOR TO THE 3RD DOSE PER POLICY. Pending Level: 12/03/22 @ 0630 Pharmacy Service will continue to monitor and adjust dosing as required.
[2022-12-01] MEDS: Calcium Carbonate 500 MG Tablet PO (08:41)
[2022-12-01] MEDS: Calcium Carb/Vitamin D 1 TABLET Tablet PO (08:41)
[2022-12-01] MEDS: Aspirin E.C. 81 MG Tablet PO (08:41)
[2022-12-01 09:13] LABS: Magnesium 1.5 mg/dL (1.6-2.6); Phosphorus 3.5 mg/dL (2.5-4.9)
--- NOTE | 2022-12-01 09:50 | PN.HOSP_ITS ---
Subjective Subjective Had increasing oxygen requirements overnight, chest x-ray demonstrates a right upper lobe pneumonia Objective Data Objective Data Vital Signs: Vital Signs Temp Pulse Resp BP Pulse Ox O2 Del Method O2 Flow Rate 98.1 F 79 18 97/56 L 93 High Flow 7 12/01/22 08:00 12/01/22 08:00 12/01/22 08:00 12/01/22 08:00 12/01/22 08:00 12/01/22 08:00 12/01/22 08:00 Oxygen Flow Rate (L/min) 7 Oxygen Delivery Method High Flow Weight: 145 lb 4.554 oz Body Mass Index (BMI) 28.3 Intake & Output: Intake and Output for Last 24 Hours 11/30/22 12/01/22 12/02/22 03:59 03:59 03:59 Intake Total 2797.50 / 2797.50 1462.5 / 1462.5 200 / 200 Output Total 900 / 900 550 / 550 0 / 0 Balance 1897.50 / 1897.50 912.5 / 912.5 200 / 200 Lab / Micro Data Result Diagrams: 12/01/22 04:30 12/01/22 04:30 Labs: Laboratory Results - last 24 hr 12/01/22 04:30: WBC 17.7 H, RBC 3.70 L, Hgb 11.5 L, Hct 35.6 L, MCV 96.2, MCH 31.1, MCHC 32.3, RDW Std Deviation 44.8 H, RDW Coeff of Kwasi 12.7, Plt Count 208, MPV 10.1, Immature Gran % (Auto) 0.600, Neut % (Auto) 82.9 H, Lymph % (Auto) 6.0 L, [place] % (Auto) 4.1, Eos % (Auto) 5.9 H, Baso % (Auto) 0.5, Absolute Neuts (auto) 14.6 H, Absolute Lymphs (auto) 1.06, Nucleated RBC % 0 12/01/22 04:30: Sodium 138, Potassium 2.9 L, Chloride 98, Carbon Dioxide 30.0, Anion Gap 10, BUN 12, Creatinine 0.56, Estim Creat Clear Calc 32.77, Est GFR (MDRD) Af Amer 133, Est GFR (MDRD) Non-Af 110, BUN/Creatinine Ratio 21.3 H, Glucose 82, Calcium 9.2 12/01/22 04:30: Phosphorus 3.5, Magnesium 1.5 L Radiography Diagnostic Testing: Radiology Impression Chest X-Ray 12/01/22 04:50 IMPRESSION: Developing right upper lobe infiltrate, superimposed on chronic lung changes. This may indicate pneumonia. Electronically Signed: Jossue Garcia MD at 5:46 EST , Physical Exam Narrative General: Alert, Oriented x3, Cooperative, No apparent distress HEENT: Atraumatic, PERRLA, EOMI, Normocephalic Oral: Moist Mucosa Neck: Supple, No JVD Lungs: Diminished, Normal air movement, No rhonchi, No wheeze, No rales, upper lobe crackles on the right Cardiovascular: Regular rate, Regular Rhythm, Normal S1, Normal S2, No murmurs Abdomen: Soft, Non Tender, Non-Distended, No Hepato-splenomegaly Extremities: No edema, Capillary Refill Less than 3 Seconds Skin: Dressing intact Musculoskeletal: Mild pain to her right hip on palpation Neurological: Cranial nerves II-XII grossly intact, Motor Exam 5/5 strength throughout, Sensory exam intact to light touch and pain Psych/Mental Status: Flat Affect, Appropriate Assessment & Plan Assessment/Plan (1) Fracture of femoral neck, right, closed: PLAN: Plan 1. nondisplaced basilar cervical fracture of the proximal right femur secondary to osteoporosis status post repair 11/28/2022/right upper lobe pneumonia ? Vitamin D is insufficient, will start her on weekly replacement ? Appreciate orthopedic surgery's assistance ? PT/OT for possible placement ? Pain medications as needed ? Given the fact that she has been in the hospital for 5 days will continue with her Zosyn and vancomycin, she is not making any sputum but will check her CBC in the morning to monitor her leukocytosis, she does remain afebrile 2.? Nonocclusive coronary artery disease/HTN/HLD/valvular disease/history of CVA ? Continue with her aspirin and Plavix ? Continue with her Lipitor ? Can resume her home blood pressure medications and will monitor her renal function 3.? Hypothyroidism ? Stable ? Continue with Synthroid 4.? GERD ? Stable ? Continue with PPI DVT: SCDs Charges/Coding Visit Charges Inpatient E&M: 69475 Subs Hosp L2
[2022-12-01] MEDS: Spironolactone 25 MG Tablet PO (13:16)
[2022-12-01] MEDS: Menthol/Lanolin/Calamine/Znox 113 GM Tube 1 APPLIC TOPICAL ×2 (13:16→22:25)
[2022-12-01] MEDS: Clopidogrel Bisulfate 75 MG Tablet PO (13:17)
[2022-12-01] MEDS: hydroCHLOROthiazide 25 MG Tablet PO (13:17)
[2022-12-01] MEDS: Sertraline 100 MG Tablet PO (13:17)
[2022-12-01] MEDS: Pantoprazole Sodium 40 MG Tablet PO (13:17)
[2022-12-01] MEDS: Metoprolol(XL)Succ 100 MG Tablet PO (13:18)
[2022-12-01] MEDS: Potassium Chloride Oral Tablet 20 MEQ 60 MEQ PO (14:42)
--- NOTE | 2022-12-01 15:00 | NURSING ---
6993 Dr Fletcher notified of increased o2 need. pox 80% on 7L HF, O2 increased to 15L HF pox 95% pulse 85, BP 117/69 resp 20 Maikel Bowling RN
--- NOTE | 2022-12-01 15:11 | NURSING ---
1510 Dr Fletcher new orders- start Bpap-resp aware Maikel Bowling RN
--- NOTE | 2022-12-01 15:54 | CPS ---
Pt will not keep mask on, we tried two different sized masks and adjusted each for comfort. She refused to place the mask back on her face. Patient would rather have nasal cannula.
[2022-12-01] MEDS: Furosemide 40 MG/4 ML Vial IV (15:59)
--- NOTE | 2022-12-01 16:47 | CPS ---
PT did not handle bipap well, as stated before. AIRVO was initiated in replacement of HFNC/BIPAP.
[2022-12-01] MEDS: Morphine 4 MG/ML Syringe IV (18:16)
[2022-12-01] MEDS: Ondansetron 4 MG/2 ML Vial IV (18:18)
[2022-12-01] MEDS: Gabapentin 300 MG Capsule PO (22:24)
[2022-12-01] MEDS: Atorvastatin Calcium 40 MG Tablet PO (22:26)
[2022-12-01] MEDS: Mirtazapine 15 MG Tablet 7.5 MG PO (22:27)
[2022-12-02] VITALS (21 sets, daily range): BP systolic 91–118; BP diastolic 41–68; PULSE 56–151; RESP 14–20; TEMP 36.2–37.1; O2SAT 92–99
--- NOTE | 2022-12-02 05:00 | CT_ITS ---
We are attempting to reach an attending provider to discuss findings. An addendum with communication details will be sent when the communication is complete. EXAM: CT ANGIOGRAPHY CHEST WITHOUT AND WITH INTRAVENOUS CONTRAST CLINICAL INDICATION: pulmonary embolism TECHNIQUE: Helically acquired angiography images were obtained of the chest without and with intravenous contrast. This CT exam was performed using one or more of the following dose reduction techniques: automated exposure control, adjustment of the mA and/or kV according to patient size, and/or use of iterative reconstruction technique. This report was created using nScaled report generation technology. MIP reconstructed images were created and reviewed. CONTRAST: IV 100mL Isovue-370 RADIATION DOSE: Total DLP: 376.07 mGy-cm. COMPARISON: Portable chest radiograph of 12/01/2022. FINDINGS: PULMONARY ARTERIES: Minimal thrombus noted within the distal aspect of the left main pulmonary artery, with tubular thrombus extending into and filling the proximal aspect of the apical segmental branch of the left upper lobe pulmonary artery. Anterior segmental branch of left upper lobe pulmonary artery enhances normally. 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 A tiny subsegmental branch of this posterior segmental branch is filled with thrombus. Hypodense thrombus fills the distal aspect of the right middle lobe pulmonary artery and extends into the origin of its medial segmental branch. No lower lobe pulmonary emboli identified. There is no saddle embolus. AORTA: The thoracic aorta is mildly calcific and is normal in caliber. Mild mural thrombus noted within the descending thoracic aorta may be small atherosclerotic ulcerations within the spine. No penetrating ulcer. No intimal flap. GREAT VESSELS OF AORTIC ARCH: Unremarkable. Normal in caliber. No evidence of dissection. LUNGS AND PLEURAL SPACES: Extensive groundglass opacities noted within both upper lobes, right greater than left, with a mosaic appearance. Groundglass opacities with a mosaic pattern are also seen within the right middle lobe and both lower lobes, less severe than within the upper lobes . There is a trace of pleural fluid bilaterally. No pneumothorax. HEART: Left ventricular hypertrophy is noted. The right lateral ventricle is dilated as compared to the left with slight septal bowing, consistent with right ventricular strain. No significant pericardial effusion. MEDIASTINUM: A normal size periaortic lymph node is present. There is mild pretracheal adenopathy. Right hilar and subcarinal adenopathy also noted. THYROID: Unremarkable. No thyroid lesions. BONES/JOINTS: Osseous structures are demineralized. Mild thoracic degenerative changes are present. No acute osseous abnormality. No suspicious lytic or blastic abnormality. GALLBLADDER AND BILE DUCTS: Visualized portions of the liver, spleen, adrenal glands and renal upper poles are unremarkable. Pancreas is atrophic. Gallbladder is borderline distended. No calcified gallstones or pericholecystic stranding identified. Colonic diverticulosis is present without evidence for diverticulitis within the visualized segments. No pneumoperitoneum is seen. CT/CTA Chest W/WO Contrast IMPRESSION: Bilateral segmental pulmonary emboli including 2 segmental emboli in the left upper lobe and a single segmental embolus in the right lower lobe. Findings of right ventricular strain are present. Extensive groundglass opacities with a mosaic pattern throughout both lungs, greatest in the right upper lobe; differential possibilities would include bilateral pneumonia such as Covid pneumonia, versus pulmonary edema. Right hilar and mediastinal adenopathy. Trace of pleural effusion bilaterally. Nonstandard communication protocol initiated. Electronically Signed: Henrry Wall MD at 6:47 EST ,
--- NOTE | 2022-12-02 05:06 | PN_ITS ---
Progress Note Nurse reported patient was previously requiring 4 L is now requiring Airvo. Patient was previously feisty is now hyoalert. Patient was assessed by the bedside. Patient somnolence. Rales throughout Will change Zosyn to Merrem. Continue vancomycin. COVID screen this presentation was negative. Check influenza. Check CTA. IV fluids since cre atinine clearance is poor. Pulmonary consult
[2022-12-02 05:33] LABS: Absolute Lymphocyte Count 1.36 X10^3/uL (0.83-4.51); Absolute Neutrophil Count 12.2 X10^3/uL (2.0-7.7); Basophil# 0.06 X10^3/uL; Basophil% 0.4 % (0-1); Eosinophil# 0.55 X10^3/uL; Eosinophils% 3.6 % (0-5); Hematocrit 33.7 % (37-47); Hemoglobin 10.9 g/dL (12.0-15.0); Lymphocyte # 1.36 X10^3/ul (0.83-4.51); Mean Corp Hgb Conc 32.3 g/dL (32-36); Mean Corpuscular Hgb 30.9 pg (27.0-32.0); Mean Corpuscular Volume 95.5 fL (81-99); Mean Platelet Vol. 10.4 fl (6.2-12.0); Monocyte# 0.86 X10^3/uL; Monocyte% 5.7 % (0-10); NRBC Flagged by Analyzer 0 % (0-5); Neutrophil # 12.16 X10^3/uL (2.7-7.7); Neutrophil % 80.5 % (47-70); Platelet Count 207 K/mm3 (150-450); RBC Distribution Width CV 13.1 % (11.6-14.6); RBC Distribution Width SD 45.5 fl (35.1-43.9); Red Blood Count 3.53 M/mm3 (4.2-5.4); White Blood Count 15.1 K/mm3 (4.4-11.0)
[2022-12-02 06:08] LABS: Anion Gap 11 (5-15); BUN 16 mg/dL (7-18); BUN/Creat Ratio 20.7 RATIO (10-20); Calcium,Total 8.4 mg/dL (8.5-10.1); Chloride 102 mmol/L (98-107); Creatinine, Serum 0.77 mg/dL (0.55-1.02); EST Glomerular Filtration Rate 76 mL/min (>60); Est Glom Filt Rate - Afr Amer 92 mL/min (>60); Estimated Creatinine Clearance 32.77 ml/min; Glucose 109 mg/dL (74-106); Potassium 3.1 mmol/L (3.5-5.1); Sodium Level 138 mmol/L (136-145)
[2022-12-02] MEDS: 0.9% Normal Saline 1,000 ML 100 ML IV (06:31)
--- NOTE | 2022-12-02 07:09 | ECHOD_ITS ---
Reason For Study: PE Procedure This was a 2D Doppler, Color Flow transthoracic echocardiogram. Myocardial strain analysis was performed in this exam to aid in the assessment of cardiac function. Exam performed portable in patient room. Left Ventricle Normal LV size. Moderate eccentric left ventricular hypertrophy. Left ventricular systolic function is normal. The estimated ejection fraction is 55 %. Stage 1 diastolic dysfunction. No regional wall motion abnormalities noted. Right Ventricle Normal RV size. Normal systolic function. Atria Normal left atrium. Normal right atrium. Mitral Valve There is moderate mitral annular calcification. Moderate focal mitral valve calcification. Tricuspid Valve Normal tricuspid valve. Moderate (2+) tricuspid valve insufficiency. Pulmonary artery systolic pressure is 70 mmHg. Aortic Valve Trisinus/trileaflet aortic valve. Mild focal aortic valve calcification. Peak aortic valve gradient 21 mmHg. Mean aortic valve gradient 11 mmHg. Mild (1+) aortic valve insufficiency. Pulmonic Valve Normal pulmonic valve. Mild (1+) pulmonic valve insufficiency. Great Vessels Normal aortic root. The pulmonary artery is normal size. Normal inferior vena cava. Pericardium/Pleural No pericardial effusion. MMode/2D Measurements & Calculations LVIDd: 4.5 cm IVSd: 1.5 cm LVOT diam: 1.9 cm LVIDs: 2.4 cm LVPWd: 0.93 cm LVOT area: 2.8 cm2 RVDd: 4.6 cm FS: 46.6 % Ao root diam: 3.3 cm LAV(MOD-bp): 53.3 ml LVAd ap4: 19.0 cm2 LAV(MOD-bp) Indexed: 32.7 ml/m2 LVLd ap4: 6.0 cm LAV(MOD-sp2): 79.3 ml EDV(MOD-sp4): 47.9 ml LAV(MOD-sp4): 35.8 ml EDV(sp4-el): 50.8 ml LVAs ap4: 8.7 cm2 LVLs ap4: 5.2 cm ESV(MOD-sp4): 12.0 ml ESV(sp4-el): 12.1 ml EF(MOD-sp4): 75.0 % EF(sp4-el): 76.2 % SV(MOD-sp4): 35.9 ml SV(sp4-el): 38.7 ml LA A4 area: 14.5 cm2 LA dimension(2D): 4.0 cm RA A4 area: 12.6 cm2 Time Measurements MV dec time: 0.38 sec Doppler Measurements & Calculations MV E max ki: 127.7 cm/sec Lat Peak E' Ki: 5.9 cm/sec Med Peak E' Ki: 6.2 cm/sec MV A max ki: 148.2 cm/sec E/E' lat: 21.5 E/E' med: 20.5 MV E/A: 0.86 MV V2 max: 173.6 cm/sec Ao V2 max: 225.8 cm/sec MV max P.1 mmHg MV dec slope: 341.6 cm/sec2 Ao max P.5 mmHg MV V2 mean: 119.4 cm/sec Ao V2 mean: 156.4 cm/sec MV mean P.2 mmHg Ao mean P.9 mmHg MV V2 VTI: 56.5 cm Ao V2 VTI: 43.2 cm AV (velocity ratio): 0.76 MVA(VTI): 1.7 cm2 RAFFY(I,D): 2.2 cm2 RAFFY(V,D): 2.0 cm2 AI max ki: 277.1 cm/sec LV V1 max: 162.5 cm/sec SV(LVOT): 93.5 ml AI max P.7 mmHg LV V1 max P.6 mmHg LV V1 mean P.7 mmHg AI dec slope: 202.6 cm/sec2 LV V1 mean: 113.8 cm/sec AI P1/2t: 400.7 msec LV V1 VTI: 32.8 cm PA V2 max: 88.4 cm/sec PI end-d ki: 158.8 cm/sec TR max ki: 407.5 cm/sec TR max P.4 mmHg ECHO/Echo Complete Interpretation Summary Normal LV size. Left ventricular systolic function is normal. The estimated ejection fraction is 55 %. Stage 1 diastolic dysfunction. Moderate eccentric left ventricular hypertrophy. Mean aortic valve gradient 11 mmHg. Mild (1+) aortic valve insufficiency. The global longitudinal strain is normal. The global longitudinal strain = -22. 5 % (normal). Ordering Physician: Haroon Abraham Referring Physician: Gal Butler Performed By: Carito Walden RDCS, RVT
--- NOTE | 2022-12-02 07:53 | CON.PCM.CC_ITS ---
Assessment & Plan Assessment/Plan (1) Acute hypoxemic respiratory failure: PLAN: Plan RECOMMENDATIONS: 1. Continue heparin infusion as ordered. 2. Continue empiric antimicrobials. 3. Obtain echocardiogram. 4. Obtain MRSA screen and respiratory viral panel. 5. Stop continuous IV fluids and consider gentle diuresis. IMPRESSIONS: 1. Acute hypoxemic respiratory failure Most likely multifactorial in etiology with newly diagnosed bilateral pulmonary emboli superimposed upon bilateral groundglass opacities, which could be infec tious or related to pulmonary edema. Echocardiogram is currently pending. The patient has already been initiated on heparin, which will be continued without change. Plan to wean FiO2 to maintain oxygen saturations at or above 90%. It is reasonable to continue empiric antimicrobials for now. I would stop her continuous IV fluids and consider gentle diuresis. 2. Right displaced femoral neck fracture status post right hip hemiarthroplasty Continue routine postoperative care per orthopedic surgery. 3. History of coronary artery disease/hypertension/hyperlipidemia/valvular heart disease/hypothyroidism/GERD Complicates care, management, recovery and prognosis. Continue home medications as indicated. This note was generated with [employer]ren[employer] dictation software. It may contain incorrect words, spelling, and punctuation that were not noted in checking the note before signing. HPI Consult Data Date of Consult: 12/02/22 HPI Narrative Reason for Consultation: Hypoxemia HPI Narrative: The patient is a 77-year-old female, with a history as outlined below, who presented initially to the emergency department via EMS on November 26 with right hip pain after sustaining a fall. Work-up revealed a nondisplaced basilar fracture of the proximal right femur. Subsequent CT imaging confirmed an impacted transverse fracture at the base of the right femoral neck. The patient was seen in consultation by orthopedic surgery and was taken to the OR on November 28, where she underwent a right hip cemented hemiarthroplasty. It does appear that the patient was being maintained on 2 L/min of supplemental oxygen preoperatively. Postoperatively, the patient's supplemental oxygen requirement has steadily increased over the course of the last several days. The patient does have a known history of coronary artery disease and is followed in the cardiology clinic on an outpatient basis. Over the last 24 hours, the patient was transition from high flow nasal cannula to Airvo heated high flow due to an inability to maintain her oxygen saturations at appropriate levels. The patient was evaluated early this morning by the overnight hospitalist. A CTA chest was obtained which demonstrated bilateral segmental pulmonary emboli with evidence of RV strain and extensive bilateral groundglass opacities and trace bilateral pleural effusions. The patient is currently documented to be overall net +2.5 L for the hospitalization. Echocardiogram from July 2021 demonstrated an ejection fraction of 75%. [facility] Medical History Acute CVA (cerebrovascular accident) Aortic valve stenosis, rheumatic Atherosclerotic heart disease of [place] coronary artery without angina pectoris Carotid stenosis Diastolic dysfunction Essential hypertension GERD (gastroesophageal reflux disease) History of left heart catheterization (LHC) (~02/28/17) Hypokalemia Hypothyroidism Injury to blood vessels, unspecified site Intractable nausea and vomiting Mixed hyperlipidemia Nausea Rheumatic mitral insufficiency Unintentional weight loss Valvular heart disease Vertigo Home Medications levothyroxine 25 mcg tablet 25 mcg PO DAILY thyroid 02/27/17 [History Last Taken 11/25/22] hydrochlorothiazide 25 mg tablet 25 mg PO DAILY diuretic 05/11/21 [History Last Taken 11/25/22] trazodone 50 mg tablet 50 mg PO QHS PRN Insomnia 05/11/21 [History Last Taken Unknown] spironolactone 25 mg tablet 25 mg PO DAILY diuretic 08/01/21 [History Last Taken 11/25/22] meclizine 25 mg tablet 25 mg PO TID PRN Dizziness 05/31/22 [History Last Taken U nknown] gabapentin 300 mg capsule 300 mg PO QHS Check with primary doctor 09/08/22 [History Last Taken 11/25/22] omeprazole 40 mg capsule,delayed release 40 mg PO DAILY Check with primary doctor 09/08/22 [History Last Taken 11/25/22] sertraline 100 mg tablet 100 mg PO DAILY Check with primary doctor 09/08/22 [History Last Taken Unknown] aspirin 81 mg tablet,delayed release 81 mg PO DAILY Check with primary doctor 10/28/22 [History Last Taken 11/25/22] atorvastatin 40 mg tablet 40 mg PO QHS Check with primary doctor 10/28/22 [History Last Taken 11/25/22] clopidogrel 75 mg tablet (Plavix) 75 mg PO DAILY Check with primary doctor 10/28/22 [History Last Taken 11/25/22] metoprolol succinate 100 mg tablet,extended release 24 hr 100 mg PO DAILY Check with primary doctor 10/28/22 [History Last Taken 11/25/22] benzonatate 100 mg capsule 100 mg PO Q4H PRN PRN COUGH #0 caps 10/29/22 [Rx Last Taken Unknown] mirtazapine 7.5 mg tablet 7.5 mg PO QHS mood 11/26/22 [History Last Taken Unknown] Allergy/AdvReac Type Severity Reaction Status Date / Time No Known Allergies Allergy Verified 10/26/22 15:58 Family History Other Heart disease Surgical History History of liver biopsy History of partial hysterectomy History of tubal ligation Social History Smoking Status: Former smoker alcohol intake: never substance use type: does not use ROS ROS Narrative 10 systems were reviewed with pertinent positives as noted in the HPI above. Physical Exam Const alert and no apparent distress General Appearance: cooperative HEENT normocephalic, head/scalp atraumatic and moist oral mucous membranes Eyes PERRL, EOMs intact bilaterally and conjunctivae normal Neck supple General: trachea midline Chest inspection of chest normal Resp Auscultation: rales and diminished lung sounds Cardio regular rate and regular rhythm GI normal to inspection, nondistended, normoactive bowel sounds Extremity no clubbing, cyanosis or edema Skin no rashes or lesions noted Neuro CN's II-XII intact bilaterally and no focal motor deficits Psych cooperative and affect normal Lab / Micro Data Result Diagrams: 12/02/22 04:41 12/02/22 04:41 Labs: Laboratory Results - last 24 hr 12/01/22 04:30: Phosphorus 3.5, Magnesium 1.5 L 12/01/22 15:40: COVID-19 ([facility]) Not Detected 12/02/22 04:41: WBC 15.1 H, RBC 3.53 L, Hgb 10.9 L, Hct 33.7 L, MCV 95.5, MCH 30.9, MCHC 32.3, RDW Std Deviation 45.5 H, RDW Coeff of Kwasi 13.1, Plt Count 207, MPV 10.4, Immature Gran % (Auto) 0.800, Neut % (Auto) 80.5 H, Lymph % (Auto) 9.0 L, Sunflower % (Auto) 5.7, Eos % (Auto) 3.6, Baso % (Auto) 0.4, Absolute Neuts (auto) 12.2 H, Absolute Lymphs (auto) 1.36, Nucleated RBC % 0 12/02/22 04:41: Sodium 138, Potassium 3.1 L, Chloride 102, Carbon Dioxide 25.0, Anion Gap 11, BUN 16, Creatinine 0.77, Estim Creat Clear Calc 32.77, Est GFR (MDRD) Af Amer 92, Est GFR (MDRD) Non-Af 76, BUN/Creatinine Ratio 20.7 H, Glucose 109 H, Calcium 8.4 L Micro: Microbiology 12/02/22 05:50 Mucosa - Nasopharyngeal Influenza Types A,B Direct FA ([facility]) - Final Radiology Impression Chest CTA 12/02/22 05:00 IMPRESSION: Bilateral segmental pulmonary emboli including 2 segmental emboli in the left upper lobe and a single segmental embolus in the right lower lobe. Findings of right ventricular strain are present. Extensive groundglass opacities with a mosaic pattern throughout both lungs, greatest in the right upper lobe; differential possibilities would include bilateral pneumonia such as Covid pneumonia, versus pulmonary edema. Right hilar and mediastinal adenopathy. Trace of pleural effusion bilaterally. Nonstandard communication protocol initiated. Electronically Signed: Henrry Wall MD at 6:47 EST , ADDENDUM: 12/02/22 0656 IMPRESSION: Bilateral segmental pulmonary emboli including 2 segmental emboli in the left upper lobe and a single segmental embolus in the right lower lobe. Findings of right ventricular strain are present. Extensive groundglass opacities with a mosaic pattern throughout both lungs, greatest in the right upper lobe; differential possibilities would include bilateral pneumonia such as Covid pneumonia, versus pulmonary edema. Right hilar and mediastinal adenopathy. Trace of pleural effusion bilaterally. Nonstandard communication protocol initiated. N.B. : The above Results were Read Back by Henrry Wall MD to Mable Erazo;[phone], and understanding confirmed on 12/02/2022 06:49:27 (ET). Electronically Signed: Henrry Wall MD at 6:47 EST , Charges/Coding Visit Charges Inpatient E&M: 70365 Init Hosp L3
--- NOTE | 2022-12-02 08:32 | NURSING ---
Called Matt Lechuga, Briana's son, to let him know of her transfer to PCU. This RN let him know that PEs were discovered during the urologic surgeon and she was to be started on a Heparin drip in order to treat the clots. Matt was very thankful that we caught the clots.
[2022-12-02 08:37] LABS: BNP,B-Type NATRIURETIC PEPTIDE 605.8 pg/mL (0-100)
--- NOTE | 2022-12-02 08:41 | PN.HOSP_ITS ---
Subjective Subjective Follow-up; pulmonary embolism Patient is a 77-year-old lady admitted with a fall was found to have right displaced femoral neck fracture for which he underwent right hip hemiarthroplasty. Patient was found to be hypoxic following the procedure CTA demonstrated bilateral pulmonary emboli superimposed on bilateral groundglass opacities. Was placed on noninvasive ventilation transferred from regular nursing floor to a monitored bed. Objective Data Objective Data Vital Signs: Vital Signs Temp Pulse Resp BP Pulse Ox O2 Del Method O2 Flow Rate 97.7 F L 78 16 101/48 L 94 High Flow 15 12/02/22 07:49 12/02/22 08:20 12/02/22 08:20 12/02/22 07:49 12/02/22 08:20 12/02/22 08:21 12/02/22 08:21 FiO2 45 12/02/22 08:20 Oxygen Flow Rate (L/min) 15 Oxygen Delivery Method High Flow Weight: 65.9 kg Body Mass Index (BMI) 28.3 Intake & Output: Intake and Output for Last 24 Hours 11/30/22 12/01/22 12/02/22 23:59 23:59 23:59 Intake Total 1462.5 / 1462.5 1218.75 / 1218.75 50 / 50 Output Total 450 / 550 1450 / 1450 0 / 0 Balance 1012.5 / 912.5 -231.25 / -231.25 50 / 50 Lab / Micro Data Result Diagrams: 12/02/22 04:41 12/02/22 04:41 Labs: Laboratory Results - last 24 hr 12/01/22 04:30: Phosphorus 3.5, Magnesium 1.5 L 12/01/22 15:40: COVID-19 ([facility]) Not Detected 12/02/22 04:41: WBC 15.1 H, RBC 3.53 L, Hgb 10.9 L, Hct 33.7 L, MCV 95.5, MCH 30.9, MCHC 32.3, RDW Std Deviation 45.5 H, RDW Coeff of Kwasi 13.1, Plt Count 207, MPV 10.4, Immature Gran % (Auto) 0.800, Neut % (Auto) 80.5 H, Lymph % (Auto) 9.0 L, [place] % (Auto) 5.7, Eos % (Auto) 3.6, Baso % (Auto) 0.4, Absolute Neuts (auto) 12.2 H, Absolute Lymphs (auto) 1.36, Nucleated RBC % 0 12/02/22 04:41: Sodium 138, Potassium 3.1 L, Chloride 102, Carbon Dioxide 25.0, Anion Gap 11, BUN 16, Creatinine 0.77, Estim Creat Clear Calc 32.77, Est GFR (MDRD) Af Amer 92, Est GFR (MDRD) Non-Af 76, BUN/Creatinine Ratio 20.7 H, Glucose 109 H, Calcium 8.4 L 12/02/22 04:41: B-Natriuretic Peptide 605.8 H Micro: Microbiology 12/02/22 05:50 Mucosa - Nasopharyngeal Influenza Types A,B Direct FA ([facility]) - Final Radiography Diagnostic Testing: Radiology Impression Chest CTA 12/02/22 05:00 IMPRESSION: Bilateral segmental pulmonary emboli including 2 segmental emboli in the left upper lobe and a single segmental embolus in the right lower lobe. Findings of right ventricular strain are present. Extensive groundglass opacities with a mosaic pattern throughout both lungs, greatest in the right upper lobe; differential possibilities would include bilateral pneumonia such as Covid pneumonia, versus pulmonary edema. Right hilar and mediastinal adenopathy. Trace of pleural effusion bilaterally. Nonstandard communication protocol initiated. Electronically Signed: Henrry Wall MD at 6:47 EST , ADDENDUM: 12/02/22 0656 IMPRESSION: Bilateral segmental pulmonary emboli including 2 segmental emboli in the left upper lobe and a single segmental embolus in the right lower lobe. Findings of right ventricular strain are present. Extensive groundglass opacities with a mosaic pattern throughout both lungs, greatest in the right upper lobe; differential possibilities would include bilateral pneumonia such as Covid pneumonia, versus pulmonary edema. Right hilar and mediastinal adenopathy. Trace of pleural effusion bilaterally. Nonstandard communication protocol initiated. N.B. : The above Results were Read Back by Henrry Wall MD to Mable Erazo;[phone], JORDANA, and understanding confirmed on 12/02/2022 06:49:27 (ET). Electronically Signed: Henrry Wall MD at 6:47 EST , Physical Exam Narrative GENERAL: Patient on Vapotherm HEENT: Atraumatic; normocephalic EYES; Anicteric, Normal Conjunctiva NECK; supple, normal thyroid, RESPIRATORY: Diminished to auscultation CARDIOVASCULAR: Regular S1-S2 tachycardic GI: soft, normoactive bowel sounds, : No Renal angle tenderness; EXTREMITIES: No edema, no clubbing, MUSCULOSKELETAL: no muscle wasting NEURO: Awake; no lateralizing signs. SKIN: No Rash PSYCH; Flat affect Assessment & Plan Assessment/Plan (1) Fracture of femoral neck, right, closed: PLAN: Plan Patient is a 77-year-old lady admitted with a fall was found to have right displaced femoral neck fracture for which he underwent right hip hemiarthroplasty. Patient was found to be hypoxic following the procedure CTA demonstrated bilateral pulmonary emboli superimposed on bilateral groundglass opacities. Was placed on noninvasive ventilation transferred from regular nursing floor to a monitored bed. 1. Fall with nondisplaced basilar cervical fracture of the proximal right femur Patient underwent right hemiarthroplasty on 11/28/2022. Postop. Complicated by hypoxia management as discussed below 2. Acute hypoxia ? Due to combination of suspected pneumonia with MDR's as well as bilateral pulmonary embolism as part of patient's management she was placed on noninvasive ventilation Airvo transferred to a monitored bed [facility] treatment of the underlying etiology initiated 3. Bilateral pulmonary embolism ? Provoked given patient recent surgery. Started on heparin. 4. Hypertension - Blood pressure controlled, home medications continued with dose adjustment as needed 5. Hypothyroidism - Patient is on levothyroxine home dose continued 6. GERD ? Patient is on PPI 7. Depression ? Patient is on sertraline did continue 8. History of CVA ? With no residual effects patient is on Plavix continued 10. Coronary artery disease ? Per history patient is on dual antiplatelet therapy with aspirin and Plavix 11. Dyslipidemia ? Patient is on atorvastatin did continue Time spent in the patient's overall evaluation,decision-making process, review of diagnostic data, adjustment of management, discussion with other providers, nursing nursing and ancillary staff involved in patient's care documentation, [id number] Charges/Coding Visit Charges Inpatient E&M: 30050 Subs Hosp L3
[2022-12-02 08:42] LABS: Procalcitonin 0.27 ng/mL (0.00-0.09)
[2022-12-02 08:53] LABS: International Normalized Ratio 1.5; Prothrombin Time (Protime)PT. 18.1 SECONDS (11.7-14.9)
[2022-12-02 08:54] LABS: Partial Thromboplast Time 37.6 Seconds (24.1-36.2)
[2022-12-02] MEDS: HEPARIN/D5w 25,000 UNITS 25,000 UNITS/250 ML IV.SOLN. 8 UNITS CONT INF (08:57)
[2022-12-02] MEDS: 0.9% Saline Lock 10 ML Syringe IV (08:58)
[2022-12-02] MEDS: Heparin Injection (Vial) 5,000 UNIT/ML VIAL 4000 UNIT IV (08:58)
[2022-12-02 09:10] LABS: Troponin-I HS 118 pg/mL (3.0-54.0)
[2022-12-02] MEDS: Clopidogrel Bisulfate 75 MG Tablet PO (09:16)
[2022-12-02] MEDS: Spironolactone 25 MG Tablet PO (09:16)
[2022-12-02] MEDS: Pantoprazole Sodium 40 MG Tablet PO (09:16)
[2022-12-02] MEDS: Calcium Carb/Vitamin D 1 TABLET Tablet PO ×2 (09:16→16:39)
[2022-12-02] MEDS: Calcium Carbonate 500 MG Tablet PO ×2 (09:16→12:33)
[2022-12-02] MEDS: hydroCHLOROthiazide 25 MG Tablet PO (09:16)
[2022-12-02] MEDS: Sertraline 100 MG Tablet PO (09:16)
[2022-12-02] MEDS: Aspirin E.C. 81 MG Tablet PO (09:16)
--- NOTE | 2022-12-02 09:52 | CASEMGMT ---
Patient's d/c plan is to go to [facility] for rehab at d/c. However, patient is not currently ready. SW sent updates to [facility] via [employer]. Plan: d/c to [facility] pending insurance approval and when medically ready. Tootie Stuart ENT CONSULTANT DINO
--- NOTE | 2022-12-02 11:56 | PCM.RX.CS ---
Consult Pharmacy has been consulted to manage selected antiobiotic: Vancomycin Type of Consult: Follow-up Suspected Infection: Pneumonia Prior Doses of Antibiotics Received/Current Regimen: Loading dose 12/01/22 @ 0659 100mg 750mg on 626 Labs: Sodium 138 mmol/L (136-145) 12/02/22 04:41 Potassium 3.1 mmol/L (3.5-5.1) L 12/02/22 04:41 Chloride 102 mmol/L (98-107) 12/02/22 04:41 Carbon Dioxide 25.0 mmol/L (21.0-32.0) 12/02/22 04:41 Anion Gap 11 (5-15) 12/02/22 04:41 BUN 16 mg/dL (7-18) 12/02/22 04:41 Creatinine 0.77 mg/dL (0.55-1.02) 12/02/22 04:41 Est GFR (MDRD) Af Amer 92 mL/min (>60) 12/02/22 04:41 Est GFR (MDRD) Non-Af 76 mL/min (>60) 12/02/22 04:41 BUN/Creatinine Ratio 20.7 RATIO (10-20) H 12/02/22 04:41 Glucose 109 mg/dL (74-106) H 12/02/22 04:41 Microbiology: Microbiology 12/02/22 05:50 Mucosa - Nasopharyngeal Influenza Types A,B Direct FA (LIZANDRO) - Final Weight used for dosin.9 kg Estimated Creatinine Clearance: 33 Goal Trough: 10-15 mcg/mL Pharmacy Plan for Drug Dosing: Pharmacy Service will continue to monitor and adjust dosing as required. Follow-Up Labs: Trough Vancomycin Labs to be done on [date and time ordered]: 12/03/22 0630
--- NOTE | 2022-12-02 13:25 | EKG12_ITS ---
Test Reason : RYTHMN CHANGE Blood Pressure : / mmHG Vent. Rate : 123 BPM Atrial Rate : 000 BPM P-R Int : 000 ms QRS Dur : 116 ms QT Int : 356 ms P-R-T Axes : 000 067 -42 degrees QTc Int : 509 ms Atrial fibrillation with rapid ventricular response Incomplete right bundle branch block Nonspecific ST segment abnormality Abnormal ECG Confirmed by ELEN CHOWDHURY, YESSI ([id number]), online editor BJORN CASTANEDA ([id number]) on 12/04/2022 9:07:40 AM Referred By: Confirmed By:YESSI MYRICK MD
[2022-12-02] MEDS: Metoprolol Tartrate 50 MG Tablet PO (14:27)
[2022-12-02] MEDS: Potassium Chloride 10mEq/100mL 10 MEQ/100 ML IV.SOLN. 100 MEQ IV BOLUS ×4 (15:24→18:39)
[2022-12-02 15:35] LABS: Partial Thromboplast Time 124.3 Seconds (24.1-36.2)
[2022-12-02] MEDS: Acetaminophen 325 MG Tablet 650 MG PO (22:56)
[2022-12-02] MEDS: Gabapentin 300 MG Capsule PO (22:56)
[2022-12-02] MEDS: Ensure Plus High Protein 120 ML LIQUID PO (23:00)
[2022-12-02] MEDS: Atorvastatin Calcium 40 MG Tablet PO (23:02)
[2022-12-02] MEDS: Mirtazapine 15 MG Tablet 7.5 MG PO (23:02)
[2022-12-02] MEDS: Senna/Docusate Sodium 1 Tablet 2 TABLET PO (23:03)
[2022-12-02 23:54] LABS: Partial Thromboplast Time 87.9 Seconds (24.1-36.2)
[2022-12-03] VITALS (16 sets, daily range): BP systolic 97–127; BP diastolic 44–66; PULSE 65–90; RESP 14–20; TEMP 36.6–36.9; O2SAT 90–95
[2022-12-03] MEDS: Levothyroxine 25 MCG TABLET PO (06:37)
[2022-12-03 07:04] LABS: Absolute Lymphocyte Count 1.28 X10^3/uL (0.83-4.51); Absolute Neutrophil Count 11.7 X10^3/uL (2.0-7.7); Basophil# 0.06 X10^3/uL; Basophil% 0.4 % (0-1); Eosinophil# 0.74 X10^3/uL; Eosinophils% 5.1 % (0-5); Hematocrit 28.7 % (37-47); Hemoglobin 9.5 g/dL (12.0-15.0); Lymphocyte # 1.28 X10^3/ul (0.83-4.51); Lymphocyte % 8.8 % (19-41); Mean Corp Hgb Conc 33.1 g/dL (32-36); Mean Corpuscular Hgb 30.8 pg (27.0-32.0); Mean Corpuscular Volume 93.2 fL (81-99); Mean Platelet Vol. 10.2 fl (6.2-12.0); Monocyte# 0.61 X10^3/uL; Monocyte% 4.2 % (0-10); NRBC Flagged by Analyzer 0 % (0-5); Neutrophil % 80.6 % (47-70); Platelet Count 216 K/mm3 (150-450); RBC Distribution Width SD 44.1 fl (35.1-43.9); Red Blood Count 3.08 M/mm3 (4.2-5.4); White Blood Count 14.5 K/mm3 (4.4-11.0)
[2022-12-03 07:39] LABS: Anion Gap 7 (5-15); BUN 15 mg/dL (7-18); BUN/Creat Ratio 22.8 RATIO (10-20); Calcium,Total 8.6 mg/dL (8.5-10.1); Chloride 100 mmol/L (98-107); Creatinine, Serum 0.66 mg/dL (0.55-1.02); EST Glomerular Filtration Rate 92 mL/min (>60); Est Glom Filt Rate - Afr Amer 111 mL/min (>60); Estimated Creatinine Clearance 32.77 ml/min; Glucose 112 mg/dL (74-106); Sodium Level 139 mmol/L (136-145)
[2022-12-03 07:43] LABS: Vancomycin, Trough Level 6.5 ug/mL (5.0-15.0)
--- NOTE | 2022-12-03 09:20 | PCM.PN.HOSP ---
Subjective Subjective Follow-up; pulmonary embolism Patient seen still remains on supplemental oxygen via Airvo. Diagnostic data reviewed significant potassium of 3.0 additional replacement given Objective Data Objective Data Vital Signs: Vital Signs Temp Pulse Resp BP Pulse Ox O2 Del Method O2 Flow Rate 98.2 F 65 14 127/52 H 90 Airvo 50 12/03/22 08:43 12/03/22 08:43 12/03/22 08:43 12/03/22 08:43 12/03/22 08:43 12/03/22 08:43 12/03/22 08:43 FiO2 76 12/03/22 08:43 Oxygen Flow Rate (L/min) 50 Oxygen Delivery Method Airvo Weight: 65.9 kg Body Mass Index (BMI) 28.3 Intake & Output: Intake and Output for Last 24 Hours 12/01/22 12/02/22 12/03/22 23:59 23:59 23:59 Intake Total 1218.75 / 1218.75 2758.56 / 2758.56 36.08 / 36.08 Output Total 1450 / 1450 675 / 675 150 / 150 Balance -231.25 / -231.25 2083.56 / 2083.56 -113.92 / -113.92 Lab / Micro Data Result Diagrams: 12/03/22 06:50 12/03/22 06:50 Labs: Laboratory Results - last 24 hr 12/02/22 15:00: APTT 124.3 H* 12/02/22 23:20: APTT 87.9 H 12/03/22 06:50: Vancomycin Trough 6.5 12/03/22 06:50: WBC 14.5 H, RBC 3.08 L, Hgb 9.5 L, Hct 28.7 L, MCV 93.2, MCH 30.8, MCHC 33.1, RDW Std Deviation 44.1 H, RDW Coeff of Kwasi 13.0, Plt Count 216, MPV 10.2, Immature Gran % (Auto) 0.900, Neut % (Auto) 80.6 H, Lymph % (Auto) 8.8 L, [place] % (Auto) 4.2, Eos % (Auto) 5.1 H, Baso % (Auto) 0.4, Absolute Neuts (auto) 11.7 H, Absolute Lymphs (auto) 1.28, Nucleated RBC % 0 12/03/22 06:50: Sodium 139, Potassium 3.0 L, Chloride 100, Carbon Dioxide 32.0, Anion Gap 7, BUN 15, Creatinine 0.66, Estim Creat Clear Calc 32.77, Est GFR (MDRD) Af Amer 111, Est GFR (MDRD) Non-Af 92, BUN/Creatinine Ratio 22.8 H, Glucose 112 H, Calcium 8.6 12/03/22 06:50: APTT 61.0 H Micro: Microbiology 12/01/22 15:40 Mucosa - Nasopharyngeal Respiratory Panel (PCR) - Final 12/02/22 05:50 Mucosa - Nasopharyngeal Influenza Types A,B Direct FA (LIZANDRO) - Final Radiography Diagnostic Testing: Radiology Impression Echocardiogram 12/02/22 07:09 Interpretation Summary Normal LV size. Left ventricular systolic function is normal. The estimated ejection fraction is 55 %. Stage 1 diastolic dysfunction. Moderate eccentric left ventricular hypertrophy. Mean aortic valve gradient 11 mmHg. Mild (1+) aortic valve insufficiency. The global longitudinal strain is normal. The global longitudinal strain = -22.5 % (normal). Ordering Physician: Haroon Abraham Referring Physician: Gal Butler Performed By: Carito Walden, JOSE, RVT Physical Exam Narrative GENERAL: Patient on Vapotherm HEENT: Atraumatic; normocephalic EYES; Anicteric, Normal Conjunctiva NECK; supple, normal thyroid, RESPIRATORY: Diminished to auscultation CARDIOVASCULAR: Regular S1-S2 tachycardic GI: soft, normoactive bowel sounds, : No Renal angle tenderness; EXTREMITIES: No edema, no clubbing, MUSCULOSKELETAL: no muscle wasting NEURO: Awake; no lateralizing signs. SKIN: No Rash PSYCH; Flat affect Assessment & Plan Assessment/Plan (1) Fracture of femoral neck, right, closed: PLAN: Plan Patient is a 77-year-old lady admitted with a fall was found to have right displaced femoral neck fracture for which he underwent right hip hemiarthroplasty. Patient was found to be hypoxic following the procedure CTA demonstrated bilateral pulmonary emboli superimposed on bilateral groundglass opacities. Was placed on noninvasive ventilation transferred from regular nursing floor to a monitored bed. 1. Fall with nondisplaced basilar cervical fracture of the proximal right femur Patient underwent right hemiarthroplasty on 11/28/2022. Postop. Complicated by hypoxia management as discussed below ? 12/03/2022; PT OT as tolerated 2. Acute hypoxia ? Due to combination of suspected pneumonia with MDR's as well as bilateral pulmonary embolism as part of patient's management she was placed on noninvasive ventilation Airvo transferred to a monitored bed consultation placed to pulmonary medicine and treatment of the underlying etiology initiated ?12/03/2022; patient remains on supplemental oxygen via Vapotherm 3. Bilateral pulmonary embolism ? Provoked given patient recent surgery. Started on heparin. 4. Hypertension - Blood pressure controlled, home medications continued with dose adjustment as needed 5. Hypothyroidism - Patient is on levothyroxine home dose continued 6. GERD ? Patient is on PPI 7. Depression ? Patient is on sertraline did continue 8. History of CVA ? With no residual effects patient is on Plavix continued 10. Coronary artery disease ? Per history patient is on dual antiplatelet therapy with aspirin and Plavix 11. Dyslipidemia ? Patient is on atorvastatin did continue 12. Hypokalemia ? Corrected per protocol repeat labs ordered for a.m. Time spent in the patient's overall evaluation,decision-making process, review of diagnostic data, adjustment of management, discussion with other providers, nursing nursing and ancillary staff involved in patient's care documentation, 40 -minute-minute Charges/Coding Visit Charges Inpatient E&M: 05493 Subs Hosp L2
--- NOTE | 2022-12-03 09:40 | CASEMGMT ---
Patient's insurance approved her to go to [facility]. SW notified Karla at [facility] that patient is not ready for d/c due to level of O2 being required. Plan: d/c to [facility] when medically ready. Tootie SUN
--- NOTE | 2022-12-03 10:28 | PCM.RX.CS ---
Consult Pharmacy has been consulted to manage selected antiobiotic: Vancomycin Type of Consult: Follow-up Prior Doses of Antibiotics Received/Current Regimen: Medications Vancomycin 750mg IV q24h Labs: Sodium 139 mmol/L (136-145) 12/03/22 06:50 Potassium 3.0 mmol/L (3.5-5.1) L 12/03/22 06:50 Chloride 100 mmol/L (98-107) 12/03/22 06:50 Carbon Dioxide 32.0 mmol/L (21.0-32.0) 12/03/22 06:50 Anion Gap 7 (5-15) 12/03/22 06:50 BUN 15 mg/dL (7-18) 12/03/22 06:50 Creatinine 0.66 mg/dL (0.55-1.02) 12/03/22 06:50 Est GFR (MDRD) Af Amer 111 mL/min (>60) 12/03/22 06:50 Est GFR (MDRD) Non-Af 92 mL/min (>60) 12/03/22 06:50 BUN/Creatinine Ratio 22.8 RATIO (10-20) H 12/03/22 06:50 Glucose 112 mg/dL (74-106) H 12/03/22 06:50 Vancomycin Trough 6.5 ug/mL (5.0-15.0) 12/03/22 06:50 Microbiology: Microbiology 12/01/22 15:40 Mucosa - Nasopharyngeal Respiratory Panel (PCR) - Final 12/02/22 05:50 Mucosa - Nasopharyngeal Influenza Types A,B Direct FA (LIZANDRO) - Final Goal Trough: 15-20 mcg/mL Pharmacy Plan for Drug Dosing: Trough below goal. Goal range increased from 10-15 mcg/mL to 15-20 mcg/mL. Recommend vancomycin 500mg IV q12h with trough prior to 4th dose. Pharmacy Service will continue to monitor and adjust dosing as required. Follow-Up Labs: Trough Vancomycin - 12/05 @ 7184
[2022-12-03] MEDS: Metoprolol Tartrate 50 MG Tablet PO (10:42)
[2022-12-03] MEDS: Sertraline 100 MG Tablet PO (10:42)
[2022-12-03] MEDS: Calcium Carbonate 500 MG Tablet PO ×2 (10:42→17:40)
[2022-12-03] MEDS: Pantoprazole Sodium 40 MG Tablet PO (10:42)
[2022-12-03] MEDS: Aspirin E.C. 81 MG Tablet PO (10:42)
[2022-12-03] MEDS: Senna/Docusate Sodium 1 Tablet 2 TABLET PO (10:42)
[2022-12-03] MEDS: hydroCHLOROthiazide 25 MG Tablet PO (10:43)
[2022-12-03] MEDS: Clopidogrel Bisulfate 75 MG Tablet PO (10:43)
[2022-12-03] MEDS: Spironolactone 25 MG Tablet PO (10:43)
[2022-12-03] MEDS: Ensure Plus High Protein 120 ML LIQUID PO (10:43)
[2022-12-03] MEDS: Calcium Carb/Vitamin D 1 TABLET Tablet PO ×2 (10:43→17:37)
--- NOTE | 2022-12-03 10:54 | PN.CC_ITS ---
Assessment & Plan Assessment/Plan (1) Acute hypoxemic respiratory failure: PLAN: Plan RECOMMENDATIONS: 1. Continue heparin infusion as ordered. 2. Continue empiric antimicrobials. 3. Administer IV Lasix as tolerated by hemodynamics and renal function. 4. Continue to wean oxygen to maintain saturations at or above 90%. 5. Encourage incentive spirometer use and mobilize patient as tolerated. IMPRESSIONS: 1. Acute hypoxemic respiratory failure Most likely multifactorial in etiology with newly diagnosed bilateral pulmonary emboli superimposed upon bilateral groundglass opacities, which could be infectious or related to pulmonary edema. The patient has already been initiated on heparin, which will be continued without change. Plan to wean FiO2 to maintain oxygen saturations at or above 90%. It is reasonable to continue empiric antimicrobials for now. We will administer IV Lasix today with a goal to proceed with gentle diuresis as tolerated by hemodynamics and renal function. 2. Right displaced femoral neck fracture status post right hip hemiarthroplasty Continue routine postoperative care per orthopedic surgery. 3. History of coronary artery disease/hypertension/hyperlipidemia/valvular heart disease/hypothyroidism/GERD Complicates care, management, recovery and prognosis. Continue home medications as indicated. This note was generated with [employer] dictation software. It may contain incorrect words, spelling, and punctuation that were not noted in checking the note before signing. Subjective Subjective The patient was seen and examined at the bedside this morning. Events from the last 24 hours have been reviewed. The patient is currently afebrile, hemodynamically stable and maintaining appropriate oxygen saturations on heated high flow with an FiO2 requirement of 76%. The patient is currently documented to be overall net +4.4 L for the hospitalization. Potassium is low this morning at 3.0. Creatinine is within normal limits. The patient does report ongoing shortness of breath with exertion. Objective Data Objective Data The patient's most recent lab work, culture data and imaging studies have all been personally reviewed. Surface echocardiogram demonstrated moderate concentr ic LVH with an ejection fraction of 55% and stage I diastolic dysfunction. Pulmonary artery systolic pressure was estimated to be 70 mmHg. Vital Signs: Vital Signs Temp Pulse Resp BP Pulse Ox O2 Del Method O2 Flow Rate 98.2 F 65 14 127/52 H 90 Airvo 50 12/03/22 08:43 12/03/22 08:43 12/03/22 08:43 12/03/22 08:43 12/03/22 08:43 12/03/22 08:43 12/03/22 08:43 FiO2 76 12/03/22 08:43 Oxygen Flow Rate (L/min) 50 Oxygen Delivery Method Airvo Weight: 145 lb 4.554 oz Body Mass Index (BMI) 28.3 Intake & Output: Intake and Output for Last 24 Hours 12/01/22 12/02/22 12/03/22 23:59 23:59 23:59 Intake Total 1218.75 / 1218.75 2758.56 / 2758.56 36.08 / 36.08 Output Total 1450 / 1450 675 / 675 150 / 150 Balance -231.25 / -231.25 2083.56 / 2083.56 -113.92 / -113.92 Lab / Micro Data Attestation: I reviewed the patient's lab results. Result Diagrams: 12/03/22 06:50 12/03/22 06:50 Labs: Laboratory Results - last 24 hr 12/02/22 15:00: APTT 124.3 H* 12/02/22 23:20: APTT 87.9 H 12/03/22 06:50: Vancomycin Trough 6.5 12/03/22 06:50: WBC 14.5 H, RBC 3.08 L, Hgb 9.5 L, Hct 28.7 L, MCV 93.2, MCH 30.8, MCHC 33.1, RDW Std Deviation 44.1 H, RDW Coeff of Kwasi 13.0, Plt Count 216, MPV 10.2, Immature Gran % (Auto) 0.900, Neut % (Auto) 80.6 H, Lymph % (Auto) 8.8 L, [place] % (Auto) 4.2, Eos % (Auto) 5.1 H, Baso % (Auto) 0.4, Absolute Neuts (auto) 11.7 H, Absolute Lymphs (auto) 1.28, Nucleated RBC % 0 12/03/22 06:50: Sodium 139, Potassium 3.0 L, Chloride 100, Carbon Dioxide 32.0, Anion Gap 7, BUN 15, Creatinine 0.66, Estim Creat Clear Calc 32.77, Est GFR (MDRD) Af Amer 111, Est GFR (MDRD) Non-Af 92, BUN/Creatinine Ratio 22.8 H, Glucose 112 H, Calcium 8.6 01/24/23 06:50: APTT 61.0 H Micro: Microbiology 12/01/22 15:40 Mucosa - Nasopharyngeal Respiratory Panel (PCR) - Final 12/02/22 05:50 Mucosa - Nasopharyngeal Influenza Types A,B Direct FA (LIZANDRO) - Final Radiography Diagnostic Testing: Radiology Impression Echocardiogram 12/02/22 07:09 Interpretation Summary Normal LV size. Left ventricular systolic function is normal. The estimated ejection fraction is 55 %. Stage 1 diastolic dysfunction. Moderate eccentric left ventricular hypertrophy. Mean aortic valve gradient 11 mmHg. Mild (1+) aortic valve insufficiency. The global longitudinal strain is normal. The global longitudinal strain = -22.5 % (normal). Ordering Physician: Haroon Abraham Referring Physician: Gal Butler Performed By: Carito Walden, KELLICS, RVT Physical Exam Const alert and no apparent distress Constitutional Narrative: Sitting in bedside recliner. General Appearance: cooperative HEENT normocephalic, head/scalp atraumatic and moist oral mucous membranes Eyes PERRL, EOMs intact bilaterally and conjunctivae normal Neck supple General: trachea midline Chest inspection of chest normal Resp Auscultation: rales and diminished lung sounds Cardio regular rate and regular rhythm GI normal to inspection, nondistended, normoactive bowel sounds Extremity no clubbing, cyanosis or edema Skin no rashes or lesions noted Neuro CN's II-XII intact bilaterally and no focal motor deficits Psych cooperative and affect normal Charges/Coding Visit Charges Inpatient E&M: 90771 Subs Hosp L2
[2022-12-03] MEDS: Furosemide 40 MG/4 ML Vial IV (13:23)
[2022-12-03] MEDS: Potassium Chloride 10mEq/100mL 10 MEQ/100 ML IV.SOLN. 100 MEQ IV BOLUS ×4 (13:27→18:55)
[2022-12-03 13:34] LABS: Partial Thromboplast Time 55.3 Seconds (24.1-36.2)
--- NOTE | 2022-12-03 14:45 | CASEMGMT ---
VASILE received a call from Matt Ankush, patient's son. He asked for an update. VASILE let Matt know patient's insurance approved patient to go to [place], but she is not medically ready for discharge. Tootie Stuart DRUM MAKER DINO
[2022-12-03 15:57] LABS: M R Staph aureus DNA By PCR Negative (Negative); Probe Check PASS; Specimen Processing Control PASS
[2022-12-03] MEDS: Acetaminophen 325 MG Tablet 650 MG PO (17:36)
[2022-12-03] MEDS: Vancomycin IV 500 MG/100 ML BAG 100 MG IV (20:39)
[2022-12-03] MEDS: 0.9% Saline Lock 10 ML Syringe IV (20:40)
[2022-12-03] MEDS: Menthol/Lanolin/Calamine/Znox 113 GM Tube 1 APPLIC TOPICAL (23:37)
[2022-12-03] MEDS: Mirtazapine 15 MG Tablet 7.5 MG PO (23:43)
[2022-12-03] MEDS: Gabapentin 300 MG Capsule PO (23:43)
[2022-12-03] MEDS: Atorvastatin Calcium 40 MG Tablet PO (23:44)
[2022-12-04] VITALS (19 sets, daily range): BP systolic 100–117; BP diastolic 46–51; PULSE 69–108; RESP 12–38; TEMP 36.5–37.4; O2SAT 86–98
[2022-12-04 04:51] LABS: Absolute Lymphocyte Count 1.33 X10^3/uL (0.83-4.51); Absolute Neutrophil Count 13.7 X10^3/uL (2.0-7.7); Basophil# 0.08 X10^3/uL; Basophil% 0.5 % (0-1); Eosinophil# 0.94 X10^3/uL; Eosinophils% 5.6 % (0-5); Hemoglobin 10.4 g/dL (12.0-15.0); Lymphocyte # 1.33 X10^3/ul (0.83-4.51); Lymphocyte % 7.9 % (19-41); Mean Corp Hgb Conc 32.5 g/dL (32-36); Mean Corpuscular Hgb 30.7 pg (27.0-32.0); Mean Corpuscular Volume 94.4 fL (81-99); Mean Platelet Vol. 10.4 fl (6.2-12.0); Monocyte# 0.58 X10^3/uL; Monocyte% 3.4 % (0-10); NRBC Flagged by Analyzer 0 % (0-5); Neutrophil # 13.74 X10^3/uL (2.7-7.7); Neutrophil % 81.6 % (47-70); Platelet Count 284 K/mm3 (150-450); RBC Distribution Width CV 13.1 % (11.6-14.6); Red Blood Count 3.39 M/mm3 (4.2-5.4); White Blood Count 16.8 K/mm3 (4.4-11.0)
--- NOTE | 2022-12-04 04:53 | NURSING ---
When speaking to she stated not to wake patient for vitals or anything due to her being anxious on bipap, Doctor wanted patient to rest.
[2022-12-04 05:06] LABS: Anion Gap 6 (5-15); BUN 16 mg/dL (7-18); BUN/Creat Ratio 23.3 RATIO (10-20); Calcium,Total 8.9 mg/dL (8.5-10.1); Chloride 96 mmol/L (98-107); Creatinine, Serum 0.69 mg/dL (0.55-1.02); EST Glomerular Filtration Rate 87 mL/min (>60); Est Glom Filt Rate - Afr Amer 106 mL/min (>60); Estimated Creatinine Clearance 32.77 ml/min; Glucose 108 mg/dL (74-106); Sodium Level 138 mmol/L (136-145)
[2022-12-04] MEDS: 0.9% Saline Lock 10 ML Syringe IV ×7 (05:17→20:51)
[2022-12-04] MEDS: Furosemide 40 MG/4 ML Vial IV ×3 (05:17→20:51)
--- NOTE | 2022-12-04 06:16 | PCM.HOSP.N ---
Hospitalist Note Patient had been on constant high flow/airvo; however, more dyspnea onset and became willing to transition to BIPAP already setup in her room. She previously had been unable to tolerate. Patient per discussion with staff tolerating BIPAP upon transition. Will pulse dose again with IV lasix x 1, last dosing 12/03/[address] Hanson who has been following. CXR requested.
--- NOTE | 2022-12-04 06:17 | RAD_ITS ---
STUDY: X-RAY CHEST REASON FOR EXAM: Female, 77 years old. Dyspnea TECHNIQUE: Single AP portable view of the chest. COMPARISON: Comparison is made with prior study dated 12/01/2022. FINDINGS: EKG electrodes are seen. Persistent bilateral pulmonary infiltrates in both lungs. There has been a mild degree of improvement. Blunting of the left costophrenic angle. Normal size heart. Normal mediastinum and dave. Normal visualized pulmonary arteries. There is atherosclerotic calcification of the aortic arch with tortuosity. There are diffuse degenerative changes of the visualized thoracic spine. Right calcific tendinitis. There is no demonstrated abnormality of the visualized soft tissue structures of the upper abdomen. RAD/Chest 1 View (Portable) IMPRESSION: Persistent bilateral pulmonary infiltrates worse in the right hemithorax although there has been improved aeration as compared to prior study. Electronically Signed: Matthew Wood MD at 9:36 EST ,
[2022-12-04] MEDS: Vancomycin IV 500 MG/100 ML BAG 100 MG IV ×2 (06:56→17:53)
--- NOTE | 2022-12-04 09:15 | PN.HOSP_ITS ---
Subjective Subjective Follow-up respiratory failure Patient went into acute respiratory distress during the night despite being on Airvo patient had to be placed on BiPAP. Subsequent chest x-ray obtained demonstrated Persistent bilateral pulmonary infiltrates worse in the right hemithorax although there has been improved aeration as compared to prior study.. Diagnostic data significant for hypokalemia this AM. Objective Data Objective Data Vital Signs: Vital Signs Temp Pulse Resp BP Pulse Ox O2 Del Method O2 Flow Rate 98.3 F 78 26 H 116/50 L 97 Bi-pap 50 12/04/22 07:47 12/04/22 08:00 12/04/22 08:00 12/04/22 07:47 12/04/22 08:00 12/04/22 07:47 12/04/22 02:45 FiO2 80 12/04/22 08:00 Oxygen Flow Rate (L/min) 50 Oxygen Delivery Method Bi-pap Weight: 65.9 kg Body Mass Index (BMI) 28.3 Intake & Output: Intake and Output for Last 24 Hours 12/02/22 12/03/22 12/04/22 23:59 23:59 23:59 Intake Total 2758.56 / 2758.56 1641.08 / 1641.08 220 / 220 Output Total 675 / 675 950 / 950 450 / 450 Balance 2083.56 / 2083.56 691.08 / 691.08 -230 / -230 Lab / Micro Data Result Diagrams: 12/04/22 04:41 12/04/22 04:41 Labs: Laboratory Results - last 24 hr 12/03/22 12:50: APTT 55.3 H 12/03/22 13:40: MRSA (PCR) Negative 12/04/22 04:41: WBC 16.8 H, RBC 3.39 L, Hgb 10.4 L, Hct 32.0 L, MCV 94.4, MCH 30.7, MCHC 32.5, RDW Std Deviation 45.0 H, RDW Coeff of Kwasi 13.1, Plt Count 284, MPV 10.4, Immature Gran % (Auto) 1.000 H, Neut % (Auto) 81.6 H, Lymph % (Auto) 7.9 L, [place] % (Auto) 3.4, Eos % (Auto) 5.6 H, Baso % (Auto) 0.5, Absolute Neuts (auto) 13.7 H, Absolute Lymphs (auto) 1.33, Nucleated RBC % 0 12/04/22 04:41: Sodium 138, Potassium 3.0 L, Chloride 96 L, Carbon Dioxide 36.0 H, Anion Gap 6, BUN 16, Creatinine 0.69, Estim Creat Clear Calc 32.77, Est GFR (MDRD) Af Amer 106, Est GFR (MDRD) Non-Af 87, BUN/Creatinine Ratio 23.3 H, Glucose 108 H, Calcium 8.9 12/04/22 04:41: APTT 60.0 H Micro: Microbiology 12/01/22 15:40 Mucosa - Nasopharyngeal Respiratory Panel (PCR) - Final 12/02/22 05:50 Mucosa - Nasopharyngeal Influenza Types A,B Direct FA (LIZANDRO) - Final Physical Exam Narrative GENERAL: Patient on Vapotherm HEENT: Atraumatic; normocephalic EYES; Anicteric, Normal Conjunctiva NECK; supple, normal thyroid, RESPIRATORY: Diminished to auscultation CARDIOVASCULAR: Regular S1-S2 tachycardic GI: soft, normoactive bowel sounds, : No Renal angle tenderness; EXTREMITIES: No edema, no clubbing, MUSCULOSKELETAL: no muscle wasting NEURO: Awake; no lateralizing signs. SKIN: No Rash PSYCH; Flat affect Assessment & Plan Assessment/Plan (1) Fracture of femoral neck, right, closed: PLAN: Plan Patient is a 77-year-old lady admitted with a fall was found to have right displaced femoral neck fracture for which he underwent right hip h emiarthroplasty. Patient was found to be hypoxic following the procedure CTA demonstrated bilateral pulmonary emboli superimposed on bilateral groundglass opacities. Was placed on noninvasive ventilation transferred from regular nursing floor to a monitored bed. 1. Fall with nondisplaced basilar cervical fracture of the proximal right femur Patient underwent right hemiarthroplasty on 11/28/2022. Postop. Complicated by hypoxia management as discussed below ? 12/03/2022; PT OT as tolerated 2. Acute hypoxic respiratory failure (developed after admission) ? Due to combination of suspected pneumonia with MDR's as well as bilateral pulmonary embolism as part of patient's management she was placed on noninvasive ventilation Airvo transferred to a monitored bed consultation [facility] medicine and treatment of the underlying etiology initiated ?12/03/2022; patient remains on supplemental oxygen via Vapotherm 12/04/2022. Patient went into acute respiratory distress during the night despite being on Airvo patient had to be placed on BiPAP. Subsequent chest x- ray obtained demonstrated Persistent bilateral pulmonary infiltrates worse in the right hemithorax although there has been improved aeration as compared to prior study.. Diagnostic data significant for hypokalemia this AM. 3. Bilateral pulmonary embolism ? Provoked given patient recent surgery. Started on heparin. 4. Hypertension - Blood pressure controlled, home medications continued with dose adjustment as needed 5. Hypothyroidism - Patient is on levothyroxine home dose continued 6. GERD ? Patient is on PPI 7. Depression ? Patient is on sertraline did continue 8. History of CVA ? With no residual effects patient is on Plavix continued 10. Coronary artery disease ? Per history patient is on dual antiplatelet therapy with aspirin and Plavix 11. Dyslipidemia ? Patient is on atorvastatin did continue 12. Hypokalemia ? Corrected per protocol repeat labs ordered for a.m. 12/04/2021; patient potassium level still remains low additional potassium given repeat potassium ordered for a.m. Time spent in the patient's overall evaluation,decision-making process, review of diagnostic data, adjustment of management, discussion with other providers, nursing nursing and ancillary staff involved in patient's care documentation, 56 -minutes Charges/Coding Visit Charges Inpatient E&M: 36864 [facility] Hosp L3
[2022-12-04 10:15] LABS: BNP,B-Type NATRIURETIC PEPTIDE 1018.2 pg/mL (0-100)
[2022-12-04 10:23] LABS: Procalcitonin 0.28 ng/mL (0.00-0.09)
--- NOTE | 2022-12-04 10:33 | PN.CC_ITS ---
Assessment & Plan Assessment/Plan (1) Acute hypoxemic respiratory failure: PLAN: Plan RECOMMENDATIONS: 1. Continue heparin infusion as ordered. 2. Continue empiric antimicrobials. 3. More aggressive diuresis as tolerated by hemodynamics and renal function. 4. Obtain arterial blood gas. 5. Wean FiO2 for saturations greater than 90%. IMPRESSIONS: 1. Acute hypoxemic respiratory failure Most likely multifactorial in etiology with newly diagnosed bilateral pulmonary emboli superimposed upon bilateral groundglass opacities, which could be infectious or related to pulmonary edema. The patient has already been initiated on heparin, which will be continued without change. The patient's oxygenation has worsened over the last 24 hours and she is now requiring BiPAP. Therefore, will obtain arterial blood gas and increased diuretic regimen, as tolerated by hemodynamics and renal function. Continue to wean FiO2 for saturations greater than 90%. Antimicrobials will be continued as ordered. 2. Right displaced femoral neck fracture status post right hip hemiarthroplasty Continue routine postoperative care per orthopedic surgery. 3. History of coronary artery disease/hypertension/hyperlipidemia/valvular heart disease/hypothyroidism/GERD Complicates care, management, recovery and prognosis. Continue home medications as indicated. This note was generated with [employer] dictation software. It may contain incorrect words, spelling, and punctuation that were not noted in checking the note before signing. Subjective Subjective The patient was seen and examined at the bedside this morning. Events from the last 24 hours have been reviewed. The patient is currently afebrile, hemodynamically stable and maintaining appropriate oxygen saturations on BiPAP with an FiO2 requirement of 80%. The patient is currently documented to be overall net +5 L for the hospitalization. White count remains elevated at 17,000. Potassium is low at 3.0. Creatinine is stable. BNP is elevated to greater than 1000. Chest x-ray from this morning demonstrated persistent bilateral. Objective Data Objective Data The patient's most recent lab work, culture data and imaging studies have all been personally reviewed. Surface echocardiogram demonstrated moderate concentric LVH with an ejection fraction of 55% and stage I diastolic dysfunction. Pulmonary artery systolic pressure was estimated to be 70 mmHg. Vital Signs: Vital Signs Temp Pulse Resp BP Pulse Ox O2 Del Method O2 Flow Rate 98.3 F 78 26 H 116/50 L 97 Bi-pap 50 12/04/22 07:47 12/04/22 08:00 12/04/22 08:00 12/04/22 07:47 12/04/22 08:00 12/04/22 07:47 12/04/22 02:45 FiO2 80 12/04/22 08:00 Oxygen Flow Rate (L/min) 50 Oxygen Delivery Method Bi-pap Weight: 145 lb 4.554 oz Body Mass Index (BMI) 28.3 Intake & Output: Intake and Output for Last 24 Hours 12/02/22 12/03/22 12/04/22 23:59 23:59 23:59 Intake Total 2758.56 / 2758.56 1641.08 / 1641.08 220 / 220 Output Total 675 / 675 950 / 950 450 / 450 Balance 2083.56 / 2083.56 691.08 / 691.08 -230 / -230 Lab / Micro Data Attestation: I reviewed the patient's lab results. Result Diagrams: 12/04/22 04:41 12/04/22 04:41 Labs: Laboratory Results - last 24 hr 12/03/22 12:50: APTT 55.3 H 12/03/22 13:40: MRSA (PCR) Negative 12/04/22 04:41: WBC 16.8 H, RBC 3.39 L, Hgb 10.4 L, Hct 32.0 L, MCV 94.4, MCH 30.7, MCHC 32.5, RDW Std Deviation 45.0 H, RDW Coeff of Kwasi 13.1, Plt Count 284, MPV 10.4, Immature Gran % (Auto) 1.000 H, Neut % (Auto) 81.6 H, Lymph % (Auto) 7.9 L, [place] % (Auto) 3.4, Eos % (Auto) 5.6 H, Baso % (Auto) 0.5, Absolute Neuts (auto) 13.7 H, Absolute Lymphs (auto) 1.33, Nucleated RBC % 0 12/04/22 04:41: Sodium 138, Potassium 3.0 L, Chloride 96 L, Carbon Dioxide 36.0 H, Anion Gap 6, BUN 16, Creatinine 0.69, Estim Creat Clear Calc 32.77, Est GFR (MDRD) Af Amer 106, Est GFR (MDRD) Non-Af 87, BUN/Creatinine Ratio 23.3 H, Glucose 108 H, Calcium 8.9 12/04/22 04:41: APTT 60.0 H 12/04/22 09:35: B-Natriuretic Peptide 1018.2 H 12/04/22 09:35: Procalcitonin 0.28 H Micro: Microbiology 12/01/22 15:40 Mucosa - Nasopharyngeal Respiratory Panel (PCR) - Final 12/02/22 05:50 Mucosa - Nasopharyngeal Influenza Types A,B Direct FA (LIZANDRO) - Final Radiography Diagnostic Testing: Radiology Impression Chest X-Ray 12/04/22 06:17 IMPRESSION: Persistent bilateral pulmonary infiltrates worse in the right hemithorax although there has been improved aeration as compared to prior study. Electronically Signed: Matthew Wood MD at 9:36 EST , Physical Exam Const Constitutional Narrative: The patient is more somnolent than yesterday with BiPAP in place. HEENT normocephalic, head/scalp atraumatic and moist oral mucous membranes Eyes PERRL, EOMs intact bilaterally and conjunctivae normal Neck supple General: trachea midline Chest inspection of chest normal Resp Effort and Inspection: tachypneic Auscultation: rales and diminished lung sounds Cardio regular rate and regular rhythm Heart Sounds: murmur GI normal to inspection, nondistended, normoactive bowel sounds Extremity no clubbing, cyanosis or edema Skin no rashes or lesions noted Neuro no focal motor deficits Psych Mood & Affect: flat affect Charges/Coding Visit Charges Inpatient E&M: 69353 Subs Hosp L3
[2022-12-04] MEDS: Potassium Chloride 10mEq/100mL 10 MEQ/100 ML IV.SOLN. 100 MEQ IV BOLUS ×4 (11:46→15:40)
[2022-12-04] MEDS: Menthol/Lanolin/Calamine/Znox 113 GM Tube 1 APPLIC TOPICAL ×2 (11:46→20:51)
[2022-12-04 11:51] LABS: Allen Test Positive; Base Excess 14 mmol/L (-2 to +2); Bicarbonate 37.8 mmol/L (22-26); Blood Gas Specimen Type ART; Comment 18/8; FI02 80; Mode BiLevel; O2 Delivery Device BiPAP; PEEP 8; PO2 149 mmHG (75-100); RR 12; SITE R Radial; SO2 99 % (95-99); Total Carbon Dioxide 39 mmol/L; pCO2 52.7 mmHg (35-45); pH 7.46 (7.35-7.45)
[2022-12-04] MEDS: Sertraline 100 MG Tablet PO (12:44)
[2022-12-04] MEDS: Pantoprazole Sodium 40 MG Tablet PO (12:44)
[2022-12-04] MEDS: Metoprolol Tartrate 50 MG Tablet PO (12:45)
[2022-12-04] MEDS: Spironolactone 25 MG Tablet PO (12:45)
[2022-12-04] MEDS: Clopidogrel Bisulfate 75 MG Tablet PO (12:45)
[2022-12-04] MEDS: Calcium Carbonate 500 MG Tablet PO (12:59)
--- NOTE | 2022-12-04 13:00 | CASEMGMT ---
SW sent updates to [place]. Tootie Stuart [employer]
[2022-12-04] MEDS: HEPARIN/D5w 25,000 UNITS 25,000 UNITS/250 ML IV.SOLN. 4 UNITS CONT INF (17:27)
--- NOTE | 2022-12-04 20:51 | PN.HOSP_ITS ---
Hospitalist Note Patient with increasing setting needs on BIPAP, worsening from review of notes. On IV lasix q 8 hours. Will add aerosols and also obtain ABG. Noting that CODE status unverified. Prior CODE status was DNR-CCA, no intubation, verified with staff and patient and this is her correct code status thus will change to DNR- CCA, no intubation.
[2022-12-04 21:45] LABS: Allen Test Negative; Base Excess 13 mmol/L (-2 to +2); Bicarbonate 35.4 mmol/L (22-26); Blood Gas Specimen Type ART; FI02 90; Mode BiLevel; O2 Delivery Device BiPAP; PEEP 8; PO2 92 mmHG (75-100); SITE R Radial; SO2 98 % (95-99); Total Carbon Dioxide 37 mmol/L; pCO2 44.2 mmHg (35-45); pH 7.51 (7.35-7.45)
[2022-12-04] MEDS: Ipratropium/Albuterol Sulfate 3 ML AMPUL.NEB INHALATION (22:01)
[2022-12-05] VITALS (18 sets, daily range): BP systolic 101–132; BP diastolic 48–91; PULSE 64–95; RESP 12–36; TEMP 36.3–36.9; O2SAT 91–97
[2022-12-05] MEDS: Furosemide 40 MG/4 ML Vial IV ×3 (04:43→21:22)
[2022-12-05 06:15] LABS: Absolute Lymphocyte Count 1.28 X10^3/uL (0.83-4.51); Absolute Neutrophil Count 14.8 X10^3/uL (2.0-7.7); Basophil# 0.09 X10^3/uL; Basophil% 0.5 % (0-1); Eosinophil# 0.54 X10^3/uL; Eosinophils% 3.1 % (0-5); Hematocrit 30.4 % (37-47); Hemoglobin 10.1 g/dL (12.0-15.0); Lymphocyte # 1.28 X10^3/ul (0.83-4.51); Lymphocyte % 7.3 % (19-41); Mean Corp Hgb Conc 33.2 g/dL (32-36); Mean Corpuscular Hgb 31.3 pg (27.0-32.0); Mean Corpuscular Volume 94.1 fL (81-99); Mean Platelet Vol. 10.7 fl (6.2-12.0); Monocyte# 0.63 X10^3/uL; Monocyte% 3.6 % (0-10); NRBC Flagged by Analyzer 0 % (0-5); Neutrophil # 14.84 X10^3/uL (2.7-7.7); Neutrophil % 84.1 % (47-70); Platelet Count 310 K/mm3 (150-450); RBC Distribution Width SD 44.8 fl (35.1-43.9); Red Blood Count 3.23 M/mm3 (4.2-5.4); White Blood Count 17.6 K/mm3 (4.4-11.0)
--- NOTE | 2022-12-05 06:19 | PN.CC_ITS ---
Assessment & Plan Assessment/Plan (1) Acute hypoxemic respiratory failure: PLAN: Plan RECOMMENDATIONS: 1. Continue heparin infusion as ordered. 2. Continue empiric antimicrobials. 3. Continue scheduled diuretics as tolerated by hemodynamics and renal function. 4. Wean FiO2 for saturations greater than 90%. IMPRESSIONS: 1. Acute hypoxemic respiratory failure Most likely multifactorial in etiology with newly diagnosed bilateral pulmonary emboli superimposed upon bilateral groundglass opacities, which could be infectious or related to pulmonary edema. The patient has already been initiated on heparin, which will be continued without change. In addition, the patient will be maintained on scheduled diuretics as tolerated by hemodynamics and renal function. Plan to continue to wean FiO2 to maintain oxygen saturations at or above 90%. Continue antimicrobials as ordered. 2. Right displaced femoral neck fracture status post right hip hemiarthroplasty Continue routine postoperative care per orthopedic surgery. 3. History of coronary artery disease/hypertension/hyperlipidemia/valvular heart disease/hypothyroidism/GERD Complicates care, management, recovery and prognosis. Continue home medications as indicated. This note was generated with [employer] dictation software. It may contain incorrect words, spelling, and punctuation that were not noted in checking the note before signing. Subjective Subjective The patient was seen and examined at the bedside this morning. Events from the last 24 hours have been reviewed. The patient is currently afebrile, hemodynamically stable and maintaining appropriate oxygen saturations on Airvo with an FiO2 requirement of 90%. The patient is documented to be overall net +4.1 L for the hospitalization. White count remains elevated at 17,000. ABG obtained overnight demonstrated a pH of 7.5 with a PCO2 of 44 and PO2 of 92. Potassium is low at 3.1. CODE STATUS was confirmed overnight to be DNR CCA without intubation. Objective Data Objective Data The patient's most recent lab work, culture data and imaging studies have all been personally reviewed. Surface echocardiogram demonstrated moderate concentric LVH with an ejection fraction of 55% and stage I diastolic dysfunction. Pulmonary artery systolic pressure was estimated to be 70 mmHg. Vital Signs: Vital Signs Temp Pulse Resp BP Pulse Ox O2 Del Method O2 Flow Rate 97.6 F L 74 25 H 108/58 L 93 Bi-pap 50 12/05/22 04:40 12/05/22 04:40 12/05/22 04:40 12/05/22 04:40 12/05/22 04:40 12/05/22 04:40 12/04/22 12:15 FiO2 70 12/05/22 04:40 Oxygen Flow Rate (L/min) 50 Oxygen Delivery Method Bi-pap Weight: 145 lb 4.554 oz Body Mass Index (BMI) 28.3 Intake & Output: Intake and Output for Last 24 Hours 12/03/22 12/04/22 12/05/22 23:59 23:59 23:59 Intake Total 1641.08 / 1641.08 1120.19 / 1120.19 0 / 0 Output Total 950 / 950 1550 / 2300 750 / 750 Balance 691.08 / 691.08 -429.81 / -1179.81 -750 / -750 Lab / Micro Data Attestation: I reviewed the patient's lab results. Result Diagrams: 12/05/22 05:52 12/05/22 05:52 Labs: Laboratory Results - last 24 hr 12/04/22 09:35: B-Natriuretic Peptide 1018.2 H 12/04/22 09:35: Procalcitonin 0.28 H 12/05/22 05:52: WBC 17.6 H, RBC 3.23 L, Hgb 10.1 L, Hct 30.4 L, MCV 94.1, MCH 31.3, MCHC 33.2, RDW Std Deviation 44.8 H, RDW Coeff of Kwasi 13.0, Plt Count 310, MPV 10.7, Immature Gran % (Auto) 1.400 H, Neut % (Auto) 84.1 H, Lymph % (Auto) 7.3 L, [place] % (Auto) 3.6, Eos % (Auto) 3.1, Baso % (Auto) 0.5, Absolute Neuts (auto) 14.8 H, Absolute Lymphs (auto) 1.28, Nucleated RBC % 0 Micro: Microbiology 12/01/22 15:40 Mucosa - Nasopharyngeal Respiratory Panel (PCR) - Final 12/02/22 05:50 Mucosa - Nasopharyngeal Influenza Types A,B Direct FA (LIZANDRO) - Final ABG Data ABG results: ABG 12/04/22 12/04/22 11:43 21:38 Specimen Type ART ART Sample Site R Radial R Radial pH 7.46 H 7.51 H Bicarbonate Actual 37.8 H 35.4 H Total CO2 39 37 Base Excess 14 H 13 H O2 Saturation 99 98 O2 % 80 90 ABG pCO2 52.7 H 44.2 ABG pO2 149 H 92 Corby Test Positive Negative Respiration Rate 12 O2 Delivery Device BiPAP BiPAP Vent Mode BiLevel BiLevel POC PEEP 8 8 Clinical Comments 27/06 Radiography Diagnostic Testing: Radiology Impression Chest X-Ray 12/04/22 06:17 IMPRESSION: Persistent bilateral pulmonary infiltrates worse in the right hemithorax although there has been improved aeration as compared to prior study. Electronically Signed: Matthew Wood MD at 9:36 EST , Physical Exam Const no apparent distress Constitutional Narrative: More alert and interactive than yesterday. Sitting upright in bed. HEENT normocephalic, head/scalp atraumatic and moist oral mucous membranes Eyes PERRL, EOMs intact bilaterally and conjunctivae normal Neck supple General: trachea midline Chest inspection of chest normal Resp Auscultation: rales and diminished lung sounds Cardio regular rate and regular rhythm Heart Sounds: murmur GI normal to inspection, nondistended, normoactive bowel sounds Extremity no clubbing, cyanosis or edema Skin no rashes or lesions noted Neuro no focal motor deficits Psych Mood & Affect: flat affect Charges/Coding Visit Charges Inpatient E&M: 30862 [facility] Hosp L3
[2022-12-05 06:22] LABS: Partial Thromboplast Time 55.9 Seconds (24.1-36.2)
[2022-12-05] MEDS: Vancomycin IV 500 MG/100 ML BAG 100 MG IV ×2 (06:33→17:30)
[2022-12-05 06:53] LABS: Anion Gap 9 (5-15); BUN 19 mg/dL (7-18); BUN/Creat Ratio 24.2 RATIO (10-20); Calcium,Total 8.8 mg/dL (8.5-10.1); Chloride 91 mmol/L (98-107); Creatinine, Serum 0.78 mg/dL (0.55-1.02); EST Glomerular Filtration Rate 75 mL/min (>60); Est Glom Filt Rate - Afr Amer 91 mL/min (>60); Estimated Creatinine Clearance 32.77 ml/min; Glucose 114 mg/dL (74-106); Potassium 3.1 mmol/L (3.5-5.1); Sodium Level 136 mmol/L (136-145)
[2022-12-05 07:03] LABS: Vancomycin, Trough Level 15.5 ug/mL (5.0-15.0)
--- NOTE | 2022-12-05 07:20 | PCM.RX.CS ---
Consult Pharmacy has been consulted to manage selected antiobiotic: Vancomycin Type of Consult: Follow-up Suspected Infection: Pneumonia Prior Doses of Antibiotics Received/Current Regimen: 500MG IV Q12H. Labs: Sodium 136 mmol/L (136-145) 12/05/22 05:52 Potassium 3.1 mmol/L (3.5-5.1) L 12/05/22 05:52 Chloride 91 mmol/L (98-107) L 12/05/22 05:52 Carbon Dioxide 36.0 mmol/L (21.0-32.0) H 12/05/22 05:52 Anion Gap 9 (5-15) 12/05/22 05:52 BUN 19 mg/dL (7-18) H 12/05/22 05:52 Creatinine 0.78 mg/dL (0.55-1.02) 12/05/22 05:52 Est GFR (MDRD) Af Amer 91 mL/min (>60) 12/05/22 05:52 Est GFR (MDRD) Non-Af 75 mL/min (>60) 12/05/22 05:52 BUN/Creatinine Ratio 24.2 RATIO (10-20) H 12/05/22 05:52 Glucose 114 mg/dL (74-106) H 12/05/22 05:52 Vancomycin Trough 15.5 ug/mL (5.0-15.0) H 12/05/22 05:52 Microbiology: Microbiology 12/01/22 15:40 Mucosa - Nasopharyngeal Respiratory Panel (PCR) - Final 12/02/22 05:50 Mucosa - Nasopharyngeal Influenza Types A,B Direct FA (LIZANDRO) - Final Weight used for dosin.9 kg Estimated Creatinine Clearance: 33 ML/MIN Goal Trough: 15-20 mcg/mL Pharmacy Plan for Drug Dosing: Trough level today 15.5 and in goal range. Will continue same dose. Follow up trough level ordered for before another 4th dose per policy. Pharmacy Service will continue to monitor and adjust dosing as required. Follow-Up Labs: Trough Vancomycin - .. @1830 before 1900 dose
[2022-12-05] MEDS: Ipratropium/Albuterol Sulfate 3 ML AMPUL.NEB INHALATION ×4 (07:28→18:56)
[2022-12-05] MEDS: Menthol/Lanolin/Calamine/Znox 113 GM Tube 1 APPLIC TOPICAL ×2 (09:22→21:22)
--- NOTE | 2022-12-05 09:42 | PN.HOSP_ITS ---
Subjective Subjective Follow-up respiratory failure Patient seen currently on air Vo did discuss with nursing staff to wean it off. Did increase patient diuretic therapy the day prior. WBC count trending up. Objective Data Objective Data Vital Signs: Vital Signs Temp Pulse Resp BP Pulse Ox O2 Del Method O2 Flow Rate 97.6 F L 74 25 H 108/58 L 93 Airvo 50 12/05/22 09:12 12/05/22 09:22 12/05/22 09:12 12/05/22 09:22 12/05/22 09:12 12/05/22 09:14 12/04/22 12:15 FiO2 70 12/05/22 09:12 Oxygen Flow Rate (L/min) 50 Oxygen Delivery Method Airvo Weight: 65.9 kg Body Mass Index (BMI) 28.3 Intake & Output: Intake and Output for Last 24 Hours 12/03/22 12/04/22 12/05/22 23:59 23:59 23:59 Intake Total 1641.08 / 1641.08 1220.19 / 1220.19 160 / 160 Output Total 950 / 950 1550 / 2300 900 / 900 Balance 691.08 / 691.08 -329.81 / -1079.81 -740 / -740 Lab / Micro Data Result Diagrams: 12/05/22 05:52 12/05/22 05:52 Labs: Laboratory Results - last 24 hr 12/04/22 09:35: B-Natriuretic Peptide 1018.2 H 12/04/22 09:35: Procalcitonin 0.28 H 12/05/22 05:52: WBC 17.6 H, RBC 3.23 L, Hgb 10.1 L, Hct 30.4 L, MCV 94.1, MCH 31.3, MCHC 33.2, RDW Std Deviation 44.8 H, RDW Coeff of Kwasi 13.0, Plt Count 310, MPV 10.7, Immature Gran % (Auto) 1.400 H, Neut % (Auto) 84.1 H, Lymph % (Auto) 7.3 L, [place] % (Auto) 3.6, Eos % (Auto) 3.1, Baso % (Auto) 0.5, Absolute Neuts (auto) 14.8 H, Absolute Lymphs (auto) 1.28, Nucleated RBC % 0 12/05/22 05:52: Sodium 136, Potassium 3.1 L, Chloride 91 L, Carbon Dioxide 36.0 H, Anion Gap 9, BUN 19 H, Creatinine 0.78, Estim Creat Clear Calc 32.77, Est GFR (MDRD) Af Amer 91, Est GFR (MDRD) Non-Af 75, BUN/Creatinine Ratio 24.2 H, Glucose 114 H, Calcium 8.8 12/05/22 05:52: Vancomycin Trough 15.5 H 12/05/22 05:52: APTT 55.9 H Micro: Microbiology 12/01/22 15:40 Mucosa - Nasopharyngeal Respiratory Panel (PCR) - Final 12/02/22 05:50 Mucosa - Nasopharyngeal Influenza Types A,B Direct FA (LIZANDRO) - Final ABG Data ABG results: ABG 12/04/22 12/04/22 11:43 21:38 Specimen Type ART ART Sample Site R Radial R Radial pH 7.46 H 7.51 H Bicarbonate Actual 37.8 H 35.4 H Total CO2 39 37 Base Excess 14 H 13 H O2 Saturation 99 98 O2 % 80 90 ABG pCO2 52.7 H 44.2 ABG pO2 149 H 92 Corby Test Positive Negative Respiration Rate 12 O2 Delivery Device BiPAP BiPAP Vent Mode BiLevel BiLevel POC PEEP 8 8 Clinical Comments 27/06 Physical Exam Narrative GENERAL: Patient on Airvo HEENT: Atraumatic; normocephalic EYES; Anicteric, Normal Conjunctiva NECK; supple, normal thyroid, RESPIRATORY: Diminished to auscultation CARDIOVASCULAR: Regular S1-S2 tachycardic GI: soft, normoactive bowel sounds, : No Renal angle tenderness; EXTREMITIES: No edema, no clubbing, MUSCULOSKELETAL: no muscle wasting NEURO: Awake; no lateralizing signs. SKIN: No Rash PSYCH; Flat affect Assessment & Plan Assessment/Plan (1) Fracture of femoral neck, right, closed: PLAN: Plan Patient is a 77-year-old lady admitted with a fall was found to have right displaced femoral neck fracture for which he underwent right hip hemiarthro plasty. Patient was found to be hypoxic following the procedure CTA demonstrated bilateral pulmonary emboli superimposed on bilateral groundglass opacities. Was placed on noninvasive ventilation transferred from regular nursing floor to a monitored bed. 1. Fall with nondisplaced basilar cervical fracture of the proximal right femur Patient underwent right hemiarthroplasty on 11/28/2022. Postop. Complicated by hypoxia management as discussed below ? 12/03/2022; PT OT as tolerated 2. Acute hypoxic respiratory failure (developed after admission) ? Due to combination of suspected pneumonia with MDR's as well as bilateral pulmonary embolism as part of patient's management she was placed on noninvasive ventilation Airvo transferred to a monitored bed consultation placed to pulmonary medicine and treatment of the underlying etiology initiated ?12/03/2022; patient remains on supplemental oxygen via Vapotherm 12/04/2022. Patient went into acute respiratory distress during the night despi te being on Airvo patient had to be placed on BiPAP. Subsequent chest x-ray obtained demonstrated Persistent bilateral pulmonary infiltrates worse in the right hemithorax although there has been improved aeration as compared to prior study.. Diagnostic data significant for hypokalemia this AM. 12/05/2022; remains on noninvasive ventilation via Airvo 3. Bilateral pulmonary embolism ? Provoked given patient recent surgery. Started on heparin. 4. Hypertension - Blood pressure controlled, home medications continued with dose adjustment as needed 5. Hypothyroidism - Patient is on levothyroxine home dose continued 6. GERD ? Patient is on PPI 7. Depression ? Patient is on sertraline did continue 8. History of CVA ? With no residual effects patient is on Plavix continued 10. Coronary artery disease ? Per history patient is on dual antiplatelet therapy with aspirin and Plavix 11. Dyslipidemia ? Patient is on atorvastatin did continue 12. Hypokalemia ? Corrected per protocol repeat labs ordered for a.m. 12/04/2021; patient potassium level still remains low additional potassium given repeat potassium ordered for a.m. Time spent in the patient's overall evaluation,decision-making process, review of diagnostic data, adjustment of management, discussion with other providers, nursing nursing and ancillary staff involved in patient's care documentation, 36 -minutes Charges/Coding Visit Charges Inpatient E&M: 97682 Subs Hosp L2
[2022-12-05] MEDS: Potassium Chloride 10mEq/100mL 10 MEQ/100 ML IV.SOLN. 100 MEQ IV BOLUS ×4 (11:39→15:20)
[2022-12-05] MEDS: 0.9% Saline Lock 10 ML Syringe IV ×2 (14:06→21:22)
[2022-12-05] MEDS: traZODone 50 MG Tablet PO (21:21)
[2022-12-05] MEDS: Acetaminophen 325 MG Tablet 650 MG PO (21:21)
[2022-12-05] MEDS: Gabapentin 300 MG Capsule PO (21:21)
[2022-12-05] MEDS: Atorvastatin Calcium 40 MG Tablet PO (21:23)
[2022-12-05] MEDS: Metoprolol Tartrate 50 MG Tablet PO (21:23)
[2022-12-05] MEDS: Mirtazapine 15 MG Tablet 7.5 MG PO (21:24)
--- NOTE | 2022-12-05 23:22 | CPS ---
changed water on the airvo-asked pt if she would like to go on the bipap and pt refused at this time
[2022-12-06] VITALS (19 sets, daily range): BP systolic 98–148; BP diastolic 46–85; PULSE 59–86; RESP 12–32; TEMP 36.4–37.1; O2SAT 91–97
[2022-12-06] MEDS: Furosemide 40 MG/4 ML Vial IV ×3 (04:35→21:34)
[2022-12-06] MEDS: Vancomycin IV 500 MG/100 ML BAG 100 MG IV ×2 (06:09→17:30)
[2022-12-06] MEDS: Ipratropium/Albuterol Sulfate 3 ML AMPUL.NEB INHALATION ×3 (06:32→19:16)
[2022-12-06 06:50] LABS: Partial Thromboplast Time 50.8 Seconds (24.1-36.2)
--- NOTE | 2022-12-06 08:07 | PCM.PN.INT ---
Assessment & Plan Assessment/Plan (1) Acute hypoxemic respiratory failure: PLAN: Plan RECOMMENDATIONS: 1. Continue heparin infusion as ordered. 2. Continue empiric antimicrobials. 3. Continue scheduled diuretics as tolerated by hemodynamics and renal function. 4. Wean FiO2 for saturations greater than 90%. 5. Continue BiPAP therapy nightly. IMPRESSIONS: 1. Acute hypoxemic respiratory failure Most likely multifactorial in etiology with newly diagnosed bilateral pulmonary emboli superimposed upon bilateral groundglass opacities, which could be infectious or related to pulmonary edema. The patient has already been initiated on heparin, which will be continued without change. In addition, the patient will be maintained on scheduled diuretics as tolerated by hemodynamics and renal function. Plan to continue to wean FiO2 to maintain oxygen saturations at or above 90%. Continue antimicrobials as ordered. 2. Right displaced femoral neck fracture status post right hip hemiarthroplasty Continue routine postoperative care per orthopedic surgery. 3. History of coronary artery disease/hypertension/hyperlipidemia/valvular heart disease/hypothyroidism/GERD Complicates care, management, recovery and prognosis. Continue home medications as indicated. This note was generated with [employer] dictation software. It may contain incorrect words, spelling, and punctuation that were not noted in checking the note before signing. Subjective Subjective The patient was seen and examined at the bedside this morning. Events from the last 24 hours have been reviewed. The patient is currently afebrile, hemodynamically stable and maintaining appropriate oxygen saturations on Airvo heated high flow. The patient continues to be tolerant of BiPAP therapy overnight. She is currently documented to be overall net +3.7 L for the hospitalization. Creatinine remains stable. Objective Data Objective Data The patient's most recent lab work, culture data and imaging studies have all been personally reviewed. Surface echocardiogram demonstrated moderate concentric LVH with an ejection fraction of 55% and stage I diastolic dysfunction. Pulmonary artery systolic pressure was estimated to be 70 mmHg. Vital Signs: Vital Signs Temp Pulse Resp BP Pulse Ox O2 Del Method O2 Flow Rate 97.6 F L 74 25 H 108/58 L 93 Bi-pap 50 12/06/22 07:47 12/06/22 07:47 12/06/22 07:47 12/06/22 07:47 12/06/22 07:47 12/06/22 07:47 12/04/22 12:15 FiO2 70 12/06/22 07:47 Oxygen Flow Rate (L/min) 50 Oxygen Delivery Method Bi-pap Weight: 145 lb 4.554 oz Body Mass Index (BMI) 28.3 Intake & Output: Intake and Output for Last 24 Hours 12/04/22 12/05/22 12/06/22 23:59 23:59 23:59 Intake Total 1220.19 / 1220.19 840 / 890 361.2 / 361.2 Output Total 1550 / 2300 1925 / 2125 500 / 500 Balance -329.81 / -1079.81 -1085 / -1235 -138.8 / -138.8 Lab / Micro Data Attestation: I reviewed the patient's lab results. Result Diagrams: 12/05/22 05:52 12/06/22 06:10 Labs: Laboratory Results - last 24 hr 12/06/22 06:10: APTT 50.8 H Micro: Microbiology 12/01/22 15:40 Mucosa - Nasopharyngeal Respiratory Panel (PCR) - Final 12/02/22 05:50 Mucosa - Nasopharyngeal Influenza Types A,B Direct FA (LIZANDRO) - Final ABG Data ABG results: ABG 12/04/22 12/04/22 11:43 21:38 Specimen Type ART ART Sample Site R Radial R Radial pH 7.46 H 7.51 H Bicarbonate Actual 37.8 H 35.4 H Total CO2 39 37 Base Excess 14 H 13 H O2 Saturation 99 98 O2 % 80 90 ABG pCO2 52.7 H 44.2 ABG pO2 149 H 92 Corby Test Positive Negative Respiration Rate 12 O2 Delivery Device BiPAP BiPAP Vent Mode BiLevel BiLevel POC PEEP 8 8 Clinical Comments 27/06 Radiography Diagnostic Testing: Radiology Impression Chest X-Ray 12/04/22 06:17 IMPRESSION: Persistent bilateral pulmonary infiltrates worse in the right hemithorax although there has been improved aeration as compared to prior study. Electronically Signed: Matthew Wood MD at 9:36 EST , Physical Exam Const alert and no apparent distress Constitutional Narrative: Sitting upright in bed. General Appearance: cooperative HEENT normocephalic, head/scalp atraumatic and moist oral mucous membranes Eyes PERRL, EOMs intact bilaterally and conjunctivae normal Neck supple General: trachea midline Chest inspection of chest normal Resp Auscultation: rales bilateral and diminished lung sounds Cardio regular rate and regular rhythm Heart Sounds: murmur GI normal to inspection, nondistended, normoactive bowel sounds Extremity no clubbing, cyanosis or edema Skin no rashes or lesions noted Neuro no focal motor deficits Psych Mood & Affect: flat affect Charges/Coding Visit Charges Inpatient E&M: 89898 Subs Hosp L3
[2022-12-06 08:24] LABS: Anion Gap 8 (5-15); BUN 23 mg/dL (7-18); BUN/Creat Ratio 30.1 RATIO (10-20); Calcium,Total 9.1 mg/dL (8.5-10.1); Chloride 89 mmol/L (98-107); Creatinine, Serum 0.76 mg/dL (0.55-1.02); EST Glomerular Filtration Rate 78 mL/min (>60); Est Glom Filt Rate - Afr Amer 94 mL/min (>60); Estimated Creatinine Clearance 32.77 ml/min; Glucose 108 mg/dL (74-106); Potassium 3.3 mmol/L (3.5-5.1); Sodium Level 138 mmol/L (136-145)
--- NOTE | 2022-12-06 09:15 | PN.HOSP_ITS ---
Subjective Subjective Seen has been placed intermittently on BiPAP. Objective Data Objective Data Vital Signs: Vital Signs Temp Pulse Resp BP Pulse Ox O2 Del Method O2 Flow Rate 97.6 F L 74 25 H 108/58 L 93 Bi-pap 50 12/06/22 07:47 12/06/22 07:47 12/06/22 07:47 12/06/22 07:47 12/06/22 07:47 12/06/22 07:47 12/04/22 12:15 FiO2 70 12/06/22 07:47 Oxygen Flow Rate (L/min) 50 Oxygen Delivery Method Bi-pap Weight: 65.9 kg Body Mass Index (BMI) 28.3 Intake & Output: Intake and Output for Last 24 Hours 12/04/22 12/05/22 12/06/22 23:59 23:59 23:59 Intake Total 1220.19 / 1220.19 840 / 890 361.2 / 361.2 Output Total 1550 / 2300 1925 / 2125 500 / 500 Balance -329.81 / -1079.81 -1085 / -1235 -138.8 / -138.8 Lab / Micro Data Result Diagrams: 12/05/22 05:52 12/06/22 06:10 Labs: Laboratory Results - last 24 hr 12/06/22 06:10: APTT 50.8 H 12/06/22 06:10: Sodium 138, Potassium 3.3 L, Chloride 89 L, Carbon Dioxide 41.0 H, Anion Gap 8, BUN 23 H, Creatinine 0.76, Estim Creat Clear Calc 32.77, Est GFR (MDRD) Af Amer 94, Est GFR (MDRD) Non-Af 78, BUN/Creatinine Ratio 30.1 H, Glucose 108 H, Calcium 9.1 Micro: Microbiology 12/01/22 15:40 Mucosa - Nasopharyngeal Respiratory Panel (PCR) - Final 12/02/22 05:50 Mucosa - Nasopharyngeal Influenza Types A,B Direct FA (LIZANDRO) - Final Physical Exam Narrative GENERAL: Patient on Airvo HEENT: Atraumatic; normocephalic EYES; Anicteric, Normal Conjunctiva NECK; supple, normal thyroid, RESPIRATORY: Diminished to auscultation CARDIOVASCULAR: Regular S1-S2 tachycardic GI: soft, normoactive bowel sounds, : No Renal angle tenderness; EXTREMITIES: No edema, no clubbing, MUSCULOSKELETAL: no muscle wasting NEURO: Awake; no lateralizing signs. SKIN: No Rash PSYCH; Flat affect Assessment & Plan Assessment/Plan (1) Fracture of femoral neck, right, closed: PLAN: Plan Patient is a 77-year-old lady admitted with a fall was found to have right displaced femoral neck fracture for which he underwent right hip hemiarthroplasty. Patient was found to be hypoxic following the procedure CTA demonstrated bilateral pulmonary emboli superimposed on bilateral groundglass opacities. Was placed on noninvasive ventilation transferred from regular nursing floor to a monitored bed. 1. Fall with nondisplaced basilar cervical fracture of the proximal right femur Patient underwent right hemiarthroplasty on 11/28/2022. Postop. Complicated by hypoxia management as discussed below ? 12/03/2022; PT OT as tolerated 2. Acute hypoxic respiratory failure (developed after admission) ? Due to combination of suspected pneumonia with MDR's as well as bilateral pulmonary embolism as part of patient's management she was placed on noninvasive ventilation Airvo transferred to a monitored bed consultation placed to pulmonary medicine and treatment of the underlying etiology initiated ?12/03/2022; patient remains on supplemental oxygen via Vapotherm 12/04/2022. Patient went into acute respiratory distress during the night despite being on Airvo patient had to be placed on BiPAP. Subsequent chest x- ray obtained demonstrated Persistent bilateral pulmonary infiltrates worse in the right hemithorax although there has been improved aeration as compared to prior study.. Diagnostic data significant for hypokalemia this AM. 12/05/2022; remains on noninvasive ventilation via Airvo -12/06/2022 has been placed intermittently on BiPAP. Plan is to switch patient from heparin to p.o. Eliquis 3. Bilateral pulmonary embolism ? Provoked given patient recent surgery. Started on heparin. ? 12/06/2022; plan is to switch patient from heparin to p.o. Eliquis 4. Hypertension - Blood pressure controlled, home medications continued with dose adjustment as needed 5. Hypothyroidism - Patient is on levothyroxine home dose continued 6. GERD ? Patient is on PPI 7. Depression ? Patient is on sertraline did continue 8. History of CVA ? With no residual effects patient is on Plavix continued 10. Coronary artery disease ? Per history patient is on dual antiplatelet therapy with aspirin and Plavix 11. Dyslipidemia ? Patient is on atorvastatin did continue 12. Hypokalemia ? Corrected per protocol repeat labs ordered for a.m. 12/04/2021; patient potassium level still remains low additional potassium given repeat potassium ordered for a.m. Time spent in the patient's overall evaluation,decision-making process, review of diagnostic data, adjustment of management, discussion with other providers, nursing nursing and ancillary staff involved in patient's care documentation, 36 -minutes Charges/Coding Visit Charges Inpatient E&M: 44591 Subs Hosp L2
[2022-12-06] MEDS: Pantoprazole Sodium 40 MG Tablet PO (10:54)
[2022-12-06] MEDS: Spironolactone 25 MG Tablet PO (10:55)
[2022-12-06] MEDS: Clopidogrel Bisulfate 75 MG Tablet PO (10:55)
[2022-12-06] MEDS: Aspirin E.C. 81 MG Tablet PO (10:55)
[2022-12-06] MEDS: Calcium Carb/Vitamin D 1 TABLET Tablet PO ×2 (10:55→18:11)
[2022-12-06] MEDS: Sertraline 100 MG Tablet PO (10:55)
[2022-12-06] MEDS: Potassium Chloride Oral Tablet 20 MEQ PO ×2 (10:55→18:07)
[2022-12-06] MEDS: Senna/Docusate Sodium 1 Tablet 2 TABLET PO ×2 (10:55→21:35)
[2022-12-06] MEDS: Menthol/Lanolin/Calamine/Znox 113 GM Tube 1 APPLIC TOPICAL ×2 (10:57→21:33)
[2022-12-06] MEDS: Metoprolol Tartrate 50 MG Tablet PO ×2 (10:57→21:36)
--- NOTE | 2022-12-06 11:05 | NURSING ---
Meds crushed and given to pt in ice cream per pt request. Pt spit out meds.
[2022-12-06 11:20] LABS: Absolute Lymphocyte Count 1.45 X10^3/uL (0.83-4.51); Basophil# 0.11 X10^3/uL; Basophil% 0.6 % (0-1); Eosinophils% 4.4 % (0-5); Hematocrit 33.1 % (37-47); Lymphocyte # 1.45 X10^3/ul (0.83-4.51); Mean Corp Hgb Conc 33.2 g/dL (32-36); Mean Corpuscular Hgb 31.3 pg (27.0-32.0); Mean Platelet Vol. 11.4 fl (6.2-12.0); Monocyte# 0.49 X10^3/uL; Monocyte% 2.7 % (0-10); NRBC Flagged by Analyzer 0 % (0-5); Neutrophil # 14.97 X10^3/uL (2.7-7.7); Neutrophil % 82.4 % (47-70); Platelet Count 404 K/mm3 (150-450); RBC Distribution Width CV 13.1 % (11.6-14.6); RBC Distribution Width SD 44.6 fl (35.1-43.9); Red Blood Count 3.52 M/mm3 (4.2-5.4); White Blood Count 18.2 K/mm3 (4.4-11.0)
--- NOTE | 2022-12-06 11:48 | CASEMGMT ---
VASILE called Oliver at [facility], patient's caseworker intake and let her know patient is still in the hospital. Tootie Stuart ALMOND BLANCHER OPERATOR DINO
[2022-12-06] MEDS: Potassium Chloride 10mEq/100mL 10 MEQ/100 ML IV.SOLN. 100 MEQ IV BOLUS ×4 (11:52→16:15)
--- NOTE | 2022-12-06 11:57 | CASEMGMT ---
Updates sent to [place] via [facility]. SW let them know patient is still not ready for discharge. Tootie Stuart ANSWERING SERVICE TELEPHONE OPERATOR DIE ASSEMBLER
[2022-12-06 13:51] LABS: Partial Thromboplast Time 50.5 Seconds (24.1-36.2)
--- NOTE | 2022-12-06 17:24 | PN.ORTHO_ITS ---
Subjective Subjective Patient seen and examined. Patient status post right hip hemiarthroplasty performed on 11/28/2022. Postoperative course has been complicated by bilateral PE and suspected to have pneumonia. She has been on started on empiric antibiotics, heparin drip and noninvasive ventilation. At time my examination, patient denies any fevers, chills, chest pain, shortness of breath nausea or vomiting. She states her right hip feels fine and reports little pain. Objective Data Objective Data Vital Signs: Vital Signs Temp Pulse Resp BP Pulse Ox O2 Del Method O2 Flow Rate 97.6 F L 82 20 H 108/58 L 93 Airvo 50 12/06/22 14:40 12/06/22 15:13 12/06/22 15:13 12/06/22 14:40 12/06/22 15:13 12/06/22 14:43 12/04/22 12:15 FiO2 89 12/06/22 15:13 Oxygen Flow Rate (L/min) 50 Oxygen Delivery Method Airvo Weight: 145 lb 4.554 oz Body Mass Index (BMI) 28.3 Intake & Output: Intake and Output for Last 24 Hours 12/04/22 12/05/22 12/06/22 23:59 23:59 23:59 Intake Total 1220.19 / 1220.19 840 / 890 657.87 / 657.87 Output Total 1550 / 2300 1925 / 2125 850 / 850 Balance -329.81 / -1079.81 -1085 / -1235 -192.13 / -192.13 Lab / Micro Data Result Diagrams: 12/06/22 06:10 12/06/22 06:10 Labs: Laboratory Results - last 24 hr 12/06/22 06:10: APTT 50.8 H 12/06/22 06:10: Sodium 138, Potassium 3.3 L, Chloride 89 L, Carbon Dioxide 41.0 H, Anion Gap 8, BUN 23 H, Creatinine 0.76, Estim Creat Clear Calc 32.77, Est GFR (MDRD) Af Amer 94, Est GFR (MDRD) Non-Af 78, BUN/Creatinine Ratio 30.1 H, Glucose 108 H, Calcium 9.1 12/06/22 06:10: WBC 18.2 H, RBC 3.52 L, Hgb 11.0 L, Hct 33.1 L, MCV 94.0, MCH 31.3, MCHC 33.2, RDW Std Deviation 44.6 H, RDW Coeff of Kwasi 13.1, Plt Count 404, MPV 11.4, Immature Gran % (Auto) 1.900 H, Neut % (Auto) 82.4 H, Lymph % (Auto) 8.0 L, [place] % (Auto) 2.7, Eos % (Auto) 4.4, Baso % (Auto) 0.6, Absolute Neuts (auto) 15.0 H, Absolute Lymphs (auto) 1.45, Nucleated RBC % 0 12/06/22 13:17: APTT 50.5 H Micro: Microbiology 12/01/22 15:40 Mucosa - Nasopharyngeal Respiratory Panel (PCR) - Final 12/02/22 05:50 Mucosa - Nasopharyngeal Influenza Types A,B Direct FA (LIZANDRO) - Final Physical Exam Narrative General - A&Ox3, NAD. Right lower extremity-central saturation of the surgical dressing is noted with sanguinous drainage. Dressing removed. No active drainage is expressible. No fluctuance or induration. No erythema around the wound edges. Skin edges are well approximated with felisa. No pain with short arc range of motion internal or external rotation of the right hip. Leg lengths appear appropriate. Ankle DF, PF, EHL 5/5. Calves are soft and nontender bilaterally. Sensation intact light touch L3-S1 dermatomes. Assessment & Plan Assessment/Plan (1) Fracture of femoral neck, right, closed: PLAN: POD#8 s/p right hip hemiarthroplasty -Sanguinous drainage is noted from the right hip incision, as expected given therapeutic anticoagulation. Dry sterile dressing changes daily until drainage stops, then okay to leave open to air. Plan to follow-up 2 weeks pos toperatively. If patient is still in the hospital, I will plan to perform postoperative visit as an inpatient. Please do not hesitate to call if any questions or concerns arise in the interim. - Pain control - Medicine following for medical management - PT/OT -continue to mobilize as her lungs allow. Posterior precautions. Weightbearing as tolerated right lower extremity - DVT PPX -per primary
[2022-12-06] MEDS: Calcium Carbonate 500 MG Tablet PO (18:11)
[2022-12-06 20:50] LABS: Partial Thromboplast Time 80.2 Seconds (24.1-36.2)
[2022-12-06] MEDS: Acetaminophen 325 MG Tablet 650 MG PO (21:34)
[2022-12-06] MEDS: traZODone 50 MG Tablet PO (21:34)
[2022-12-06] MEDS: Gabapentin 300 MG Capsule PO (21:34)
[2022-12-06] MEDS: Atorvastatin Calcium 40 MG Tablet PO (21:34)
[2022-12-06] MEDS: Mirtazapine 15 MG Tablet 7.5 MG PO (21:35)
--- NOTE | 2022-12-06 22:51 | NURSING ---
Attempt by this RN and RT to place pt on BIPAP, pt became extremely anxious and unable to be redirected. and requests aervo be placed. pt noted SP02 94% at this time. bed alarm junction maker light within reach will monitor.
[2022-12-07] VITALS (18 sets, daily range): BP systolic 126–145; BP diastolic 45–64; PULSE 74–115; RESP 12–38; TEMP 36.6–37.2; O2SAT 86–100
--- NOTE | 2022-12-07 02:19 | NURSING ---
Pt is refusing to wear BIPAP at this time. RT updated, airvo and continuous SP02 remain intact. will monitor.
--- NOTE | 2022-12-07 02:24 | NURSING ---
pt is refusing to wear BIPAP at this time, mouth care provided per pt request, RT updated, continuous SP02 remains at bedside. will monitor.
[2022-12-07] MEDS: 0.9% Saline Lock 10 ML Syringe IV ×4 (04:54→22:43)
[2022-12-07] MEDS: Furosemide 40 MG/4 ML Vial IV ×3 (04:54→22:25)
[2022-12-07] MEDS: HEPARIN/D5w 25,000 UNITS 25,000 UNITS/250 ML IV.SOLN. 5 UNITS CONT INF (04:55)
[2022-12-07 05:48] LABS: Absolute Lymphocyte Count 1.22 X10^3/uL (0.83-4.51); Basophil# 0.14 X10^3/uL; Basophil% 0.9 % (0-1); Eosinophil# 0.99 X10^3/uL; Hematocrit 34.5 % (37-47); Hemoglobin 11.3 g/dL (12.0-15.0); Lymphocyte # 1.22 X10^3/ul (0.83-4.51); Lymphocyte % 7.4 % (19-41); Mean Corp Hgb Conc 32.8 g/dL (32-36); Mean Corpuscular Hgb 30.6 pg (27.0-32.0); Mean Corpuscular Volume 93.5 fL (81-99); Mean Platelet Vol. 10.7 fl (6.2-12.0); Monocyte# 0.57 X10^3/uL; Monocyte% 3.5 % (0-10); NRBC Flagged by Analyzer 0.1 % (0-5); Neutrophil # 12.99 X10^3/uL (2.7-7.7); Neutrophil % 78.9 % (47-70); Platelet Count 465 K/mm3 (150-450); RBC Distribution Width SD 44.6 fl (35.1-43.9); Red Blood Count 3.69 M/mm3 (4.2-5.4); White Blood Count 16.5 K/mm3 (4.4-11.0)
[2022-12-07 06:11] LABS: Anion Gap 9 (5-15); BUN 25 mg/dL (7-18); BUN/Creat Ratio 31.5 RATIO (10-20); Calcium,Total 9.5 mg/dL (8.5-10.1); Chloride 90 mmol/L (98-107); Creatinine, Serum 0.79 mg/dL (0.55-1.02); EST Glomerular Filtration Rate 74 mL/min (>60); Est Glom Filt Rate - Afr Amer 90 mL/min (>60); Estimated Creatinine Clearance 32.77 ml/min; Glucose 105 mg/dL (74-106); Phosphorus 3.3 mg/dL (2.5-4.9); Potassium 4.1 mmol/L (3.5-5.1); Sodium Level 136 mmol/L (136-145)
--- NOTE | 2022-12-07 06:16 | RAD_ITS ---
STUDY: X-RAY CHEST REASON FOR EXAM: Female, 77 years old patient with hypoxia. TECHNIQUE: Single AP portable view of the chest. COMPARISON: December 04, 2022. FINDINGS: Cardiac monitoring leads are present. Lungs are mildly underexpanded. There are bilateral heterogeneous air space consolidations in both lungs in addition to ground glass attenuation. There are bilateral small pleural effusions. There is borderline cardiomegaly. Normal mediastinum and dave. Normal visualized pulmonary arteries. There is atherosclerotic calcification of the aortic arch with tortuosity. There is demineralization of the osseous structures. Normal visualized ribs, clavicles, and shoulders. There is no demonstrated abnormality of the visualized soft tissue structures of the upper abdomen. RAD/Chest 1 View (Portable) IMPRESSION: Findings suggest bilateral multifocal pneumonia. Electronically Signed: Amanda Chaudhari MD at 7:17 EST ,
[2022-12-07 06:22] LABS: Vancomycin, Trough Level 22.1 ug/mL (5.0-15.0)
--- NOTE | 2022-12-07 06:29 | PCM.RX.CS ---
Consult Pharmacy has been consulted to manage selected antiobiotic: Vancomycin Type of Consult: Follow-up Labs: Sodium 136 mmol/L (136-145) 12/07/22 05:35 Potassium 4.1 mmol/L (3.5-5.1) 12/07/22 05:35 Chloride 90 mmol/L (98-107) L 12/07/22 05:35 Carbon Dioxide 37.0 mmol/L (21.0-32.0) H 12/07/22 05:35 Anion Gap 9 (5-15) 12/07/22 05:35 BUN 25 mg/dL (7-18) H 12/07/22 05:35 Creatinine 0.79 mg/dL (0.55-1.02) 12/07/22 05:35 Est GFR (MDRD) Af Amer 90 mL/min (>60) 12/07/22 05:35 Est GFR (MDRD) Non-Af 74 mL/min (>60) 12/07/22 05:35 BUN/Creatinine Ratio 31.5 RATIO (10-20) H 12/07/22 05:35 Glucose 105 mg/dL (74-106) 12/07/22 05:35 Vancomycin Trough 22.1 ug/mL (5.0-15.0) H 12/07/22 05:35 Microbiology: Microbiology 12/01/22 15:40 Mucosa - Nasopharyngeal Respiratory Panel (PCR) - Final 12/02/22 05:50 Mucosa - Nasopharyngeal Influenza Types A,B Direct FA (LIZANDRO) - Final Goal Trough: 10-15 mcg/mL Pharmacy Plan for Drug Dosing: Pharmacy Service will continue to monitor and adjust dosing as required. TROUGH 22.1 @ 12 HRS. HOLD CURRENT DOSE AND DRAW RANDOM TROUGH IN 18 HOURS (GOAL 10-15) Follow-Up Labs: Trough Vancomycin Labs to be done on [date and time ordered]: 12/07 @ 2440
[2022-12-07] MEDS: Ipratropium/Albuterol Sulfate 3 ML AMPUL.NEB INHALATION ×3 (07:08→19:10)
[2022-12-07 07:15] LABS: Partial Thromboplast Time 63.7 Seconds (24.1-36.2)
--- NOTE | 2022-12-07 07:32 | ECHOD_ITS ---
Reason For Study: DYSPNEA Procedure This was a 2D Doppler, Color Flow transthoracic echocardiogram. Technically difficult study. Patient was in a lot of pain. patient scanned supine. Exam performed portable in patient room. Left Ventricle Moderate eccentric left ventricular hypertrophy. The estimated ejection fraction is 55-60 %. Right Ventricle Normal right ventricle. Normal systolic function. Atria The left atrium is moderately enlarged. Normal right atrium. Mitral Valve There is moderate to severe mitral annular calcification. Mild (1+) mitral valve insufficiency. Tricuspid Valve Normal tricuspid valve. Trivial tricuspid valve insufficiency. Aortic Valve Moderate diffuse aortic valve calcification. Mild (1+) aortic valve insufficiency. Pulmonic Valve The pulmonic valve is not well visualized. Great Vessels Normal aortic root. MMode/2D Measurements & Calculations LVOT diam: 2.0 cm Ao root diam: 3.4 cm LAV(MOD-sp4): 65.6 ml LVOT area: 3.2 cm2 LA A4 area: 22.3 cm2 LA dimension(2D): 4.1 cm RA A4 area: 10.8 cm2 Time Measurements MV dec time: 0.34 sec Doppler Measurements & Calculations MV E max ki: 98.2 cm/sec Lat Peak E' Ki: 6.1 cm/sec Med Peak E' Ki: 3.9 cm/sec MV A max ki: 151.0 cm/sec E/E' lat: 16.1 E/E' med: 25.2 MV E/A: 0.65 MV V2 max: 146.7 cm/sec MV dec slope: 298.5 cm/sec2 Ao V2 max: 254.8 cm/sec MV max P.7 mmHg Ao max P.1 mmHg MV V2 mean: 79.8 cm/sec Ao V2 mean: 194.9 cm/sec MV mean P.0 mmHg Ao mean P.6 mmHg MV V2 VTI: 39.1 cm Ao V2 VTI: 48.2 cm PA V2 max: 105.4 cm/sec TR max ki: 373.7 cm/sec PA V2 mean: 69.1 cm/sec TR max P.9 mmHg ECHO/Echo Complete Interpretation Summary The estimated ejection fraction is 55-60 %. Grade #2 Diastolic dydfunction No significant changes from previous echo. Ordering Physician: [place] Referring Physician: Gal Butler Performed By: Margie Torres RCS
--- NOTE | 2022-12-07 07:32 | PN.CC_ITS ---
Assessment & Plan Assessment/Plan (1) Acute hypoxemic respiratory failure: PLAN: Plan RECOMMENDATIONS: 1. Continue heparin infusion as ordered. 2. Continue BiPAP therapy and wean FiO2 for saturations greater than 90%. 3. Continue empiric broad-spectrum antimicrobials. 4. Ongoing diuresis as tolerated by hemodynamics and renal function. 5. Obtain follow-up chest x-ray and BNP this morning. 6. Recheck respiratory viral panel. IMPRESSIONS: 1. Acute hypoxemic respiratory failure Most likely multifactorial in etiology with newly diagnosed bilateral pulmonary emboli superimposed upon bilateral groundglass opacities, which could be infectious or related to pulmonary edema. The patient has already been initiated on heparin, which will be continued without change. In addition, the patient will be maintained on scheduled diuretics as tolerated by hemodynamics and renal function. Plan to continue to wean FiO2 to maintain oxygen saturations at or above 90%. Continue antimicrobials as ordered. CODE STATUS remains DNR CCA without intubation. 2. Right displaced femoral neck fracture status post right hip hemiarthroplasty Continue routine postoperative care per orthopedic surgery. 3. History of coronary artery disease/hypertension/hyperlipidemia/valvular heart disease/hypothyroidism/GERD Complicates care, management, recovery and prognosis. Continue home medications as indicated. This note was generated with [employer] dictation software. It may contain incorrect words, spelling, and punctuation that were not noted in checking the note before signing. Subjective Subjective The patient was seen and examined at the bedside this morning. Events from the last 24 hours have been reviewed. The patient is currently afebrile, hemodynamically stable and maintaining appropriate oxygen saturations on BiPAP with an FiO2 of 85%. The patient is currently documented to be overall net +3.8 L for the hospitalization. She remains on IV Lasix every 8 hours. The patient remains short of breath. Objective Data Objective Data The patient's most recent lab work, culture data and imaging studies have all been personally reviewed. Surface echocardiogram demonstrated moderate concentric LVH with an ejection fraction of 55% and stage I diastolic dysfunction. Pulmonary artery systolic pressure was estimated to be 70 mmHg. Vital Signs: Vital Signs Temp Pulse Resp BP Pulse Ox O2 Del Method O2 Flow Rate 97.9 F 76 30 H 142/49 H 94 Bi-pap 50 12/07/22 04:49 12/07/22 07:08 12/07/22 07:08 12/07/22 04:49 12/07/22 07:08 12/07/22 07:08 12/07/22 02:15 FiO2 85 12/07/22 07:08 Oxygen Flow Rate (L/min) 50 Oxygen Delivery Method Bi-pap Weight: 145 lb 4.554 oz Body Mass Index (BMI) 28.3 Intake & Output: Intake and Output for Last 24 Hours 12/05/22 12/06/22 12/07/22 23:59 23:59 23:59 Intake Total 840 / 890 1243.37 / 1303.37 136.63 / 136.63 Output Total 1925 / 2125 1150 / 1450 300 / 300 Balance -1085 / -1235 93.37 / -146.63 -163.37 / -163.37 Lab / Micro Data Attestation: I reviewed the patient's lab results. Result Diagrams: 12/07/22 05:35 12/07/22 05:35 Labs: Laboratory Results - last 24 hr 12/06/22 06:10: Sodium 138, Potassium 3.3 L, Chloride 89 L, Carbon Dioxide 41.0 H, Anion Gap 8, BUN 23 H, Creatinine 0.76, Estim Creat Clear Calc 32.77, Est GFR (MDRD) Af Amer 94, Est GFR (MDRD) Non-Af 78, BUN/Creatinine Ratio 30.1 H, Glucose 108 H, Calcium 9.1 12/06/22 06:10: WBC 18.2 H, RBC 3.52 L, Hgb 11.0 L, Hct 33.1 L, MCV 94.0, MCH 31.3, MCHC 33.2, RDW Std Deviation 44.6 H, RDW Coeff of Kwasi 13.1, Plt Count 404, MPV 11.4, Immature Gran % (Auto) 1.900 H, Neut % (Auto) 82.4 H, Lymph % (Auto) 8.0 L, [place] % (Auto) 2.7, Eos % (Auto) 4.4, Baso % (Auto) 0.6, Absolute Neuts (auto) 15.0 H, Absolute Lymphs (auto) 1.45, Nucleated RBC % 0 12/06/22 13:17: APTT 50.5 H 12/06/22 20:33: APTT 80.2 H 12/07/22 05:35: WBC 16.5 H, RBC 3.69 L, Hgb 11.3 L, Hct 34.5 L, MCV 93.5, MCH 30.6, MCHC 32.8, RDW Std Deviation 44.6 H, RDW Coeff of Kwasi 13.0, Plt Count 465 H, MPV 10.7, Immature Gran % (Auto) 3.300 H, Neut % (Auto) 78.9 H, Lymph % (Auto) 7.4 L, [place] % (Auto) 3.5, Eos % (Auto) 6.0 H, Baso % (Auto) 0.9, Absolute Neuts (auto) 13.0 H, Absolute Lymphs (auto) 1.22, Nucleated RBC % 0.1 12/07/22 05:35: Sodium 136, Potassium 4.1, Chloride 90 L, Carbon Dioxide 37.0 H, Anion Gap 9, BUN 25 H, Creatinine 0.79, Estim Creat Clear Calc 32.77, Est GFR (MDRD) Af Amer 90, Est GFR (MDRD) Non-Af 74, BUN/Creatinine Ratio 31.5 H, Glucose 105, Calcium 9.5, Phosphorus 3.3, Magnesium 2.0 12/07/22 05:35: Vancomycin Trough 22.1 H 12/07/22 06:40: APTT 63.7 H Micro: Microbiology 12/01/22 15:40 Mucosa - Nasopharyngeal Respiratory Panel (PCR) - Final 12/02/22 05:50 Mucosa - Nasopharyngeal Influenza Types A,B Direct FA (LIZANDRO) - Final ABG Data ABG results: ABG 12/04/22 12/04/22 11:43 21:38 Specimen Type ART ART Sample Site R Radial R Radial pH 7.46 H 7.51 H Bicarbonate Actual 37.8 H 35.4 H Total CO2 39 37 Base Excess 14 H 13 H O2 Saturation 99 98 O2 % 80 90 ABG pCO2 52.7 H 44.2 ABG pO2 149 H 92 [place] Test Positive Negative Respiration Rate 12 O2 Delivery Device BiPAP BiPAP Vent Mode BiLevel BiLevel POC PEEP 8 8 Clinical Comments 27/06 Radiography Diagnostic Testing: Radiology Impression Chest X-Ray 12/07/22 06:16 IMPRESSION: Findings suggest bilateral multifocal pneumonia. Electronically Signed: Amanda Chaudhari MD at 7:17 EST , Physical Exam Const alert Constitutional Narrative: Sitting upright in bed. On BiPAP. Fatigued in appearance. HEENT normocephalic and head/scalp atraumatic Eyes PERRL, EOMs intact bilaterally and conjunctivae normal Neck supple General: trachea midline Chest inspection of chest normal Resp Effort and Inspection: tachypneic Auscultation: rales bilateral and diminished lung sounds Cardio regular rate and regular rhythm Heart Sounds: murmur GI normal to inspection, nondistended, normoactive bowel sounds Extremity no clubbing, cyanosis or edema Skin no rashes or lesions noted Neuro no focal motor deficits Psych Mood & Affect: flat affect Charges/Coding Visit Charges Inpatient E&M: 77128 Subs Hosp L3
--- NOTE | 2022-12-07 07:50 | PN.HOSP_ITS ---
Subjective Subjective Patient seen still requiring significant amount of oxygen. Repeat chest x-ray did show bilateral multifocal pneumonia. Patient remains on broad-spectrum antibiotic therapy. Did update patient's [id number] who happens to be a physician. Plan is to repeat CT of the chest to evaluate patient's clot burden Objective Data Objective Data Vital Signs: Vital Signs Temp Pulse Resp BP Pulse Ox O2 Del Method O2 Flow Rate 97.9 F 76 30 H 142/49 H 94 Bi-pap 50 12/07/22 04:49 12/07/22 07:08 12/07/22 07:08 12/07/22 04:49 12/07/22 07:08 12/07/22 07:08 12/07/22 02:15 FiO2 85 12/07/22 07:08 Oxygen Flow Rate (L/min) 50 Oxygen Delivery Method Bi-pap Weight: 65.9 kg Body Mass Index (BMI) 28.3 Intake & Output: Intake and Output for Last 24 Hours 12/05/22 12/06/22 12/07/22 23:59 23:59 23:59 Intake Total 840 / 890 1243.37 / 1303.37 136.63 / 136.63 Output Total 1925 / 2125 1150 / 1450 300 / 300 Balance -1085 / -1235 93.37 / -146.63 -163.37 / -163.37 Lab / Micro Data Result Diagrams: 12/07/22 05:35 12/07/22 05:35 Labs: Laboratory Results - last 24 hr 12/06/22 06:10: Sodium 138, Potassium 3.3 L, Chloride 89 L, Carbon Dioxide 41.0 H, Anion Gap 8, BUN 23 H, Creatinine 0.76, Estim Creat Clear Calc 32.77, Est GFR (MDRD) Af Amer 94, Est GFR (MDRD) Non-Af 78, BUN/Creatinine Ratio 30.1 H, Glucose 108 H, Calcium 9.1 12/06/22 06:10: WBC 18.2 H, RBC 3.52 L, Hgb 11.0 L, Hct 33.1 L, MCV 94.0, MCH 31.3, MCHC 33.2, RDW Std Deviation 44.6 H, RDW Coeff of Kwasi 13.1, Plt Count 404, MPV 11.4, Immature Gran % (Auto) 1.900 H, Neut % (Auto) 82.4 H, Lymph % (Auto) 8.0 L, [place] % (Auto) 2.7, Eos % (Auto) 4.4, Baso % (Auto) 0.6, Absolute Neuts (auto) 15.0 H, Absolute Lymphs (auto) 1.45, Nucleated RBC % 0 12/06/22 13:17: APTT 50.5 H 12/06/22 20:33: APTT 80.2 H 12/07/22 05:35: WBC 16.5 H, RBC 3.69 L, Hgb 11.3 L, Hct 34.5 L, MCV 93.5, MCH 30.6, MCHC 32.8, RDW Std Deviation 44.6 H, RDW Coeff of Kwasi 13.0, Plt Count 465 H, MPV 10.7, Immature Gran % (Auto) 3.300 H, Neut % (Auto) 78.9 H, Lymph % (Auto) 7.4 L, [place] % (Auto) 3.5, Eos % (Auto) 6.0 H, Baso % (Auto) 0.9, Absolute Neuts (auto) 13.0 H, Absolute Lymphs (auto) 1.22, Nucleated RBC % 0.1 12/07/22 05:35: Sodium 136, Potassium 4.1, Chloride 90 L, Carbon Dioxide 37.0 H, Anion Gap 9, BUN 25 H, Creatinine 0.79, Estim Creat Clear Calc 32.77, Est GFR (MDRD) Af Amer 90, Est GFR (MDRD) Non-Af 74, BUN/Creatinine Ratio 31.5 H, Glucose 105, Calcium 9.5, Phosphorus 3.3, Magnesium 2.0 12/07/22 05:35: Vancomycin Trough 22.1 H 12/07/22 06:40: APTT 63.7 H Micro: Microbiology 12/01/22 15:40 Mucosa - Nasopharyngeal Respiratory Panel (PCR) - Final 12/02/22 05:50 Mucosa - Nasopharyngeal Influenza Types A,B Direct FA (LIZANDRO) - Final Radiography Diagnostic Testing: Radiology Impression Chest X-Ray 12/07/22 06:16 IMPRESSION: Findings suggest bilateral multifocal pneumonia. Electronically Signed: Amanda Chaudhari MD at 7:17 EST , Physical Exam Narrative GENERAL: Patient on Airvo HEENT: Atraumatic; normocephalic EYES; Anicteric, Normal Conjunctiva NECK; supple, normal thyroid, RESPIRATORY: Diminished to auscultation CARDIOVASCULAR: Regular S1-S2 tachycardic GI: soft, normoactive bowel sounds, : No Renal angle tenderness; EXTREMITIES: No edema, no clubbing, MUSCULOSKELETAL: no muscle wasting NEURO: Awake; no lateralizing signs. SKIN: No Rash PSYCH; Flat affect Assessment & Plan Assessment/Plan (1) Fracture of femoral neck, right, closed: PLAN: Plan Patient is a 77-year-old lady admitted with a fall was found to have right displaced femoral neck fracture for which he underwent right hip hemiarthroplasty. Patient was found to be hypoxic following the procedure CTA demonstrated bilateral pulmonary emboli superimposed on bilateral groundglass opacities. Was placed on noninvasive ventilation transferred from regular nursing floor to a monitored bed. 1. Fall with nondisplaced basilar cervical fracture of the proximal right femur Patient underwent right hemiarthroplasty on 11/28/2022. Postop. Complicated by hypoxia management as discussed below ? 12/03/2022; PT OT as tolerated 2. Acute hypoxic respiratory failure (developed after admission) ? Due to combination of suspected pneumonia with MDR's as well as bilateral pulmonary embolism as part of patient's management she was placed on noninvasive ventilation Airvo transferred to a monitored bed consultation placed to pulmonary medicine and treatment of the underlying etiology initiated ?12/03/2022; patient remains on supplemental oxygen via Vapotherm 12/04/2022. Patient went into acute respiratory distress during the night despite being on Airvo patient had to be placed on BiPAP. Subsequent chest x- ray obtained demonstrated Persistent bilateral pulmonary infiltrates worse in the right hemithorax although there has been improved aeration as compared to prior study.. Diagnostic data significant for hypokalemia this AM. 12/05/2022; remains on noninvasive ventilation via Airvo -12/06/2022 has been placed intermittently on BiPAP. Plan is to switch patient from heparin to p.o. Eliquis -12/07/2022; Patient seen still requiring significant amount of oxygen. Repeat chest x-ray did show bilateral multifocal pneumonia. Patient remains on broad- spectrum antibiotic therapy. Did update patient's [id number] who happens to be a physician. Plan is to repeat CT of the chest to evaluate patient's clot burden 3. Bilateral pulmonary embolism ? Provoked given patient recent surgery. Started on heparin. ? 12/06/2022; plan is to switch patient from heparin to p.o. Eliquis 4. Pneumonia ? With suspected multidrug-resistant organisms. Patient remains on meropenem and vancomycin. 5. Hypothyroidism - Patient is on levothyroxine home dose continued 6. GERD ? Patient is on PPI 7. Depression ? Patient is on sertraline did continue 8. History of CVA ? With no residual effects patient is on Plavix continued 10. Coronary artery disease ? Per history patient is on dual antiplatelet therapy with aspirin and Plavix 11. Dyslipidemia ? Patient is on atorvastatin did continue 12. Hypokalemia ? Corrected per protocol repeat labs ordered for a.m. 12/04/2021; patient potassium level still remains low additional potassium given repeat potassium ordered for a.m. 13. Hypertension - Blood pressure controlled, home medications continued with dose adjustment as needed Time spent in the patient's overall evaluation,decision-making process, review of diagnostic data, adjustment of management, discussion with other providers, nursing nursing and ancillary staff involved in patient's care documentation, 36 -minutes
[2022-12-07 09:54] LABS: BNP,B-Type NATRIURETIC PEPTIDE 320.7 pg/mL (0-100)
--- NOTE | 2022-12-07 11:23 | CT_ITS ---
STUDY: CTA CHEST REASON FOR EXAM: Female, 77 years old. Shortness of breath and cough, known PE RADIATION DOSAGE (If Supplied By Facility): CTDIvol = ( 11.90 ) mGy, DLP = ( 444.84 ) mGycm TECHNIQUE: The examination was performed with the intravenous administration of IV 75mL Isovue-370. Post-processing of the angiographic images was performed, with multiplanar reformation and 3D reconstruction. Individualized dose optimization techniques were used for this CT. COMPARISON: 12/02/2022 FINDINGS: Persistent low-density thrombus noted within multiple pulmonary arteries. However, there has been overall improvement compared to the previous study with decreased amount of thrombus noted. Again noted is a low-density thrombus within the distal aspect of the left main pulmonary artery with thrombus again noted in the left upper and lower lobes as well as in the right lower lobe. Again the amount of thrombus has decreased overall since the previous study, continued follow-up recommended to ensure complete resolution. There is persistent evidence of right heart strain with bowing of the septum into the left ventricle. Normal thoracic aorta and visualized great vessels. There is no demonstrated aortic dissection. Normal heart and pericardium. There are calcifications of the coronary arteries. Persistent subcentimeter in short axis dimension mediastinal and perihilar lymph nodes. There is peribronchial thickening. The lungs are well expanded. Lung windows show persistent diffuse groundglass opacifications throughout both lung faustin again noted in a mosaic pattern. If anything, the opacifications have worsened since the previous study. No demonstrated effusion. Normal pleura. Normal chest wall structures. There are degenerative changes of thoracic spine. Limited cuts through the upper abdomen do not show suspicious abnormality. CT/CTA Chest W/WO Contrast IMPRESSION: Persistent evidence of bilateral PE. However when compared to the previous study there is slightly less thrombus burden on current study when compared to the previous study. Continued follow-up recommended to ensure complete resolution Persistent evidence of right heart strain with bowing of the septum to the left ventricle Persistent diffuse groundglass opacification throughout both lung faustin which anything of worsened since the previous study. Follow-up recommended to ensure resolution Persistent physiologic mediastinal and perihilar lymph nodes Degenerative bony changes Electronically Signed: Juan Ramon Spencer MD at 12:53 EST ,
[2022-12-07] MEDS: Menthol/Lanolin/Calamine/Znox 113 GM Tube 1 APPLIC TOPICAL ×2 (11:43→21:24)
[2022-12-07 12:57] LABS: Partial Thromboplast Time 57.1 Seconds (24.1-36.2)
[2022-12-07] MEDS: Metoprolol Tartrate 5 MG/5 ML Vial IV (21:24)
--- NOTE | 2022-12-07 22:35 | NURSING ---
Patient became extremely anxious, pulling off BIPAP-hitting nurse to get off. Oxygen dropped to 50s, was able to get BIPAP back on. Patient requested to have son Matt called-RN called with no answer. Will continue to monitor.
[2022-12-07] MEDS: LORazepam 2 MG/ML Syringe 0.25 MG IV (22:43)
[2022-12-08 00:01] VITALS: BP 146/58; PULSE 94; RESP 20; TEMP 36.5; O2SAT 96
[2022-12-08 00:51] LABS: Vancomycin, Random Level 14.3 ug/mL (0.0-15.0)
--- NOTE | 2022-12-08 01:10 | PCM.RX.CS ---
Consult Pharmacy has been consulted to manage selected antiobiotic: Vancomycin Type of Consult: Follow-up Labs: Sodium 136 mmol/L (136-145) 12/07/22 05:35 Potassium 4.1 mmol/L (3.5-5.1) 12/07/22 05:35 Chloride 90 mmol/L (98-107) L 12/07/22 05:35 Carbon Dioxide 37.0 mmol/L (21.0-32.0) H 12/07/22 05:35 Anion Gap 9 (5-15) 12/07/22 05:35 BUN 25 mg/dL (7-18) H 12/07/22 05:35 Creatinine 0.79 mg/dL (0.55-1.02) 12/07/22 05:35 Est GFR (MDRD) Af Amer 90 mL/min (>60) 12/07/22 05:35 Est GFR (MDRD) Non-Af 74 mL/min (>60) 12/07/22 05:35 BUN/Creatinine Ratio 31.5 RATIO (10-20) H 12/07/22 05:35 Glucose 105 mg/dL (74-106) 12/07/22 05:35 Vancomycin Trough 22.1 ug/mL (5.0-15.0) H 12/07/22 05:35 Random Vancomycin 14.3 ug/mL (0.0-15.0) 12/07/22 23:40 Microbiology: Microbiology 12/07/22 07:57 Mucosa - Nasopharyngeal Respiratory Panel (PCR) - Final 12/01/22 15:40 Mucosa - Nasopharyngeal Respiratory Panel (PCR) - Final 12/02/22 05:50 Mucosa - Nasopharyngeal Influenza Types A,B Direct FA (LIZANDRO) - Final Goal Trough: 10-15 mcg/mL Pharmacy Plan for Drug Dosing: Pharmacy Service will continue to monitor and adjust dosing as required. RANDOM LEVEL 14.3 @ 30 HOURS. START 500MG Q24 HOURS AND FOLLOW UP TROUGH PRIOR TO 3RD DOSE Follow-Up Labs: Trough Vancomycin Labs to be done on [date and time ordered]: 12/10 @ 0130
--- NOTE | 2022-12-08 01:25 | PCM.HOSP.N ---
Hospitalist Note Notified that patient obtained bed at [facility]. Will sign transfer form and relay to daytime hospitalist that bed was obtained.
--- NOTE | 2022-12-08 01:37 | NURSING ---
RN has attempted to call son and daughter in law multiple times to set up transport to [facility]. To get a consent for transport
[2022-12-08] MEDS: Vancomycin IV 500 MG/100 ML BAG 100 MG IV (01:53)
[2022-12-08 03:35] VITALS: PULSE 93; RESP 12; RESP 32; O2SAT 96
--- NOTE | 2022-12-08 04:47 | NURSING ---
Report called to Milka from [facility]
[2022-12-08] MEDS: 0.9% Saline Lock 10 ML Syringe IV (05:44)
[2022-12-08] MEDS: Furosemide 40 MG/4 ML Vial IV (05:44)
[2022-12-08 05:48] VITALS: BP 127/52; PULSE 95; RESP 28; TEMP 36.6; O2SAT 95
[2022-12-08 05:49] VITALS: BP 127/52; PULSE 95; RESP 28; TEMP 36.6; O2SAT 95
[2022-12-08 05:52] LABS: Absolute Lymphocyte Count 1.41 X10^3/uL (0.83-4.51); Absolute Neutrophil Count 18.5 X10^3/uL (2.0-7.7); Basophil# 0.18 X10^3/uL; Basophil% 0.8 % (0-1); Eosinophil# 0.08 X10^3/uL; Eosinophils% 0.4 % (0-5); Hematocrit 35.6 % (37-47); Hemoglobin 11.4 g/dL (12.0-15.0); Lymphocyte # 1.41 X10^3/ul (0.83-4.51); Lymphocyte % 6.5 % (19-41); Mean Corpuscular Hgb 30.5 pg (27.0-32.0); Mean Corpuscular Volume 95.2 fL (81-99); Mean Platelet Vol. 10.8 fl (6.2-12.0); Monocyte# 0.76 X10^3/uL; Monocyte% 3.5 % (0-10); NRBC Flagged by Analyzer 0.1 % (0-5); Neutrophil # 18.45 X10^3/uL (2.7-7.7); Neutrophil % 85.5 % (47-70); POSITIVE COUNT YES; Platelet Count 506 K/mm3 (150-450); RBC Distribution Width CV 13.2 % (11.6-14.6); RBC Distribution Width SD 45.8 fl (35.1-43.9); Red Blood Count 3.74 M/mm3 (4.2-5.4); White Blood Count 21.6 K/mm3 (4.4-11.0)
[2022-12-08 05:56] LABS: Differential Indicated SCAN CRITERIA MET
[2022-12-08 06:07] LABS: Partial Thromboplast Time 47.8 Seconds (24.1-36.2)
[2022-12-08 06:21] LABS: Anion Gap 14 (5-15); BUN 29 mg/dL (7-18); BUN/Creat Ratio 33.6 RATIO (10-20); Calcium,Total 9.5 mg/dL (8.5-10.1); Chloride 90 mmol/L (98-107); Creatinine, Serum 0.86 mg/dL (0.55-1.02); EST Glomerular Filtration Rate 67 mL/min (>60); Est Glom Filt Rate - Afr Amer 81 mL/min (>60); Glucose 137 mg/dL (74-106); Potassium 4.3 mmol/L (3.5-5.1); Sodium Level 137 mmol/L (136-145)
[2022-12-08 06:25] LABS: Differential Comment SCANNED; Platelet Estimate SLT INC (ADEQ)
[2022-12-08 06:31] VITALS: PULSE 93; PULSE 98; RESP 12; RESP 35; O2SAT 91
[2022-12-08] MEDS: Ipratropium/Albuterol Sulfate 3 ML AMPUL.NEB INHALATION (06:31)
--- NOTE | 2022-12-08 07:02 | PCM.PN.INT ---
Assessment & Plan Assessment/Plan (1) Acute hypoxemic respiratory failure: PLAN: Plan RECOMMENDATIONS: 1. Continue heparin infusion as ordered. 2. Continue BiPAP therapy and wean FiO2 for saturations greater than 90%. 3. Continue empiric broad-spectrum antimicrobials. 4. Ongoing diuresis as tolerated by hemodynamics and renal function. 5. Maintain n.p.o. status until patient can be removed safely from BiPAP therapy. IMPRESSIONS: 1. Acute hypoxemic respiratory failure Most likely multifactorial in etiology with newly diagnosed bilateral pulmonary emboli superimposed upon bilateral groundglass opacities, which could be infectious or related to pulmonary edema. The patient has already been initiated on heparin, which will be continued without change. In addition, the patient will be maintained on scheduled diuretics as tolerated by hemodynamics and renal function. Plan to continue to wean FiO2 to maintain oxygen saturations at or above 90%. Continue antimicrobials as ordered. CODE STATUS remains DNR CCA without intubation. The patient should be maintained n.p.o., pending her ability to be safely removed from BiPAP therapy. 2. Right displaced femoral neck fracture status post right hip hemiarthroplasty Continue routine postoperative care per orthopedic surgery. 3. History of coronary artery disease/hypertension/hyperlipidemia/valvular heart disease/hypothyroidism/GERD Complicates care, management, recovery and prognosis. Continue home medications as indicated. This note was generated with [employer] dictation software. It may contain incorrect words, spelling, and punctuation that were not noted in checking the note before signing. Subjective Subjective The patient was seen and examined at the bedside this morning. Events from the last 24 hours have been reviewed. The patient is currently afebrile, hemodynamically stable and maintaining appropriate oxygen saturations on BiPAP with an FiO2 of 70%. Repeat chest imaging yesterday demonstrated progressive bilateral infiltrates along with residual thrombus burden and continued evidence of right heart strain. Echocardiogram was largely unchanged. Respiratory viral panel was negative. The patient is currently documented to be overall net +2.6 L for the hospitalization. She remains on empiric broad-spectrum antimicrobials, heparin infusion and scheduled IV Lasix. Objective Data Objective Data The patient's most recent lab work, culture data and imaging studies have all been personally reviewed. Surface echocardiogram demonstrated moderate concentric LVH with an ejection fraction of 55% and stage I diastolic dysfunction. Pulmonary artery systolic pressure was estimated to be 70 mmHg. Vital Signs: Vital Signs Temp Pulse Resp BP Pulse Ox O2 Del Method O2 Flow Rate 98 F 98 35 H 127/52 H 91 Bi-pap 50 12/08/22 05:49 12/08/22 06:31 12/08/22 06:31 12/08/22 05:49 12/08/22 06:31 12/08/22 05:49 12/07/22 02:15 FiO2 70 12/08/22 06:31 Oxygen Flow Rate (L/min) 50 Oxygen Delivery Method Bi-pap Weight: 145 lb 4.554 oz Body Mass Index (BMI) 28.3 Intake & Output: Intake and Output for Last 24 Hours 12/06/22 12/07/22 12/08/22 23:59 23:59 23:59 Intake Total 1243.37 / 1303.37 257.63 / 257.63 321.92 / 321.92 Output Total 1150 / 1450 1400 / 1400 500 / 500 Balance 93.37 / -146.63 -1142.37 / -1142.37 -178.08 / -178.08 Lab / Micro Data Attestation: I reviewed the patient's lab results. Result Diagrams: 12/08/22 05:20 12/08/22 05:20 Labs: Laboratory Results - last 24 hr 12/07/22 06:40: APTT 63.7 H 12/07/22 08:46: B-Natriuretic Peptide 320.7 H 12/07/22 12:28: APTT 57.1 H 12/07/22 23:40: Random Vancomycin 14.3 12/08/22 05:20: WBC 21.6 H, RBC 3.74 L, Hgb 11.4 L, Hct 35.6 L, MCV 95.2, MCH 30.5, MCHC 32.0, RDW Std Deviation 45.8 H, RDW Coeff of Kwasi 13.2, Plt Count 506 H, MPV 10.8, Immature Gran % (Auto) 3.300 H, Neut % (Auto) 85.5 H, Lymph % (Auto) 6.5 L, [place] % (Auto) 3.5, Eos % (Auto) 0.4, Baso % (Auto) 0.8, Absolute Neuts (auto) 18.5 H, Absolute Lymphs (auto) 1.41, Nucleated RBC % 0.1, Differential Comment SCANNED, Platelet Estimate SLT INC 12/08/22 05:20: Sodium 137, Potassium 4.3, Chloride 90 L, Carbon Dioxide 33.0 H, Anion Gap 14, BUN 29 H, Creatinine 0.86, Estim Creat Clear Calc 38.10, Est GFR (MDRD) Af Amer 81, Est GFR (MDRD) Non-Af 67, BUN/Creatinine Ratio 33.6 H, Glucose 137 H, Calcium 9.5 12/08/22 05:20: APTT 47.8 H Micro: Microbiology 12/07/22 07:57 Mucosa - Nasopharyngeal Respiratory Panel (PCR) - Final 12/01/22 15:40 Mucosa - Nasopharyngeal Respiratory Panel (PCR) - Final 12/02/22 05:50 Mucosa - Nasopharyngeal Influenza Types A,B Direct FA (LIZANDRO) - Final ABG Data ABG results: ABG 12/04/22 12/04/22 11:43 21:38 Specimen Type ART ART Sample Site R Radial R Radial pH 7.46 H 7.51 H Bicarbonate Actual 37.8 H 35.4 H Total CO2 39 37 Base Excess 14 H 13 H O2 Saturation 99 98 O2 % 80 90 ABG pCO2 52.7 H 44.2 ABG pO2 149 H 92 [place] Test Positive Negative Respiration Rate 12 O2 Delivery Device BiPAP BiPAP Vent Mode BiLevel BiLevel POC PEEP 8 8 Clinical Comments 27/06 Radiography Diagnostic Testing: Radiology Impression Chest X-Ray 12/07/22 06:16 IMPRESSION: Findings suggest bilateral multifocal pneumonia. Electronically Signed: Amanda Chaudhari MD at 7:17 EST Reading Location ID and State: [facility] / [place] , Service support , Echocardiogram 12/07/22 07:32 Interpretation Summary The estimated ejection fraction is 55-60 %. Grade #2 Diastolic dydfunction No significant changes from previous echo. Ordering Physician: [place] Referring Physician: Gal Butler Performed By: Margie Torres RCS Chest CTA 12/07/22 11:23 IMPRESSION: Persistent evidence of bilateral PE. However when compared to the previous study there is slightly less thrombus burden on current study when compared to the previous study. Continued follow-up recommended to ensure complete resolution Persistent evidence of right heart strain with bowing of the septum to the left ventricle Persistent diffuse groundglass opacification throughout both lung faustin which anything of worsened since the previous study. Follow-up recommended to ensure resolution Persistent physiologic mediastinal and perihilar lymph nodes Degenerative bony changes Electronically Signed: Juan Ramon Spencer MD at 12:53 EST , Physical Exam Const alert Constitutional Narrative: Fatigued in appearance. General Appearance: cooperative and on BiPAP HEENT normocephalic and head/scalp atraumatic Eyes PERRL, EOMs intact bilaterally and conjunctivae normal Neck supple General: trachea midline Chest inspection of chest normal Resp Effort and Inspection: tachypneic Auscultation: rales bilateral and diminished lung sounds Cardio regular rate and regular rhythm Heart Sounds: murmur GI normal to inspection, nondistended, normoactive bowel sounds Extremity no clubbing, cyanosis or edema Skin no rashes or lesions noted Neuro no focal motor deficits Psych Mood & Affect: flat affect Charges/Coding Visit Charges Inpatient E&M: 00035 Subs Hosp L3
--- NOTE | 2022-12-08 07:39 | PCM.DC.SUM ---
Providers Date of Admission: 11/26/22 Date of Discharge: 12/08/22 Primary Care Physician: Dr. Gal Butler MD Consultations 11/26/22 18:55 Consult: Orthopedics Routine Consulting Provider: Liu Qiu Reason for Consult: hip fracture EMERGENT Consult: No Notified: Yes Date Notified: 11/26/22 Time Notified: 17:31 Method of Notification: Verbal 12/02/22 05:05 Consult: Dishwasher / Pulmonary Medicine Routine Consulting Provider: [place] Reason for Consult: Increasing oxygen requirement EMERGENT Consult: No Notified: Yes Date Notified: 12/02/22 Time Notified: 05:05 Method of Notification: md to md? Reason For Visit: RIGHT FEMORAL NECK FRACTURE Diagnosis Discharge Diagnosis (1) Acute hypoxemic respiratory failure: Status: Acute Code(s): J96.01 - Acute respiratory failure with hypoxia Plan Patient is a 77-year-old lady admitted with a fall was found to have right displaced femoral neck fracture for which he underwent right hip hemiarthroplasty. Patient was found to be hypoxic following the procedure CTA demonstrated bilateral pulmonary emboli superimposed on bilateral groundglass opacities. Was placed on noninvasive ventilation transferred from regular nursing floor to a monitored bed. 1. Fall with nondisplaced basilar cervical fracture of the proximal right femur Patient underwent right hemiarthroplasty on 11/28/2022. Postop. Complicated by hypoxia management as discussed below ? 12/03/2022; PT OT as tolerated 2. Acute hypoxic respiratory failure (developed after admission) ? Due to combination of suspected pneumonia with MDR's as well as bilateral pulmonary embolism as part of patient's management she was placed on noninvasive ventilation Airvo transferred to a monitored bed consultation placed to pulmonary medicine and treatment of the underlying etiology initiated ?12/03/2022; patient remains on supplemental oxygen via Vapotherm 12/04/2022. Patient went into acute respiratory distress during the night despite being on Airvo patient had to be placed on BiPAP. Subsequent chest x-ray obtained demonstrated Persistent bilateral pulmonary infiltrates worse in the right hemithorax although there has been improved aeration as compared to prior study.. Diagnostic data significant for hypokalemia this AM. 12/05/2022; remains on noninvasive ventilation via Airvo -12/06/2022 has been placed intermittently on BiPAP. Plan is to switch patient from heparin to p.o. Eliquis -12/07/2022; Patient seen still requiring significant amount of oxygen. Repeat chest x-ray did show bilateral multifocal pneumonia. Patient remains on broad-spectrum antibiotic therapy. Did update patient's [id number] who happens to be a physician. Plan is to repeat CT of the chest to evaluate patient's clot burden ? 12/08/2022. Repeat CT did demonstrate decrease in the burden of clot. Case was discussed with patient's son as well as her [id number] they requested for patient to be transferred to [facility]. Call was placed to [facility] the day prior. Patient was accepted for transfer on 12/08/2022. 3. Bilateral pulmonary embolism ? Provoked given patient recent surgery. Started on heparin. ? 12/06/2022; plan is to switch patient from heparin to p.o. Eliquis 4. Pneumonia ? With suspected multidrug-resistant organisms. Patient remains on meropenem and vancomycin. 5. Hypothyroidism - Patient is on levothyroxine home dose continued 6. GERD ? Patient is on PPI 7. Depression ? Patient is on sertraline did continue 8. History of CVA ? With no residual effects patient is on Plavix continued 10. Coronary artery disease ? Per history patient is on dual antiplatelet therapy with aspirin and Plavix 11. Dyslipidemia ? Patient is on atorvastatin did continue 12. Hypokalemia ? Corrected per protocol repeat labs ordered for a.m. 12/04/2021; patient potassium level still remains low additional potassium given repeat potassium ordered for a.m. 13. Hypertension - Blood pressure controlled, home medications continued with dose adjustment as needed Time spent in the patient's overall evaluation,decision-making process, review of diagnostic data, adjustment of management, discussion with other providers, nursing nursing and ancillary staff involved in patient's care documentation, 36 -minutes Medications at Discharge Home Medications levothyroxine 25 mcg tablet 25 mcg PO DAILY thyroid 02/27/17 hydrochlorothiazide 25 mg tablet 25 mg PO DAILY diuretic 05/11/21 trazodone 50 mg tablet 50 mg PO QHS PRN Insomnia 05/11/21 spironolactone 25 mg tablet 25 mg PO DAILY diuretic 08/01/21 meclizine 25 mg tablet 25 mg PO TID PRN Dizziness 05/31/22 gabapentin 300 mg capsule 300 mg PO QHS Check with primary doctor 09/08/22 omeprazole 40 mg capsule,delayed release 40 mg PO DAILY Check with primary doctor 09/08/22 sertraline 100 mg tablet 100 mg PO DAILY Check with primary doctor 09/08/22 aspirin 81 mg tablet,delayed release 81 mg PO DAILY Check with primary doctor 10/28/22 atorvastatin 40 mg tablet 40 mg PO QHS Check with primary doctor 10/28/22 clopidogrel 75 mg tablet (Plavix) 75 mg PO DAILY Check with primary doctor 10/28/22 metoprolol succinate 100 mg tablet,extended release 24 hr 100 mg PO DAILY Check with primary doctor 10/28/22 benzonatate 100 mg capsule 100 mg PO Q4H PRN PRN COUGH #0 caps 10/29/22 mirtazapine 7.5 mg tablet 7.5 mg PO QHS mood 11/26/22 Hospital Course Summary of Care Provided Minutes Spent on Discharge: 36 Physical Exam Narrative GENERAL: Patient on Airvo HEENT: Atraumatic; normocephalic EYES; Anicteric, Normal Conjunctiva NECK; supple, normal thyroid, RESPIRATORY: Diminished to auscultation CARDIOVASCULAR: Regular S1-S2 tachycardic GI: soft, normoactive bowel sounds, : No Renal angle tenderness; EXTREMITIES: No edema, no clubbing, MUSCULOSKELETAL: no muscle wasting NEURO: Awake; no lateralizing signs. SKIN: No Rash PSYCH; Flat affect Weight / BMI Weight Weight: 65.9 kg Body Mass Index (BMI) 28.3 ABG / Lab / Microbiology Data Result Diagrams: 12/08/22 05:20 12/08/22 05:20 Laboratory: Laboratory Results - last 24 hr 12/07/22 08:46: B-Natriuretic Peptide 320.7 H 12/07/22 12:28: APTT 57.1 H 12/07/22 23:40: Random Vancomycin 14.3 12/08/22 05:20: WBC 21.6 H, RBC 3.74 L, Hgb 11.4 L, Hct 35.6 L, MCV 95.2, MCH 30.5, MCHC 32.0, RDW Std Deviation 45.8 H, RDW Coeff of Kwasi 13.2, Plt Count 506 H, MPV 10.8, Immature Gran % (Auto) 3.300 H, Neut % (Auto) 85.5 H, Lymph % (Auto) 6.5 L, [place] % (Auto) 3.5, Eos % (Auto) 0.4, Baso % (Auto) 0.8, Absolute Neuts (auto) 18.5 H, Absolute Lymphs (auto) 1.41, Nucleated RBC % 0.1, Differential Comment SCANNED, Platelet Estimate SLT INC 12/08/22 05:20: Sodium 137, Potassium 4.3, Chloride 90 L, Carbon Dioxide 33.0 H, Anion Gap 14, BUN 29 H, Creatinine 0.86, Estim Creat Clear Calc 38.10, Est GFR (MDRD) Af Amer 81, Est GFR (MDRD) Non-Af 67, BUN/Creatinine Ratio 33.6 H, Glucose 137 H, Calcium 9.5 12/08/22 05:20: APTT 47.8 H Microbiology: Microbiology 12/07/22 07:57 Mucosa - Nasopharyngeal Respiratory Panel (PCR) - Final 12/01/22 15:40 Mucosa - Nasopharyngeal Respiratory Panel (PCR) - Final 12/02/22 05:50 Mucosa - Nasopharyngeal Influenza Types A,B Direct FA (LIZANDRO) - Final Radiography Diagnostic Testing: Radiology Impression Echocardiogram 12/07/22 07:32 Interpretation Summary The estimated ejection fraction is 55-60 %. Grade #2 Diastolic dydfunction No significant changes from previous echo. Ordering Physician: [place] Referring Physician: Gal Butler Performed By: Margie Torres RCS Chest CTA 12/07/22 11:23 IMPRESSION: Persistent evidence of bilateral PE. However when compared to the previous study there is slightly less thrombus burden on current study when compared to the previous study. Continued follow-up recommended to ensure complete resolution Persistent evidence of right heart strain with bowing of the septum to the left ventricle Persistent diffuse groundglass opacification throughout both lung faustin which anything of worsened since the previous study. Follow-up recommended to ensure resolution Persistent physiologic mediastinal and perihilar lymph nodes Degenerative bony changes Electronically Signed: Juan Ramon Spencer MD at 12:53 EST Reading Location ID and State: [facility] / [place] , Service support , Meaningful Use Info Meaningful Use Diagnoses (Choose all that apply): CHF and VTE CHF SAIDA/ARB ordered at discharge?: No Reason SAIDA/ARB not ordered?: Not indicated Documented LVEF (%): 60 VTE Anticoag overlap given w/in hospital stay or rx'd at dc?: Yes Pt receive overlap for 5 days?: No Reason overlap not ordered, prescribed, or given for 5 days: Treatment Not Indicated Discharge Plan Admission Admit Date/Time: 11/26/22 17:19 Attending Provider: Ashok Castellon Primary Care Provider: Gal Butler Consulting Providers: Michael Garcia ; Liu Ribera ; [place] ; Liu Qiu Discharge Orders/Prescriptions Prescriptions: No Action hydrochlorothiazide 25 mg tablet 25 mg PO DAILY trazodone 50 mg tablet 50 mg PO QHS PRN (Reason: Insomnia) levothyroxine 25 MCG tablet 25 mcg PO DAILY meclizine 25 mg Tablet 25 mg PO TID PRN (Reason: Dizziness) spironolactone 25 mg tablet 25 mg PO DAILY sertraline 100 mg tablet 100 mg PO DAILY omeprazole 40 mg capsule,delayed release(DR/EC) 40 mg PO DAILY gabapentin 300 mg capsule 300 mg PO QHS atorvastatin 40 mg tablet 40 mg PO QHS metoprolol succinate 100 mg tablet extended release 24 hr 100 mg PO DAILY clopidogrel [Plavix] 75 mg tablet 75 mg PO DAILY aspirin 81 mg tablet,delayed release (DR/EC) 81 mg PO DAILY benzonatate 100 mg Capsule 100 mg PO Q4H PRN PRN (Reason: COUGH) Qty: 0 0RF mirtazapine 7.5 mg tablet 7.5 mg PO QHS Label Comments: TAKE 1 TABLET AT BEDTIME Referrals / Follow Up: Gal Butler MD [Primary Care Provider] - Within 2 Weeks Disposition Disposition (needs filled in before D/C Order can be placed): Acute Care Hospital Charges/Coding Visit Charges Inpatient E&M: 82239 Disch Hosp >30min
== END 2022-12-08 08:16 | disposition short-term general hospital (02) | DRG 521 ==
LOC: ED 14:36 → MS3 15:48 → PCU 12-02 08:29
PROVIDERS: Anesthesiology; Family Medicine; Hospitalist; Internal Medicine Critical Care Medicine; Student in an Organized Health Care Education/Training Program; Admitting Provider Internal Medicine; Emergency Provider Emergency Medicine; PCP Family Medicine; Visit Provider Internal Medicine
PROC: 0SRR0J9 Replacement of Right Hip Joint, Femoral Surface with Synthetic Substitute, Cemented, Open Approach (ICD-10-PCS; CPT 27125; principal; 2022-11-28 13:50)
DX: M80.051A Age-related osteoporosis with current pathological fracture, right femur, initial encounter for fracture (principal); J18.9 Pneumonia, unspecified organism; J96.01 Acute respiratory failure with hypoxia; T81.718A Complication of other artery following a procedure, not elsewhere classified, initial encounter; Z16.24 Resistance to multiple antibiotics; I26.99 Other pulmonary embolism without acute cor pulmonale; E03.9 Hypothyroidism, unspecified; K21.9 Gastro-esophageal reflux disease without esophagitis; I10 Essential (primary) hypertension; I25.10 Atherosclerotic heart disease of native coronary artery without angina pectoris; E78.2 Mixed hyperlipidemia; E87.6 Hypokalemia; W18.09XA Striking against other object with subsequent fall, initial encounter; Y83.1 Surgical operation with implant of artificial internal device as the cause of abnormal reaction of the patient, or of later complication, without mention of misadventure at the time of the procedure; Y93.E8 Activity, other personal hygiene; F32.A Depression, unspecified; Z66 Do not resuscitate; Z79.82 Long term (current) use of aspirin; Z79.02 Long term (current) use of antithrombotics/antiplatelets; Z79.899 Other long term (current) drug therapy; Z87.891 Personal history of nicotine dependence; Z86.73 Personal history of transient ischemic attack (TIA), and cerebral infarction without residual deficits
CPT/HCPCS: 36415; 36569; 36600; 51702; 71045; 71275; 73030; 73502; 73700; 80048; 80053; 80202; 81001; 82306; 82803; 83735; 83880; 84100; 84145; 84443; 84484; 85025; 85610; 85730; 86850; 86900; 86901; 86920; 86922; 87633; 87635; 87641; 87804; 88305; 88307; 88311; 92526; 92610; 93005; 93306; 94002; 94003; 94640; 94660; 94762; 97110; 97116; 97162; 97166; 97530; 97535; 99252; 99285; C1776; J2185; J7030; J7040; J7050; J7120; Q9967; A4216; G0463; J1940; J2405; U0003; U0005